=== PATIENT | male | born 1940 | race Caucasian/White ===

== ENCOUNTER 2016-09-08 05:42 | Emergency (ER) | payer MEDICARE ==
[2016-09-08 05:54] VITALS: BP 154/72; PULSE 84; RESP 16; TEMP 97.1
[2016-09-08] MEDS ORDERED: ACET/COD 300 MG/30 MG STARTER PACK 6 TAB BTL PO STA (06:02)
--- NOTE | 2016-09-08 06:03 | ED ---
General Adult HPI - General Chief complaint: Headache Stated complaint: Fever/Possible Sinus Infection Time Seen by Provider: 09/08/16 05:50 Source: patient, family, RN notes reviewed Mode of arrival: ambulatory Limitations: no limitations - History of Present Illness Initial comments: Patient is a pleasant 75-year-old male presenting to the emergency Department with upper respiratory symptoms. Symptoms started 2 days ago. Symptoms have progressed. Patient has nasal congestion and pain extending to his upper teeth. Patient also is having some headaches. Patient does have rhinorrhea. Patient has occasional cough. No dyspnea. - Related Data Home Medications Medication Instructions Recorded Confirmed Albuterol Inhaler [Ventolin Hfa 3 puff INHALATION RT-Q4H PRN 03/02/15 05/10/16 Inhaler] Beclomethasone Dipropionate [Qvar 2 puff INHALATION RT-BID 03/02/15 05/10/16 80 mcg/puff] Insulin Aspart [NovoLOG] 0 unit SQ-PUMP DIRECTED 03/02/15 05/10/16 Loperamide [Imodium] 4 mg PO QID 03/02/15 05/10/16 Cholecalciferol [Vitamin D3] 5,000 unit PO DAILY 10/08/15 05/10/16 Ferrous Sulfate [Iron (65 MG 325 mg PO BID 10/08/15 05/10/16 Elemental)] Multivitamin [Men's Multi-Vitamin] 1 tab PO DAILY 10/08/15 05/10/16 [place]-3 Fatty Acids/Fish Oil [Fish 1 cap PO DAILY 10/08/15 05/10/16 Oil 1,000 mg Softgel] Perindopril Erbumine [Aceon] 8 mg PO BID 10/08/15 05/10/16 Previous Rx's Medication Instructions Recorded Amoxicillin/Potassium Clav 1 tab PO Q12HR #14 tab 05/10/16 [Augmentin 875-125 Tablet] Fluocinonide/Emollient Base 1 applic TOPICAL TID #15 gm 05/10/16 [Fluocinonide-E 0.05% Cream] Acetaminophen-Codeine 300-30mg 1 each PO Q4H PRN #12 tablet 09/08/16 [Tylenol #3] Amoxic-Pot Clav 875-125Mg 1 tab PO Q12HR #20 tablet 09/08/16 [Augmentin 875-125] Allergies Allergy/AdvReac Type Severity Reaction Status Date / Time No Known Allergies Allergy Verified 05/10/16 10:09 Review of Systems ROS Statement: Those systems with pertinent positive or pertinent negative responses have been documented in the HPI. ROS Other: All systems not noted in ROS Statement are negative. Constitutional: Reports: fever (Up to 101.6), chills Eyes: Denies: eye pain ENT: Reports: throat pain. Denies: ear pain Respiratory: Reports: cough. Denies: dyspnea Cardiovascular: Denies: chest pain Endocrine: Denies: fatigue Gastrointestinal: Denies: abdominal pain Genitourinary: Denies: dysuria Musculoskeletal: Denies: back pain Skin: Denies: rash Neurological: Reports: headache. Denies: weakness Past Medical History Past Medical History: Asthma, Diabetes Mellitus, Hyperlipidemia, Hypertension, Osteoarthritis (OA), Pneumonia Additional Past Medical History / Comment(s): CROHNS's, GOUT,TAKES FISH OIL FOR HIS CHOLETEROL. HAS INSULIN PUMP-FILLED IT LAST ON Wednesday10-05-15 History of Any Multi-Drug Resistant Organisms: None Reported Past Surgical History: Appendectomy, Bowel Resection, Cholecystectomy, Prostate Surgery Additional Past Surgical History / Comment(s): COLONOSCOPY, FATTY TUMOR REMOVED FROM HIS BACK, RT CATARACT. Past Anesthesia/Blood Transfusion Reactions: No Reported Reaction Additional Past Anesthesia/Blood Transfusion Reaction / Comment(s): CLAUTERPHOBIA. PER PAST MEDICL HX: HAD A BLOOD TRANSFUSION 1966- REACTION WAS FACIAL SWELLING. Past Psychological History: No Psychological Hx Reported Smoking Status: Never smoker Past Alcohol Use History: None Reported Past Drug Use History: None Reported - Past Family History Mother Family Medical History: Cancer Additional Family Medical History / Comment(s): BREAST CANCER Father Family Medical History: Cancer Additional Family Medical History / Comment(s): COLON CANCER Brother(s) Family Medical History: Cancer, Prostate Disorder Additional Family Medical History / Comment(s): PROSTATE CANCER General Exam Limitations: no limitations General appearance: alert, in no apparent distress Head exam: Present: atraumatic, normocephalic, other (No temporal tenderness to palpation) Eye exam: Present: normal appearance, PERRL, EOMI ENT exam: Present: normal oropharynx Neck exam: Present: normal inspection. Absent: tenderness Respiratory exam: Present: normal lung sounds bilaterally Cardiovascular Exam: Present: regular rate, normal rhythm GI/Abdominal exam: Present: soft. Absent: tenderness Extremities exam: Present: normal inspection Neurological exam: Present: alert, CN II-XII intact. Absent: motor sensory deficit Expanded Speech: Present: fluid speech Motor strength exam: RUE: 5, LUE: 5, RLE: 5, LLE: 5 Eye Response: (4) open spontaneously Motor Response: (6) obeys commands Verbal Response: (5) oriented Psychiatric exam: Present: normal affect, normal mood Skin exam: Absent: rash Course Vital Signs 09/08/16 05:51 Temperature 97.1 F L Pulse Rate 84 Respiratory 16 Rate Blood Pressure 154/72 O2 Sat by Pulse 98 Oximetry Medical Decision Making - Medical Decision Making Patient does not feel computed tomography scan is necessary. Patient is receptive to antibiotics and discharged. Disposition Clinical Impression: Sinusitis Disposition: HOME SELF-CARE Condition: Stable Instructions: Acute Headache (ED), Sinusitis (ED) Additional Instructions: Please follow-up to primary care physician in the next day or 2 for recheck. [id number] Tylenol or Motrin if needed for fever or headache. Saline nasal spray. Return for uncontrolled fever, weakness, difficulty breathing, worsening symptoms or other concerns. Prescriptions: Acetaminophen-Codeine 300-30mg [Tylenol #3] 1 each PO Q4H PRN #12 tablet PRN Reason: Pain Amoxic-Pot Clav 875-125Mg [Augmentin 875-125] 1 tab PO Q12HR #20 tablet Referrals: Jaron Dunn MD [Primary Care Provider] - 1-2 days
== END 2016-09-08 06:23 | disposition home or self-care (01) ==
LOC: EC 05:42
DX: J32.9 Chronic sinusitis, unspecified (principal); R51 Headache; J45.909 Unspecified asthma, uncomplicated; E11.9 Type 2 diabetes mellitus without complications; E78.5 Hyperlipidemia, unspecified; I10 Essential (primary) hypertension; M10.9 Gout, unspecified; M19.90 Unspecified osteoarthritis, unspecified site; Z79.899 Other long term (current) drug therapy; Z79.51 Long term (current) use of inhaled steroids; Z87.01 Personal history of pneumonia (recurrent)
CPT/HCPCS: 99283

== ENCOUNTER → 2017-08-02 | Outpatient (CLI) | payer MEDICARE ==
[2017-08-02 12:55] LABS: ALT 24 U/L (21-72); AST 17 U/L (17-59); Albumin 3.3 g/dL (3.5-5.0); Alkaline Phosphatase 92 U/L (38-126); Anion Gap 12 mmol/L; Blood Urea Nitrogen 13 mg/dL (9-20); Calcium 8.7 mg/dL (8.4-10.2); Carbon Dioxide 27 mmol/L (22-30); Chloride 105 mmol/L (98-107); Cholesterol 114 mg/dL (<200); Glucose 258 mg/dL (74-99); HDL Cholesterol 34 mg/dL (40-60); LDL Cholesterol,Calculated 54 mg/dL (0-99); Potassium 3.5 mmol/L (3.5-5.1); Sodium 144 mmol/L (137-145); Total Bilirubin 0.4 mg/dL (0.2-1.3); Total Protein 5.8 g/dL (6.3-8.2); Triglycerides 128 mg/dL (<150)
== END | disposition home or self-care (01) ==
LOC: LABWHC1 11:53
PROVIDERS: ATTEND Internal Medicine Clinical Cardiac Electrophysiology
DX: E11.9 Type 2 diabetes mellitus without complications (principal); I48.91 Unspecified atrial fibrillation; E78.5 Hyperlipidemia, unspecified
CPT/HCPCS: 36415; 80053; 80061; 84443

== ENCOUNTER → 2018-02-23 | Outpatient (CLI) | payer MEDICARE ==
--- NOTE | 2018-02-23 16:58 | XR ---
EXAMINATION TYPE: XR chest 2V DATE OF EXAM: 02/23/2018 COMPARISON: 10/08/2015 INDICATION: Asthma TECHNIQUE: Frontal and lateral views of the chest are obtained. FINDINGS: The heart size is normal. The pulmonary vasculature is normal. The lungs are clear. IMPRESSION: 1. No acute pulmonary process.
== END | disposition home or self-care (01) ==
LOC: RADXRMAIN 11:11
PROVIDERS: ATTEND Internal Medicine Critical Care Medicine
DX: J45.901 Unspecified asthma with (acute) exacerbation (principal)
CPT/HCPCS: 71046

== ENCOUNTER → 2018-02-23 | Outpatient (CLI) | payer MEDICARE ==
[2018-02-23 11:09] LABS: HCT 38.8 % (39.0-53.0); HGB 11.7 gm/dL (13.0-17.5); Hypochromasia Slight; MCH 25.4 pg (25.0-35.0); MCHC 30.2 g/dL (31.0-37.0); MCV 84.2 fL (80.0-100.0); Platelet Count 342 k/uL (150-450); RBC 4.61 m/uL (4.30-5.90); RDW 14.4 % (11.5-15.5); WBC 8.4 k/uL (3.8-10.6)
== END | disposition home or self-care (01) ==
LOC: LABWHC1 10:46
PROVIDERS: ATTEND Internal Medicine Critical Care Medicine
DX: J45.901 Unspecified asthma with (acute) exacerbation (principal)
CPT/HCPCS: 36415; 82785; 85027

== ENCOUNTER → 2020-01-12 | Outpatient (CLI) | payer MEDICARE ==
--- NOTE | 2020-01-12 12:25 | XR ---
EXAMINATION TYPE: XR hand limited RT DATE OF EXAM: 01/12/2020 COMPARISON: None HISTORY: Thumb pain arthritis TECHNIQUE: Three-view right hand FINDINGS: No acute fractures or dislocations are evident. Joint spaces appear preserved. Significant joint loss of the thumb is not evident. There is a radiopaque foreign body within the soft tissues of the proximal ulnar aspect of the index finger. IMPRESSION: 1. No acute osseous abnormality. 2. Significant degenerative joint changes are not evident. 3. Radiopaque foreign body proximal index finger.
== END | disposition home or self-care (01) ==
LOC: RADXRMAIN 11:58
PROVIDERS: ATTEND Family Medicine
DX: S50.851A Superficial foreign body of right forearm, initial encounter (principal); M19.041 Primary osteoarthritis, right hand

== ENCOUNTER 2020-07-04 15:25 | Emergency (ER) | payer MEDICARE ==
[2020-07-04 15:30] VITALS: BP 198/83; PULSE 81; TEMP 99.7
[2020-07-04] MEDS ORDERED: ACETAMINOPHEN TAB 500 MG TAB PO STA (15:34)
--- NOTE | 2020-07-04 15:53 | ED ---
General Adult HPI - General Chief complaint: Fever Stated complaint: Fever/cough/body aches Time Seen by Provider: 07/04/20 15:31 Source: patient Mode of arrival: ambulatory Limitations: no limitations - History of Present Illness Initial comments: Dictation was produced using [employer] dictation software. please excuse any grammatical, word or spelling errors. This patient was cared for during a federal and state declared state of emergency secondary to Covid 19 Chief Complaint: 79-year-old male past focal history of asthma, diabetes, dyslipidemia hypertension presents with URI-type symptoms. History of Present Illness: 79-year-old male he is here in emergency department because he feels he might have Covid 19. Patient states he lives at home. He does go out about to the shopping center as a grocery stores. He otherwise has not been exposed to anybody with coronavirus. Patient over the last 2 days developed fever, cough, congestion and myalgias. Denies any anosmia. Denies any shortness of breath. Patient states he's otherwise feeling well. Patient has a history of asthma. He takes an inhaler. The ROS documented in this emergency department record has been reviewed and confirmed by me. Those systems with pertinent positive or negative responses have been documented in the HPI. All other systems are other negative and/or noncontributory. PHYSICAL EXAM: General Impression: Alert and oriented x3, not in acute distress HEENT: Normocephalic atraumatic, extra-ocular movements intact, pupils equal and reactive to light bilaterally, mucous membranes moist. Cardiovascular: Heart regular rate and rhythm Chest: Able to complete full sentences, no retractions, no tachypnea Abdomen: abdomen soft, non-tender, non-distended, no organomegaly Musculoskeletal: Pulses present and equal in all extremities, no peripheral edema Motor: no focal deficits noted Neurological: CN II-XII grossly intact, no focal motor or sensory deficits noted Skin: Intact with no visualized rashes Psych: Normal affect and mood ED course: 79-year-old male with past medical history of asthma since the emergency Department with fever, cough, congestion 2 days.. Signs upon arrival shows temperature 99.7, rest of vital signs within acceptable limits. Patient is not hypoxic at bedside. He is not showing signs of respiratory distress. Laboratory evaluation obtained. CBC, coag panel, metabolic panel is unremarkable except for glucose of 40. Patient has insulin pump. His glucose is low because he hasn't been all day. Given dextrose and oral intake. Patient rotavirus positive. Chest x-ray is nonacute. Patient stable for discharge. Return parameters discussed. EKG interpretation: Ventricular rate, sinus rhythm,. 184, QRS 100, QTC 451. No W[place] prolongation, no QTC prolongation, no ST or T-wave changes noted.. Overall, this EKG is unremarkable - Related Data Home Medications Medication Instructions Recorded Confirmed Beclomethasone Dipropionate [Qvar 2 puff INHALATION RT-BID 03/02/15 07/04/20 80 mcg/puff] Insulin Aspart [NovoLOG] 0.01 unit SQ-PUMP CONTINUOUS 03/02/15 07/04/20 Loperamide [Imodium] 4 mg PO QID 03/02/15 07/04/20 Ferrous Sulfate [Iron (65 MG 325 mg PO BID 10/08/15 07/04/20 Elemental)] Multivitamin [Men's Multi-Vitamin] 1 tab PO DAILY 10/08/15 07/04/20 Albuterol Sulfate [Proair Hfa] 1 - 2 puff INHALATION RT-QID PRN 07/04/20 07/04/20 Carvedilol [Coreg] 6.25 mg PO BID 07/04/20 07/04/20 Donepezil HCl [Aricept] 5 mg PO DAILY 07/04/20 07/04/20 Irbesartan [Avapro] 150 mg PO DAILY 07/04/20 07/04/20 Magnesium Citrate 125 mg PO DAILY 07/04/20 07/04/20 [place]-3 Fatty Acids/Fish Oil 1 cap PO DAILY 07/04/20 07/04/20 [[place]-3 Fish Oil 1,200 mg Sfgl] Tamsulosin HCl [Flomax] 0.4 mg PO BID 07/04/20 07/04/20 amLODIPine [Norvasc] 2.5 mg PO DAILY 07/04/20 07/04/20 Allergies Allergy/AdvReac Type Severity Reaction Status Date / Time No Known Allergies Allergy Verified 07/04/20 16:59 Review of Systems ROS Statement: Those systems with pertinent positive or pertinent negative responses have been documented in the HPI. ROS Other: All systems not noted in ROS Statement are negative. Past Medical History Past Medical History: Asthma, Diabetes Mellitus, Hyperlipidemia, Hypertension, Osteoarthritis (OA), Pneumonia Additional Past Medical History / Comment(s): CROHNS's, GOUT,TAKES FISH OIL FOR HIS CHOLETEROL. HAS INSULIN PUMP-FILLED IT LAST ON Wednesday10-05-15 History of Any Multi-Drug Resistant Organisms: None Reported Past Surgical History: Appendectomy, Bowel Resection, Cholecystectomy, Prostate Surgery Additional Past Surgical History / Comment(s): COLONOSCOPY, FATTY TUMOR REMOVED FROM HIS BACK, RT CATARACT. Past Anesthesia/Blood Transfusion Reactions: No Reported Reaction Additional Past Anesthesia/Blood Transfusion Reaction / Comment(s): CLAUTERPHOBIA. PER PAST MEDICL HX: HAD A BLOOD TRANSFUSION 1966- REACTION WAS FACIAL SWELLING. Past Psychological History: No Psychological Hx Reported Smoking Status: Never smoker Past Alcohol Use History: None Reported Past Drug Use History: None Reported - Past Family History Mother Family Medical History: Cancer Additional Family Medical History / Comment(s): BREAST CANCER Father Family Medical History: Cancer Additional Family Medical History / Comment(s): COLON CANCER Brother(s) Family Medical History: Cancer, Prostate Disorder Additional Family Medical History / Comment(s): PROSTATE CANCER General Exam Limitations: no limitations Course Vital Signs 07/04/20 15:26 Temperature 99.7 F H Pulse Rate 81 Respiratory 22 Rate Blood Pressure 198/83 O2 Sat by Pulse 97 Oximetry Medical Decision Making - Lab Data Result diagrams: 07/04/20 16:35 07/04/20 16:35 Lab Results 07/04/20 07/04/20 07/04/20 Range/Units 16:35 16:35 16:35 WBC 5.3 (3.8-10.6) k/uL RBC 4.81 (4.30-5.90) m/uL Hgb 12.1 L (13.0-17.5) gm/dL Hct 37.0 L (39.0-53.0) % MCV 76.8 L (80.0-100.0) fL MCH 25.2 (25.0-35.0) pg MCHC 32.8 (31.0-37.0) g/dL RDW 15.4 (11.5-15.5) % Plt Count 242 (150-450) k/uL MPV 6.9 Neutrophils % 65 % Lymphocytes % 20 % Monocytes % 12 % Eosinophils % 0 % Basophils % 2 % Neutrophils # 3.4 (1.3-7.7) k/uL Lymphocytes # 1.0 (1.0-4.8) k/uL Monocytes # 0.6 (0-1.0) k/uL Eosinophils # 0.0 (0-0.7) k/uL Basophils # 0.1 (0-0.2) k/uL Microcytosis Slight PT 11.3 (9.0-12.0) sec INR 1.1 (<1.2) APTT 24.7 (22.0-30.0) sec Sodium 141 (137-145) mmol/L Potassium 3.5 (3.5-5.1) mmol/L Chloride 108 H (98-107) mmol/L Carbon Dioxide 27 (22-30) mmol/L Anion Gap 6 mmol/L BUN 13 (9-20) mg/dL Creatinine 0.84 (0.66-1.25) mg/dL Est GFR (CKD-EPI)AfAm >90 (>60 ml/min/1.73 sqM) Est GFR (CKD-EPI)NonAf 82 (>60 ml/min/1.73 sqM) Glucose 40 L* (74-99) mg/dL POC Glucose (mg/dL) (75-99) mg/dL POC Glu Fowl Blood Tester ID Plasma Lactic Acid [place] (0.7-2.0) mmol/L Calcium 8.2 L (8.4-10.2) mg/dL Magnesium 2.0 (1.6-2.3) mg/dL Total Bilirubin 0.4 (0.2-1.3) mg/dL AST 38 (17-59) U/L ALT 57 H (4-49) U/L Alkaline Phosphatase 111 (38-126) U/L Lactate Dehydrogenase 392 (313-618) U/L C-Reactive Protein 20.1 H (<10.0) mg/L Total Protein 6.0 L (6.3-8.2) g/dL Albumin 3.3 L (3.5-5.0) g/dL Coronavirus (PCR) (Not Detectd) 07/04/20 07/04/20 07/04/20 Range/Units 16:35 16:35 17:50 WBC (3.8-10.6) k/uL RBC (4.30-5.90) m/uL Hgb (13.0-17.5) gm/dL Hct (39.0-53.0) % MCV (80.0-100.0) fL MCH (25.0-35.0) pg MCHC (31.0-37.0) g/dL RDW (11.5-15.5) % Plt Count (150-450) k/uL MPV Neutrophils % % Lymphocytes % % Monocytes % % Eosinophils % % Basophils % % Neutrophils # (1.3-7.7) k/uL Lymphocytes # (1.0-4.8) k/uL Monocytes # (0-1.0) k/uL Eosinophils # (0-0.7) k/uL Basophils # (0-0.2) k/uL Microcytosis PT (9.0-12.0) sec INR (<1.2) APTT (22.0-30.0) sec Sodium (137-145) mmol/L Potassium (3.5-5.1) mmol/L Chloride (98-107) mmol/L Carbon Dioxide (22-30) mmol/L Anion Gap mmol/L BUN (9-20) mg/dL Creatinine (0.66-1.25) mg/dL Est GFR (CKD-EPI)AfAm (>60 ml/min/1.73 sqM) Est GFR (CKD-EPI)NonAf (>60 ml/min/1.73 sqM) Glucose (74-99) mg/dL POC Glucose (mg/dL) 282 H (75-99) mg/dL POC Glu Fowl Blood Tester ID Yenny Wheeler Plasma Lactic Acid [place] 1.0 (0.7-2.0) mmol/L Calcium (8.4-10.2) mg/dL Magnesium (1.6-2.3) mg/dL Total Bilirubin (0.2-1.3) mg/dL AST (17-59) U/L ALT (4-49) U/L Alkaline Phosphatase (38-126) U/L Lactate Dehydrogenase (313-618) U/L C-Reactive Protein (<10.0) mg/L Total Protein (6.3-8.2) g/dL Albumin (3.5-5.0) g/dL Coronavirus (PCR) Detected A (Not Detectd) Disposition Clinical Impression: COVID-19 Disposition: HOME SELF-CARE Condition: Good Instructions (If sedation given, give patient instructions): Fever in Adults (E D), Viral Pneumonia (ED) Additional Instructions: Today you were evaluated for symptoms consistent with upper respiratory infection. There is concern that perhaps your symptomatology may represent Covid 19. Your are stable for discharge, however it is instructed to to seek immediate medical attention especially if you develop worsening symptoms especially respiratory distress. In the meantime please remain in quarantine for 14 days. For any other questions please contact Steve for here in emergency department or [facility] at [phone] Is patient prescribed a controlled substance at d/c from ED?: No Referrals: Nilo Ambrosio DO [Primary Care Provider] - 1-2 days Time of Disposition: 18:10
[2020-07-04 16:41] LABS: Basophils # (A) 0.1 k/uL (0-0.2); Basophils % (A) 2 %; Eosinophils % (A) 0 %; HGB 12.1 gm/dL (13.0-17.5); Lymphocytes % (A) 20 %; MCH 25.2 pg (25.0-35.0); MCHC 32.8 g/dL (31.0-37.0); MCV 76.8 fL (80.0-100.0); Mean Platelet Volume 6.9; Microcytosis Slight; Monocytes # (A) 0.6 k/uL (0-1.0); Monocytes % (A) 12 %; Neutrophils # (A) 3.4 k/uL (1.3-7.7); Neutrophils % (A) 65 %; Platelet Count 242 k/uL (150-450); RBC 4.81 m/uL (4.30-5.90); RDW 15.4 % (11.5-15.5); WBC 5.3 k/uL (3.8-10.6)
[2020-07-04 16:53] LABS: ALT 57 U/L (4-49); AST 38 U/L (17-59); African American GFR (CKD) >90 (>60 ml/min/1.73 sqM); Albumin 3.3 g/dL (3.5-5.0); Alkaline Phosphatase 111 U/L (38-126); Anion Gap 6 mmol/L; Blood Urea Nitrogen 13 mg/dL (9-20); C Reactive Protein 20.1 mg/L (<10.0); Calcium 8.2 mg/dL (8.4-10.2); Carbon Dioxide 27 mmol/L (22-30); Chloride 108 mmol/L (98-107); LDH 392 U/L (313-618); Non-African American GFR(CKD) 82 (>60 ml/min/1.73 sqM); Potassium 3.5 mmol/L (3.5-5.1); Sodium 141 mmol/L (137-145); Total Bilirubin 0.4 mg/dL (0.2-1.3)
[2020-07-04 16:55] LABS: INR 1.1 (<1.2); Partial Thromboplastin Time 24.7 sec (22.0-30.0); Prothrombin Time 11.3 sec (9.0-12.0)
[2020-07-04] MEDS ORDERED: DEXAMETHASONE SOD PHOSPHATE 10 MG/ML 1 ML VIAL IV STA (17:07)
[2020-07-04 17:09] LABS: Glucose 40 mg/dL (74-99)
--- NOTE | 2020-07-04 17:18 | XR ---
EXAMINATION TYPE: XR chest 1V portable DATE OF EXAM: 07/04/2020 Comparison: 02/23/2018 Clinical History: 79-year-old male shortness of breath Suspected COVID-19 pneumonia Findings: Heart borderline enlarged. Aorta and pulmonary vasculature within normal limits. Mild interstitial pr ominence is unchanged. No nargis consolidation or pleural effusion at this time. Impression: Borderline heart size. No focal infiltrate seen at this time.
[2020-07-04] MEDS: DEXTROSE 50% SYRINGE 50 ML IVP STA ×2 (17:45→18:28)
[2020-07-04 17:51] LABS: Glucose,Whole Blood 282 mg/dL (75-99)
[2020-07-04] MEDS ORDERED: DEXAMETHASONE SOD PHOSPHATE 10 MG/ML 1 ML VIAL IM STA (18:30)
[2020-07-04 18:37] VITALS: RESP 18
[2020-07-05 02:21] LABS: Ferritin 44.2 ng/mL (22.0-322.0)
== END 2020-07-04 18:37 | disposition home or self-care (01) ==
LOC: EC 15:25
DX: U07.1 COVID-19 (principal); J45.909 Unspecified asthma, uncomplicated; E11.9 Type 2 diabetes mellitus without complications; E78.5 Hyperlipidemia, unspecified; I10 Essential (primary) hypertension; M19.90 Unspecified osteoarthritis, unspecified site; M10.9 Gout, unspecified; Z79.51 Long term (current) use of inhaled steroids; Z79.899 Other long term (current) drug therapy; Z79.4 Long term (current) use of insulin; Z90.49 Acquired absence of other specified parts of digestive tract; Z98.890 Other specified postprocedural states
CPT/HCPCS: 36415; 93005; 80053; 82728; 83605; 83615; 83735; 85025; 85610; 85730; 86140; 87040; 84145; 87635; 71045; 99284; 96374; 96372; J1100

== ENCOUNTER 2020-07-08 22:03 | Emergency (ER) | payer MEDICARE ==
[2020-07-08 22:10] VITALS: RESP 18; TEMP 98.8
[2020-07-08 22:34] LABS: Glucose,Whole Blood 79 mg/dL (75-99)
--- NOTE | 2020-07-08 22:54 | XR ---
EXAMINATION TYPE: XR chest 1V portable DATE OF EXAM: 07/08/2020 COMPARISON: 07/04/2020 HISTORY: Fever TECHNIQUE: FINDINGS: Heart and mediastinum are normal. Lungs are clear. Costophrenic angles are clear. There are no hilar masses. IMPRESSION: No active cardiopulmonary disease. No change.
--- NOTE | 2020-07-08 22:54 | ED ---
General Adult HPI - General Chief complaint: Recheck/Abnormal Lab/Rx Stated complaint: COVID+,Fever Time Seen by Provider: 07/08/20 22:11 Source: patient, RN notes reviewed Mode of arrival: ambulatory Limitations: no limitations - History of Present Illness Initial comments: 79-year-old male presents to the emergency room for a chief complaint of fever. Patient reports he was diagnosed with COVID 5 days ago. Patient reports that he had fevers at that time which is why they tested him. Patient reports he was starting to feel better and did not have any fevers over the weekend. However today he checked his temperature and it was 100.5. Patient did not take anything for this and now has a temperature of 98.8 in the emergency room. He denies any symptoms whatsoever. Denies shortness of breath chest pain or body aches. States he only came back because they told her if there are any changes he needed to be seen immediately and since his fever returned he thought he should come in for evaluation.Patient has no other complaints at this time including shortness of breath, chest pain, abdominal pain, nausea or vomiting, headache, or visual changes. - Related Data Home Medications Medication Instructions Recorded Confirmed Beclomethasone Dipropionate [Qvar 2 puff INHALATION RT-BID 03/02/15 07/04/20 80 mcg/puff] Insulin Aspart [NovoLOG] 0.01 unit SQ-PUMP CONTINUOUS 03/02/15 07/04/20 Loperamide [Imodium] 4 mg PO QID 03/02/15 07/04/20 Ferrous Sulfate [Iron (65 MG 325 mg PO BID 10/08/15 07/04/20 Elemental)] Multivitamin [Men's Multi-Vitamin] 1 tab PO DAILY 10/08/15 07/04/20 Albuterol Sulfate [Proair Hfa] 1 - 2 puff INHALATION RT-QID PRN 07/04/20 07/04/20 Carvedilol [Coreg] 6.25 mg PO BID 07/04/20 07/04/20 Donepezil HCl [Aricept] 5 mg PO DAILY 07/04/20 07/04/20 Irbesartan [Avapro] 150 mg PO DAILY 07/04/20 07/04/20 Magnesium Citrate 125 mg PO DAILY 07/04/20 07/04/20 [place]-3 Fatty Acids/Fish Oil 1 cap PO DAILY 07/04/20 07/04/20 [[place]-3 Fish Oil 1,200 mg Sfgl] Tamsulosin HCl [Flomax] 0.4 mg PO BID 07/04/20 07/04/20 amLODIPine [Norvasc] 2.5 mg PO DAILY 07/04/20 07/04/20 Allergies Allergy/AdvReac Type Severity Reaction Status Date / Time No Known Allergies Allergy Verified 07/08/20 22:10 Review of Systems ROS Statement: Those systems with pertinent positive or pertinent negative responses have been documented in the HPI. ROS Other: All systems not noted in ROS Statement are negative. Past Medical History Past Medical History: Asthma, Diabetes Mellitus, Hyperlipidemia, Hypertension, Osteoarthritis (OA), Pneumonia Additional Past Medical History / Comment(s): CROHNS's, GOUT,TAKES FISH OIL FOR HIS CHOLETEROL. HAS INSULIN PUMP-FILLED IT LAST ON Wednesday10-05-15 History of Any Multi-Drug Resistant Organisms: None Reported Past Surgical History: Appendectomy, Bowel Resection, Cholecystectomy, Prostate Surgery Additional Past Surgical History / Comment(s): COLONOSCOPY, FATTY TUMOR REMOVED FROM HIS BACK, RT CATARACT. Past Anesthesia/Blood Transfusion Reactions: No Reported Reaction Additional Past Anesthesia/Blood Transfusion Reaction / Comment(s): CLAUTERPHOBIA. PER PAST MEDICL HX: HAD A BLOOD TRANSFUSION 1966- REACTION WAS FACIAL SWELLING. Past Psychological History: No Psychological Hx Reported Smoking Status: Never smoker Past Alcohol Use History: None Reported Past Drug Use History: None Reported - Past Family History Mother Family Medical History: Cancer Additional Family Medical History / Comment(s): BREAST CANCER Father Family Medical History: Cancer Additional Family Medical History / Comment(s): COLON CANCER Brother(s) Family Medical History: Cancer, Prostate Disorder Additional Family Medical History / Comment(s): PROSTATE CANCER General Exam Limitations: no limitations General appearance: alert Head exam: Present: atraumatic, normal inspection Eye exam: Present: normal appearance, PERRL, EOMI. Absent: scleral icterus ENT exam: Present: normal exam, mucous membranes moist Neck exam: Present: normal inspection, full ROM. Absent: tenderness, meningismus, lymphadenopathy Respiratory exam: Present: normal lung sounds bilaterally. Absent: respiratory distress, wheezes Cardiovascular Exam: Present: regular rate, normal rhythm, normal heart sounds GI/Abdominal exam: Present: soft, normal bowel sounds. Absent: distended, tenderness, guarding, rebound, rigid Neurological exam: Present: alert Course Vital Signs 07/08/20 22:08 Temperature 98.8 F Pulse Rate 85 Respiratory 18 Rate Blood Pressure 172/87 O2 Sat by Pulse 98 Oximetry Medical Decision Making - Medical Decision Making Vitals are stable. Patient is afebrile. Heart rate is normal. He has no complaints at this time. Chest x-ray shows no pneumonia. At this time patient can be discharged home to follow-up with his doctor. If he has any worsening symptoms he can return to the emergency room. - Lab Data Lab Results 07/08/20 Range/Units 22:32 POC Glucose (mg/dL) 79 (75-99) mg/dL POC Glu Design Technology Professor ID Radha Kolb Disposition Clinical Impression: COVID-19, History of fever Disposition: HOME SELF-CARE Condition: Good Instructions (If sedation given, give patient instructions): Upper Respiratory Infection (ED) Additional Instructions: Please follow-up with your doctor in one to 2 days. In the meantime take Motrin and Tylenol for any fevers. If you start to have shortness of breath or any other worsening symptoms return to the emergency room. Is patient prescribed a controlled substance at d/c from ED?: No Referrals: Nilo Ambrosio DO [Primary Care Provider] - 1-2 days Time of Disposition: 23:06
[2020-07-08 23:25] VITALS: BP 146/89; PULSE 81
== END 2020-07-08 23:25 | disposition home or self-care (01) ==
LOC: EC 22:03
DX: U07.1 COVID-19 (principal); E11.9 Type 2 diabetes mellitus without complications; J45.909 Unspecified asthma, uncomplicated; I10 Essential (primary) hypertension; E78.5 Hyperlipidemia, unspecified; Z79.4 Long term (current) use of insulin; Z79.51 Long term (current) use of inhaled steroids; Z79.02 Long term (current) use of antithrombotics/antiplatelets; Z79.899 Other long term (current) drug therapy; Z96.41 Presence of insulin pump (external) (internal)
CPT/HCPCS: 36415; 71045; 99283

== ENCOUNTER 2020-07-11 16:37 | Emergency (ER) | payer MEDICARE ==
[2020-07-11 17:03] VITALS: BP 132/70; PULSE 59; RESP 18; TEMP 98.3
[2020-07-11] MEDS ORDERED: IBUPROFEN 600 MG TAB PO STA (17:57)
[2020-07-11] MEDS ORDERED: ONDANSETRON 4 MG/2 ML VIAL IVP STA (17:57)
--- NOTE | 2020-07-11 18:12 | ED ---
General Adult HPI - General Chief complaint: Recheck/Abnormal Lab/Rx Stated complaint: Covid +, weakness Time Seen by Provider: 07/11/20 17:34 Source: patient Mode of arrival: wheelchair Limitations: no limitations - History of Present Illness Initial comments: 79-year-old male with a past medical history of asthma, diabetes mellitus, hyperlipidemia, hypertension, Crohn's presents to the emergency room for a chief complaint of fever. Patient reports that he was diagnosed on the seventh with Covid. Patient states that since that time he has had intermittent fevers. States she was doing fine until today fever of 100.0 return. He did take Tylenol and states he could not stop sweating afterwards. Patient states he has felt very weak and lightheaded. States that he is also having nausea however has not vomited. Patient denies chest pain. He does admit to mild shortness of breath. Note, patient's nephew recently from Covid and patient states that he was told he did not seek help soon enough. Patient has no other complaints at this time including chest pain, abdominal pain, headache, or visual changes. - Related Data Home Medications Medication Instructions Recorded Confirmed Beclomethasone Dipropionate [Qvar 2 puff INHALATION RT-BID 03/02/15 07/04/20 80 mcg/puff] Insulin Aspart [NovoLOG] 0.01 unit SQ-PUMP CONTINUOUS 03/02/15 07/04/20 Loperamide [Imodium] 4 mg PO QID 03/02/15 07/04/20 Ferrous Sulfate [Iron (65 MG 325 mg PO BID 10/08/15 07/04/20 Elemental)] Multivitamin [Men's Multi-Vitamin] 1 tab PO DAILY 10/08/15 07/04/20 Albuterol Sulfate [Proair Hfa] 1 - 2 puff INHALATION RT-QID PRN 07/04/20 07/04/20 Carvedilol [Coreg] 6.25 mg PO BID 07/04/20 07/04/20 Donepezil HCl [Aricept] 5 mg PO DAILY 07/04/20 07/04/20 Irbesartan [Avapro] 150 mg PO DAILY 07/04/20 07/04/20 Magnesium Citrate 125 mg PO DAILY 07/04/20 07/04/20 [place]-3 Fatty Acids/Fish Oil 1 cap PO DAILY 07/04/20 07/04/20 [[place]-3 Fish Oil 1,200 mg Sfgl] Tamsulosin HCl [Flomax] 0.4 mg PO BID 07/04/20 07/04/20 amLODIPine [Norvasc] 2.5 mg PO DAILY 07/04/20 07/04/20 Allergies Allergy/AdvReac Type Severity Reaction Status Date / Time No Known Allergies Allergy Verified 07/11/20 17:03 Review of Systems ROS Statement: Those systems with pertinent positive or pertinent negative responses have been documented in the HPI. ROS Other: All systems not noted in ROS Statement are negative. Past Medical History Past Medical History: Asthma, Diabetes Mellitus, Hyperlipidemia, Hypertension, Osteoarthritis (OA), Pneumonia Additional Past Medical History / Comment(s): CROHNS's, GOUT,TAKES FISH OIL FOR HIS CHOLETEROL. HAS INSULIN PUMP-FILLED IT LAST ON Wednesday10-05-15 History of Any Multi-Drug Resistant Organisms: None Reported Past Surgical History: Appendectomy, Bowel Resection, Cholecystectomy, Prostate Surgery Additional Past Surgical History / Comment(s): COLONOSCOPY, FATTY TUMOR REMOVED FROM HIS BACK, RT CATARACT. Past Anesthesia/Blood Transfusion Reactions: No Reported Reaction Additional Past Anesthesia/Blood Transfusion Reaction / Comment(s): CLAUTERPHOBIA. PER PAST MEDICL HX: HAD A BLOOD TRANSFUSION 1966- REACTION WAS FACIAL SWELLING. Past Psychological History: No Psychological Hx Reported Smoking Status: Never smoker Past Alcohol Use History: None Reported Past Drug Use History: None Reported - Past Family History Mother Family Medical History: Cancer Additional Family Medical History / Comment(s): BREAST CANCER Father Family Medical History: Cancer Additional Family Medical History / Comment(s): COLON CANCER Brother(s) Family Medical History: Cancer, Prostate Disorder Additional Family Medical History / Comment(s): PROSTATE CANCER General Exam Limitations: no limitations General appearance: alert Head exam: Present: atraumatic, normal inspection Eye exam: Present: normal appearance, PERRL, EOMI. Absent: scleral icterus ENT exam: Present: normal exam, mucous membranes moist Neck exam: Present: normal inspection, full ROM. Absent: tenderness, meningismus, lymphadenopathy Respiratory exam: Present: normal lung sounds bilaterally. Absent: respiratory distress, wheezes, rales, rhonchi, stridor Cardiovascular Exam: Present: regular rate, normal rhythm, normal heart sounds. Absent: bradycardia, tachycardia, irregular rhythm GI/Abdominal exam: Present: soft, normal bowel sounds. Absent: distended, tenderness, guarding, rebound, rigid Neurological exam: Present: alert Course Vital Signs 07/11/20 16:59 Temperature 98.3 F Pulse Rate 59 L Respiratory 18 Rate Blood Pressure 132/70 O2 Sat by Pulse 98 Oximetry EKG Findings - EKG Comments: EKG Findings:: Sinus bradycardia, ventricular rate 57, ND interval 172, QTC 438 Medical Decision Making - Medical Decision Making Vitals are stable. Patient is well appearing. After Motrin patient felt much better. CBC was obtained which was unremarkable. CMP is unremarkable there is some evidence of dehydration patient was given fluids. Glucose of 66, patient was given juice and this did increase to 77. CRP did increase from 20-58.8. However troponin and d-dimer are within normal limits. I discussed admission versus discharge with patient. Patient does feel comfortable going home as his vitals are stable. He is agreeable to returning for any worsening symptoms. I discussed this case with attending Dr. Polanco who agrees with this assessment and treatment plan. - Lab Data Result diagrams: 07/11/20 18:46 07/11/20 18:46 Lab Results 07/11/20 07/11/20 07/11/20 Range/Units 18:46 18:46 18:46 WBC 3.9 (3.8-10.6) k/uL RBC 5.35 (4.30-5.90) m/uL Hgb 12.6 L (13.0-17.5) gm/dL Hct 41.6 (39.0-53.0) % MCV 77.7 L (80.0-100.0) fL MCH 23.5 L (25.0-35.0) pg MCHC 30.2 L (31.0-37.0) g/dL RDW 15.2 (11.5-15.5) % Plt Count 174 (150-450) k/uL MPV 7.5 Neutrophils % 64 % Lymphocytes % 24 % Monocytes % 9 % Eosinophils % 0 % Basophils % 0 % Neutrophils # 2.5 (1.3-7.7) k/uL Lymphocytes # 1.0 (1.0-4.8) k/uL Monocytes # 0.4 (0-1.0) k/uL Eosinophils # 0.0 (0-0.7) k/uL Basophils # 0.0 (0-0.2) k/uL Hypochromasia Slight Microcytosis Slight PT 10.6 (9.0-12.0) sec INR 1.0 (<1.2) APTT 25.8 (22.0-30.0) sec D-Dimer 0.23 (<0.60) mg/L FEU Sodium 137 (137-145) mmol/L Potassium 4.2 (3.5-5.1) mmol/L Chloride 104 (98-107) mmol/L Carbon Dioxide 26 (22-30) mmol/L Anion Gap 7 mmol/L BUN 22 H (9-20) mg/dL Creatinine 1.00 (0.66-1.25) mg/dL Est GFR (CKD-EPI)AfAm 81 (>60 ml/min/1.73 sqM) Est GFR (CKD-EPI)NonAf 70 (>60 ml/min/1.73 sqM) Glucose 66 L (74-99) mg/dL POC Glucose (mg/dL) (75-99) mg/dL POC Glu Meat Hostess ID Plasma Lactic Acid [place] (0.7-2.0) mmol/L Calcium 7.9 L (8.4-10.2) mg/dL Magnesium 2.5 H (1.6-2.3) mg/dL Total Bilirubin 0.4 (0.2-1.3) mg/dL AST 31 (17-59) U/L ALT 25 (4-49) U/L Alkaline Phosphatase 91 (38-126) U/L Lactate Dehydrogenase 495 (313-618) U/L Troponin I (0.000-0.034) ng/mL C-Reactive Protein 58.8 H (<10.0) mg/L Total Protein 5.9 L (6.3-8.2) g/dL Albumin 3.1 L (3.5-5.0) g/dL 07/11/20 07/11/20 07/11/20 Range/Units 18:46 18:46 19:44 WBC (3.8-10.6) k/uL RBC (4.30-5.90) m/uL Hgb (13.0-17.5) gm/dL Hct (39.0-53.0) % MCV (80.0-100.0) fL MCH (25.0-35.0) pg MCHC (31.0-37.0) g/dL RDW (11.5-15.5) % Plt Count (150-450) k/uL MPV Neutrophils % % Lymphocytes % % Monocytes % % Eosinophils % % Basophils % % Neutrophils # (1.3-7.7) k/uL Lymphocytes # (1.0-4.8) k/uL Monocytes # (0-1.0) k/uL Eosinophils # (0-0.7) k/uL Basophils # (0-0.2) k/uL Hypochromasia Microcytosis PT (9.0-12.0) sec INR (<1.2) APTT (22.0-30.0) sec D-Dimer (<0.60) mg/L FEU Sodium (137-145) mmol/L Potassium (3.5-5.1) mmol/L Chloride (98-107) mmol/L Carbon Dioxide (22-30) mmol/L Anion Gap mmol/L BUN (9-20) mg/dL Creatinine (0.66-1.25) mg/dL Est GFR (CKD-EPI)AfAm (>60 ml/min/1.73 sqM) Est GFR (CKD-EPI)NonAf (>60 ml/min/1.73 sqM) Glucose (74-99) mg/dL POC Glucose (mg/dL) 77 (75-99) mg/dL POC Glu Meat Hostess ID Yenny Wheeler Plasma Lactic Acid [place] 1.3 (0.7-2.0) mmol/L Calcium (8.4-10.2) mg/dL Magnesium (1.6-2.3) mg/dL Total Bilirubin (0.2-1.3) mg/dL AST (17-59) U/L ALT (4-49) U/L Alkaline Phosphatase (38-126) U/L Lactate Dehydrogenase (313-618) U/L Troponin I <0.012 (0.000-0.034) ng/mL C-Reactive Protein (<10.0) mg/L Total Protein (6.3-8.2) g/dL Albumin (3.5-5.0) g/dL Disposition Clinical Impression: COVID-19 Disposition: HOME SELF-CARE Condition: Good Instructions (If sedation given, give patient instructions): Upper Respiratory Infection (ED) Additional Instructions: Please follow-up with your doctor. Return to the emergency room for any worsening symptoms. Is patient prescribed a controlled substance at d/c from ED?: No Referrals: Nilo Ambrosio DO [Primary Care Provider] - 1-2 days Time of Disposition: 20:46
--- NOTE | 2020-07-11 18:24 | XR ---
EXAMINATION TYPE: XR chest 1V portable DATE OF EXAM: 07/11/2020 COMPARISON: 07/08/2020. HISTORY: Fever. TECHNIQUE: Single frontal view of the chest is obtained. FINDINGS: There is no focal air space opacity, pleural effusion, or pneumothorax seen. The cardiac silhouette size is within normal limits. The osseous structures are intact. IMPRESSION: No acute process.
[2020-07-11] MEDS ORDERED: SODIUM CHLORIDE 0.9% 500 ML 500 ML IV STA (18:43)
[2020-07-11 19:04] LABS: Basophils % (A) 0 %; Eosinophils % (A) 0 %; HCT 41.6 % (39.0-53.0); HGB 12.6 gm/dL (13.0-17.5); Hypochromasia Slight; Lymphocytes % (A) 24 %; MCH 23.5 pg (25.0-35.0); MCHC 30.2 g/dL (31.0-37.0); MCV 77.7 fL (80.0-100.0); Mean Platelet Volume 7.5; Microcytosis Slight; Monocytes # (A) 0.4 k/uL (0-1.0); Monocytes % (A) 9 %; Neutrophils # (A) 2.5 k/uL (1.3-7.7); Neutrophils % (A) 64 %; Platelet Count 174 k/uL (150-450); RBC 5.35 m/uL (4.30-5.90); RDW 15.2 % (11.5-15.5); WBC 3.9 k/uL (3.8-10.6)
[2020-07-11 19:11] LABS: Albumin 3.1 g/dL (3.5-5.0); C Reactive Protein 58.8 mg/L (<10.0); Calcium 7.9 mg/dL (8.4-10.2); D-Dimer 0.23 mg/L FEU (<0.60); Magnesium 2.5 mg/dL (1.6-2.3); Partial Thromboplastin Time 25.8 sec (22.0-30.0); Potassium 4.2 mmol/L (3.5-5.1); Prothrombin Time 10.6 sec (9.0-12.0); Total Bilirubin 0.4 mg/dL (0.2-1.3); Total Protein 5.9 g/dL (6.3-8.2)
[2020-07-11 19:45] LABS: Glucose,Whole Blood 77 mg/dL (75-99)
[2020-07-11 21:06] LABS: Glucose,Whole Blood 151 mg/dL (75-99)
[2020-07-12 05:42] LABS: Ferritin 189.1 ng/mL (22.0-322.0)
== END 2020-07-11 21:12 | disposition home or self-care (01) ==
LOC: EC 16:37
DX: U07.1 COVID-19 (principal); J45.909 Unspecified asthma, uncomplicated; E11.9 Type 2 diabetes mellitus without complications; E78.5 Hyperlipidemia, unspecified; I10 Essential (primary) hypertension; M10.9 Gout, unspecified; Z79.51 Long term (current) use of inhaled steroids; Z79.899 Other long term (current) drug therapy; Z96.41 Presence of insulin pump (external) (internal); Z90.49 Acquired absence of other specified parts of digestive tract; Z98.41 Cataract extraction status, right eye
CPT/HCPCS: 36415; 93005; 85379; 80053; 82728; 83605; 83615; 83735; 84484; 85025; 85610; 85730; 86140; 84145; 71045; 99285; 96374; 96361; J2405

== ENCOUNTER 2020-07-16 11:00 | Inpatient (IN) | payer MEDICARE ==
--- NOTE | 2020-07-16 11:20 | ED ---
General Adult HPI - General Chief complaint: Altered Mental Status Stated complaint: confusion Time Seen by Provider: 07/16/20 11:06 Source: EMS Mode of arrival: EMS Limitations: no limitations - History of Present Illness Initial comments: Dictation was produced using [employer] dictation software. please excuse any grammatical, word or spelling errors. This patient was cared for during a federal and state declared state of emergency secondary to Covid 19 Chief Complaint: 79-year-old male presents with gait instability, weakness and a ltered mental status History of Present Illness: Is 79-year-old male has multiple comorbidities. 12 days ago patient was diagnosed with Covid. Since then he has been having worsening weakness. States his weakness is so severe that he can't perform his activities of daily living. Patient denies any headache. Patient states that he so confused that he is unable to care for himself at home. Patient has been having difficulty taking his medications. He has an insulin pump and had difficulties following his insulin pump with insulin. Patient was at home with his . Patient states he's symptoms are so severe that she is unable to care for him. The ROS documented in this emergency department record has been reviewed and confirmed by me. Those systems with pertinent positive or negative responses have been documented in the HPI. All other systems are other negative and/or noncontributory. PHYSICAL EXAM: General Impression: Alert and oriented x3, not in acute distress HEENT: Normocephalic atraumatic, extra-ocular movements intact, pupils equal and reactive to light bilaterally, mucous membranes moist. Cardiovascular: Heart regular rate and rhythm Chest: Able to complete full sentences, no retractions, no tachypnea Abdomen: abdomen soft, non-tender, non-distended, no organomegaly Musculoskeletal: Pulses present and equal in all extremities, no peripheral edema Motor: no focal deficits noted Neurological: CN II-XII grossly intact, no focal motor or sensory deficits n oted, mildly gait unstable Skin: Intact with no visualized rashes Psych: Normal affect and mood ED course: 79-year-old male presents to the emergency department for gait instability, self-reported confusion and generalized weakness. Vital signs upon arrival are within acceptable limits. Patient is 12 days since being diagnosed with Covid. Patient not hypoxic or showing any signs of respiratory distress.Laboratory evaluation obtained. CBC baseline. Metabolic panel is unremarkable. Computed tomography scan of the brain is unremarkable. Urinalysis patient's fourth visit here in the last 12 days. He is well- appearing however has very little confidence in being cared for at home under th e care of his . Patient also feels he is having difficulty caring for himself. Case is discussed with his primary care physician Dr. Nilo Ambrosio who is willing to have patient admitted to the hospital. Said pulmonology consulted for covid management. EKG interpretation: Ventricular rate 85, sinus rhythm, VT interval 172, QRS 96, QTC 476. No VT prolongation, no QTC prolongation, no ST or T-wave changes noted. EKG compared to 12/09/2020 showing no changes. Overall, this EKG is unremarkable - Related Data Home Medications Medication Instructions Recorded Confirmed Beclomethasone Dipropionate [Qvar 2 puff INHALATION RT-BID 03/02/15 07/16/20 80 mcg/puff] Insulin Aspart [NovoLOG] 0.01 unit SQ-PUMP CONTINUOUS 03/02/15 07/16/20 Loperamide [Imodium] 4 mg PO QID 03/02/15 07/16/20 Ferrous Sulfate [Iron (65 MG 325 mg PO BID 10/08/15 07/16/20 Elemental)] Multivitamin [Men's Multi-Vitamin] 1 tab PO DAILY 10/08/15 07/16/20 Albuterol Sulfate [Proair Hfa] 1 - 2 puff INHALATION RT-QID PRN 07/04/20 07/16/20 Carvedilol [Coreg] 6.25 mg PO BID 07/04/20 07/16/20 Donepezil HCl [Aricept] 5 mg PO DAILY 07/04/20 07/16/20 Irbesartan [Avapro] 150 mg PO DAILY 07/04/20 07/16/20 Magnesium Citrate 125 mg PO DAILY 07/04/20 07/16/20 [place]-3 Fatty Acids/Fish Oil 1 cap PO DAILY 07/04/20 07/16/20 [[place]-3 Fish Oil 1,200 mg Sfgl] Tamsulosin HCl [Flomax] 0.4 mg PO BID 07/04/20 07/16/20 amLODIPine [Norvasc] 2.5 mg PO DAILY 07/04/20 07/16/20 Allergies Allergy/AdvReac Type Severity Reaction Status Date / Time No Known Allergies Allergy Verified 07/16/20 11:34 Review of Systems ROS Statement: Those systems with pertinent positive or pertinent negative responses have been documented in the HPI. ROS Other: All systems not noted in ROS Statement are negative. Past Medical History Past Medical History: Asthma, Diabetes Mellitus, Hyperlipidemia, Hypertension, Osteoarthritis (OA), Pneumonia Additional Past Medical History / Comment(s): CROHNS's, GOUT,TAKES FISH OIL FOR HIS CHOLETEROL. HAS INSULIN PUMP-FILLED IT LAST ON Wednesday10-05-15 History of Any Multi-Drug Resistant Organisms: None Reported Past Surgical History: Appendectomy, Bowel Resection, Cholecystectomy, Prostate Surgery Additional Past Surgical History / Comment(s): COLONOSCOPY, FATTY TUMOR REMOVED FROM HIS BACK, RT CATARACT. Past Anesthesia/Blood Transfusion Reactions: No Reported Reaction Additional Past Anesthesia/Blood Transfusion Reaction / Comment(s): CLAUTERPHOBIA. PER PAST MEDICL HX: HAD A BLOOD TRANSFUSION 1966- REACTION WAS FACIAL SWELLING. Past Psychological History: No Psychological Hx Reported Smoking Status: Never smoker Past Alcohol Use History: None Reported Past Drug Use History: None Reported - Past Family History Mother Family Medical History: Cancer Additional Family Medical History / Comment(s): BREAST CANCER Father Family Medical History: Cancer Additional Family Medical History / Comment(s): COLON CANCER Brother(s) Family Medical History: Cancer, Prostate Disorder Additional Family Medical History / Comment(s): PROSTATE CANCER General Exam Limitations: no limitations Course Vital Signs 07/16/20 11:03 Temperature 98.9 F Pulse Rate 87 Respiratory 16 Rate Blood Pressure 146/78 O2 Sat by Pulse 96 Oximetry Medical Decision Making - Lab Data Result diagrams: 07/16/20 11:52 07/16/20 11:52 Lab Results 07/16/20 07/16/20 Range/Units 11:52 11:52 WBC 3.9 (3.8-10.6) k/uL RBC 5.40 (4.30-5.90) m/uL Hgb 12.9 L (13.0-17.5) gm/dL Hct 41.7 (39.0-53.0) % MCV 77.2 L (80.0-100.0) fL MCH 23.9 L (25.0-35.0) pg MCHC 31.0 (31.0-37.0) g/dL RDW 15.0 (11.5-15.5) % Plt Count 224 (150-450) k/uL MPV 7.2 Neutrophils % 74 % Lymphocytes % 12 % Monocytes % 11 % Eosinophils % 0 % Basophils % 2 % Neutrophils # 2.8 (1.3-7.7) k/uL Lymphocytes # 0.5 L (1.0-4.8) k/uL Monocytes # 0.4 (0-1.0) k/uL Eosinophils # 0.0 (0-0.7) k/uL Basophils # 0.1 (0-0.2) k/uL Hypochromasia Slight Microcytosis Slight Sodium 134 L (137-145) mmol/L Potassium 4.8 (3.5-5.1) mmol/L Chloride 102 (98-107) mmol/L Carbon Dioxide 20 L (22-30) mmol/L Anion Gap 12 mmol/L BUN 21 H (9-20) mg/dL Creatinine 1.11 (0.66-1.25) mg/dL Est GFR (CKD-EPI)AfAm 72 (>60 ml/min/1.73 sqM) Est GFR (CKD-EPI)NonAf 62 (>60 ml/min/1.73 sqM) Glucose 269 H (74-99) mg/dL Calcium 7.8 L (8.4-10.2) mg/dL Magnesium 2.2 (1.6-2.3) mg/dL Total Bilirubin 0.7 (0.2-1.3) mg/dL AST 48 (17-59) U/L ALT 70 H (4-49) U/L Alkaline Phosphatase 108 (38-126) U/L Total Protein 5.9 L (6.3-8.2) g/dL Albumin 3.1 L (3.5-5.0) g/dL Disposition Clinical Impression: Weakness Disposition: ADMITTED IP TO THIS HOSP Condition: Fair Referrals: Nilo Ambrosio DO [Primary Care Provider] - 1-2 days Decision Time: 12:55
[2020-07-16 11:59] LABS: Basophils # (A) 0.1 k/uL (0-0.2); Basophils % (A) 2 %; Eosinophils % (A) 0 %; HCT 41.7 % (39.0-53.0); HGB 12.9 gm/dL (13.0-17.5); Hypochromasia Slight; Lymphocytes # (A) 0.5 k/uL (1.0-4.8); Lymphocytes % (A) 12 %; MCH 23.9 pg (25.0-35.0); MCV 77.2 fL (80.0-100.0); Mean Platelet Volume 7.2; Microcytosis Slight; Monocytes # (A) 0.4 k/uL (0-1.0); Monocytes % (A) 11 %; Neutrophils # (A) 2.8 k/uL (1.3-7.7); Neutrophils % (A) 74 %; Platelet Count 224 k/uL (150-450); WBC 3.9 k/uL (3.8-10.6)
[2020-07-16 12:09] LABS: Albumin 3.1 g/dL (3.5-5.0); Calcium 7.8 mg/dL (8.4-10.2); Magnesium 2.2 mg/dL (1.6-2.3); Potassium 4.8 mmol/L (3.5-5.1); Total Bilirubin 0.7 mg/dL (0.2-1.3); Total Protein 5.9 g/dL (6.3-8.2)
--- NOTE | 2020-07-16 12:34 | CT ---
EXAMINATION TYPE: CT brain wo con DATE OF EXAM: 07/16/2020 COMPARISON: INDICATION: Altered mental status DLP: 1107.4 mGycm, Automated exposure control for dose reduction was used. CONTRAST: None CT of the brain is performed utilizing 3 mm thick sections through the posterior fossa and 3 mm thick sections through the remaining calvarium. Study is performed within 24 hours of arrival to the hosp [facility]. No abnormal hyperdensity is present to suggest an acute intracranial hemorrhage. No mass lesion is evident. No acute infarcts are evident. Some subtle deep white matter hypodensity is present, likely on the ba sis of chronic white matter changes Ventricles and sulci are appropriate for the patient age. Some mild mucosal thickenings within ethmoid air cells and the right maxillary sinus. No suspicious a ir-fluid levels are evident. Mastoid air cells are clear. IMPRESSIONS: 1. No acute intracranial process. 2. Mild chronic appearing white matter ischemic changes may be present.
[2020-07-16] MEDS ORDERED: NALOXONE 0.4 MG/ML 1 ML VIAL IV PRN (12:51)
[2020-07-16] MEDS: SODIUM CHLORIDE 0.9% 1,000 ML IV SCH (13:32)
[2020-07-16] MEDS ORDERED: INSULIN DETEMIR (LEVEMIR) 100 UNIT/ML SYR SQ SCH (15:20)
[2020-07-16] MEDS: ALBUTEROL HFA INHALER INHALATION SCH ×2 (16:51→20:36)
[2020-07-16 17:30] LABS: Glucose,Whole Blood 234 mg/dL (75-99)
[2020-07-16] MEDS: INSULIN DETEMIR (LEVEMIR) 100 UNIT/ML SYR SQ SCH (17:40)
[2020-07-16] MEDS: dexAMETHasone 2 MG TAB PO SCH (17:41)
[2020-07-16] MEDS: PANTOPRAZOLE 40 MG/10 ML VIAL IVP SCH (17:41)
[2020-07-16] MEDS: ASCORBIC ACID 500 MG TAB PO SCH (17:41)
[2020-07-16] MEDS: carvediloL 6.25 MG TAB PO SCH (17:41)
[2020-07-16] MEDS: ASPIRIN 81 MG PO SCH (17:41)
[2020-07-16] MEDS: ZINC SULFATE 220 MG CAP PO SCH (17:41)
[2020-07-16] MEDS: INSULIN ASPART (NovoLOG) 100 UNIT/ML VIAL SQ SCH ×2 (17:42→21:12)
[2020-07-16] MEDS: CHOLECALCIFEROL 25 MCG (1000 IU) TABLET PO SCH (17:42)
[2020-07-16] MEDS: FLUTICASONE 110 MCG INHALER INHALATION SCH (20:36)
[2020-07-16 20:43] LABS: Glucose,Whole Blood 114 mg/dL (75-99)
[2020-07-16] MEDS: FERROUS SULFATE 325 MG TAB PO SCH (21:15)
[2020-07-16] MEDS: TAMSULOSIN 0.4 MG CAP.ER.24H PO SCH (21:16)
[2020-07-17 00:48] LABS: Glucose,Whole Blood 174 mg/dL (75-99)
[2020-07-17 06:47] LABS: Basophils % (A) 0 %; Eosinophils % (A) 0 %; HCT 38.8 % (39.0-53.0); Hypochromasia Moderate; Lymphocytes # (A) 0.5 k/uL (1.0-4.8); Lymphocytes % (A) 16 %; MCH 24.1 pg (25.0-35.0); MCHC 30.9 g/dL (31.0-37.0); Mean Platelet Volume 7.2; Monocytes # (A) 0.2 k/uL (0-1.0); Monocytes % (A) 5 %; Neutrophils # (A) 2.4 k/uL (1.3-7.7); Neutrophils % (A) 78 %; Platelet Count 235 k/uL (150-450); RBC 4.97 m/uL (4.30-5.90); RDW 14.9 % (11.5-15.5); WBC 3.1 k/uL (3.8-10.6)
[2020-07-17 07:03] LABS: Glucose,Whole Blood 273 mg/dL (75-99)
[2020-07-17] MEDS: amLODIPine 2.5 MG TAB PO SCH (08:22)
[2020-07-17] MEDS: ASPIRIN 81 MG PO SCH (08:22)
[2020-07-17] MEDS: FERROUS SULFATE 325 MG TAB PO SCH ×2 (08:22→21:06)
[2020-07-17] MEDS: MAGNESIUM OXIDE 400 MG TAB PO SCH (08:23)
[2020-07-17] MEDS: ASCORBIC ACID 500 MG TAB PO SCH (08:23)
[2020-07-17] MEDS: LOSARTAN 50 MG TAB PO SCH ×2 (08:23→21:06)
[2020-07-17] MEDS: carvediloL 6.25 MG TAB PO SCH ×2 (08:23→17:29)
[2020-07-17] MEDS: dexAMETHasone 2 MG TAB PO SCH (08:23)
[2020-07-17] MEDS: CHOLECALCIFEROL 25 MCG (1000 IU) TABLET PO SCH (08:23)
[2020-07-17] MEDS: INSULIN ASPART (NovoLOG) 100 UNIT/ML VIAL SQ SCH ×2 (08:24→12:13)
[2020-07-17] MEDS: TAMSULOSIN 0.4 MG CAP.ER.24H PO SCH ×2 (08:29→21:06)
[2020-07-17] MEDS: PANTOPRAZOLE 40 MG/10 ML VIAL IVP SCH (08:29)
[2020-07-17] MEDS: DONEPEZIL 5 MG TAB PO SCH (08:29)
[2020-07-17] MEDS: ZINC SULFATE 220 MG CAP PO SCH (08:29)
[2020-07-17] MEDS: MULTIVITAMINS, THERA 1 EACH TAB PO SCH (08:29)
[2020-07-17] MEDS: ALBUTEROL HFA INHALER INHALATION SCH ×4 (08:38→19:51)
[2020-07-17 11:34] LABS: African American GFR (CKD) 65.3 (60.0-200.0); Anion Gap 11.5 mmol/L (4.00-12.00); BUN/Creat Ratio 21.67 Ratio (12.00-20.00); Carbon Dioxide 23.5 mmol/L (21.6-31.8); Non-African American GFR(CKD) 56.4 (60.0-200.0); Potassium 5.4 mmol/L (3.5-5.5)
[2020-07-17 11:34] LABS: Glucose,Whole Blood 462 mg/dL (75-99)
[2020-07-17] MEDS: FLUTICASONE 110 MCG INHALER INHALATION SCH ×2 (12:10→19:51)
[2020-07-17] MEDS ORDERED: INSULIN ASPART (NovoLOG) 100 UNIT/ML VIAL SQ ONE (12:15)
--- NOTE | 2020-07-17 13:40 | P.CNPUL ---
History of Present Illness Consult date: 07/17/20 Reason for consult: dyspnea Chief complaint: Shortness of breath, weakness History of present illness: This is a very pleasant 79-year-old gentleman who follows with Dr. Ambrosio as his primary care provider. He has a history of chronic atrial fibrillation/flutter, Crohn's disease, diabetes mellitus, hypertension, irritable bowel syndrome, osteoarthritis, congestive heart failure. He also follows in our office with Dr Alyssa Mayen for a history of moderate intermittent chronic bronchial asthma. He's been maintained on Qvar. He was last seen in April 2019. He presented here to the emergency room yesterday with complaints of increased weakness, shortness of breath cough and congestion. He was diagnosed with Coban 12 days prior to his arrival. He's also had some issues with confusion and unable to take care of himself at home. He has an insulin pump for his diabetes. Initial glucose 269. White count 3.1. Hemoglobin 12.0. Lymphocytes 0.5. Sodium 136. Potassium 5.4. Creatinine 1.2. He is seen today in consultation on the regular medical floor. She is up ambulating in his room. He is awake and alert in no acute distress. He is maintaining O2 saturations in the mid 90s on room air. He's afebrile. Hemodynamically stable. Sputum culture pending. He is currently on ceftriaxone. Dexamethasone. Vitamin supplements. Review of Systems REVIEW OF SYSTEMS: CONSTITUTIONAL: Generalized weakness, fatigue, confusion. Denies any recent significant weight loss or weight gain. EYES: Denies change in vision. EARS, NOSE, MOUTH, THROAT: Denies headaches, denies sore throat. CARDIOVASCULAR: Denies chest pain, palpitations or syncopal episodes. RESPIRATORY: Positive for shortness of breath, cough, congestion, no hemoptysis. GASTROINTESTINAL: Denies change in appetite, denies abdominal pain GENITOURINARY: Denies hematuria, denies infections. MUSKULOSKELETAL: Denies pain, denies swelling. INTEGUMENTARY: Denies rash, denies eczema. NEUROLOGICAL: Denies recent memory loss, no recent seizure activity. PSYCHIATRIC: Denies anxiety, denies depression. HEMATOLOGIC/LYMPHATIC: Denies anemia, denies enlarged lymph nodes. Past Medical History Past Medical History: Asthma, Diabetes Mellitus, Hyperlipidemia, Hypertension, Osteoarthritis (OA), Pneumonia Additional Past Medical History / Comment(s): CROHNS's, GOUT,TAKES FISH OIL FOR HIS CHOLETEROL History of Any Multi-Drug Resistant Organisms: None Reported Past Surgical History: Appendectomy, Bowel Resection, Cholecystectomy, Prostate Surgery Additional Past Surgical History / Comment(s): COLONOSCOPY, FATTY TUMOR REMOVED FROM HIS BACK, RT CATARACT. Past Anesthesia/Blood Transfusion Reactions: No Reported Reaction Additional Past Anesthesia/Blood Transfusion Reaction / Comment(s): CLAUTERPHOBIA. PER PAST MEDICL HX: HAD A BLOOD TRANSFUSION 1966- REACTION WAS FACIAL SWELLING. Past Psychological History: No Psychological Hx Reported Smoking Status: Never smoker Past Alcohol Use History: None Reported Past Drug Use History: None Reported - Past Family History Mother Family Medical History: Cancer Additional Family Medical History / Comment(s): BREAST CANCER Father Family Medical History: Cancer Additional Family Medical History / Comment(s): COLON CANCER Brother(s) Family Medical History: Cancer, Prostate Disorder Additional Family Medical History / Comment(s): PROSTATE CANCER Medications and Allergies Home Medications Medication Instructions Recorded Confirmed Type Beclomethasone Dipropionate [Qvar 2 puff INHALATION RT-BID 03/02/15 07/16/20 History 80 mcg/puff] Insulin Aspart [NovoLOG] 0.01 unit SQ-PUMP CONTINUOUS 03/02/15 07/16/20 History Loperamide [Imodium] 4 mg PO QID 03/02/15 07/16/20 History Ferrous Sulfate [Iron (65 MG 325 mg PO BID 10/08/15 07/16/20 History Elemental)] Multivitamin [Men's Multi-Vitamin] 1 tab PO DAILY 10/08/15 07/16/20 History Albuterol Sulfate [Proair Hfa] 1 - 2 puff INHALATION RT-QID PRN 07/04/20 07/16/20 History Carvedilol [Coreg] 6.25 mg PO BID 07/04/20 07/16/20 History Donepezil HCl [Aricept] 5 mg PO DAILY 07/04/20 07/16/20 History Irbesartan [Avapro] 150 mg PO DAILY 07/04/20 07/16/20 History Magnesium Citrate 125 mg PO DAILY 07/04/20 07/16/20 History [place]-3 Fatty Acids/Fish Oil 1 cap PO DAILY 07/04/20 07/16/20 History [[place]-3 Fish Oil 1,200 mg Sfgl] Tamsulosin HCl [Flomax] 0.4 mg PO BID 07/04/20 07/16/20 History amLODIPine [Norvasc] 2.5 mg PO DAILY 07/04/20 07/16/20 History Allergies Allergy/AdvReac Type Severity Reaction Status Date / Time No Known Allergies Allergy Verified 07/16/20 11:34 Physical Exam Vitals: Vital Signs Temp Pulse Pulse Resp BP BP Pulse Ox 07/17/20 09:47 98 F 72 18 128/59 96 07/17/20 07:55 72 18 07/17/20 05:40 97.4 F L 63 17 156/66 93 L 07/17/20 03:25 97.4 F L 69 17 130/82 97 07/16/20 20:33 98.6 F 56 L 15 110/66 93 L 07/16/20 20:00 15 07/16/20 18:26 16 07/16/20 14:00 98.5 F 87 16 129/71 97 07/16/20 13:30 90 18 122/76 95 Intake and Output 07/16/20 07/17/20 07/17/20 22:59 06:59 14:59 Other: # Voids 1 3 Weight 68.039 kg GENERAL EXAM: Alert, active, 79-year-old gentleman, on room air, comfortable in no apparent distress. HEAD: Normocephalic. EYES: Normal reaction of pupils, equal size. NOSE: Clear with pink turbinates. THROAT: No erythema or exudates. NECK: No masses, no JVD. CHEST: No chest wall deformity. LUNGS: Equal air entry with no crackles, wheeze, rhonchi or dullness. CVS: S1 and S2 normal with no audible murmur, regular rhythm. ABDOMEN: No hepatosplenomegaly, normal bowel sounds, no guarding or rigidity. SPINE: No scoliosis or deformity SKIN: No rashes CENTRAL NERVOUS SYSTEM: No focal deficits, tone is normal in all 4 extremities. EXTREMITIES: There is no peripheral edema. No clubbing, no cyanosis. Peripheral pulses are intact. Results - Laboratory Findings CBC and BMP: 07/17/20 05:50 07/17/20 05:50 Abnormal lab findings: Abnormal Labs 07/16/20 07/16/20 07/16/20 11:52 11:52 17:25 WBC Hgb 12.9 L Hct MCV 77.2 L MCH 23.9 L MCHC Lymphocytes # 0.5 L Sodium 134 L Carbon Dioxide 20 L BUN 21 H Est GFR (CKD-EPI)NonAf BUN/Creatinine Ratio Glucose 269 H POC Glucose (mg/dL) 234 H Calcium 7.8 L ALT 70 H Total Protein 5.9 L Albumin 3.1 L 07/16/20 07/17/20 07/17/20 20:42 00:47 05:50 WBC 3.1 L Hgb 12.0 L Hct 38.8 L MCV 78.0 L MCH 24.1 L MCHC 30.9 L Lymphocytes # 0.5 L Sodium Carbon Dioxide BUN Est GFR (CKD-EPI)NonAf BUN/Creatinine Ratio Glucose POC Glucose (mg/dL) 114 H 174 H Calcium ALT Total Protein Albumin 07/17/20 07/17/20 07/17/20 05:50 07:01 11:31 WBC Hgb Hct MCV MCH MCHC Lymphocytes # Sodium Carbon Dioxide BUN Est GFR (CKD-EPI)NonAf 56.4 L BUN/Creatinine Ratio 21.67 H Glucose 252 H POC Glucose (mg/dL) 273 H 462 H Calcium 8.0 L ALT Total Protein Albumin - Diagnostic Findings Chest x-ray: image reviewed Assessment and Plan Assessment: 1 Generalized weakness, fatigue suspect secondary to recent CoVID [address] scan of the brain reveals no acute intracranial process 2 CoVID 19 infection diagnosed 2 weeks ago 3 Diabetes mellitus 4 History of chronic atrial fibrillation 5 Hypertension 6 Chronic disease 7 Osteoarthritis 8 Mild intermittent chronic bronchial asthma, currently inactive and stable Plan: The patient was seen and evaluated by Dr. Mayen Currently stable from the pulmonary standpoint Continue dexamethasone, vitamin supplements Add Lovenox Check inflammatory markers Probable discharge in a.m. We will continue to follow and make further recommendations based on his clinic al status. I, the cosigning physician, performed a history & physical examination of the patient. Lungs sounds are clear. Maintaining good O2 saturations in the 90s on room air. I discussed the assessment and plan of care with my nurse practitioner, Nicole Oneal. I attest to the above consultation as dictated by her. Time with Patient: Greater than 30
--- NOTE | 2020-07-17 14:33 | P.HPIM ---
History of Present Illness H&P Date: 07/17/20 Chief Complaint: Confusion, weakness This is an 79-year-old gentleman with past medical history of chronic intermittent asthma, diabetes mellitus with insulin pump, hyperlipidemia, hypertension, osteoarthritis, Crohn's disease and multiple other medical issues presented to the ER via EMS with complaints of confusion, increasing generalized weakness intensified over the last couple of days, initially started since he had covid-19, 2-3 weeks ago. This is the patient's fourth visit to the since 07/04/2020. Reports cough with green sputum, shortness of breath, no nausea vomiting or diarrhea. Nursing reported some confusion on admission, currently and A & O 3. Denies any lightheadedness dizziness or focal deficits. Denies any headache. Acknowledges his own confusion and difficulties working with his insulin pump. Blood sugars on admission were in the mid 200s. Insulin pump removed and placed on NovoLog sliding scale, Levemir insulin. Blood sugars improved until this morning when patient consumed pancakes with syrup for breakfast despite being on a consistent carb diet, and blood sugars now in the 400s. Afebrile, normal WBC. Vital signs stable, maintaining O2 sats in the 90s on room air. Hemoglobin 12.9, platelets 224, MCv 77.2, sodium 134, potassium 4.8, DEXA 20, BUN 21 and creatinine 1.11, calcium 7.8, magnesium 2.2T bili and LFTs normal with the exception of AST mildly elevated at 70. Albumin low 3.1. Brain CT reported no acute intracranial process. Ammonia level less than 9. EKG sinus rhythm with sinus arrhythmia Review of Systems ROS Statement: Those systems with pertinent positive or pertinent negative responses have been documented in the HPI. ROS Other: All systems not noted in ROS Statement are negative. Past Medical History Past Medical History: Asthma, Diabetes Mellitus, Hyperlipidemia, Hypertension, Osteoarthritis (OA), Pneumonia Additional Past Medical History / Comment(s): CROHNS's, GOUT,TAKES FISH OIL FOR HIS CHOLETEROL History of Any Multi-Drug Resistant Organisms: None Reported Past Surgical History: Appendectomy, Bowel Resection, Cholecystectomy, Prostate Surgery Additional Past Surgical History / Comment(s): COLONOSCOPY, FATTY TUMOR REMOVED FROM HIS BACK, RT CATARACT. Past Anesthesia/Blood Transfusion Reactions: No Reported Reaction Additional Past Anesthesia/Blood Transfusion Reaction / Comment(s): CLAUTERPHOBIA. PER PAST MEDICL HX: HAD A BLOOD TRANSFUSION 1966- REACTION WAS FACIAL SWELLING. Past Psychological History: No Psychological Hx Reported Smoking Status: Never smoker Past Alcohol Use History: None Reported Past Drug Use History: None Reported - Past Family History Mother Family Medical History: Cancer Additional Family Medical History / Comment(s): BREAST CANCER Father Family Medical History: Cancer Additional Family Medical History / Comment(s): COLON CANCER Brother(s) Family Medical History: Cancer, Prostate Disorder Additional Family Medical History / Comment(s): PROSTATE CANCER Medications and Allergies Home Medications Medication Instructions Recorded Confirmed Type Beclomethasone Dipropionate [Qvar 2 puff INHALATION RT-BID 03/02/15 07/16/20 History 80 mcg/puff] Insulin Aspart [NovoLOG] 0.01 unit SQ-PUMP CONTINUOUS 03/02/15 07/16/20 History Loperamide [Imodium] 4 mg PO QID 03/02/15 07/16/20 History Ferrous Sulfate [Iron (65 MG 325 mg PO BID 10/08/15 07/16/20 History Elemental)] Multivitamin [Men's Multi-Vitamin] 1 tab PO DAILY 10/08/15 07/16/20 History Albuterol Sulfate [Proair Hfa] 1 - 2 puff INHALATION RT-QID PRN 07/04/20 07/16/20 History Carvedilol [Coreg] 6.25 mg PO BID 07/04/20 07/16/20 History Donepezil HCl [Aricept] 5 mg PO DAILY 07/04/20 07/16/20 History Irbesartan [Avapro] 150 mg PO DAILY 07/04/20 07/16/20 History Magnesium Citrate 125 mg PO DAILY 07/04/20 07/16/20 History [place]-3 Fatty Acids/Fish Oil 1 cap PO DAILY 07/04/20 07/16/20 History [[place]-3 Fish Oil 1,200 mg Sfgl] Tamsulosin HCl [Flomax] 0.4 mg PO BID 07/04/20 07/16/20 History amLODIPine [Norvasc] 2.5 mg PO DAILY 07/04/20 07/16/20 History Allergies Allergy/AdvReac Type Severity Reaction Status Date / Time No Known Allergies Allergy Verified 07/16/20 11:34 Physical Exam Vitals: Vital Signs Temp Pulse Pulse Resp BP BP Pulse Ox 07/17/20 09:47 98 F 72 18 128/59 96 07/17/20 05:40 97.4 F L 63 17 156/66 93 L 07/17/20 03:25 97.4 F L 69 17 130/82 97 07/16/20 20:33 98.6 F 56 L 15 110/66 93 L 07/16/20 20:00 15 07/16/20 18:26 16 07/16/20 14:00 98.5 F 87 16 129/71 97 07/16/20 13:30 90 18 122/76 95 Intake and Output 07/16/20 07/17/20 07/17/20 22:59 06:59 14:59 Other: # Voids 1 3 Weight 68.039 kg PHYSICAL EXAM: VITAL SIGNS: As above GENERAL: Sitting up in bed, no acute distress. HEENT: Conjunctivae normal. eyes normal. NECK: No JVD. No thyroid enlargement. No LNs CARDIOVASCULAR: S1, S2 regular.. No murmur RESPIRATION: Breath sounds diminished in the bases. No rhonchi or crackles. No bronchial breathing. ABDOMEN: Soft, nontender . No guarding. no masses palpable. No ascites, No hepatosplenomegaly.Bowel sounds heard. LEGS: No edema. no swelling PSYCHIATRY: Alert and oriented X3, mood and affect normal. NERVOUS SYSTEM: Cranial N 2-12 grossly normal. Moves all 4 limbs. Diffuse weakness No focal deficits. Strength and sensation grossly intact.. Skin: no lesions, no rash Joints: No active swelling. No inflammation. Lymphatic system. No LN neck axilla or groin. Results CBC & Chem 7: 07/17/20 05:50 07/17/20 05:50 Labs: Abnormal Lab Results - Last 24 Hours (Table) 07/16/20 07/16/20 07/17/20 Range/Units 17:25 20:42 00:47 WBC (3.8-10.6) k/uL Hgb (13.0-17.5) gm/dL Hct (39.0-53.0) % MCV (80.0-100.0) fL MCH (25.0-35.0) pg MCHC (31.0-37.0) g/dL Lymphocytes # (1.0-4.8) k/uL Est GFR (CKD-EPI)NonAf (60.0-200.0) BUN/Creatinine Ratio (12.00-20.00) Ratio Glucose (70-110) mg/dL POC Glucose (mg/dL) 234 H 114 H 174 H (75-99) mg/dL Calcium (8.7-10.3) mg/dL 07/17/20 07/17/20 07/17/20 Range/Units 05:50 05:50 07:01 WBC 3.1 L (3.8-10.6) k/uL Hgb 12.0 L (13.0-17.5) gm/dL Hct 38.8 L (39.0-53.0) % MCV 78.0 L (80.0-100.0) fL MCH 24.1 L (25.0-35.0) pg MCHC 30.9 L (31.0-37.0) g/dL Lymphocytes # 0.5 L (1.0-4.8) k/uL Est GFR (CKD-EPI)NonAf 56.4 L (60.0-200.0) BUN/Creatinine Ratio 21.67 H (12.00-20.00) Ratio Glucose 252 H (70-110) mg/dL POC Glucose (mg/dL) 273 H (75-99) mg/dL Calcium 8.0 L (8.7-10.3) mg/dL 07/17/20 Range/Units 11:31 WBC (3.8-10.6) k/uL Hgb (13.0-17.5) gm/dL Hct (39.0-53.0) % MCV (80.0-100.0) fL MCH (25.0-35.0) pg MCHC (31.0-37.0) g/dL Lymphocytes # (1.0-4.8) k/uL Est GFR (CKD-EPI)NonAf (60.0-200.0) BUN/Creatinine Ratio (12.00-20.00) Ratio Glucose (70-110) mg/dL POC Glucose (mg/dL) 462 H (75-99) mg/dL Calcium (8.7-10.3) mg/dL Microbiology - Last 24 Hours (Table) 07/17/20 01:15 Gram Stain - Preliminary Sputum Sputum Culture - Preliminary Thrombosis Risk Factor Assmnt - Choose All That Apply Any of the Below Risk Factors Present?: No Other Risk Factors: No Each Risk Factor Represents 3 Points: Age 75 years or older Other congenital or acquired thrombophilia - If yes, enter type in comment: No Thrombosis Risk Factor Assessment Total Risk Factor Score: 3 Thrombosis Risk Factor Assessment Level: Very Low Risk Assessment and Plan Assessment: Generalized weakness since his recent Covid-19 infection 2 weeks ago. Diabetes mellitus type 2 with insulin pump, hyperglycemic on admission. Patient states difficulty managing his pump secondary to increasing confusion, temporarily disconnected. Chronic intermittent asthma,stable Chronic A. fib Intermittent mild asthma, stable Hyperlipidemia Essential hypertension Osteoarthritis Crohn's disease Plan: Continue on current medication regime ,monitoring and symptomatic treatment. Maintain gentle IV fluid hydration, empiric Rocephin, dexamethasone, vitamin C, vitamin D,zinc, aspirin As mentioned above Levemir and sliding scale added to med regimen with insulin pump removed. Consistent carb already in place yet patient received a normal tray this morning. Close monitoring of Accu-Cheks. PT/OT. Pulmonary consult in place, recommendations pending. Patient at this time alert and oriented 3, will obtain new batteries, confirm settings. Sputum culture pending. Discharge planning in progress,pending pulmonary final DC recommendations, clearance. The impression and plan of care has been dictated as directed. : I performed a history and examination of this patient, discussed the same with the dictator. I agree with the dictator's note ,documented as a scribe. Any additional findings or plans will be noted.
[2020-07-17] MEDS: ENOXAPARIN 40 MG/0.4 ML SYRINGE SQ SCH (16:10)
[2020-07-17 16:30] LABS: Hemoglobin A1C 7.5 % (4.0-6.0)
[2020-07-17] MEDS ORDERED: INSPUCOR MISCELLANE PRN (16:46)
[2020-07-17] MEDS ORDERED: INSULIN PUMP TARGET GLUCOSE 1 EACH MISC MISCELLANE PRN (16:46)
[2020-07-17] MEDS ORDERED: INSULIN PUMP BASAL RATES 1 EACH MISC MISCELLANE PRN (16:46)
[2020-07-17] MEDS ORDERED: INSULIN PUMP ACTIVE INSULIN 1 EACH MISC MISCELLANE PRN (16:46)
[2020-07-17] MEDS ORDERED: INSULIN ASPART (NovoLOG) 100 UNIT/ML VIAL SQ PRN (16:46)
[2020-07-17] MEDS: INSULIN PUMP MEAL BOLUS 1 UNIT MISC MISCELLANE SCH ×2 (17:00→21:03)
[2020-07-17 17:03] LABS: Glucose,Whole Blood 446 mg/dL (75-99)
[2020-07-17 19:04] LABS: Glucose,Whole Blood 407 mg/dL (75-99)
[2020-07-17] MEDS: SODIUM CHLORIDE 0.9% 1,000 ML IV SCH (20:55)
[2020-07-17 21:01] LABS: Glucose,Whole Blood 354 mg/dL (75-99)
[2020-07-17] MEDS: INSULIN DETEMIR (LEVEMIR) 100 UNIT/ML SYR SQ SCH (21:03)
[2020-07-18 06:45] LABS: Basophils % (A) 0 %; Eosinophils % (A) 0 %; HCT 39.9 % (39.0-53.0); HGB 12.6 gm/dL (13.0-17.5); Hypochromasia Slight; Lymphocytes # (A) 0.6 k/uL (1.0-4.8); Lymphocytes % (A) 7 %; MCH 24.3 pg (25.0-35.0); MCHC 31.5 g/dL (31.0-37.0); MCV 77.1 fL (80.0-100.0); Mean Platelet Volume 7.3; Microcytosis Slight; Monocytes # (A) 0.5 k/uL (0-1.0); Monocytes % (A) 6 %; Neutrophils # (A) 7.3 k/uL (1.3-7.7); Neutrophils % (A) 86 %; Platelet Count 268 k/uL (150-450); RBC 5.18 m/uL (4.30-5.90); WBC 8.5 k/uL (3.8-10.6)
[2020-07-18 07:02] LABS: Glucose,Whole Blood 95 mg/dL (75-99)
[2020-07-18] MEDS: INSULIN PUMP MEAL BOLUS 1 UNIT MISC MISCELLANE SCH ×2 (07:08→12:01)
[2020-07-18] MEDS: ALBUTEROL HFA INHALER INHALATION SCH ×2 (08:09→11:41)
[2020-07-18] MEDS: FLUTICASONE 110 MCG INHALER INHALATION SCH (08:09)
[2020-07-18] MEDS: PANTOPRAZOLE 40 MG/10 ML VIAL IVP SCH (08:14)
[2020-07-18] MEDS: ENOXAPARIN 40 MG/0.4 ML SYRINGE SQ SCH (08:15)
[2020-07-18] MEDS: CHOLECALCIFEROL 25 MCG (1000 IU) TABLET PO SCH (08:19)
[2020-07-18] MEDS: carvediloL 6.25 MG TAB PO SCH (08:20)
[2020-07-18] MEDS: MULTIVITAMINS, THERA 1 EACH TAB PO SCH (08:20)
[2020-07-18] MEDS: ASCORBIC ACID 500 MG TAB PO SCH (08:20)
[2020-07-18] MEDS: LOSARTAN 50 MG TAB PO SCH (08:20)
[2020-07-18] MEDS: MAGNESIUM OXIDE 400 MG TAB PO SCH (08:20)
[2020-07-18] MEDS: amLODIPine 2.5 MG TAB PO SCH (08:20)
[2020-07-18] MEDS: FERROUS SULFATE 325 MG TAB PO SCH (08:20)
[2020-07-18] MEDS: ZINC SULFATE 220 MG CAP PO SCH (08:20)
[2020-07-18] MEDS: dexAMETHasone 2 MG TAB PO SCH (08:20)
[2020-07-18] MEDS: ASPIRIN 81 MG PO SCH (08:20)
[2020-07-18] MEDS: TAMSULOSIN 0.4 MG CAP.ER.24H PO SCH (08:21)
[2020-07-18] MEDS: DONEPEZIL 5 MG TAB PO SCH (08:23)
--- NOTE | 2020-07-18 09:01 | P.DS ---
Providers Date of admission: 07/17/20 10:03 Expected date of discharge: 07/18/20 Attending physician: Nilo Ambrosio Consults: 07/16/20 12:52 Consult Physician Routine Consulting Provider: Gayla Mayen Consult Reason/Comments: covid Do you want consulting provider notified?: Yes Primary care physician: Nilo Ambrosio [facility] Hospital Course: Final Diagnoses: Generalized weakness since his recent Covid-19 infection 2 weeks ago. Diabetes mellitus type 2 with insulin pump, hyperglycemic on admission. Patient states difficulty managing his pump secondary to increasing confusion, tempora rily disconnected. Pump resumed. Chronic intermittent asthma,stable Chronic A. fib Intermittent mild asthma, stable Hyperlipidemia Essential hypertension Osteoarthritis Crohn's disease Hospital course:This is an 79-year-old gentleman with past medical history of chronic intermittent asthma, diabetes mellitus with insulin pump, hyperlipidemia, hypertension, osteoarthritis, Crohn's disease and multiple other medical issues presented to the ER via EMS with complaints of confusion, increasing generalized weakness intensified over the last couple of days, initially started since he had covid-19, 2-3 weeks ago. This is the patient's fourth visit to the since 07/04/2020. Reports cough with green sputum, shortness of breath, no nausea vomiting or diarrhea. Nursing reported some confusion on admission, currently and A & O 3. Denies any lightheadedness dizziness or focal deficits. Denies any headache. Acknowledges his own confusion and difficulties working with his insulin pump. Blood sugars on admission were in the mid 200s. Insulin pump removed and placed on NovoLog sliding scale, Levemir insulin. Blood sugars improved until this morning when patient consumed pancakes with syrup for breakfast despite being on a consistent carb diet, and blood sugars now in the 400s. Afebrile, normal WBC. Vital signs stable, maintaining O2 sats in the 90s on room air. Hemoglobin 12.9, platelets 224, MCv 77.2, sodium 134, potassium 4.8, DEXA 20, BUN 21 and creatinine 1.11, calcium 7.8, magnesium 2.2T bili and LFTs normal with the exception of AST mildly elevated at 70. Albumin low 3.1. Brain CT reported no acute intracranial process. Ammonia level less than 9. EKG sinus rhythm with sinus arrhythmia Evaluated by pulmonary. Final sputum culture results pending. Maintain O2 sats in the 90s on room air. Alert and oriented 3, is back on his own insulin pump. Blood sugars elevated during the night and currently 95 . Instructed to maintain close monitoring of Accu-Cheks over the next couple of days. Maintained on Decadron, vitamin C, vitamin D and empiric antibiotics. Afebrile, normal WBC. Denies any chest pain, palpitations or shortness of breath. Patient will be discharged home in a stable condition with guarded prognosis. The impression and plan of care has been dictated as directed. : I performed a history and examination of this patient, discussed the same with the dictator. I agree with the dictator's note ,documented as a scribe. Any additional findings or plans will be noted. Patient Condition at Discharge: Stable Plan - Discharge Summary Discharge Rx Participant: No New Discharge Prescriptions: New Aspirin 81 mg PO DAILY #30 chew Zinc Sulfate [Orazinc] 220 mg PO DAILY #30 cap Ascorbic Acid [Vitamin C] 1,000 mg PO DAILY tab Cholecalciferol [Vitamin D3 (25 Mcg = 1000 Iu)] 50 mcg PO DAILY tablet Continue Loperamide [Imodium] 4 mg PO QID Insulin Aspart [NovoLOG] 0.01 unit SQ-PUMP CONTINUOUS Beclomethasone Dipropionate [Qvar 80 mcg/puff] 2 puff INHALATION RT-BID Multivitamin [Men's Multi-Vitamin] 1 tab PO DAILY Ferrous Sulfate [Iron (65 MG Elemental)] 325 mg PO BID Albuterol Sulfate [Proair Hfa] 1 - 2 puff INHALATION RT-QID PRN PRN Reason: Shortness Of Breath amLODIPine [Norvasc] 2.5 mg PO DAILY Carvedilol [Coreg] 6.25 mg PO BID Donepezil HCl [Aricept] 5 mg PO DAILY Irbesartan [Avapro] 150 mg PO DAILY Magnesium Citrate 125 mg PO DAILY [place]-3 Fatty Acids/Fish Oil [[place]-3 Fish Oil 1,200 mg Sfgl] 1 cap PO DAILY Tamsulosin HCl [Flomax] 0.4 mg PO BID Discharge Medication List Beclomethasone Dipropionate [Qvar 80 mcg/puff] 2 puff INHALATION RT-BID 03/02/15 [History] Insulin Aspart [NovoLOG] 0.01 unit SQ-PUMP CONTINUOUS 03/02/15 [History] Loperamide [Imodium] 4 mg PO QID 03/02/15 [History] Ferrous Sulfate [Iron (65 MG Elemental)] 325 mg PO BID 10/08/15 [History] Multivitamin [Men's Multi-Vitamin] 1 tab PO DAILY 10/08/15 [History] Albuterol Sulfate [Proair Hfa] 1 - 2 puff INHALATION RT-QID PRN 07/04/20 [History] Carvedilol [Coreg] 6.25 mg PO BID 07/04/20 [History] Donepezil HCl [Aricept] 5 mg PO DAILY 07/04/20 [History] Irbesartan [Avapro] 150 mg PO DAILY 07/04/20 [History] Magnesium Citrate 125 mg PO DAILY 07/04/20 [History] [place]-3 Fatty Acids/Fish Oil [[place]-3 Fish Oil 1,200 mg Sfgl] 1 cap PO DAILY 07/04/20 [History] Tamsulosin HCl [Flomax] 0.4 mg PO BID 07/04/20 [History] amLODIPine [Norvasc] 2.5 mg PO DAILY 07/04/20 [History] Ascorbic Acid [Vitamin C] 1,000 mg PO DAILY tab 07/18/20 [Rx] Aspirin 81 mg PO DAILY #30 chew 07/18/20 [Rx] Cholecalciferol [Vitamin D3 (25 Mcg = 1000 Iu)] 50 mcg PO DAILY tablet 07/18/20 [Rx] Zinc Sulfate [Orazinc] 220 mg PO DAILY #30 cap 07/18/20 [Rx] Follow up Appointment(s)/Referral(s): Nilo Ambrosio DO [Primary Care Provider] - 3 Days Activity/Diet/Wound Care/Special Instructions: Fax final sputum culture results to and and Dr. Ambrosio office. Close monitoring of blood sugars, Accu-Cheks 3 times a day.
[2020-07-18 10:39] VITALS: BP 132/73; PULSE 65; RESP 17; TEMP 97.7
[2020-07-18 11:05] LABS: African American GFR (CKD) 72.6 (60.0-200.0); Anion Gap 9.8 mmol/L (4.00-12.00); BUN/Creat Ratio 30.91 Ratio (12.00-20.00); Calcium 8.5 mg/dL (8.7-10.3); Carbon Dioxide 23.2 mmol/L (21.6-31.8); Non-African American GFR(CKD) 62.6 (60.0-200.0); Potassium 4.7 mmol/L (3.5-5.5)
[2020-07-18 11:43] LABS: Glucose,Whole Blood 90 mg/dL (75-99)
--- NOTE | 2020-07-18 12:05 | P.PN ---
Subjective Progress Note Date: 07/18/20 This is a very pleasant 79-year-old gentleman who follows with Dr. Ambrosio as his primary care provider. He has a history of chronic atrial fibrillation/flutter, Crohn's disease, diabetes mellitus, hypertension, irritable bowel syndrome, osteoarthritis, congestive heart failure. He also follows in our office with Dr. Mayen for a history of moderate intermittent chronic bronchial asthma. He's been maintained on Qvar. He was last seen in April 2019. He presented here to the emergency room yesterday with complaints of increased weakness, shortness of breath cough and congestion. He was diagnosed with Coban 12 days prior to his arrival. He's also had some issues with confusion and unable to t alhaji care of himself at home. He has an insulin pump for his diabetes. Initial glucose 269. White count 3.1. Hemoglobin 12.0. Lymphocytes 0.5. Sodium 136. Potassium 5.4. Creatinine 1.2. He is seen today in consultation on the regular medical floor. She is up ambulating in his room. He is awake and alert in no acute distress. He is maintaining O2 saturations in the mid 90s on room air. He's afebrile. Hemodynamically stable. Sputum culture pending. He is currently on ceftriaxone. Dexamethasone. Vitamin supplements. On 07/18/2020 patient seen in follow-up patient on medical floor, he, comfortable, is currently on room air O2 sats of 98%, his been afebrile, no complaints of cough or worsening dyspnea. No palpitations, his labs have been reviewed, showing limits, a 0.5 hemoglobin is 12.6, d-dimer 0.65. On Decadron 6 mg daily, inhaled bronchodilators. Doing better. Discharge home today Objective - Vital Signs Vital signs: Vital Signs Temp 97.7 F 07/18/20 09:32 Pulse 65 07/18/20 09:32 Resp 17 07/18/20 09:32 BP 132/73 07/18/20 09:32 Pulse Ox 98 07/18/20 09:32 Intake & Output 07/17/20 07/18/20 07/18/20 18:59 06:59 18:59 Intake Total 530 Balance 530 Intake: Intake, IV Titration 50 Amount cefTRIAXone 1 gm In 50 Sodium Chloride 0.9% 50 ml @ 100 mls/hr IVPB Q24HR [facility] Rx#:[id number] Oral 480 Other: Voiding Method Toilet # Voids 3 3 - Exam GENERAL EXAM: Alert, , 79-year-old white male, on room air comfortable in no apparent distress. HEAD: Normocephalic/atraumatic. EYES: Normal reaction of pupils, equal size. Conjunctiva pink, sclera white. NOSE: Clear with pink turbinates. THROAT: No erythema or exudates. NECK: No masses, no JVD, no thyroid enlargement, no adenopathy. CHEST: No chest wall deformity. Symmetrical expansion. LUNGS: Equal air entry with no crackles, wheeze, rhonchi or dullness. CVS: Regular rate and rhythm, normal S1 and S2, no gallops, no murmurs, no rubs ABDOMEN: Soft, nontender. No hepatosplenomegaly, normal bowel sounds, no g uarding or rigidity. EXTREMITIES: No clubbing, no edema, no cyanosis, 2+ pulses and upper and lower extremities. MUSCULOSKELETAL: Muscle strength and tone normal. SPINE: No scoliosis or deformity SKIN: No rashes CENTRAL NERVOUS SYSTEM: Alert and oriented -3. No focal deficits, tone is normal in all 4 extremities. PSYCHIATRIC: Alert and oriented -3. Appropriate affect. Intact judgment and insight. - Labs CBC & Chem 7: 07/18/20 05:42 07/18/20 05:42 Labs: Abnormal Lab Results - Last 24 Hours (Table) 07/17/20 07/17/20 07/17/20 Range/Units 05:50 17:01 19:02 Hgb (13.0-17.5) gm/dL MCV (80.0-100.0) fL MCH (25.0-35.0) pg Lymphocytes # (1.0-4.8) k/uL D-Dimer (<0.60) mg/L FEU BUN (9.0-27.0) mg/dL BUN/Creatinine Ratio (12.00-20.00) Ratio POC Glucose (mg/dL) 446 H 407 H (75-99) mg/dL Hemoglobin A1c 7.5 H (4.0-6.0) % Calcium (8.7-10.3) mg/dL C-Reactive Protein (0.0-0.8) mg/dL 0107/18/20 07/18/20 Range/Units 21:00 05:42 05:42 Hgb (13.0-17.5) gm/dL MCV (80.0-100.0) fL MCH (25.0-35.0) pg Lymphocytes # (1.0-4.8) k/uL D-Dimer 0.65 H (<0.60) mg/L FEU BUN 34.0 H (9.0-27.0) mg/dL BUN/Creatinine Ratio 30.91 H (12.00-20.00) Ratio POC Glucose (mg/dL) 354 H (75-99) mg/dL Hemoglobin A1c (4.0-6.0) % Calcium 8.5 L (8.7-10.3) mg/dL C-Reactive Protein 3.0 H (0.0-0.8) mg/dL 07/18/20 Range/Units 05:42 Hgb 12.6 L (13.0-17.5) gm/dL MCV 77.1 L (80.0-100.0) fL MCH 24.3 L (25.0-35.0) pg Lymphocytes # 0.6 L (1.0-4.8) k/uL D-Dimer (<0.60) mg/L FEU BUN (9.0-27.0) mg/dL BUN/Creatinine Ratio (12.00-20.00) Ratio POC Glucose (mg/dL) (75-99) mg/dL Hemoglobin A1c (4.0-6.0) % Calcium (8.7-10.3) mg/dL C-Reactive Protein (0.0-0.8) mg/dL Microbiology - Last 24 Hours (Table) 07/17/20 01:15 Gram Stain - Preliminary Sputum Sputum Culture - Preliminary Assessment and Plan Plan: Assessment: 1 Generalized weakness, fatigue suspect secondary to recent CoVID [address] scan of the brain reveals no acute intracranial process 2 CoVID 19 infection diagnosed 2 weeks ago 3 Diabetes mellitus 4 History of chronic atrial fibrillation 5 Hypertension 6 Chronic disease 7 Osteoarthritis 8 Mild intermittent chronic bronchial asthma, currently inactive and stable Plan: Clinically patient has remained stable since admission, no worsening dyspnea no worsening hypoxemia, remains on room air, his been afebrile, no cough, no dyspnea, Inflammatory markers have improved. Patient is being discharged home today, from pulmonary perspective patient is stable for discharge I performed a history & physical examination of the patient and discussed their management with my nurse practitioner, Lakesha Saldivar. I reviewed the nurse practitioner's note and agree with the documented findings and plan of care. Lung sounds are positive for diminished breath sounds. The findings and the impression was discussed with the patient. I attest to the documentation by the nurse practitioner. Time with Patient: Less than 30
--- NOTE | 2020-07-23 08:51 | CDI ---
Documentation Clarification Form Date: 07/23/2020 08:50:00 AM From: Trish Gallardo Phone: Admit Date: 07/17/2020 10:03:00 AM Patient Name: Perez Fuller Visit Number: [id number] Discharge Date: 07/18/2020 12:58:00 PM ATTENTION: The Clinical Documentation Specialists (CDI) and [facility] Coding Staff appreciate your assistance in clarifying documentation. Please respond to the clarification below the line at the bottom and electronically sign. The CDI & [facility] Coding staff will review the response and follow-up if needed. Please note: Queries are made part of the Legal Health Record. If you have any questions, please contact the author of this message via ITS. Dr. Nilo Ambrosio Altered Mental Status and confusion was documented in the ED, H&P, Consult, PNs, DS. Patient states that he so confused that he is unable to care for himself at home. Patient states difficulty managing his pump secondary to increasing confusion, temporarily disconnected History/Risk Factors: COVID, Weakness, AFIB, DM w/ hyperglycemia, HTN Clinical Indicators: AMS/Confusion Labs: Positive COVID 07/04/20, Glucose 269 CT: No acute intracranial process. 2.Mild chronic appearing white matter ischemic changes may be present. Treatment: CT, Monitor In your professional opinion, please clarify the etiology of the Altered Mental Status, if known. Delirium (specify cause): Dementia (if know, specify Type and if with/without Behavioral Disturbance) Encephalopathy (specify Type and Underlying Medical Illness) Other condition (please specify) Unable to determine off Metabolic Encephalopathy due to hyperglycemia MTDD
--- NOTE | 2020-07-23 08:55 | CDI ---
Documentation Clarification Form Date: 07/23/20 From: Trish Gallardo CCS Phone: If you have a question about this query, please contact Sayda Johnson Iuss Analyst at [phone] between 8am and 5pm. Admit Date: 07/17/20 Discharge Date: Patient Name: Perez Fuller Visit Number: [id number] ATTENTION: The Clinical Documentation Specialists (CDI) and [facility] Coding Staff appreciate your assistance in clarifying documentation. Please respond to the clarification below the line at the bottom and electronically sign. The CDI & [facility] Coding staff will review the response and follow-up if needed. Please note: Queries are made part of the Legal Health Record. If you have any questions, please contact the author of this message via ITS. Dear Dr. Ambrosio, The patient has had a recent episode of COVID-19 infection as documented in the medical record, and now presents with: Generalized weakness since his recent Covid-19 infection 2 weeks ago Positive test 07/04/20 scanned into chart Please clarify the current status of the patients COVID-19 infection in the next progress note and/or discharge summary such as: COVID-19 is not a current infection, and the stated condition is a residual effect/sequelae of COVID-19 COVID-19 continues to be a current and active infection, and the stated condition is a continuation of its symptoms Other explanation of clinical findings (please specify): Clinically unable to determine the current status of the patients COVID- 19 infection Unknown COVID-19 is not a current infection, and the stated condition is a residual effect/sequelae of COVID-19 MTDD
== END 2020-07-18 12:58 | disposition home or self-care (01) | DRG 637 ==
LOC: EC 11:00 → 4SSUR 12:51 → OBSVTOIN 07-17 10:03
PROVIDERS: ADMIT Family Medicine; ATTEND Family Medicine
PROC: 05HC33Z Insertion of Infusion Device into Left Basilic Vein, Percutaneous Approach (ICD-10-PCS; principal; 2020-07-17 10:00)
DX: E11.65 Type 2 diabetes mellitus with hyperglycemia (principal); G93.41 Metabolic encephalopathy; I48.92 Unspecified atrial flutter; K50.90 Crohn's disease, unspecified, without complications; I48.20 Chronic atrial fibrillation, unspecified; R53.1 Weakness; I11.0 Hypertensive heart disease with heart failure; I50.9 Heart failure, unspecified; R26.89 Other abnormalities of gait and mobility; Z79.4 Long term (current) use of insulin; E78.5 Hyperlipidemia, unspecified; J45.20 Mild intermittent asthma, uncomplicated; M19.90 Unspecified osteoarthritis, unspecified site; M10.9 Gout, unspecified; B94.8 Sequelae of other specified infectious and parasitic diseases; Z79.899 Other long term (current) drug therapy; Z87.01 Personal history of pneumonia (recurrent); Z90.49 Acquired absence of other specified parts of digestive tract; Z96.41 Presence of insulin pump (external) (internal); Z98.41 Cataract extraction status, right eye; Z98.890 Other specified postprocedural states; Z80.0 Family history of malignant neoplasm of digestive organs; Z80.3 Family history of malignant neoplasm of breast; Z80.42 Family history of malignant neoplasm of prostate
CPT/HCPCS: 36410; 36415; 70450; 76937; 80048; 80053; 82140; 83036; 83615; 83735; 85025; 85379; 86140; 87070; 87205; 93005; 94640; 99285

== ENCOUNTER 2020-08-11 13:03 | Emergency (ER) | payer MEDICARE ==
[2020-08-11 13:20] LABS: Glucose,Whole Blood 66 mg/dL (75-99)
[2020-08-11 13:26] VITALS: TEMP 98
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
[2020-08-11 14:01] LABS: Glucose,Whole Blood 116 mg/dL (75-99)
[2020-08-11 14:09] VITALS: BP 172/82; PULSE 80; RESP 18
== END 2020-08-11 14:08 | disposition home or self-care (01) ==
LOC: EC 13:03
DX: E11.649 Type 2 diabetes mellitus with hypoglycemia without coma (principal); I10 Essential (primary) hypertension; J45.909 Unspecified asthma, uncomplicated; Z79.899 Other long term (current) drug therapy; Z79.4 Long term (current) use of insulin; Z79.51 Long term (current) use of inhaled steroids; Z96.41 Presence of insulin pump (external) (internal)
CPT/HCPCS: 36415; 99285

== ENCOUNTER 2021-11-26 21:16 | Emergency (ER) | payer MEDICARE ==
[2021-11-26 22:02] VITALS: BP 189/87; PULSE 70; RESP 19; TEMP 98.2
--- NOTE | 2021-11-26 22:34 | XR ---
EXAMINATION TYPE: XR forearm LT DATE OF EXAM: 11/26/2021 10:13 PM INDICATION: Patient age:Male; 81 years old; Reason for study: injury, pain; COMPARISON: None TECHNIQUE: The left forearm was examined in AP and lateral projections. FINDINGS: Curvilinear metallic densities projects over the ulnar aspect of the proximal forearm. No acute osseous pathology, soft tissue swelling or joint dislocations are seen. IMPRESSION: 1. No evidence of acute fracture. 2. Radiopaque curvilinear foreign bodies are identified correlate with physical exam of the patient' s arm to rule out densities on the patient's skin.
--- NOTE | 2021-11-26 23:12 | ED ---
Upper Extremity HPI - General Chief Complaint: Extremity Injury, Upper Stated Complaint: Broken Arm Time Seen by Provider: 11/26/21 22:59 Source: patient, RN notes reviewed Mode of arrival: ambulatory - History of Present Illness Initial Comments: Patient with a past medical history of asthma, diabetes, hypertension presents after being struck in the left forearm by a tree branch when he was doing yard work. Beginning this branch was probably 1.5 inches in diameter. Patient complaining of pain to the dorsum of his left forearm. States that he felt like something was fractured. Pain is exacerbated by movement of the wrist. Patient denies any other injuries. No headache, no fever or chills, no changes in vision or hearing, no sore throat or difficulty with speech, no neck pain, no chest pain or shortness of breath, no abdominal pain, no nausea or vomiting, no changes in urination or bowel movements, no numbness or tingling, no skin rashes or lesions. MD Complaint: Injury to:: left, forearm - Related Data Home Medications Medication Instructions Recorded Confirmed Beclomethasone Dipropionate [Qvar 2 puff INHALATION RT-BID 03/02/15 07/16/20 80 mcg/puff] Insulin Aspart [NovoLOG] 0.01 unit SQ-PUMP CONTINUOUS 03/02/15 07/16/20 Loperamide [Imodium] 4 mg PO QID 03/02/15 07/16/20 Ferrous Sulfate [Iron (65 MG 325 mg PO BID 10/08/15 07/16/20 Elemental)] Multivitamin [Men's Multi-Vitamin] 1 tab PO DAILY 10/08/15 07/16/20 Albuterol Sulfate [Proair Hfa] 1 - 2 puff INHALATION RT-QID PRN 07/04/20 07/16/20 Carvedilol [Coreg] 6.25 mg PO BID 07/04/20 07/16/20 Donepezil HCl [Aricept] 5 mg PO DAILY 07/04/20 07/16/20 Irbesartan [Avapro] 150 mg PO DAILY 07/04/20 07/16/20 Magnesium Citrate 125 mg PO DAILY 07/04/20 07/16/20 [place]-3 Fatty Acids/Fish Oil 1 cap PO DAILY 07/04/20 07/16/20 [[place]-3 Fish Oil 1,200 mg Sfgl] Tamsulosin HCl [Flomax] 0.4 mg PO BID 07/04/20 07/16/20 amLODIPine [Norvasc] 2.5 mg PO DAILY 07/04/20 07/16/20 Previous Rx's Medication Instructions Recorded Ascorbic Acid [Vitamin C] 1,000 mg PO DAILY tab 07/18/20 Aspirin 81 mg PO DAILY #30 chew 07/18/20 Cholecalciferol [Vitamin D3 (25 50 mcg PO DAILY tablet 07/18/20 Mcg = 1000 Iu)] Zinc Sulfate [Orazinc] 220 mg PO DAILY #30 cap 07/18/20 Acetaminophen [Tylenol] 500 mg PO Q4-6H PRN #24 tab 11/26/21 Allergies Allergy/AdvReac Type Severity Reaction Status Date / Time No Known Allergies Allergy Verified 11/26/21 22:02 Review of Systems ROS Statement: Those systems with pertinent positive or pertinent negative responses have been documented in the HPI. ROS Other: All systems not noted in ROS Statement are negative. Past Medical History Past Medical History: Asthma, Diabetes Mellitus, Hyperlipidemia, Hypertension, Osteoarthritis (OA), Pneumonia Additional Past Medical History / Comment(s): CROHNS's, GOUT,TAKES FISH OIL FOR HIS CHOLETEROL History of Any Multi-Drug Resistant Organisms: None Reported Past Surgical History: Appendectomy, Bowel Resection, Cholecystectomy, Prostate Surgery Additional Past Surgical History / Comment(s): COLONOSCOPY, FATTY TUMOR REMOVED FROM HIS BACK, RT CATARACT. Past Anesthesia/Blood Transfusion Reactions: No Reported Reaction Additional Past Anesthesia/Blood Transfusion Reaction / Comment(s): CLAUTERPHOBIA. PER PAST MEDICL HX: HAD A BLOOD TRANSFUSION 1966- REACTION WAS FACIAL SWELLING. Past Psychological History: No Psychological Hx Reported Smoking Status: Never smoker Past Alcohol Use History: None Reported Past Drug Use History: None Reported - Past Family History Mother Family Medical History: Cancer Additional Family Medical History / Comment(s): BREAST CANCER Father Family Medical History: Cancer Additional Family Medical History / Comment(s): COLON CANCER Brother(s) Family Medical History: Cancer, Prostate Disorder Additional Family Medical History / Comment(s): PROSTATE CANCER General Exam Limitations: no limitations General appearance: alert, in no apparent distress Head exam: Present: atraumatic, normocephalic, normal inspection Eye exam: Present: normal appearance, EOMI Neck exam: Present: normal inspection, full ROM. Absent: tenderness, meningismus, lymphadenopathy Respiratory exam: Present: normal lung sounds bilaterally. Absent: respiratory distress, wheezes, rales, rhonchi, stridor Cardiovascular Exam: Present: regular rate, normal rhythm, normal heart sounds. Absent: systolic murmur, diastolic murmur, rubs, gallop, clicks Left Elbow exam: Present: normal inspection, full ROM. Absent: tenderness, swelling, abrasion Forearm Wrist exam: Present: tenderness, swelling, abrasion (Superficial abrasions noted on both forearms which the patient states is from yard work.). Absent: normal inspection, laceration, ecchymosis, deformity, crepitus, dislocation Hand Wrist exam: Present: normal inspection, full ROM. Absent: tenderness, swelling, abrasion, laceration, ecchymosis, deformity, crepitus, dislocation Neuro motor exam: Present: wrist extension intact, thumb opposition intact, thumb IP flexion intact, thumb adduction intact, fingers 2-5 abduction intact Neurosensory exam: Present: radial nerve intact, ulnar nerve intact, median nerve intact Vascular: Present: normal capillary refill. Absent: vascular compromise, Pallo, pulse deficit radial art, pulse deficit ulnar art Back exam: Present: normal inspection, full ROM Neurological exam: Present: alert, oriented X3, CN II-XII intact. Absent: motor sensory deficit Psychiatric exam: Present: normal affect, normal mood Skin exam: Present: warm, dry, normal color Course Vital Signs 11/26/21 21:57 Temperature 98.2 F Pulse Rate 70 Respiratory 19 Rate Blood Pressure 189/87 O2 Sat by Pulse 98 Oximetry Medical Decision Making - Medical Decision Making Patient's plain film x-ray shows no evidence of acute fracture. There is possibly foreign body which may be on the patient's skin. I did inspect the patient. He did have very superficial abrasions which he states doing the yard work. However there is no evidence of foreign body or metallic foreign body. Suspect this may have been on the patient's skin during the x-ray. Patient denies having any surgery of the left forearm. Call fracture. Discussed conservative therapy and Rice therapy. All questions answered. Patient was told to return to the ER for any signs or symptoms worsen. Told to return immediately if any other problems arise. All questions answered. Treatment plan discussed. Patient in agreement Every effort has been made to ensure accuracy of this dictation. However, due to the limitations of electronic medical records and dictation devices, errors in charting still occur. Allergy Physician Dr. Quan - Radiology Data Radiology results: report reviewed, image reviewed Disposition Clinical Impression: Contusion of left forearm, initial encounter Disposition: HOME SELF-CARE Condition: Good Instructions (If sedation given, give patient instructions): Contusion in Adults (ED) Additional Instructions: Follow-up with your regular physician as directed. Return to the ER immediately if any symptoms worsen, new symptoms arise, or any other problems develop. Prescriptions: Acetaminophen [Tylenol] 500 mg PO Q4-6H PRN #24 tab PRN Reason: Pain Is patient prescribed a controlled substance at d/c from ED?: No Referrals: Nilo Ambrosio DO [Primary Care Provider] - 1-2 days
== END 2021-11-26 23:12 | disposition home or self-care (01) ==
LOC: EC 21:16
DX: S52.90XA Unspecified fracture of unspecified forearm, initial encounter for closed fracture (principal)

== ENCOUNTER 2023-04-24 15:46 | Inpatient (IN) | payer MEDICARE ==
[2023-04-24 16:01] LABS: Glucose,Whole Blood 193 mg/dL (70-110)
--- NOTE | 2023-04-24 16:17 | ED ---
General Adult HPI - General Chief complaint: Neuro Symptoms/Deficit Stated complaint: Blood sugar high Time Seen by Provider: 04/24/23 15:58 Source: patient Mode of arrival: ambulatory Limitations: no limitations - History of Present Illness Initial comments: Dictation was produced using [employer] dictation software. please excuse any grammatical, word or spelling errors. Chief Complaint: 82-year-old male presents with confusion History of Present Illness: 82-year-old male who presents emergency Department chief complaint confusion. said the bedside states that he was confused and little dysarthric. Patient states he knows he is confused. He is having trouble with his glucometer and insulin pump. states that his symptoms started at 1. His last seen normal crit before that. Patient has a history of stroke. The ROS documented in this emergency department record has been reviewed and confirmed by me. Those systems with pertinent positive or negative responses have been documented in the HPI. All other systems are other negative and/or noncontributory. - Related Data Home Medications Medication Instructions Recorded Confirmed Insulin Aspart [NovoLOG] 0.01 unit SQ-PUMP CONTINUOUS 03/02/15 04/24/23 Loperamide [Imodium] 4 mg PO QID 03/02/15 04/24/23 Ferrous Sulfate [Iron (65 MG 325 mg PO DAILY 10/08/15 04/24/23 Elemental)] Multivitamin [Men's Multi-Vitamin] 1 tab PO DAILY 10/08/15 04/24/23 Albuterol Sulfate [Proair Hfa] 1 - 2 puff INHALATION RT-QID PRN 07/04/20 04/24/23 Tamsulosin HCl [Flomax] 0.8 mg PO DAILY 07/04/20 04/24/23 Apixaban [Eliquis] 5 mg PO BID 04/24/23 04/24/23 Budesonide/Formoterol Fumarate 2 puff INHALATION RT-BID 04/24/23 04/24/23 [Symbicort 160-4.5 Mcg Inhaler] Cyanocobalamin (Vitamin B-12) 1,000 mcg PO DAILY 04/24/23 04/24/23 [Vitamin B-12] Elderberry Fruit [Elderberry] 350 mg PO DAILY 04/24/23 04/24/23 Losartan [Cozaar] 25 mg PO DAILY 04/24/23 04/24/23 Magnesium 250 mg PO DAILY 04/24/23 04/24/23 Zinc Gluconate [Zinc] 50 mg PO DAILY 04/24/23 04/24/23 amLODIPine [Norvasc] 5 mg PO DAILY 04/24/23 04/24/23 carvediloL [Coreg] 3.125 mg PO BID 04/24/23 04/24/23 Previous Rx's Medication Instructions Recorded Cholecalciferol [Vitamin D3 (25 50 mcg PO DAILY tablet 07/18/20 Mcg = 1000 Iu)] Allergies Allergy/AdvReac Type Severity Reaction Status Date / Time No Known Allergies Allergy Verified 04/24/23 16:56 Review of Systems ROS Statement: Those systems with pertinent positive or pertinent negative responses have been documented in the HPI. ROS Other: All systems not noted in ROS Statement are negative. Past Medical History Past Medical History: Asthma, Diabetes Mellitus, Hyperlipidemia, Hypertension, Osteoarthritis (OA), Pneumonia Additional Past Medical History / Comment(s): CROHNS's, GOUT,TAKES FISH OIL FOR HIS CHOLETEROL History of Any Multi-Drug Resistant Organisms: None Reported Past Surgical History: Appendectomy, Bowel Resection, Cholecystectomy, Prostate Surgery Additional Past Surgical History / Comment(s): COLONOSCOPY, FATTY TUMOR REMOVED FROM HIS BACK, RT CATARACT. Past Anesthesia/Blood Transfusion Reactions: No Reported Reaction Additional Past Anesthesia/Blood Transfusion Reaction / Comment(s): CLAUTERPHOBIA. PER PAST MEDICL HX: HAD A BLOOD TRANSFUSION 1966- REACTION WAS FACIAL SWELLING. Past Psychological History: No Psychological Hx Reported Smoking Status: Never smoker Past Alcohol Use History: None Reported Past Drug Use History: None Reported - Past Family History Mother Family Medical History: Cancer Additional Family Medical History / Comment(s): BREAST CANCER Father Family Medical History: Cancer Additional Family Medical History / Comment(s): COLON CANCER Brother(s) Family Medical History: Cancer, Prostate Disorder Additional Family Medical History / Comment(s): PROSTATE CANCER General Exam - General Exam Comments Initial Comments: PHYSICAL EXAM: General Impression: Alert and oriented x3, not in acute distress HEENT: Normocephalic atraumatic, extra-ocular movements intact, pupils equal and reactive to light bilaterally, mucous membranes moist. Cardiovascular: Heart regular rate and rhythm Chest: Able to complete full sentences, no retractions, no tachypnea Abdomen: abdomen soft, non-tender, non-distended, no organomegaly Musculoskeletal: Pulses present and equal in all extremities, no peripheral edema Motor: no focal deficits noted Neurological: CN II-XII grossly intact, no focal motor or sensory deficits noted, NIH 0 Skin: Intact with no visualized rashes Psych: Normal affect and mood Limitations: no limitations Course Vital Signs 04/24/23 04/24/23 04/24/23 15:51 16:07 16:30 Temperature 98 F Pulse Rate 83 74 76 Respiratory 16 18 19 Rate Blood Pressure 224/105 219/104 219/104 O2 Sat by Pulse 100 98 99 Oximetry EKG Findings - EKG Comments: EKG Findings:: My EKG interpretation: Ventricular rate 73, sinus rhythm,. 189, QRS and 4, QTC 443. No CT prolongation, no QTC prolongation, no ST or T-wave changes noted. Overall, this EKG is unremarkable Medical Decision Making - Medical Decision Making Was pt. sent in by a medical professional or institution (, PA, CAMERA REPAIRMAN, urgent care, hospital, or half-way...) When possible be specific @ -No Did you speak to anyone other than the patient for history (EMS, parent, family, police, friend...)? What history was obtained from this source @ - history obtained from the at the bedside Did you review nursing and triage notes (agree or disagree)? Why? @ -I reviewed and agree with nursing and triage notes Were old charts reviewed (outside hosp., previous admission, EMS record, old EKG, old radiological studies, urgent care reports/EKG's, half-way records)? Report findings @ -No old charts were reviewed Differential Diagnosis (chest pain, altered mental status, abdominal pain women, abdominal pain men, vaginal bleeding, musculoskeletal, weakness, fever, dyspnea, syncope, headache, dizziness, GI bleed, back pain, seizure, CVA, palpatations, mental health)? @ - Differential CVA: Ischemic stroke, hemorrhagic stroke, brain tumor, atypical migraine, Wernicke's encephalopathy, seizure, multiple sclerosis, meningitis, encephalitis, hypoglycemia, Guillain-Tracy, electrolytes disturbance, myasthenia gravis.... This is not meant to be an all-inclusive list EKG interpreted by me (3pts min.). @ -Above X-rays interpreted by me (1pt min.). @ -Chest x-rays nonacute CT interpreted by me (1pt min.). @ -CT brain shows no bleeding. CT angiography shows no large vessel occlusion U/S interpreted by me (1pt. min.). @ -None done What testing was considered but not performed or refused? (CT, X-rays, U/S, labs)? Why? @ -None What meds were considered but not given or refused? Why? @ -Alteplase was considered however risks outweigh the benefits. Did you discuss the management of the patient with other professionals (professionals i.e. , PA, CAMERA REPAIRMAN, lab, RT, psych nurse, child welfare social worker, briquette machine operator, teacher, technology officer, home health care case manager)? Give summary @ -Discussed with hospitalist for admission Was smoking cessation discussed for >3mins.? @ -No Was critical care preformed (if so, how long)? @ -No Were there social determinants of health that impacted care today? How? (Homeles sness, low income, unemployed, alcoholism, drug addiction, transportation, low edu. Level, literacy, decrease access to med. care, group home, rehab)? @ -No Was there de-escalation of care discussed even if they declined (Discuss DNR or withdrawal of care, Hospice)? DNR status @ -No What co-morbidities impacted this encounter? (DM, HTN, Smoking, COPD, CAD, Cancer, CVA, ARF, Chemo, Hep., AIDS, mental health diagnosis, sleep apnea, morbid obesity)? @ -None Was patient admitted / discharged? Hospital course, mention meds given and route, prescriptions, significant lab abnormalities, going to OR and other pertinent info. @ -82-year-old male presents to the [facility] prior with chief complaint of strokelike symptoms described as dysarthria and confusion. Vital signs stable. NIH score at the bedside is 0. Imaging studies negative. Labs are negative. Patient given aspirin will be admitted with consultation to neurology. Undiagnosed new problem with uncertain prognosis? @ -No Drug Therapy requiring intensive monitoring for toxicity (Heparin, Nitro, Insulin, Cardizem)? @ -No Were any procedures done? @ -No Diagnosis/symptom? Acute, or Chronic, or Acute on Chronic? Uncomplicated (without systemic symptoms) or Complicated (systemic symptoms)? @ -Dysarthria Side effects of treatment? @ -No Exacerbation, Progression, or Severe Exacerbation? @ -No Poses a threat to life or bodily function? How? (Chest pain, [place], [place], pneumonia, PE, COPD, DKA, ARF, appy, cholecystitis, CVA, Diverticulitis, Homicidal, Suicidal, threat to staff... and all critical care pts) @ -yes - Lab Data Result diagrams: 04/24/23 16:57 04/24/23 16:57 Lab Results 04/24/23 04/24/23 04/24/23 Range/Units 15:54 16:57 16:57 WBC 4.3 (3.8-10.6) k/uL RBC 4.57 (4.30-5.90) m/uL Hgb 11.5 L (13.0-17.5) gm/dL Hct 37.2 L (39.0-53.0) % MCV 81.4 (80.0-100.0) fL MCH 25.2 (25.0-35.0) pg MCHC 31.0 (31.0-37.0) g/dL RDW 16.5 H (11.5-15.5) % Plt Count 191 (150-450) k/uL MPV 7.5 Neutrophils % 60 % Lymphocytes % 28 % Monocytes % 6 % Eosinophils % 3 % Basophils % 0 % Neutrophils # 2.6 (1.3-7.7) k/uL Lymphocytes # 1.2 (1.0-4.8) k/uL Monocytes # 0.3 (0-1.0) k/uL Eosinophils # 0.1 (0-0.7) k/uL Basophils # 0.0 (0-0.2) k/uL Hypochromasia Marked Anisocytosis Slight PT 17.3 H (10.0-12.5) sec INR 1.7 H (<1.2) APTT 26.3 (22.0-30.0) sec Sodium (137-145) mmol/L Potassium (3.5-5.1) mmol/L Chloride (98-107) mmol/L Carbon Dioxide (22-30) mmol/L Anion Gap mmol/L BUN (9-20) mg/dL Creatinine (0.66-1.25) mg/dL Est GFR (CKD-EPI)AfAm (>60 ml/min/1.73 sqM) Est GFR (CKD-EPI)NonAf (>60 ml/min/1.73 sqM) Glucose (74-99) mg/dL POC Glucose (mg/dL) 193 H (70-110) mg/dL POC Glu Release Of Information Specialist ID Garrick Gates Calcium (8.4-10.2) mg/dL Total Bilirubin (0.2-1.3) mg/dL AST (17-59) U/L ALT (4-49) U/L Alkaline Phosphatase (38-126) U/L Creatine Kinase (55-170) U/L Troponin I (0.000-0.034) ng/mL Total Protein (6.3-8.2) g/dL Albumin (3.5-5.0) g/dL 04/24/23 04/24/23 Range/Units 16:57 16:57 WBC (3.8-10.6) k/uL RBC (4.30-5.90) m/uL Hgb (13.0-17.5) gm/dL Hct (39.0-53.0) % MCV (80.0-100.0) fL MCH (25.0-35.0) pg MCHC (31.0-37.0) g/dL RDW (11.5-15.5) % Plt Count (150-450) k/uL MPV Neutrophils % % Lymphocytes % % Monocytes % % Eosinophils % % Basophils % % Neutrophils # (1.3-7.7) k/uL Lymphocytes # (1.0-4.8) k/uL Monocytes # (0-1.0) k/uL Eosinophils # (0-0.7) k/uL Basophils # (0-0.2) k/uL Hypochromasia Anisocytosis PT (10.0-12.5) sec INR (<1.2) APTT (22.0-30.0) sec Sodium 140 (137-145) mmol/L Potassium 5.2 H (3.5-5.1) mmol/L Chloride 110 H (98-107) mmol/L Carbon Dioxide 21 L (22-30) mmol/L Anion Gap 9 mmol/L BUN 18 (9-20) mg/dL Creatinine 1.35 H (0.66-1.25) mg/dL Est GFR (CKD-EPI)AfAm 55 (>60 ml/min/1.73 sqM) Est GFR (CKD-EPI)NonAf 48 (>60 ml/min/1.73 sqM) Glucose 190 H (74-99) mg/dL POC Glucose (mg/dL) (70-110) mg/dL POC Glu Release Of Information Specialist ID Calcium 8.2 L (8.4-10.2) mg/dL Total Bilirubin 0.6 (0.2-1.3) mg/dL AST 47 (17-59) U/L ALT 47 (4-49) U/L Alkaline Phosphatase 121 (38-126) U/L Creatine Kinase 104 (55-170) U/L Troponin I 0.018 (0.000-0.034) ng/mL Total Protein 6.2 L (6.3-8.2) g/dL Albumin 3.3 L (3.5-5.0) g/dL Disposition Clinical Impression: Cerebrovascular accident (CVA) Disposition: ADMITTED IP TO THIS [facility] Condition: Fair Referrals: Nilo Ambrosio DO [Primary Care Provider] - 1-2 days Decision Time: 19:45
[2023-04-24 17:19] LABS: Anisocytosis Slight; Basophils % (A) 0 %; Eosinophils # (A) 0.1 k/uL (0-0.7); Eosinophils % (A) 3 %; HCT 37.2 % (39.0-53.0); HGB 11.5 gm/dL (13.0-17.5); Hypochromasia Marked; Lymphocytes # (A) 1.2 k/uL (1.0-4.8); Lymphocytes % (A) 28 %; MCH 25.2 pg (25.0-35.0); MCV 81.4 fL (80.0-100.0); Mean Platelet Volume 7.5; Monocytes # (A) 0.3 k/uL (0-1.0); Monocytes % (A) 6 %; Neutrophils # (A) 2.6 k/uL (1.3-7.7); Neutrophils % (A) 60 %; Platelet Count 191 k/uL (150-450); RBC 4.57 m/uL (4.30-5.90); RDW 16.5 % (11.5-15.5); WBC 4.3 k/uL (3.8-10.6)
[2023-04-24 17:24] LABS: INR 1.7 (<1.2); Partial Thromboplastin Time 26.3 sec (22.0-30.0); Prothrombin Time 17.3 sec (10.0-12.5)
--- NOTE | 2023-04-24 17:26 | XR ---
EXAMINATION TYPE: XR chest 2V DATE OF EXAM: 04/24/2023 COMPARISON: 07/11/2020 INDICATION: Altered mental status TECHNIQUE: Frontal and lateral views of the chest are obtained. FINDINGS: The heart size is normal. The pulmonary vasculature is normal. There is a small posterior pleural effusion. Minimal nonspecific infiltrate may be within the right m id and lower lung field. Correlate for atelectasis. Consider atypical pneumonia. IMPRESSION: 1. Minimal atelectasis or atypical pneumonia right mid and lower lung. 2. Small posterior pleural effusion
[2023-04-24 17:32] LABS: ALT 47 U/L (4-49); AST 47 U/L (17-59); African American GFR (CKD) 55 (>60 ml/min/1.73 sqM); Albumin 3.3 g/dL (3.5-5.0); Alkaline Phosphatase 121 U/L (38-126); Anion Gap 9 mmol/L; Blood Urea Nitrogen 18 mg/dL (9-20); Calcium 8.2 mg/dL (8.4-10.2); Carbon Dioxide 21 mmol/L (22-30); Chloride 110 mmol/L (98-107); Creatine Kinase 104 U/L (55-170); Glucose 190 mg/dL (74-99); Non-African American GFR(CKD) 48 (>60 ml/min/1.73 sqM); Potassium 5.2 mmol/L (3.5-5.1); Sodium 140 mmol/L (137-145); Total Bilirubin 0.6 mg/dL (0.2-1.3); Total Protein 6.2 g/dL (6.3-8.2)
--- NOTE | 2023-04-24 18:57 | CT ---
EXAMINATION TYPE: CT brain wo con DATE OF EXAM: 04/24/2023 COMPARISON: 07/16/2020 INDICATION: Confusion, difficulty remembering things. DLP: Combined DLP of 1582 mGycm, Automated exposure control for dose reduction was used. CONTRAST: None CT of the brain is performed utilizing 3 mm thick sections through the posterior fossa and 3 mm thick sections through the remaining calvarium. Study is performed within 24 hours of arrival to the hosp ital. No abnormal hyperdensity is present to suggest an acute intracranial hemorrhage. No mass lesion is evident. No acute infarcts are evident. There is mild periventricular white matter hypodensity, likely on the basis of chronic white matter ischemic changes. This appears stable from comparison. Ventricles and sulci are appropriate for the patient age. Paranasal sinuses and mastoid air cells within the [id number] are clear. IMPRESSION: 1. Mild periventricular white matter ischemic-type changes. 2. No acute intracranial process. Follow-up MRI can be performed as clinically indicated.
--- NOTE | 2023-04-24 19:19 | CT ---
EXAMINATION TYPE: CT angio head neck DATE OF EXAM: 04/24/2023 HISTORY: Confusion, difficulty remembering things. COMPARISON: None CT DLP: Combined DLP of 1582 mGycm. Automated Exposure Control for Dose Reduction was Utilized. TECHNIQUE: CTA scan of the neck is performed with IV Contrast, patient injected with 65 ml mL of Iso keith 370, axial images are obtained, coronal and sagittal reformatted images are reviewed. Three-D rec onstructed images are created on an independent workstation and reviewed. Source images are reviewed . FINDINGS: Carotid/Vascular Structures: There is a 3 vessel arch. Common carotid arteries bifurcate into internal and external carotid arteries without significant paresh w limiting stenosis. Vertebral arteries are codominant. Internal carotid arteries and vertebral arteries are patent to the skull base. Cervical of [place]: Vertebral basilar system appears normal. Posterior cerebral vasculature is unrema rkable. Internal carotid arteries bifurcate normally into A1 and M1 segments. Right A1 segment is king ewhat hypoplastic. A2 segments are normal. The anterior communicating artery is patent. Anterior communicating arteries are not identified. Posterior cerebral vasculature appears normal. IMPRESSION: 1. No flow-limiting stenosis bilateral carotid bifurcations. 2. Normal [place] of [place] NASCET criteria was used in interpretation of this exam?
[2023-04-24] MEDS ORDERED: ASPIRIN 81 MG PO STA (19:31)
[2023-04-24] MEDS ORDERED: NALOXONE 0.4 MG/ML 1 ML VIAL IV PRN (19:31)
[2023-04-24] MEDS: SODIUM CHLORIDE 0.9% 1,000 ML IV SCH (19:58)
[2023-04-24 21:10] LABS: Glucose,Whole Blood 181 mg/dL (70-110)
[2023-04-25 06:11] LABS: Glucose,Whole Blood 255 mg/dL (70-110)
[2023-04-25] MEDS: INSULIN ASPART (NovoLOG) 100 UNIT/ML VIAL SQ SCH ×4 (06:24→20:31)
[2023-04-25] MEDS ORDERED: ALBUTEROL NEBULIZED 2.5 MG/3 ML INHALATION PRN (09:34)
[2023-04-25 11:32] LABS: Glucose,Whole Blood 203 mg/dL (70-110)
--- NOTE | 2023-04-25 12:50 | P.CNNES ---
History of Present Illness Consult date: 04/25/23 Requesting physician: Anand Polanco Reason for Consult: CVA History of Present Illness: Patient is a 82-year-old right-handed male with history of hypertension, diabetes, atrial fibrillation, came to the hospital yesterday at 3:46 PM for strokelike symptoms. Patient states that yesterday at 11 AM he fell asleep whil e watching TV. He woke up at 2:30 PM and his insulin pump was beeping. He said that he try to change the battery, but looks like it was malfunctioning. He became frustrated. He was talking to his , and noticed that he was not making sense. He couldn't get the words out. He knew what he wanted to say, but could not get the words out. Patient states that he does have this speech problem for a few years, but it was much more worse yesterday at that time. His got concerned and brought him to the hospital. He denies any focal numbness, tingling, focal weakness, problem with the vision. He did have a mild headache yesterday. Vital signs on arrival blood pressure 224/105, which improved to 219/104. Pulse rate 83 temperature 98.0. Blood test shows normal WBC hemoglobin 11.5, platelets 191. INR 1.7, PTT 26.3. Sodium is normal, potassium 5.2, BUN 18, creatinine 1.35. Hepatic panel is normal, troponin negative, CK normal, TSH is normal. Patient's last hemoglobin A1c 7.3 on 03/30/2023. CT head revealed mild periventricular white matter ischemic Changes. No acute intracranial process. EKG shows sinus rhythm. Chest x-ray with minimal atelectasis or atypical pneumonia right mid and lower lung. Small posterior pleural effusion. Patient states that his speech has much improved, but not white back to baseline yet. He offers no other complaints. Patient denies any history of tobacco or alcohol use. He has history of diabetes, an insulin pump for last 9 months. Home medications include insulin, albuterol, Flomax, vitamin D, Norvasc, B12, zinc, losartan, Eliquis 5 mg twice a day. Patient states that he has been on Eliquis for many years, and used to take it very religiously. About 2 or 3 weeks ago, he became frustrated and wanted to stop medication. He would stop taking Eliquis for 2-3 days, would take for couple days, then stopped for 4 days. He was taking it very sporadically in the last 2 or 3 weeks and has not taken it in the last couple days. Review of Systems Constitutional: Denies chills, Denies fever Eyes: denies blurred vision, denies diplopia, denies discharge, denies pain Ears: deny: decreased hearing, ear discharge Ears, nose, mouth and throat: Reports headache (Yesterday had a THEODORE), Denies sore throat Cardiovascular: Denies chest pain, Denies shortness of breath Respiratory: Reports cough with sputum, Denies cough, Denies excessive sputum Gastrointestinal: Reports diarrhea (Chronic), Denies abdominal pain, Denies nausea, Denies vomiting Genitourinary: Denies incontinence, Denies urinary frequency (has incomplete emptying sensation) Musculoskeletal: Denies low back pain, Denies myalgias, Denies neck pain Integumentary: Denies pruritus, Denies rash Neurological: Reports as per HPI Psychiatric: Denies anxiety, Denies depression Endocrine: Denies fatigue, Denies weight change Hematologic/Lymphatic: Reports easy bruising, Denies easy bleeding Past Medical History Past Medical History: Atrial Fibrillation, Asthma, Diabetes Mellitus, Hyperlipidemia, Hypertension, Pneumonia Additional Past Medical History / Comment(s): CROHNS's, GOUT,TAKES FISH OIL FOR HIS CHOLETEROL History of Any Multi-Drug Resistant Organisms: None Reported Past Surgical History: Appendectomy, Bowel Resection, Cholecystectomy, Prostate Surgery Additional Past Surgical History / Comment(s): COLONOSCOPY, FATTY TUMOR REMOVED FROM HIS BACK, Bilateral CATARACT. Past Anesthesia/Blood Transfusion Reactions: No Reported Reaction Additional Past Anesthesia/Blood Transfusion Reaction / Comment(s): CLAUTERPHOBIA. PER PAST MEDICL HX: HAD A BLOOD TRANSFUSION 1966- REACTION WAS FACIAL SWELLING. Smoking Status: Never smoker - Past Family History Mother Family Medical History: Cancer Additional Family Medical History / Comment(s): BREAST CANCER Father Family Medical History: Cancer Additional Family Medical History / Comment(s): COLON CANCER Brother(s) Family Medical History: Cancer, Prostate Disorder Additional Family Medical History / Comment(s): PROSTATE CANCER Medications and Allergies Home Medications Medication Instructions Recorded Confirmed Type Insulin Aspart [NovoLOG] 0.01 unit SQ-PUMP CONTINUOUS 03/02/15 04/24/23 History Loperamide [Imodium] 4 mg PO QID 03/02/15 04/24/23 History Ferrous Sulfate [Iron (65 MG 325 mg PO DAILY 10/08/15 04/24/23 History Elemental)] Multivitamin [Men's Multi-Vitamin] 1 tab PO DAILY 10/08/15 04/24/23 History Albuterol Sulfate [Proair Hfa] 1 - 2 puff INHALATION RT-QID PRN 07/04/20 04/24/23 History Tamsulosin HCl [Flomax] 0.8 mg PO DAILY 07/04/20 04/24/23 History Cholecalciferol [Vitamin D3 (25 50 mcg PO DAILY tablet 07/18/20 04/24/23 Rx Mcg = 1000 Iu)] Apixaban [Eliquis] 5 mg PO BID 04/24/23 04/24/23 History Budesonide/Formoterol Fumarate 2 puff INHALATION RT-BID 04/24/23 04/24/23 History [Symbicort 160-4.5 Mcg Inhaler] Cyanocobalamin (Vitamin B-12) 1,000 mcg PO DAILY 04/24/23 04/24/23 History [Vitamin B-12] Elderberry Fruit [Elderberry] 350 mg PO DAILY 04/24/23 04/24/23 History Losartan [Cozaar] 25 mg PO DAILY 04/24/23 04/24/23 History Magnesium 250 mg PO DAILY 04/24/23 04/24/23 History Zinc Gluconate [Zinc] 50 mg PO DAILY 04/24/23 04/24/23 History amLODIPine [Norvasc] 5 mg PO DAILY 04/24/23 04/24/23 History Allergies Allergy/AdvReac Type Severity Reaction Status Date / Time No Known Allergies Allergy Verified 04/24/23 16:56 Physical Examination - Vital Signs Vital Signs: Vital Signs Temp Pulse Pulse Resp BP BP Pulse Ox 04/25/23 04:00 97.4 F L 88 15 147/78 96 04/25/23 00:00 98 F 86 15 146/73 95 04/24/23 21:25 97.9 F 84 18 192/97 100 04/24/23 20:48 97.3 F L 04/24/23 20:00 85 13 197/93 99 04/24/23 19:30 86 15 196/86 96 10/28/23 19:00 76 16 188/87 98 04/24/23 18:30 80 16 174/80 97 04/24/23 18:00 72 11 L 180/89 97 04/24/23 17:30 68 16 207/102 97 04/24/23 16:30 76 19 219/104 99 04/24/23 16:07 74 18 219/104 98 04/24/23 15:51 98 F 83 16 224/105 100 Intake and Output 04/24/23 04/25/23 04/25/23 22:59 06:59 14:59 Intake Total 720 Balance 720 Intake: Intake, IV Titration 180 Amount Sodium Chloride 0.9% 1, 180 000 ml @ 20 mls/hr IV . Q24H [facility] Rx#:[id number] Oral 540 Other: Voiding Method Toilet Toilet # Voids 2 1 Weight 73.482 kg Patient is an elderly male, very pleasant, in no acute distress. Patient is alert awake oriented to time place and person. Speech and language functions are normal. Patient can name and repeat very well. No aphasia or dysarthria. He sometimes have word finding difficulty while talking and cannot complete the sentence and becomes somewhat frustrated. He says that is going on for several years, but is slightly worse since yesterday. Attention, concentration and fund of knowledge is adequate. On cranial nerve examination, pupils are equal, round and reacting to light, visual urena are full on confrontation, with no neglect on double simultaneous stimulation. Extraocular muscles are intact with no nystagmus. Patient has right facial asymmetry with flattening of the right nasolabial fold. His tongue protrudes to the midline. Palatal elevation and sensation normal, hearing and shoulder shrug normal, facial sensation normal. On muscle strength testing, there is no pronator drift and the strength is normal in arms and legs distally and proximally. Deep tendon reflexes are symmetric 1+ in the arms, 2 at the knees, absent ankles and plantars are downgoing. Sensory to touch is equal with no neglect on double simultaneous stimulation. Cerebellar function showed mild tremulousness, but no ataxia for [id number] testing on either side. No dysdiadochokinesia. No ataxia for [id number] testing on either side. Tone and bulk of muscles normal. Gait deferred.. On general examination, there is no carotid bruit or murmur, S1-S2 audible. Chest is clear on consultation. Abdomen is soft nontender. No organomegaly, bowel sounds present. Peripheral pulses are present. No peripheral edema. Results - Laboratory Findings CBC and BMP: 04/24/23 16:57 04/24/23 16:57 Abnormal Lab Findings: Abnormal Labs 04/24/23 04/24/23 04/24/23 15:54 16:57 16:57 Hgb 11.5 L Hct 37.2 L RDW 16.5 H PT 17.3 H INR 1.7 H Potassium Chloride Carbon Dioxide Creatinine Glucose POC Glucose (mg/dL) 193 H Calcium Total Protein Albumin 04/24/23 04/24/23 04/25/23 16:57 21:08 06:10 Hgb Hct RDW PT INR Potassium 5.2 H Chloride 110 H Carbon Dioxide 21 L Creatinine 1.35 H Glucose 190 H POC Glucose (mg/dL) 181 H 255 H Calcium 8.2 L Total Protein 6.2 L Albumin 3.3 L Assessment and Plan Assessment: * Acute ischemic stroke, with mild expressive aphasia and right facial droop. His current NIH stroke scale is 2. 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 Patient in the last 2-3 weeks has not been taking his Eliquis (taking it only sporadically), as he became frustrated with taking medications all the time. This probably resulted in cardioembolic stroke. Patient not a candidate for TPA. * Atrial fibrillation, currently on Eliquis * Diabetes * Hypertension * Hyperlipidemia Plan: * MRI of the brain without contrast, evaluate for acute CVA * 2-D echo with bubble study to rule out PFO * CTA head and neck showed: No flow-limiting stenosis bilateral carotid bifurcations. Normal [place]. * Fasting a.m. lipid panel on 03/30/2023 revealed cholesterol 82, LDL 33, HDL 30, triglycerides 90. Start Lipitor 10 mg at bedtime. No indication for high intensity statins because of already low LDL. * Hemoglobin A1c 7.3 * Optimize control of blood pressure. * Patient was given aspirin 325 mg in the ER. He does not take aspirin routinely. May resume Eliquis 5 mg twice a day. Patient strongly recommended, to comply with taking Eliquis for stroke prevention. May stop aspirin from tomorrow. * Neuro checks every shift. * Telemetry monitoring rule out any arrhythmia * PT, OT, speech therapy * DVT prophylaxis: Resume Eliquis * Neurology will continue to follow. Thank you for the consult.
[2023-04-25] MEDS: TAMSULOSIN 0.4 MG CAP.ER.24H PO SCH (12:51)
[2023-04-25] MEDS: MULTIVITAMINS, THERA 1 EACH TAB PO SCH (12:51)
--- NOTE | 2023-04-25 13:13 | P.HPIM ---
History of Present Illness H&P Date: 04/25/23 History of present illness; patient is a 82-year-old gentleman with past medical history significant for hypertension tension, hyperlipidemia, diabetes mellitus, was brought to the ER for confusion. Patient stated his symptoms started this morning, noticed that the patient was having a hard time with his insulin pump and glucometer, patient was confused, there was no evidence of any facial droop. No weakness of any extremity. Patient had hard time articulating words and was having expressive aphasia. There was no complain of fever or chills. No complaint of nausea, vomiting abdominal pain. Because confusion, patient was brought to the ER Initial lab work done in the ER showed WBC 4.3, hemoglobin 11.5, platelet count 191, sodium 140 potassium 5.2, 21, BUN 8101.35, glucose 190, albumin 3.3 CT brain done showed mild periventricular white matter changes, no acute intracranial process CTA of brain done showed no flow limiting stenosis bilateral carotid circul ation, normal [place] EKG done in the ER showed normal sinus rhythm, heart rate of 73, no ST segment elevation, no T-wave inversion Chest x-ray done in the ER showed minimal atelectasis or atypical pneumonia, right mid and lower lung, small posterior pleural effusions Patient admitted to medicine service REVIEW OF SYSTEMS: CONSTITUTIONAL: No fever, no malaise, no fatigue. HEENT: No recent visual problems or hearing problems. Denied any sore throat. CARDIOVASCULAR: No chest pain, orthopnea, PND, no palpitations, no syncope. PULMONARY: No shortness of breath, no cough, no hemoptysis. GASTROINTESTINAL: No diarrhea, no nausea, no vomiting, no abdominal pain. NEUROLOGICAL: As mentioned above HEMATOLOGICAL: Denies any bleeding or petechiae. GENITOURINARY: Denies any burning micturition, frequency, or urgency. MUSCULOSKELETAL/RHEUMATOLOGICAL: Denies any joint pain, swelling, or any muscle pain. ENDOCRINE: Denies any polyuria or polydipsia. The rest of the 14-point review of systems is negative. PHYSICAL EXAMINATION: GENERAL: The patient is alert and oriented x3, not in any acute distress. Well developed, well nourished. HEENT: Pupils are round and equally reacting to light. EOMI. No scleral icterus. No conjunctival pallor. Normocephalic, atraumatic. No pharyngeal erythema. No thyromegaly. CARDIOVASCULAR: S1 and S2 present. No murmurs, rubs, or gallops. PULMONARY: Chest is clear to auscultation, no wheezing or crackles. ABDOMEN: Soft, nontender, nondistended, normoactive bowel sounds. No palpable organomegaly. MUSCULOSKELETAL: No joint swelling or deformity. EXTREMITIES: No cyanosis, clubbing, or pedal edema. NEUROLOGICAL: Gross neurological examination did not reveal any focal deficits. Cranial nerves intact SKIN: No rashes. Assessment and plan Acute encephalopathy, rule out acute CVA Hyperkalemia Hypertension Hyperlipidemia History of atrial fibrillation Crohn's disease Insulin-dependent diabetes mellitus Urinary retention Monitor vital signs Monitor CBC Monitor CMP Continue telemetry monitoring Ordered 2-D echo Ordered TSH Check vitamin B12 Check lipid panel Check HbA1c level Resume home meds Consult neurology Labs and medication were reviewed.. Continue same treatment. Continue with symptomatic treatment. Resume home medication. Monitor labs and vitals. DVT and GI prophylaxis. Further recommendations as per clinical course of the patient Dictation was produced using [employer] dictation software. please excuse any grammatical, word or spelling errors. Past Medical History Past Medical History: Atrial Fibrillation, Asthma, Diabetes Mellitus, Hyperlipidemia, Hypertension, Pneumonia Additional Past Medical History / Comment(s): CROHNS's, GOUT,TAKES FISH OIL FOR HIS CHOLETEROL History of Any Multi-Drug Resistant Organisms: None Reported Past Surgical History: Appendectomy, Bowel Resection, Cholecystectomy, Prostate Surgery Additional Past Surgical History / Comment(s): COLONOSCOPY, FATTY TUMOR REMOVED FROM HIS BACK, Bilateral CATARACT. Past Anesthesia/Blood Transfusion Reactions: No Reported Reaction Additional Past Anesthesia/Blood Transfusion Reaction / Comment(s): CLAUTERPHOBIA. PER PAST MEDICL HX: HAD A BLOOD TRANSFUSION 1966- REACTION WAS FACIAL SWELLING. Smoking Status: Never smoker - Past Family History Mother Family Medical History: Cancer Additional Family Medical History / Comment(s): BREAST CANCER Father Family Medical History: Cancer Additional Family Medical History / Comment(s): COLON CANCER Brother(s) Family Medical History: Cancer, Prostate Disorder Additional Family Medical History / Comment(s): PROSTATE CANCER Medications and Allergies Home Medications Medication Instructions Recorded Confirmed Type Insulin Aspart [NovoLOG] 0.01 unit SQ-PUMP CONTINUOUS 03/02/15 04/24/23 History Loperamide [Imodium] 4 mg PO QID 03/02/15 04/24/23 History Ferrous Sulfate [Iron (65 MG 325 mg PO DAILY 10/08/15 04/24/23 History Elemental)] Multivitamin [Men's Multi-Vitamin] 1 tab PO DAILY 10/08/15 04/24/23 History Albuterol Sulfate [Proair Hfa] 1 - 2 puff INHALATION RT-QID PRN 07/04/20 04/24/23 History Tamsulosin HCl [Flomax] 0.8 mg PO DAILY 07/04/20 04/24/23 History Cholecalciferol [Vitamin D3 (25 50 mcg PO DAILY tablet 07/18/20 04/24/23 Rx Mcg = 1000 Iu)] Apixaban [Eliquis] 5 mg PO BID 04/24/23 04/24/23 History Budesonide/Formoterol Fumarate 2 puff INHALATION RT-BID 04/24/23 04/24/23 Histor y [Symbicort 160-4.5 Mcg Inhaler] Cyanocobalamin (Vitamin B-12) 1,000 mcg PO DAILY 04/24/23 04/24/23 History [Vitamin B-12] Elderberry Fruit [Elderberry] 350 mg PO DAILY 04/24/23 04/24/23 History Losartan [Cozaar] 25 mg PO DAILY 04/24/23 04/24/23 History Magnesium 250 mg PO DAILY 04/24/23 04/24/23 History Zinc Gluconate [Zinc] 50 mg PO DAILY 04/24/23 04/24/23 History amLODIPine [Norvasc] 5 mg PO DAILY 04/24/23 04/24/23 History Allergies Allergy/AdvReac Type Severity Reaction Status Date / Time No Known Allergies Allergy Verified 04/24/23 16:56 Physical Exam Vitals: Vital Signs Temp Pulse Pulse Resp BP BP Pulse Ox 04/25/23 04:00 97.4 F L 88 15 147/78 96 04/25/23 00:00 98 F 86 15 146/73 95 04/24/23 21:25 97.9 F 84 18 192/97 100 04/24/23 20:48 97.3 F L 04/24/23 20:00 85 13 197/93 99 04/24/23 19:30 86 15 196/86 96 04/24/23 19:00 76 16 188/87 98 04/24/23 18:30 80 16 174/80 97 04/24/23 18:00 72 11 L 180/89 97 04/24/23 17:30 68 16 207/102 97 04/24/23 16:30 76 19 219/104 99 04/24/23 16:07 74 18 219/104 98 04/24/23 15:51 98 F 83 16 224/105 100 Intake and Output 04/24/23 04/25/23 04/25/23 22:59 06:59 14:59 Intake Total 720 Balance 720 Intake: Intake, IV Titration 180 Amount Sodium Chloride 0.9% 1, 180 000 ml @ 20 mls/hr IV . Q24H [facility] Rx#:[id number] Oral 540 Other: Voiding Method Toilet Toilet # Voids 2 Weight 73.482 kg Results CBC & Chem 7: 04/24/23 16:57 04/24/23 16:57 Labs: Abnormal Lab Results - Last 24 Hours (Table) 04/24/23 04/24/23 04/24/23 Range/Units 15:54 16:57 16:57 Hgb 11.5 L (13.0-17.5) gm/dL Hct 37.2 L (39.0-53.0) % RDW 16.5 H (11.5-15.5) % PT 17.3 H (10.0-12.5) sec INR 1.7 H (<1.2) Potassium (3.5-5.1) mmol/L Chloride (98-107) mmol/L Carbon Dioxide (22-30) mmol/L Creatinine (0.66-1.25) mg/dL Glucose (74-99) mg/dL POC Glucose (mg/dL) 193 H (70-110) mg/dL Calcium (8.4-10.2) mg/dL Total Protein (6.3-8.2) g/dL Albumin (3.5-5.0) g/dL 04/24/23 04/24/23 04/25/23 Range/Units 16:57 21:08 06:10 Hgb (13.0-17.5) gm/dL Hct (39.0-53.0) % RDW (11.5-15.5) % PT (10.0-12.5) sec INR (<1.2) Potassium 5.2 H (3.5-5.1) mmol/L Chloride 110 H (98-107) mmol/L Carbon Dioxide 21 L (22-30) mmol/L Creatinine 1.35 H (0.66-1.25) mg/dL Glucose 190 H (74-99) mg/dL POC Glucose (mg/dL) 181 H 255 H (70-110) mg/dL Calcium 8.2 L (8.4-10.2) mg/dL Total Protein 6.2 L (6.3-8.2) g/dL Albumin 3.3 L (3.5-5.0) g/dL Thrombosis Risk Factor Assmnt - Choose All That Apply Any of the Below Risk Factors Present?: Yes Each Factor Represents 1 point: Swollen legs (current) Other Risk Factors: Yes Each Risk Factor Represents 3 Points: Age 75 years or older Other congenital or acquired thrombophilia - If yes, enter type in comment: No Thrombosis Risk Factor Assessment Total Risk Factor Score: 4 Thrombosis Risk Factor Assessment Level: Moderate Risk
[2023-04-25 16:24] LABS: Glucose,Whole Blood 298 mg/dL (70-110)
[2023-04-25 16:24] LABS: Glucose,Whole Blood 337 mg/dL (70-110)
[2023-04-25 20:07] LABS: Glucose,Whole Blood 221 mg/dL (70-110)
[2023-04-25] MEDS: APIXABAN 5 MG TAB PO SCH (20:30)
[2023-04-25] MEDS: ATORVASTATIN 10 MG TAB PO SCH (20:31)
[2023-04-25] MEDS: SODIUM CHLORIDE 0.9% 1,000 ML IV SCH (21:01)
[2023-04-25] MEDS: SYMBICORT 160-4.5 MCG INHALER INHALATION SCH (21:35)
[2023-04-26 06:24] LABS: Glucose,Whole Blood 118 mg/dL (70-110)
[2023-04-26] MEDS: INSULIN ASPART (NovoLOG) 100 UNIT/ML VIAL SQ SCH ×4 (06:31→20:35)
[2023-04-26] MEDS: CYANOCOBALAMIN 500 MCG TAB PO SCH (08:21)
[2023-04-26] MEDS: FERROUS SULFATE 325 MG TAB PO SCH (08:21)
[2023-04-26] MEDS: MULTIVITAMINS, THERA 1 EACH TAB PO SCH (08:21)
[2023-04-26] MEDS: CHOLECALCIFEROL 25 MCG (1000 IU) TABLET PO SCH (08:21)
[2023-04-26] MEDS: ZINC SULFATE 220 MG CAP PO SCH (08:21)
[2023-04-26] MEDS: APIXABAN 5 MG TAB PO SCH ×2 (08:21→20:35)
[2023-04-26] MEDS: TAMSULOSIN 0.4 MG CAP.ER.24H PO SCH (08:21)
[2023-04-26] MEDS: SYMBICORT 160-4.5 MCG INHALER INHALATION SCH ×2 (08:30→21:26)
[2023-04-26 11:26] LABS: Glucose,Whole Blood 284 mg/dL (70-110)
[2023-04-26] MEDS ORDERED: diphenhydrAMINE 50 MG/ML 1 ML VIAL IVP ONE ×2 (16:00→16:33)
[2023-04-26 17:31] LABS: Glucose,Whole Blood 316 mg/dL (70-110)
--- NOTE | 2023-04-26 18:03 | P.PN ---
Subjective Progress Note Date: 04/26/23 Patient was seen for a follow-up. 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 Patient had an episode, in which she had transient difficulty with the speech, but then resolved. This is exactly what happened yesterday as well sporadically while talking. No new focal symptoms. Objective - Vital Signs Vital signs: Vital Signs Temp 98.0 F 04/26/23 08:14 Pulse 84 04/26/23 14:34 Resp 18 04/26/23 14:34 BP 193/81 04/26/23 11:55 Pulse Ox 99 04/26/23 11:55 FiO2 21 04/25/23 21:39 Intake & Output 04/25/23 04/26/23 04/26/23 18:59 06:59 18:59 Intake Total 358 418 Balance 358 418 Intake: Oral 358 418 Other: Voiding Method Toilet Toilet Toilet # Voids 1 4 # Bowel Movements 1 - Exam Patient's mental status, speech and language functions are normal. No dysarthria. Patient is more fluent. Facial droop is improved. Examination Is Nonfocal. - Labs CBC & Chem 7: 04/24/23 16:57 04/24/23 16:57 Labs: Abnormal Lab Results - Last 24 Hours (Table) 04/25/23 04/25/23 04/25/23 Range/Units 16:21 16:23 20:06 POC Glucose (mg/dL) 337 H 298 H 221 H (70-110) mg/dL 04/26/23 04/26/23 Range/Units 06:23 11:25 POC Glucose (mg/dL) 118 H 284 H (70-110) mg/dL Assessment and Plan Assessment: * Acute ischemic stroke, with mild expressive aphasia and right facial droop. His current NIH stroke scale is 2. 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 Patient in the last 2-3 weeks has not been taking his Eliquis (taking it only sporadically), as he became frustrated with taking medications all the time. This probably resulted in cardioembolic stroke. Patient not a candidate for TPA. * Atrial fibrillation, currently on Eliquis * Diabetes * Hypertension * Hyperlipidemia Plan: * MRI of the brain without contrast, revealed increased signal within the right hippocampus compared to the left. Findings concerning for encephalitis, which could be secondary to herpes encephalitis versus limbic autoimmune encephalitis versus viral encephalitis. IV antiviral for herpes is recommended until proven otherwise. Grooming artifact in the left basal ganglia suggestive of cavernoma versus remote hypertensive hemorrhage. No evidence of intracranial mass or acute/subacute infarct. Nonspecific white matter changes, likely secondary to small vessel ischemic disease. * We will check MRI of the brain with contrast. * Consult infectious disease. Patient's white cells are normal with no left shift. Patient is afebrile. * We will check EEG prolonged for 1 hour, to evaluate for any epileptiform activity. * 2-D echo revealed normal left ventricular size and systolic function. Mild MR, TR. Mild aortic stenosis. Highly mobile interatrial septum and cannot exclude PFO. Consult cardiology for abnormal echo. * CTA head and neck showed: No flow-limiting stenosis bilateral carotid bifurcations. Normal [facility] [place]. * Fasting a.m. lipid panel on 03/30/2023 revealed cholesterol 82, LDL 33, HDL 30, triglycerides 90. Start Lipitor 10 mg at bedtime. No indication for high intensity statins because of already low LDL. * Hemoglobin A1c 7.3 * Optimize control of blood pressure. * Patient was given aspirin 325 mg in the ER. He does not take aspirin routinely. May resume Eliquis 5 mg twice a day. Patient strongly recommended, to comply with taking Eliquis for stroke prevention. May stop aspirin now. * Neuro checks every shift. * Telemetry monitoring so far showing sinus rhythm going up to 110 range. No other arrhythmia. * PT, OT, speech therapy * DVT prophylaxis: Resume Eliquis
--- NOTE | 2023-04-26 18:29 | MR ---
EXAMINATION TYPE: MR brain wo con DATE OF EXAM: 04/26/2023 5:21 PM CLINICAL INDICATION:Male, 82 years old with history of stroke COMPARISON: 04/16/2023. TECHNIQUE: Multi planar, multi sequence imaging was performed through the brain including: T1, T2, In version recovery, Diffusion weighted imaging, and gradient echo imaging. No gadolinium was given. FINDINGS: Increased FLAIR signal within the right hippocampus compared to left. There is also increas ed T2 signal. No evidence for restricted diffusion. Scattered foci of high T2 signal intensity are se en within the periventricular white matter. Midline structures show no abnormality. Diffusion-weighte d imaging shows no evidence of restricted diffusion . On susceptibility weighted imaging there are a couple foci of blooming artifact compatible with microhemorrhage. A large area of susceptibility in t he left basal ganglia possibly relating to a hemangioma.. The bone marrow signal is within normal [place] its. Paranasal sinuses and mastoid air cells: Mild scattered paranasal sinus disease. Visualized orbits: Bilateral aphakia IMPRESSION: 1. Increased signal within the right hippocampus compared to the left. Findings concerning for encep halitis which could be secondary to herpes encephalitis versus limbic autoimmune encephalitis versus viral encephalitis. Intravenous antiviral for herpes is recommended until proven otherwise. 2. Blooming artifact in the left basal ganglia suggestive of cavernoma versus remote hypertensive he morrhage. 3. No evidence of intracranial mass or acute/subacute infarct. 4. Nonspecific white matter changes, likely secondary to small vessel ischemic disease. Findings communicated to Dr.Moiz Garcia on 04/26/2023 5:[address] Brad Coulter.
[2023-04-26] MEDS ORDERED: amLODIPine 5 MG TAB PO STA (18:46)
--- NOTE | 2023-04-26 18:49 | CA ---
Transthoracic Echo Report Name: Perez Fuller Age: 82 Gender: M : 1940 Exam Date: 04/26/2023 09:32 Exam Location: [facility] Ht (in): 69 Wt (lb): 162 Ordering Physician: Jaison Garcia MD Attending/Referring Phys: Actuarial Assistant Karen Contreras RDCS Procedure CPT: Indications: CVA Cardiac Hx: Technical Quality: Fair Contrast 1: Total Dose (mL): Contrast 2: Total Dose (mL): MEASUREMENTS (Male / Female) Normal Values 2D ECHO LV Diastolic Diameter PLAX 4.0 cm 4.2 - 5.9 / 3.9 - 5.3 cm LV Systolic Diameter PLAX 2.7 cm IVS Diastolic Thickness 1.6 cm 0.6 - 1.0 / 0.6 - 0.9 cm LVPW Diastolic Thickness 1.5 cm 0.6 - 1.0 / 0.6 - 0.9 cm LV Relative Wall Thickness 0.8 LA Volume 103.2 cm??? 18 - 58 / 22 - 52 cm??? LA Volume Index 54.4 cm???/m??? 16 - 28 cm???/m??? M-MODE Aortic Root Diameter MM 3.2 cm LA Systolic Diameter MM 3.1 cm LA Ao Ratio MM 1.0 AV Cusp Separation MM 0.6 cm DOPPLER AV Peak Velocity 206.7 cm/s AV Peak Gradient 17.1 mmHg AV Mean Velocity 150.7 cm/s AV Mean Gradient 9.9 mmHg AV Velocity Time Integral 48.8 cm LVOT Peak Velocity 114.6 cm/s LVOT Peak Gradient 5.3 mmHg LVOT Velocity Time Integral 26.8 cm MV Area PHT 1.9 cm??? Mitral E Point Velocity 47.0 cm/s Mitral A Point Velocity 83.6 cm/s Mitral E to A Ratio 0.6 MV Deceleration Time 409.7 ms MV E' Velocity 4.0 cm/s Mitral E to MV E' Ratio 11.9 TR Peak Velocity 209.5 cm/s TR Peak Gradient 17.5 mmHg Right Ventricular Systolic Press 22.5 mmHg FINDINGS Left Ventricle Moderately increased left ventricular wall thickness. Left ventricular cavity size normal. Normal left ventricular systolic function with no obvious regional wall motion abnormalities. Left ventricular ejection fraction is estimated at 55-60 %. Right Ventricle Normal right ventricular size and function. Right ventricular systolic pressure within normal limits. Right Atrium Mild right atrial dilatation. Left Atrium Severely increased left atrial volume. Mildly increased left atrial area. Cannot exclude PFO. Interatrial septal aneurysm. Mitral Valve Structurally normal mitral valve. Mitral annular calcification. Mild mitral regurgitation. Aortic Valve Mild aortic stenosis with a peak gradient of 17 mmHg and a mean gradient of 10 mmHg. Tricuspid Valve Mild tricuspid regurgitation.structurally normal tricuspid valve. Pulmonic Valve Pulmonic valve not well visualized. Pericardium No pericardial effusion. Aorta Normal size aortic root and proximal ascending aorta. CONCLUSIONS 1. Normal left ventricle size and systolic function 2. Mild mitral and tricuspid regurgitation 3. Mild aortic stenosis 4. Highly mobile interatrial septum and cannot exclude PFO Previewed by: Dr. Beatris Davidson MD (Electronically Signed) Final Date: 26 April 2023 18:49
[2023-04-26 20:20] LABS: Glucose,Whole Blood 327 mg/dL (70-110)
[2023-04-26] MEDS: ATORVASTATIN 10 MG TAB PO SCH (20:35)
[2023-04-26] MEDS: SODIUM CHLORIDE 0.9% 1,000 ML IV SCH (20:36)
--- NOTE | 2023-04-26 22:05 | MR ---
EXAMINATION TYPE: MR brain w con DATE OF EXAM: 04/26/2023 9:20 PM CLINICAL INDICATION:Male, 82 years old with history of Abnormal brain MRI, rule out herpes encephalit is; PHH, Abnormal Brain MRI, Evaluate for herpes encephalitis COMPARISON: Same day MRI TECHNIQUE: Limited multiplane T1-weighted imaging with fat suppression. IV Contrast: 7.5 cc Gadobutrol FINDINGS: No definitive enhancement within the area of concern within the right temporal lobe/ limbic system wh ere there was increased FLAIR signal. No abnormal postcontrast enhancement. IMPRESSION: No definitive enhancement within the right temporal lobe on prior MRI corresponding to increased FLAI R signal. This does not exclude herpes encephalitis has to may be absence of enhancement with early d isease. Clinical correlation advised. Consider lumbar puncture.
[2023-04-27 06:23] LABS: Glucose,Whole Blood 116 mg/dL (70-110)
[2023-04-27] MEDS: INSULIN ASPART (NovoLOG) 100 UNIT/ML VIAL SQ SCH ×4 (06:26→20:49)
[2023-04-27 07:31] LABS: Anisocytosis Slight; Basophils % (A) 1 %; Eosinophils # (A) 0.2 k/uL (0-0.7); Eosinophils % (A) 4 %; HCT 30.9 % (39.0-53.0); Hypochromasia Marked; Lymphocytes # (A) 1.2 k/uL (1.0-4.8); Lymphocytes % (A) 27 %; MCH 25.3 pg (25.0-35.0); MCHC 30.3 g/dL (31.0-37.0); MCV 83.6 fL (80.0-100.0); Mean Platelet Volume 7.5; Monocytes # (A) 0.3 k/uL (0-1.0); Monocytes % (A) 7 %; Neutrophils # (A) 2.6 k/uL (1.3-7.7); Neutrophils % (A) 59 %; Platelet Count 164 k/uL (150-450); RBC 3.69 m/uL (4.30-5.90); RDW 16.7 % (11.5-15.5); WBC 4.4 k/uL (3.8-10.6)
[2023-04-27] MEDS: APIXABAN 5 MG TAB PO SCH ×2 (08:08→20:49)
[2023-04-27] MEDS: CYANOCOBALAMIN 500 MCG TAB PO SCH (08:09)
[2023-04-27] MEDS: CHOLECALCIFEROL 25 MCG (1000 IU) TABLET PO SCH (08:09)
[2023-04-27] MEDS: TAMSULOSIN 0.4 MG CAP.ER.24H PO SCH (08:09)
[2023-04-27] MEDS: FERROUS SULFATE 325 MG TAB PO SCH (08:09)
[2023-04-27] MEDS: ZINC SULFATE 220 MG CAP PO SCH (08:09)
[2023-04-27] MEDS: MULTIVITAMINS, THERA 1 EACH TAB PO SCH (08:09)
[2023-04-27 08:23] LABS: HGB 9.3 gm/dL (13.0-17.5)
[2023-04-27 08:43] LABS: ALT 24 U/L (4-49); AST 25 U/L (17-59); African American GFR (CKD) 47 (>60 ml/min/1.73 sqM); Albumin 2.4 g/dL (3.5-5.0); Alkaline Phosphatase 91 U/L (38-126); Anion Gap 6 mmol/L; Blood Urea Nitrogen 19 mg/dL (9-20); C Reactive Protein <0.5 mg/dL (<1.0); Calcium 7.8 mg/dL (8.4-10.2); Carbon Dioxide 19 mmol/L (22-30); Chloride 116 mmol/L (98-107); Glucose 112 mg/dL (74-99); Non-African American GFR(CKD) 41 (>60 ml/min/1.73 sqM); Potassium 4.4 mmol/L (3.5-5.1); Sodium 141 mmol/L (137-145); Total Bilirubin 0.5 mg/dL (0.2-1.3); Total Protein 4.5 g/dL (6.3-8.2)
[2023-04-27] MEDS: SYMBICORT 160-4.5 MCG INHALER INHALATION SCH ×2 (09:17→19:42)
--- NOTE | 2023-04-27 11:10 | P.CRDCN ---
History of Present Illness History of present illness: HISTORY OF PRESENT ILLNESS: This is a 82-year-old male with a past medical history significant for with diabetes, hypertension, dilated cardiomyopathy, paroxysmal atrial fibrillation, and hyperlipidemia. Patient follows in the office with Dr. Abad. We have been asked to see the patient in consultation for abnormal echo. Patient examined at the bedside. Patient presented to the hospital with a chief complaint of confusion and expressive aphasia. Apparently the patient was not taking his Eliquis as prescribed over the past 2-3 weeks. He denied any chest pain or pressure. Denies any shortness of breath. Vital signs are stable. * EKG reveals sinus mechanism with no signs of acute ischemia * Chest xray minimal atelectasis or atypical pneumonia right mid and lower lung. Small posterior pleural effusion. * MRI of the brain: No definite enhancement within the right temporal lobe on prior MRI corresponding to increased FLAIR signal. This does not exclude herpes encephalitis has to may be absence of enhancement with early disease. * Current home cardiac medications include losartan 25 mg daily, Eliquis 5 mg twice a day, amlodipine 5 mg daily * Echocardiogram completed revealing ejection fraction 55-60%, mild right atrial dilatation, severely increased left atrial volume, highly mobile intra-atrial septum and cannot exclude PFO, mild mitral and tricuspid regurgitation, and mild aortic stenosis * Patient underwent stress test in March 2022 is no evidence of ischemia. REVIEW OF SYSTEMS: At the time of my exam: CONSTITUTIONAL: Denies fever or chills. HEENT: Denies blurred vision, vision changes, or eye pain. Denies hemoptysis CARDIOVASCULAR: Denies chest pain. Denies orthopnea. Denies PND. Denies palpitations RESPIRATORY: Denies shortness of breath. GASTROINTESTINAL: Denies abdominal pain. Denies nausea or vomiting. HEMATOLOGIC: Denies bleeding disorders. GENITOURINARY: Denies any blood in urine. SKIN: Denies pruitis. Denies rash. PHYSICAL EXAM: VITAL SIGNS: Reviewed. GENERAL: Well-developed in no acute distress. HEENT: Head is normocephalic. Pupils are equal, round. Sclerae anicteric. Mucous membranes of the mouth are moist. Neck supple. No JVD or thyromegaly LUNGS: Respirations even and unlabored. Lungs essentially clear to auscultation bilaterally. HEART: Regular rate and rhythm. S1 and S2 heard. ABDOMEN: Soft. Nondistended. Nontender. EXTREMITIES: Normal range of motion. No clubbing or cyanosis. Peripheral pulses intact. No lower extremity edema NEUROLOGIC: Awake and alert. Oriented x 3. ASSESSMENT: Acute CVA Medication noncompliance, patient not taking his Eliquis as prescribed Paroxysmal atrial fibrillation History of dilated cardiomyopathy Hypertension Hyperlipidemia Diabetes PLAN: Continue current cardiac medications Recommend Eliquis 5 mg twice a day (Patient creatinine ranging from 1.3-1.5) Patient with history of atrial fibrillation and noncompliance with anticoagulation regimen which is likely etiology for patient's CVA. ANANTH would not be of much benefit at this time. Further recommendations pending patient's course Nurse practitioner note has been reviewed by physician. Signing provider agrees with the documented findings, assessment, and plan of care. Past Medical History Past Medical History: Atrial Fibrillation, Asthma, Diabetes Mellitus, Hyperlipidemia, Hypertension, Pneumonia Additional Past Medical History / Comment(s): CROHNS's, GOUT,TAKES FISH OIL FOR HIS CHOLETEROL History of Any Multi-Drug Resistant Organisms: None Reported Past Surgical History: Appendectomy, Bowel Resection, Cholecystectomy, Prostate Surgery Additional Past Surgical History / Comment(s): COLONOSCOPY, FATTY TUMOR REMOVED FROM HIS BACK, Bilateral CATARACT. Past Anesthesia/Blood Transfusion Reactions: No Reported Reaction Additional Past Anesthesia/Blood Transfusion Reaction / Comment(s): CLAUTERPHOBIA. PER PAST MEDICL HX: HAD A BLOOD TRANSFUSION 1966- REACTION WAS FACIAL SWELLING. Smoking Status: Never smoker - Past Family History Mother Family Medical History: Cancer Additional Family Medical History / Comment(s): BREAST CANCER Father Family Medical History: Cancer Additional Family Medical History / Comment(s): COLON CANCER Brother(s) Family Medical History: Cancer, Prostate Disorder Additional Family Medical History / Comment(s): PROSTATE CANCER Medications and Allergies Home Medications Medication Instructions Recorded Confirmed Type Insulin Aspart [NovoLOG] 0.01 unit SQ-PUMP CONTINUOUS 03/02/15 04/24/23 History Loperamide [Imodium] 4 mg PO QID 03/02/15 04/24/23 History Ferrous Sulfate [Iron (65 MG 325 mg PO DAILY 10/08/15 04/24/23 History Elemental)] Multivitamin [Men's Multi-Vitamin] 1 tab PO DAILY 10/08/15 04/24/23 History Albuterol Sulfate [Proair Hfa] 1 - 2 puff INHALATION RT-QID PRN 07/04/20 04/24/23 History Tamsulosin HCl [Flomax] 0.8 mg PO DAILY 07/04/20 04/24/23 History Cholecalciferol [Vitamin D3 (25 50 mcg PO DAILY tablet 07/18/20 04/24/23 Rx Mcg = 1000 Iu)] Apixaban [Eliquis] 5 mg PO BID 04/24/23 04/24/23 History Budesonide/Formoterol Fumarate 2 puff INHALATION RT-BID 04/24/23 04/24/23 History [Symbicort 160-4.5 Mcg Inhaler] Cyanocobalamin (Vitamin B-12) 1,000 mcg PO DAILY 04/24/23 04/24/23 History [Vitamin B-12] Elderberry Fruit [Elderberry] 350 mg PO DAILY 04/24/23 04/24/23 History Losartan [Cozaar] 25 mg PO DAILY 04/24/23 04/24/23 History Magnesium 250 mg PO DAILY 04/24/23 04/24/23 History Zinc Gluconate [Zinc] 50 mg PO DAILY 04/24/23 04/24/23 History amLODIPine [Norvasc] 5 mg PO DAILY 04/24/23 04/24/23 History Allergies Allergy/AdvReac Type Severity Reaction Status Date / Time No Known Allergies Allergy Verified 04/24/23 16:56 Physical Exam Vitals: Vital Signs Temp Pulse Resp BP Pulse Ox 04/27/23 04:00 82 16 140/67 96 04/27/23 01:56 76 18 04/27/23 00:00 76 18 143/69 97 04/26/23 20:00 79 18 04/26/23 19:47 98.1 F 79 18 166/70 98 04/26/23 17:39 82 18 196/87 99 04/26/23 14:34 84 18 04/26/23 11:55 84 18 193/81 99 04/26/23 10:42 93 18 04/26/23 08:30 98 04/26/23 08:14 98.0 F 93 18 165/83 98 Intake and Output 04/26/23 04/27/23 04/27/23 22:59 06:59 14:59 Intake Total 118 Balance 118 Intake: Oral 118 Other: Voiding Method Toilet Toilet # Voids 1 2 # Bowel Movements 1 Results 04/27/23 07:02 04/27/23 07:02 Current Medications Generic Name Dose Route Start Last Admin Trade Name Alexanderq PRN Reason Stop Dose Admin Albuterol Sulfate 2.5 mg 04/25/23 09:34 Albuterol Nebulized 2.5 Mg/3 Ml INHALATION RT-QID PRN Shortness Of Breath Apixaban 5 mg 04/25/23 21:00 04/26/23 20:35 Apixaban 5 Mg Tab PO 5 mg BID KEV Administration Protocol Atorvastatin Calcium 10 mg 04/25/23 21:00 04/26/23 20:35 Atorvastatin 10 Mg Tab PO 10 mg HS KEV Administration Budesonide/Formoterol Fumarate 2 puff 04/25/23 20:00 04/26/23 21:26 Symbicort 160-4.5 Mcg Inhaler INHALATION Not Given RT-BID KEV Cholecalciferol 50 mcg 04/26/23 09:00 04/26/23 08:21 Cholecalciferol 25 Mcg (1000 Iu) Tablet PO 50 mcg DAILY KEV Administration Cyanocobalamin 1,000 mcg 04/26/23 09:00 04/26/23 08:21 Cyanocobalamin 500 Mcg Tab PO 1,000 mcg DAILY KEV Administration Ferrous Sulfate 325 mg 04/26/23 09:00 04/26/23 08:21 Ferrous Sulfate 325 Mg Tab PO 325 mg DAILY KEV Administration Sodium Chloride 1,000 mls @ 20 mls/hr 04/24/23 19:45 04/26/23 20:36 Saline 0.9% IV 20 mls/hr .Q24H KEV Administration Insulin Aspart 0 unit 04/25/23 07:30 04/27/23 06:26 Insulin Aspart (Novolog) 100 Unit/Ml Vial SQ Not Given ACHS [facility] Protocol Multivitamins 1 each 04/25/23 09:45 04/26/23 08:21 Multivitamins, Thera 1 Each Tab PO 1 each DAILY KEV Administration Naloxone HCl 0.2 mg 04/24/23 19:31 Naloxone 0.4 Mg/Ml 1 Ml Vial IV Q2M PRN Opioid Reversal Tamsulosin HCl 0.8 mg 04/25/23 09:45 04/26/23 08:21 Tamsulosin 0.4 Mg Cap.Er.24h PO 0.8 mg DAILY KEV Administration Zinc Sulfate 220 mg 04/26/23 09:00 04/26/23 08:21 Zinc Sulfate 220 Mg Cap PO 220 mg DAILY KEV Administration Intake and Output 04/26/23 04/27/23 04/27/23 22:59 06:59 14:59 Intake Total 118 Balance 118 Intake: Oral 118 Other: Voiding Method Toilet Toilet # Voids 1 2 # Bowel Movements 1 04/24/23 16:57 04/24/23 16:57
[2023-04-27] MEDS ORDERED: amLODIPine 5 MG TAB PO SCH (11:30)
[2023-04-27] MEDS: amLODIPine 5 MG TAB PO SCH (11:41)
[2023-04-27 11:46] LABS: Glucose,Whole Blood 259 mg/dL (70-110)
[2023-04-27 13:52] LABS: HSV I IgG Interp POSITIVE; HSV II IgG Interp Negative (Negative)
--- NOTE | 2023-04-27 16:07 | P.PN ---
Subjective Progress Note Date: 04/27/23 This is an 82-year-old gentleman admitted with acute ischemic stroke with mild expressive aphasia with suspected etiology being cardioembolic in a patient noncompliant with his anticoagulation-eliquis prescribed for his chronic paroximal atrial fibrillation. Brain MRI completed yesterday, reported increas ed signal within the right hippocampus compared to the left, concerning for encephalitis which could be secondary to herpes encephalitis versus limbic autoimmune encephalitis versus viral encephalitis. Planning artifact in the left basal ganglia suggestive of carcinoma versus remote hypertensive he morrhage. No evidence of intracranial mass or acute/subacute infarct, nonspecific white matter changes likely secondary to small vessel ischemic disease. Echo reported normal LV function, mild mitral tricuspid regurgitation, mild aortic stenosis, highly mobile intra-atrial septum, cannot exclude PFO. Patient sitting up at bedside conversing appropriately with PCP. Denies any chest pain, palpitations or shortness of breath. Denies any lightheadedness, dizziness or focal deficits. Denies headache. Hypertensive, home medication Norvasc resumed. Objective - Vital Signs Vital signs: Vital Signs Temp 98.1 F 04/27/23 08:05 Pulse 88 04/27/23 11:22 Resp 17 04/27/23 11:22 BP 210/102 04/27/23 11:22 Pulse Ox 98 04/27/23 11:22 FiO2 21 04/25/23 21:39 Intake & Output 04/26/23 04/27/23 04/27/23 18:59 06:59 18:59 Intake Total 536 118 Balance 536 118 Intake: Oral 536 118 Other: Voiding Method Toilet Toilet Toilet # Voids 4 2 # Bowel Movements 1 - Exam PHYSICAL EXAM: VITAL SIGNS: As above GENERAL: Alert and oriented 3, sitting up at bedside, eating, NAD HEENT: Normocephalic, Conjunctivae normal. eyes normal. NECK: Supple, No JVD. CARDIOVASCULAR: S1, S2 regular. No murmur RESPIRATION: Unlabored, equal air entry, Breath sounds diminished in the bases. ABDOMEN: Soft, nondistended, nontender . No guarding. no masses palpable. +BS LEGS: No edema,no swelling PSYCHIATRY: Alert and oriented X3, mood and affect normal. NERVOUS SYSTEM: Cranial N 2-12 grossly normal. Strength and sensation grossly intact.. Skin: Warm and dry, no rash - Labs CBC & Chem 7: 04/27/23 07:02 04/27/23 07:02 Labs: Abnormal Lab Results - Last 24 Hours (Table) 04/26/23 04/26/23 04/26/23 Range/Units 11:25 17:29 20:18 RBC (4.30-5.90) m/uL Hgb (13.0-17.5) gm/dL Hct (39.0-53.0) % MCHC (31.0-37.0) g/dL RDW (11.5-15.5) % Chloride (98-107) mmol/L Carbon Dioxide (22-30) mmol/L Creatinine (0.66-1.25) mg/dL Glucose (74-99) mg/dL POC Glucose (mg/dL) 284 H 316 H 327 H (70-110) mg/dL Calcium (8.4-10.2) mg/dL Total Protein (6.3-8.2) g/dL Albumin (3.5-5.0) g/dL 04/27/23 04/27/23 04/27/23 Range/Units 06:22 07:02 07:02 RBC 3.69 L (4.30-5.90) m/uL Hgb 9.3 L D (13.0-17.5) gm/dL Hct 30.9 L (39.0-53.0) % MCHC 30.3 L (31.0-37.0) g/dL RDW 16.7 H (11.5-15.5) % Chloride 116 H (98-107) mmol/L Carbon Dioxide 19 L (22-30) mmol/L Creatinine 1.54 H (0.66-1.25) mg/dL Glucose 112 H (74-99) mg/dL POC Glucose (mg/dL) 116 H (70-110) mg/dL Calcium 7.8 L (8.4-10.2) mg/dL Total Protein 4.5 L (6.3-8.2) g/dL Albumin 2.4 L (3.5-5.0) g/dL Assessment and Plan Assessment: Acute CVA with mild expressive aphasia, in a patient with medication nonc ompliance including not taking Eliquis. Chronic paroximal atrial fibrillation Hypertension Hyperlipidemia Diabetes mellitus, hemoglobin A1c 7.3, has a nonfunctioning insulin pump. BPH, urinary Plan: Continue on current medication regime ,monitoring and symptomatic treatment. Patient has a malfunctioning insulin pump which PCP will address in clinic. Levemir initiated with close monitoring of Accu-Cheks.. ID consulted regarding brain MRI findings of possible herpes encephalitis. Patient states is mild aphasia, is his norm. Right facial droop appears to be patient's baseline per PCP. Anticoagulation of alcohol is used twice a day for presumed as per neurology. Evaluated by OT/PT with home recommend at discharge. Discharge planning in progress pending infectious disease evaluation and recommendations. No ANANTH per cardiology. The impression and plan of care has been dictated as directed. : I performed a history and examination of this patient, discussed the same with the dictator. I agree with the dictator's note ,documented as a scribe. Any additional findings or plans will be noted.
[2023-04-27 16:26] LABS: Glucose,Whole Blood 370 mg/dL (70-110)
[2023-04-27] MEDS: INSULIN DETEMIR (LEVEMIR) 100 UNIT/ML SYR SQ SCH (16:53)
[2023-04-27] MEDS ORDERED: LOSARTAN 25 MG TAB PO SCH (18:30)
[2023-04-27 19:55] LABS: Glucose,Whole Blood 280 mg/dL (70-110)
[2023-04-27] MEDS: SODIUM CHLORIDE 0.9% 1,000 ML IV SCH (20:48)
[2023-04-27] MEDS: ATORVASTATIN 10 MG TAB PO SCH (20:49)
[2023-04-27] MEDS: hydrALAZINE HCL 10 MG TAB PO SCH (20:49)
[2023-04-27] MEDS ORDERED: MAGNESIUM OXIDE 400 MG TAB PO ONE (21:00)
[2023-04-27] MEDS ORDERED: APIXABAN 2.5 MG TABLET PO SCH (21:00)
--- NOTE | 2023-04-27 22:17 | P.CONS ---
History of Present Illness - Reason for Consult Consult date: 04/27/23 Abnormal brain MRI rule out HSV encephalitis Requesting physician: Jose Colnó - Chief Complaint Problems with the insulin pump x one day - History of Present Illness Patient is a 82-year-old with a past medical history significant for insulin-dependent diabetes mellitus hypertension hyperlipidemia atrial fibrillation presenting to the hospital 3 days ago the patient was concerned about nonfunctioning of his insulin pump patient mention he did get angry and his told him that he needs to go to the hospital to be checked out apparently on arrival to the ER the patient was noted to be slightly dysarthric and confused and difficulty finding words patient did not have any fever and no fever has been recorded over the last 3 days patient did have a normal white count creatinine was mildly elevated liver enzymes are normal patient did have a CT of the brain mild periventricular white matter ischemic type changes no acute intracranial process patient did have MRI of the brain that was reported no definite enhancement within the right temporal lobe on prior MRI corresponding to increased signal does not exclude herpes encephalitis that has prompted this infectious disease consultation, patient currently denies having any headache patient is aware that he is at [facility] denies having any fever or any chills no chest pain no shortness of breath or cough no nausea vomiting no abdominal pain no diarrhea, patient did say jokingly that he came to get his insulin pump checked out and they state they are checking him out Review of Systems Positive point and negatives has been mentioned in the HPI, complete review of systems was performed and all other systems are negative Past Medical History Past Medical History: Atrial Fibrillation, Asthma, Diabetes Mellitus, Hyperlipidemia, Hypertension, Pneumonia Additional Past Medical History / Comment(s): CROHNS's, GOUT,TAKES FISH OIL FOR HIS CHOLETEROL History of Any Multi-Drug Resistant Organisms: None Reported Past Surgical History: Appendectomy, Bowel Resection, Cholecystectomy, Prostate Surgery Additional Past Surgical History / Comment(s): COLONOSCOPY, FATTY TUMOR REMOVED FROM HIS BACK, Bilateral CATARACT. Past Anesthesia/Blood Transfusion Reactions: No Reported Reaction Additional Past Anesthesia/Blood Transfusion Reaction / Comm: CLAUTERPHOBIA. PER PAST MEDICL HX: HAD A BLOOD TRANSFUSION 1966- REACTION WAS FACIAL SWELLING. Smoking Status: Never smoker - Past Family History Mother Family Medical History: Cancer Additional Family Medical History / Comment(s): BREAST CANCER Father Family Medical History: Cancer Additional Family Medical History / Comment(s): COLON CANCER Brother(s) Family Medical History: Cancer, Prostate Disorder Additional Family Medical History / Comment(s): PROSTATE CANCER Medications and Allergies Home Medications Medication Instructions Recorded Confirmed Type Insulin Aspart [NovoLOG] 0.01 unit SQ-PUMP CONTINUOUS 03/02/15 04/24/23 History Loperamide [Imodium] 4 mg PO QID 03/02/15 04/24/23 History Ferrous Sulfate [Iron (65 MG 325 mg PO DAILY 10/08/15 04/24/23 History Elemental)] Multivitamin [Men's Multi-Vitamin] 1 tab PO DAILY 10/08/15 04/24/23 History Albuterol Sulfate [Proair Hfa] 1 - 2 puff INHALATION RT-QID PRN 07/04/20 History Tamsulosin HCl [Flomax] 0.8 mg PO DAILY 07/04/20 04/24/23 History Cholecalciferol [Vitamin D3 (25 50 mcg PO DAILY tablet 07/18/20 04/24/23 Rx Mcg = 1000 Iu)] Apixaban [Eliquis] 5 mg PO BID 04/24/23 04/24/23 History Budesonide/Formoterol Fumarate 2 puff INHALATION RT-BID 04/24/23 04/24/23 History [Symbicort 160-4.5 Mcg Inhaler] Cyanocobalamin (Vitamin B-12) 1,000 mcg PO DAILY 04/24/23 04/24/23 History [Vitamin B-12] Elderberry Fruit [Elderberry] 350 mg PO DAILY 04/24/23 04/24/23 History Losartan [Cozaar] 25 mg PO DAILY 04/24/23 04/24/23 History Magnesium 250 mg PO DAILY 04/24/23 04/24/23 History Zinc Gluconate [Zinc] 50 mg PO DAILY 04/24/23 04/24/23 History amLODIPine [Norvasc] 5 mg PO DAILY 04/24/23 04/24/23 History Allergies Allergy/AdvReac Type Severity Reaction Status Date / Time No Known Allergies Allergy Verified 04/24/23 16:56 Physical Exam Vitals: Vital Signs Temp Pulse Resp BP Pulse Ox 04/27/23 08:05 98.1 F 81 18 178/83 97 04/27/23 04:00 82 16 140/67 96 04/27/23 01:56 76 18 04/27/23 00:00 76 18 143/69 97 04/26/23 20:00 79 18 04/26/23 19:47 98.1 F 79 18 166/70 98 04/26/23 17:39 82 18 196/87 99 04/26/23 14:34 84 18 04/26/23 11:55 84 18 193/81 99 04/26/23 10:42 93 18 Intake and Output 04/26/23 04/27/23 04/27/23 22:59 06:59 14:59 Intake Total 118 118 Balance 118 118 Intake: Oral 118 118 Other: Voiding Method Toilet Toilet Toilet # Voids 1 2 # Bowel Movements 1 GENERAL DESCRIPTION: An elderly male up in bed, no distress. No tachypnea or accessory muscle of respiration use. HEENT: Shows Pallor , no scleral icterus. Oral mucous membrane is dry. No pharyngeal erythema or thrush NECK: Trachea central, no thyromegaly. LUNGS: Unlabored breathing. Clear to auscultation anteriorly. No wheeze or crackle. HEART: S1, S2, regular rate and rhythm. ABDOMEN: Soft, no tenderness , guarding or rigidity, no organomegaly EXTREMITIES: No edema of feet. SKIN: No rash, no masses palpable. NEUROLOGICAL: The patient is awake, alert, oriented x3, mood and affect normal. Results CBC & Chem 7: 04/27/23 07:02 04/27/23 07:02 Labs: Abnormal Lab Results - Last 24 Hours (Table) 04/26/23 04/26/23 04/26/23 Range/Units 11:25 17:29 20:18 RBC (4.30-5.90) m/uL Hgb (13.0-17.5) gm/dL Hct (39.0-53.0) % MCHC (31.0-37.0) g/dL RDW (11.5-15.5) % Chloride (98-107) mmol/L Carbon Dioxide (22-30) mmol/L Creatinine (0.66-1.25) mg/dL Glucose (74-99) mg/dL POC Glucose (mg/dL) 284 H 316 H 327 H (70-110) mg/dL Calcium (8.4-10.2) mg/dL Total Protein (6.3-8.2) g/dL Albumin (3.5-5.0) g/dL 04/27/23 04/27/23 04/27/23 Range/Units 06:22 07:02 07:02 RBC 3.69 L (4.30-5.90) m/uL Hgb 9.3 L D (13.0-17.5) gm/dL Hct 30.9 L (39.0-53.0) % MCHC 30.3 L (31.0-37.0) g/dL RDW 16.7 H (11.5-15.5) % Chloride 116 H (98-107) mmol/L Carbon Dioxide 19 L (22-30) mmol/L Creatinine 1.54 H (0.66-1.25) mg/dL Glucose 112 H (74-99) mg/dL POC Glucose (mg/dL) 116 H (70-110) mg/dL Calcium 7.8 L (8.4-10.2) mg/dL Total Protein 4.5 L (6.3-8.2) g/dL Albumin 2.4 L (3.5-5.0) g/dL Assessment and Plan (1) Abnormal brain MRI Current Visit: Yes Status: Acute Code(s): R90.89 - [facility] ABNORMAL FINDINGS ON DIAGNOSTIC IMAGING OF CNSL SNOMED Code(s): 722536003 Plan: 1patient presenting the hospital apparently having issues with the insulin pump and seem to have gotten a little bit angry and was having some dysarthria on presentation to the hospital that has resolved patient denies having any headache no fever no chills patient did have an abnormal MRI raises the possibility of herpes encephalitis however the patient is clinically not behaving as encephalitis currently with no headache no fever and no confusion at this time patient did have normal CRP there will go against any inflammatory process 2-ideally would have requested LP to confirm the diagnosis however the patient is on Eliquis and at this time stopping the Eliquis for LP will be more determinant to his health then doing an LP to rule out the diagnosis that has been put forward by the radiologist 3-with the above factors I am not recommending LP or acyclovir at this point this has been discussed with neurologist Thank you for this consultation Time with Patient: Greater than 30
[2023-04-28] MEDS: hydrALAZINE HCL 10 MG TAB PO SCH ×3 (00:15→12:58)
--- NOTE | 2023-04-28 00:40 | EEG ---
ELECTROENCEPHALOGRAM REPORT PREAMBLE: This is an 82-year-old male, who came with stroke/TIA, but was found to have abnormal MRI with suspicion for encephalitis. This study was performed to evaluate for epileptiform activity. CURRENT MEDICATIONS: Albuterol, Eliquis, Lipitor, vitamin D, B12, iron, insulin, Flomax. TECHNICAL SUMMARY: This is a prolonged, 1 hour EEG performed with recording started at 9:27 a.m. on 04/27/2023 and completed at 10:32 a.m. on 04/27/2023. EEG FINDINGS: This is a 21-channel digital EEG recorded with video component, utilizing 10/20 international system with referential and bipolar montages. Background consists of well developed, well regulated moderate voltage activity in 7 to 8 hertz mixed theta and alpha activity seen in bihemispheric region. Background is posterior dominant and reactive to eye opening and closing. Photic driving response was not seen. Intermittent bitemporal dysrhythmic activity was seen sporadically during the study. Some sporadic left temporal sharply countered waves were seen, but the morphology was different at each time, therefore do not suspect epileptiform in nature. Drowsiness was seen with appearance of bilaterally symmetric theta frequency rhythm, but deeper stages of sleep were not seen. No definitive focal or generalized epileptiform activity was seen. EKG channel showed no obvious arrhythmia. IMPRESSION: This is an abnormal EEG due to intermittent bitemporal slowing, suggestive of mild focal cortical neuronal dysfunction. No definitive epileptiform activity was seen. Clinical correlation is recommended. MMADOLFOL / KIMON: [id number] /
[2023-04-28 05:48] LABS: Herpes simplex I and/or II IgM 0.4 INDEX (<=0.90); Herpes simplex IgG I Ab 21.8 (< or = 0.90); Herpes simplex IgG II Ab 0.08 (< or = 0.90)
[2023-04-28 05:52] LABS: Glucose,Whole Blood 101 mg/dL (70-110)
[2023-04-28] MEDS: INSULIN ASPART (NovoLOG) 100 UNIT/ML VIAL SQ SCH ×2 (05:56→12:59)
[2023-04-28] MEDS: INSULIN DETEMIR (LEVEMIR) 100 UNIT/ML SYR SQ SCH (06:53)
[2023-04-28 07:27] LABS: African American GFR (CKD) 46 (>60 ml/min/1.73 sqM); Anion Gap 11 mmol/L; Blood Urea Nitrogen 23 mg/dL (9-20); Calcium 8.1 mg/dL (8.4-10.2); Carbon Dioxide 18 mmol/L (22-30); Chloride 113 mmol/L (98-107); Glucose 91 mg/dL (74-99); Non-African American GFR(CKD) 40 (>60 ml/min/1.73 sqM); Potassium 4.2 mmol/L (3.5-5.1); Sodium 142 mmol/L (137-145)
--- NOTE | 2023-04-28 08:26 | P.PN ---
Subjective Progress Note Date: 04/27/23 Patient was seen for a follow-up. Patient is walking around in the room. Wants to go home. Patient denies any headache, no pain. Denies any recent or remote injury. He believes his memory is slightly worse than how it was a week ago, however not very bothersome. Patient tells me that about 4 weeks ago, one day he developed black spots in his legs. There was no pain. It lasted for 3-4 days and went away. He did not have any fever or any infection. No new focal symptoms. Objective - Vital Signs Vital signs: Vital Signs Temp 98.1 F 04/27/23 08:05 Pulse 84 04/27/23 15:15 Resp 17 04/27/23 15:15 BP 171/78 04/27/23 15:15 Pulse Ox 98 04/27/23 15:15 FiO2 21 04/25/23 21:39 Intake & Output 04/26/23 04/27/23 04/27/23 18:59 06:59 18:59 Intake Total 536 236 Balance 536 236 Intake: Oral 536 236 Other: Voiding Method Toilet Toilet Toilet # Voids 4 2 # Bowel Movements 1 - Exam Patient's mental status, speech and language functions are normal. No dysarthria. Patient is more fluent. Facial droop is improved. Examination Is Nonfocal. - Labs CBC & Chem 7: 04/27/23 07:02 04/28/23 06:30 Labs: Abnormal Lab Results - Last 24 Hours (Table) 04/25/23 04/26/23 04/27/23 Range/Units 09:40 20:18 06:22 RBC (4.30-5.90) m/uL Hgb (13.0-17.5) gm/dL Hct (39.0-53.0) % MCHC (31.0-37.0) g/dL RDW (11.5-15.5) % Chloride (98-107) mmol/L Carbon Dioxide (22-30) mmol/L Creatinine (0.66-1.25) mg/dL Glucose (74-99) mg/dL POC Glucose (mg/dL) 327 H 116 H (70-110) mg/dL Calcium (8.4-10.2) mg/dL Total Protein (6.3-8.2) g/dL Albumin (3.5-5.0) g/dL RBC Folate 968 H (280 - 791) ng/mL 04/27/23 04/27/23 04/27/23 Range/Units 07:02 07:02 11:44 RBC 3.69 L (4.30-5.90) m/uL Hgb 9.3 L D (13.0-17.5) gm/dL Hct 30.9 L (39.0-53.0) % MCHC 30.3 L (31.0-37.0) g/dL RDW 16.7 H (11.5-15.5) % Chloride 116 H (98-107) mmol/L Carbon Dioxide 19 L (22-30) mmol/L Creatinine 1.54 H (0.66-1.25) mg/dL Glucose 112 H (74-99) mg/dL POC Glucose (mg/dL) 259 H (70-110) mg/dL Calcium 7.8 L (8.4-10.2) mg/dL Total Protein 4.5 L (6.3-8.2) g/dL Albumin 2.4 L (3.5-5.0) g/dL RBC Folate (280 - 791) ng/mL 04/27/23 Range/Units 16:24 RBC (4.30-5.90) m/uL Hgb (13.0-17.5) gm/dL Hct (39.0-53.0) % MCHC (31.0-37.0) g/dL RDW (11.5-15.5) % Chloride (98-107) mmol/L Carbon Dioxide (22-30) mmol/L Creatinine (0.66-1.25) mg/dL Glucose (74-99) mg/dL POC Glucose (mg/dL) 370 H (70-110) mg/dL Calcium (8.4-10.2) mg/dL Total Protein (6.3-8.2) g/dL Albumin (3.5-5.0) g/dL RBC Folate (280 - 791) ng/mL Assessment and Plan Assessment: * Abnormal brain MRI with evidence of abnormal signal within the right hippocampus and medial temporal lobe compared to the left, concerning for encephalitis. No abnormal enhancement noticed. Patient is clinically asymptomatic. Denies any headache, fever or any signs of infection. He does acknowledge mild memory disturbance but nothing major. * Possible stroke/TIA, with mild expressive aphasia and right facial droop. 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 Patient in the last 2-3 weeks has not been taking his Eliquis (taking it only sporadically), as he became frustrated with taking medications all the time. This probably resulted in cardioembolic stroke. Patient not a candidate for TPA. * Atrial fibrillation, currently on Eliquis * Diabetes * Hypertension * Hyperlipidemia Plan: * MRI of the brain without contrast, revealed increased signal within the right hippocampus compared to the left. Findings concerning for encephalitis, which could be secondary to herpes encephalitis versus limbic autoimmune encephalitis versus viral encephalitis. IV antiviral for herpes is recommended until proven otherwise. Grooming artifact in the left basal ganglia suggestive of cavernoma versus remote hypertensive hemorrhage. No evidence of intracranial mass or acute/subacute infarct. Nonspecific white matter changes, likely secondary to small vessel ischemic disease. * MRI of the brain with contrast revealed no definitive enhancement within the right temporal lobe on prior MRI corresponding to increased FLAIR signal. This does not exclude herpes encephalitis, particularly in early disease. Clinical correlation advised. Consider lumbar puncture.. * Infectious disease input appreciated. Because being on Eliquis, risks of LP higher than benefits. Hold off on antiviral medication because of lack of any clinical symptoms of encephalitis. * EEG (prolonged for one hour) was performed, which was mildly abnormal due to intermittent bitemporal slowing, suggestive of mild focal cortical neuronal dysfunction. No definite epileptiform activity was seen. * 2-D echo revealed normal left ventricular size and systolic function. Mild MR, TR. Mild aortic stenosis. Highly mobile interatrial septum and cannot exclude PFO. cardiology input appreciated, continue Eliquis. * CTA head and neck showed: No flow-limiting stenosis bilateral carotid bifurcations. Normal [place] of [place]. * Fasting a.m. lipid panel on 03/30/2023 revealed cholesterol 82, LDL 33, HDL 30, triglycerides 90. Start Lipitor 10 mg at bedtime. No indication for high intensity statins because of already low LDL. * Hemoglobin A1c 7.3 * B12 305, patient started on oral B12 replacement. RBC folate is normal 968. TSH normal. HSV-1 and 2 IgM antibodies 0.40 (negative). HSV 1 IgG antibody +21.80 (<= 0.90). 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 * Await NMDA and Anti-Hu antibodies. * Optimize control of blood pressure. * Patient was given aspirin 325 mg in the ER. He does not take aspirin routinely. May resume Eliquis 5 mg twice a day. Patient strongly recommended, to comply with taking Eliquis for stroke prevention. May stop aspirin now. * Neuro checks every shift. * Telemetry monitoring so far showing sinus rhythm going up to 110 range. No other arrhythmia. * Neurologically clear for discharge. Informed patient's nurse. Recommend follow-up with neurologist locally within 1 week if possible.
[2023-04-28] MEDS: SYMBICORT 160-4.5 MCG INHALER INHALATION SCH (08:37)
[2023-04-28] MEDS ORDERED: LOSARTAN 50 MG TAB PO SCH (09:00)
[2023-04-28] MEDS: ZINC SULFATE 220 MG CAP PO SCH (10:13)
[2023-04-28] MEDS: FERROUS SULFATE 325 MG TAB PO SCH (10:13)
[2023-04-28] MEDS: MULTIVITAMINS, THERA 1 EACH TAB PO SCH (10:13)
[2023-04-28] MEDS: CYANOCOBALAMIN 500 MCG TAB PO SCH (10:13)
[2023-04-28] MEDS: TAMSULOSIN 0.4 MG CAP.ER.24H PO SCH (10:13)
[2023-04-28] MEDS: APIXABAN 5 MG TAB PO SCH (10:14)
[2023-04-28] MEDS: CHOLECALCIFEROL 25 MCG (1000 IU) TABLET PO SCH (10:14)
[2023-04-28] MEDS: amLODIPine 5 MG TAB PO SCH (10:14)
[2023-04-28 11:36] VITALS: BP 154/83; PULSE 82; RESP 18; TEMP 97
--- NOTE | 2023-04-28 11:36 | P.PN ---
Subjective HISTORY OF PRESENT ILLNESS: This is a 82-year-old male with a past medical history significant for with diabetes, hypertension, dilated cardiomyopathy, paroxysmal atrial fibrillation, and hyperlipidemia. Patient follows in the office with Dr. Abad. We have been asked to see the patient in consultation for abnormal echo. Patient examined at the bedside. Patient presented to the hospital with a chief complaint of confus ion and expressive aphasia. Apparently the patient was not taking his Eliquis as prescribed over the past 2-3 weeks. He denied any chest pain or pressure. Denies any shortness of breath. Vital signs are stable. * EKG reveals sinus mechanism with no signs of acute ischemia * Chest xray minimal atelectasis or atypical pneumonia right mid and lower lung. Small posterior pleural effusion. * MRI of the brain: No definite enhancement within the right temporal lobe on prior MRI corresponding to increased FLAIR signal. This does not exclude herpes encephalitis has to may be absence of enhancement with early disease. * Current home cardiac medications include losartan 25 mg daily, Eliquis 5 mg twice a day, amlodipine 5 mg daily * Echocardiogram completed revealing ejection fraction 55-60%, mild right atrial dilatation, severely increased left atrial volume, highly mobile intra-atrial septum and cannot exclude PFO, mild mitral and tricuspid regurgitation, and mild aortic stenosis * Patient underwent stress test in March 2022 is no evidence of ischemia. 04/28/2023 Patient examined this morning at the bedside. Patient denies chest pain or pressure. He denies shortness of breath. Blood pressure slightly elevated with systolic ranging between 1 [id number]. Patient is hoping to be discharged home today. PHYSICAL EXAM: VITAL SIGNS: Reviewed. GENERAL: Well-developed in no acute distress. HEENT: Head is normocephalic. Pupils are equal, round. Sclerae anicteric. Mucous membranes of the mouth are moist. Neck supple. No JVD or thyromegaly LUNGS: Respirations even and unlabored. Lungs essentially clear to auscultation bilaterally. HEART: Regular rate and rhythm. S1 and S2 heard. ABDOMEN: Soft. Nondistended. Nontender. EXTREMITIES: Normal range of motion. No clubbing or cyanosis. Peripheral pulses intact. No lower extremity edema NEUROLOGIC: Awake and alert. Oriented x 3. ASSESSMENT: Acute CVA Medication noncompliance, patient not taking his Eliquis as prescribed Paroxysmal atrial fibrillation History of dilated cardiomyopathy Hypertension Hyperlipidemia Diabetes PLAN: Continue current cardiac medications Recommend Eliquis 5 mg twice a day (Patient creatinine ranging from 1.3-1.5) Patient with history of atrial fibrillation and noncompliance with anticoagulation regimen which is likely etiology for patient's CVA. ANANTH would not be of much benefit at this time. Increase losartan to 50 mg for optimal blood pressure control Patient is stable for discharge home today from a cardiac standpoint Nurse practitioner note has been reviewed by physician. Signing provider agrees with the documented findings, assessment, and plan of care. Objective - Vital Signs Vital signs: Vital Signs Temp 97.0 F L 04/28/23 08:00 Pulse 82 04/28/23 08:00 Resp 18 04/28/23 08:00 BP 154/83 04/28/23 08:00 Pulse Ox 98 04/28/23 08:00 FiO2 21 04/25/23 21:39 Intake & Output 04/27/23 04/28/23 04/28/23 18:59 06:59 18:59 Intake Total 236 180 Balance 236 180 Intake: Oral 236 180 Other: Voiding Method Toilet Toilet Toilet # Voids 1 - Labs CBC & Chem 7: 04/27/23 07:02 04/28/23 06:30 Labs: Abnormal Lab Results - Last 24 Hours (Table) 04/25/23 04/27/23 04/27/23 Range/Units 09:40 07:02 11:44 Chloride (98-107) mmol/L Carbon Dioxide (22-30) mmol/L BUN (9-20) mg/dL Creatinine (0.66-1.25) mg/dL POC Glucose (mg/dL) 259 H (70-110) mg/dL Calcium (8.4-10.2) mg/dL RBC Folate 968 H (280 - 791) ng/mL HSV I IgG Ab 21.80 H (< or = 0.90) 04/27/23 04/27/23 04/28/23 Range/Units 16:24 19:53 06:30 Chloride 113 H (98-107) mmol/L Carbon Dioxide 18 L (22-30) mmol/L BUN 23 H (9-20) mg/dL Creatinine 1.57 H (0.66-1.25) mg/dL POC Glucose (mg/dL) 370 H 280 H (70-110) mg/dL Calcium 8.1 L (8.4-10.2) mg/dL RBC Folate (280 - 791) ng/mL HSV I IgG Ab (< or = 0.90)
[2023-04-28 11:43] LABS: Glucose,Whole Blood 236 mg/dL (70-110)
--- NOTE | 2023-04-28 12:21 | P.PN ---
Subjective Progress Note Date: 04/28/23 Principal diagnosis: Abnormal MRI and question of encephalitis Patient is a 82-year-old with a past medical history significant for insulin-dependent diabetes mellitus hypertension hyperlipidemia atrial fibrillation presenting to the hospital, patient was concerned about nonfunctioning of his insulin pump patient mention he did get angry and apparently did have some difficulty finding words initially workup did include an MRI of the brain suspicious for possible and cephalitis probably this infectious disease consultation. On today's evaluation that is 04/28/2023, the patient continues to be afebrile , the patient is breathing comfortably on room air and denies any shortness of breath, the patient denies any chest pain and no cough or sputum production, patient denies abdominal pain and no nausea/vomiting or diarrhea , feeling better no new symptoms, at the bedside mention the patient is baseline Patient did have a white count of 4.4 as of yesterday, creatinine 1.57, the patient did have a CRP less than 0.5, HSV 1 IgG positive IgM negative Objective - Vital Signs Vital signs: Vital Signs Temp 97.0 F L 04/28/23 08:00 Pulse 82 04/28/23 08:00 Resp 18 04/28/23 08:00 BP 154/83 04/28/23 08:00 Pulse Ox 98 04/28/23 08:00 FiO2 21 04/25/23 21:39 Intake & Output 04/27/23 04/28/23 04/28/23 18:59 06:59 18:59 Intake Total 236 180 Balance 236 180 Intake: Oral 236 180 Other: Voiding Method Toilet Toilet Toilet # Voids 1 - Exam GENERAL DESCRIPTION: An elderly male lying in bed in no distress RESPIRATORY SYSTEM: Unlabored breathing , clear to auscultation anteriorly HEART: S1 S2 regular rate and rhythm , ABDOMEN: Soft , no tenderness EXTREMITIES: No edema feet - Labs CBC & Chem 7: 04/27/23 07:02 04/28/23 06:30 Labs: Abnormal Lab Results - Last 24 Hours (Table) 04/27/23 04/27/23 04/27/23 Range/Units 07:02 16:24 19:53 Chloride (98-107) mmol/L Carbon Dioxide (22-30) mmol/L BUN (9-20) mg/dL Creatinine (0.66-1.25) mg/dL POC Glucose (mg/dL) 370 H 280 H (70-110) mg/dL Calcium (8.4-10.2) mg/dL HSV I IgG Ab 21.80 H (< or = 0.90) 04/28/23 04/28/23 Range/Units 06:30 11:42 Chloride 113 H (98-107) mmol/L Carbon Dioxide 18 L (22-30) mmol/L BUN 23 H (9-20) mg/dL Creatinine 1.57 H (0.66-1.25) mg/dL POC Glucose (mg/dL) 236 H (70-110) mg/dL Calcium 8.1 L (8.4-10.2) mg/dL HSV I IgG Ab (< or = 0.90) Assessment and Plan (1) Abnormal brain MRI Current Visit: Yes Status: Acute Code(s): R90.89 - H ABNORMAL FINDINGS ON DIAGNOSTIC IMAGING OF CNSL SNOMED Code(s): 348707765 Plan: 1patient presenting the hospital apparently having issues with the insulin pump and seem to have gotten a little bit angry and was having some dysarthria on presentation to the hospital that has resolved patient denies having any headache no fever no chills patient did have an abnormal MRI raises the possibility of herpes encephalitis however the patient is clinically not behaving as encephalitis currently with no headache no fever and no confusion at this time patient did have normal CRP, this will go against any inflammatory process 2-ideally would have requested LP to confirm the diagnosis however the patient is on Eliquis and at this time stopping the Eliquis for LP will be more determinant to his health then doing an LP to rule out the diagnosis , especially with the patient being his baseline, hence no need for acyclovir or LP at the bedside questions were answered Time with Patient: Less than 30
== END 2023-04-28 13:11 | disposition home or self-care (01) | DRG 65 ==
LOC: EC 15:46 → 3SCARD 19:31
PROVIDERS: ADMIT Family Medicine; ATTEND Family Medicine
PROC: 4A10X4Z Monitoring of Central Nervous Electrical Activity, External Approach (ICD-10-PCS; principal; 2023-04-28)
DX: I63.40 Cerebral infarction due to embolism of unspecified cerebral artery (principal); G93.40 Encephalopathy, unspecified; T85.614A Breakdown (mechanical) of insulin pump, initial encounter; I42.0 Dilated cardiomyopathy; R29.702 NIHSS score 2; R33.8 Other retention of urine; K50.90 Crohn's disease, unspecified, without complications; R47.01 Aphasia; R29.810 Facial weakness; E78.5 Hyperlipidemia, unspecified; I10 Essential (primary) hypertension; E87.5 Hyperkalemia; N40.1 Benign prostatic hyperplasia with lower urinary tract symptoms; M10.9 Gout, unspecified; E11.9 Type 2 diabetes mellitus without complications; I08.3 Combined rheumatic disorders of mitral, aortic and tricuspid valves; I48.91 Unspecified atrial fibrillation; I48.0 Paroxysmal atrial fibrillation; Z86.73 Personal history of transient ischemic attack (TIA), and cerebral infarction without residual deficits; Z80.42 Family history of malignant neoplasm of prostate; Z80.3 Family history of malignant neoplasm of breast; Z80.0 Family history of malignant neoplasm of digestive organs; Z79.899 Other long term (current) drug therapy; Z79.51 Long term (current) use of inhaled steroids; Z79.4 Long term (current) use of insulin; Z79.01 Long term (current) use of anticoagulants; Z91.198 Patient's noncompliance with other medical treatment and regimen for other reason; Z98.42 Cataract extraction status, left eye; Z98.41 Cataract extraction status, right eye; Z87.19 Personal history of other diseases of the digestive system; Z90.49 Acquired absence of other specified parts of digestive tract; Z87.01 Personal history of pneumonia (recurrent); Y74.2 Prosthetic and other implants, materials and accessory general hospital and personal-use devices associated with adverse incidents; Z91.148 Patient's other noncompliance with medication regimen for other reason
CPT/HCPCS: 36415; 70450; 70496; 70498; 70551; 70552; 71046; 80048; 80053; 82550; 82607; 82747; 83036; 84443; 84484; 85025; 85610; 85730; 86140; 86694; 86695; 86696; 87040; 93005; 93306; 94640; 94760; 95813; 99285

== ENCOUNTER → 2023-07-08 | Day surgery (SDC) | payer MEDICARE ==
[2023-07-01 09:04] VITALS: BMI 24.0
[~2023-07-08] MED LIST: LACTATED RINGERS 1,000 ML IV SCH; LIDOCAINE 1% (10MG/ML) FOR IV START INTRADERMA PRN
--- NOTE | 2023-07-08 12:12 | P.GSHP ---
History of Present Illness H&P Date: 07/08/23 CHIEF COMPLAINT: GERD HISTORY OF PRESENT ILLNESS: The patient is a 82-year-old male who presents reports gastroesophageal reflux disease. Upper endoscopy was offered for further evaluation and management. PAST MEDICAL HISTORY: Please see list. PAST SURGICAL HISTORY: Please see list. MEDICATIONS: Please see list. ALLERGIES: Please see list. SOCIAL HISTORY: No illicit drug use FAMILY HISTORY: No reports of Crohn disease or ulcerative colitis. REVIEW OF ORGAN SYSTEMS: CONSTITUTIONAL: No reports of fevers or chills. GI: Denies any blood in stools or constipation. PHYSICAL EXAM: VITAL SIGNS: Stable GENERAL: Well-developed and pleasant in no acute distress. HEENT: No scleral icterus. Extraocular movements grossly intact. Moist buccal mucosa. NECK: Supple without lymphadenopathy. CHEST: Unlabored respirations. Equal bilateral excursions. CARDIOVASCULAR: Regular rate and rhythm. Distal 2+ pulses. ABDOMEN: Soft, nondistended. MUSCULOSKELETAL: No clubbing, cyanosis, or edema. ASSESSMENT: 1. Gastroesophageal reflux disease PLAN: 1. Recommend proceeding with an upper endoscopy Past Medical History Past Medical History: Atrial Fibrillation, Asthma, Diabetes Mellitus, Hyperlipidemia, Hypertension, Pneumonia, Skin Disorder Additional Past Medical History / Comment(s): CROHNS's, GOUT,bilateral leg itchiness uses cream, redness History of Any Multi-Drug Resistant Organisms: None Reported Past Surgical History: Appendectomy, Bowel Resection, Cholecystectomy, Prostate Surgery Additional Past Surgical History / Comment(s): COLONOSCOPY, FATTY TUMOR REMOVED FROM HIS BACK, Bilateral CATARACT. Past Anesthesia/Blood Transfusion Reactions: No Reported Reaction Additional Past Anesthesia/Blood Transfusion Reaction / Comment(s): CLAUTERPHOBIA. PER PAST MEDICL HX: HAD A BLOOD TRANSFUSION 1966- REACTION WAS FACIAL SWELLING. Smoking Status: Never smoker - Past Family History Mother Family Medical History: Cancer Additional Family Medical History / Comment(s): BREAST CANCER Father Family Medical History: Cancer Additional Family Medical History / Comment(s): COLON CANCER Brother(s) Family Medical History: Cancer, Prostate Disorder Additional Family Medical History / Comment(s): PROSTATE CANCER Medications and Allergies Home Medications Medication Instructions Recorded Confirmed Type Insulin Aspart [NovoLOG] 0.01 unit SQ-PUMP CONTINUOUS 03/02/15 07/01/23 History Loperamide [Imodium] 2 mg PO QID 03/02/15 07/01/23 History Ferrous Sulfate [Iron (65 MG 325 mg PO DAILY 10/08/15 07/01/23 History Elemental)] Multivitamin [Men's Multi-Vitamin] 1 tab PO DAILY 10/08/15 07/01/23 History Albuterol Sulfate [Proair Hfa] 1 - 2 puff INHALATION RT-QID PRN 07/04/20 07/01/23 History Tamsulosin HCl [Flomax] 0.4 mg PO BID 07/04/20 07/01/23 History Cholecalciferol [Vitamin D3 (25 50 mcg PO DAILY tablet 07/18/20 07/01/23 Rx Mcg = 1000 Iu)] Apixaban [Eliquis] 5 mg PO BID 04/24/23 07/01/23 History Budesonide/Formoterol Fumarate 2 puff INHALATION RT-BID 04/24/23 07/01/23 History [Symbicort 160-4.5 Mcg Inhaler] Cyanocobalamin (Vitamin B-12) 1,000 mcg PO DAILY 04/24/23 07/01/23 History [Vitamin B-12] Elderberry Fruit [Elderberry] 350 mg PO DAILY 04/24/23 07/01/23 History Magnesium 250 mg PO DAILY 04/24/23 07/01/23 History Zinc Gluconate [Zinc] 50 mg PO DAILY 04/24/23 07/01/23 History amLODIPine [Norvasc] 5 mg PO DAILY 04/24/23 07/01/23 History Losartan [Cozaar] 50 mg PO DAILY #0 04/28/23 07/01/23 Rx Rosuvastatin [Crestor] 10 mg PO HS 07/01/23 07/01/23 History Triamcinolone Acetonide 1 applic TOPICAL DAILY 07/01/23 07/01/23 History [Triamcinolone Acetonide 0.1% Lotion] carvediloL [Coreg] 3.125 mg PO BID 07/01/23 07/01/23 History Allergies Allergy/AdvReac Type Severity Reaction Status Date / Time No Known Allergies Allergy Verified 07/01/23 08:46
--- NOTE | 2023-07-08 12:34 | P.HPADDEND ---
H&P Addendum H&P Addendum Date: 07/08/23 Patient drank large over 10 ounces of juice. Case is canceled per anesthesia.
== END ==
LOC: ORWHC2ENDO 11:43
PROVIDERS: ATTEND Surgery Plastic and Reconstructive Surgery
DX: Z53.8 Procedure and treatment not carried out for other reasons (principal); K21.9 Gastro-esophageal reflux disease without esophagitis; K22.2 Esophageal obstruction; E78.5 Hyperlipidemia, unspecified; I10 Essential (primary) hypertension; I48.91 Unspecified atrial fibrillation; J45.909 Unspecified asthma, uncomplicated; E11.9 Type 2 diabetes mellitus without complications; Z79.01 Long term (current) use of anticoagulants; Z79.51 Long term (current) use of inhaled steroids; Z80.0 Family history of malignant neoplasm of digestive organs; Z90.49 Acquired absence of other specified parts of digestive tract; Z79.899 Other long term (current) drug therapy

== ENCOUNTER 2023-08-05 06:28 | Day surgery (SDC) | payer MEDICARE ==
[2023-08-05] MEDS ORDERED: LIDOCAINE 1% (10MG/ML) FOR IV START INTRADERMA PRN (06:38)
[2023-08-05] MEDS: LACTATED RINGERS 1,000 ML IV SCH (07:12)
[2023-08-05 07:16] LABS: Glucose,Whole Blood 95 mg/dL (70-110)
[2023-08-05] MEDS ORDERED: PROPOFOL 10 MG/ML 20 ML VIAL IV ONE (07:16)
[2023-08-05] MEDS ORDERED: LIDOCAINE 2% (PF) 20 MG/ML 5 ML VIAL ONE (07:16)
--- NOTE | 2023-08-05 07:17 | P.GSHP ---
History of Present Illness H&P Date: 08/05/23 CHIEF COMPLAINT: Esophageal stricture HISTORY OF PRESENT ILLNESS: The patient is a 82-year-old male who presents reports dysphagia. Upper endoscopy was offered for further evaluation and management. PAST MEDICAL HISTORY: Please see list. PAST SURGICAL HISTORY: Please see list. MEDICATIONS: Please see list. ALLERGIES: Please see list. SOCIAL HISTORY: No illicit drug use FAMILY HISTORY: No reports of Crohn disease or ulcerative colitis. REVIEW OF ORGAN SYSTEMS: CONSTITUTIONAL: No reports of fevers or chills. GI: Denies any blood in stools or constipation. PHYSICAL EXAM: VITAL SIGNS: Stable GENERAL: Well-developed and pleasant in no acute distress. HEENT: No scleral icterus. Extraocular movements grossly intact. Moist buccal mucosa. NECK: Supple without lymphadenopathy. CHEST: Unlabored respirations. Equal bilateral excursions. CARDIOVASCULAR: Regular rate and rhythm. Distal 2+ pulses. ABDOMEN: Soft, nondistended. MUSCULOSKELETAL: No clubbing, cyanosis, or edema. ASSESSMENT: 1. Esophageal stricture PLAN: 1. Recommend proceeding with an upper endoscopy with rigid dilators. Past Medical History Past Medical History: Atrial Fibrillation, Asthma, Cancer, Diabetes Mellitus, Hyperlipidemia, Hypertension, Pneumonia, Skin Disorder Additional Past Medical History / Comment(s): CROHNS's, GOUT,bilateral leg itchiness uses cream, redness, skin cancer History of Any Multi-Drug Resistant Organisms: None Reported Past Surgical History: Appendectomy, Bowel Resection, Cholecystectomy, Prostate Surgery Additional Past Surgical History / Comment(s): COLONOSCOPY, FATTY TUMOR REMOVED FROM HIS BACK, Bilateral CATARACT. 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 PER PAST MEDICAL HX: HAD A BLOOD TRANSFUSION 1966- REACTION WAS FACIAL SWELLING. Smoking Status: Never smoker - Past Family History Mother Family Medical History: Cancer Additional Family Medical History / Comment(s): BREAST CANCER Father Family Medical History: Cancer Additional Family Medical History / Comment(s): COLON CANCER Brother(s) Family Medical History: Cancer, Prostate Disorder Additional Family Medical History / Comment(s): PROSTATE CANCER Medications and Allergies Home Medications Medication Instructions Recorded Confirmed Type Insulin Aspart [NovoLOG] 0.01 unit SQ-PUMP CONTINUOUS 03/02/15 08/05/23 History Loperamide [Imodium] 2 mg PO QID 03/02/15 08/03/23 History Ferrous Sulfate [Iron (65 MG 325 mg PO DAILY 10/08/15 08/03/23 History Elemental)] Albuterol Sulfate [Proair Hfa] 1 - 2 puff INHALATION RT-QID PRN 07/04/20 08/05/23 History Tamsulosin HCl [Flomax] 0.4 mg PO BID 07/04/20 08/03/23 History Cholecalciferol [Vitamin D3 (25 50 mcg PO DAILY tablet 07/18/20 08/03/23 Rx Mcg = 1000 Iu)] Apixaban [Eliquis] 5 mg PO BID 04/24/23 08/03/23 History Budesonide/Formoterol Fumarate 2 puff INHALATION RT-BID 04/24/23 08/03/23 History [Symbicort 160-4.5 Mcg Inhaler] Magnesium 400 mg PO DAILY 04/24/23 08/03/23 History Zinc Gluconate [Zinc] 50 mg PO DAILY 04/24/23 08/03/23 History amLODIPine [Norvasc] 5 mg PO DAILY 04/24/23 08/03/23 History Losartan [Cozaar] 50 mg PO DAILY #0 04/28/23 08/03/23 Rx Rosuvastatin [Crestor] 10 mg PO HS 07/01/23 08/03/23 History Triamcinolone Acetonide 1 applic TOPICAL DAILY 07/01/23 08/05/23 History [Triamcinolone Acetonide 0.1% Lotion] carvediloL [Coreg] 3.125 mg PO BID 07/01/23 08/03/23 History Allergies Allergy/AdvReac Type Severity Reaction Status Date / Time No Known Allergies Allergy Verified 08/03/23 09:17 Surgical - Exam Vital Signs Temp Pulse Resp BP Pulse Ox 98.7 F 72 16 178/87 100 08/05/23 06:59 08/05/23 06:59 08/05/23 06:59 08/05/23 06:59 08/05/23 06:59
[2023-08-05 07:18] VITALS: TEMP 98.7
[2023-08-05 07:39] LABS: Glucose,Whole Blood 102 mg/dL (70-110)
--- NOTE | 2023-08-05 07:54 | P.PCN ---
Date of Procedure: 08/05/23 Description of Procedure: PREOPERATIVE DIAGNOSIS: Dysphagia Gastroesophageal reflux disease. POSTOPERATIVE DIAGNOSIS: Presbyesophagus Diaphragmatic hiatal hernia Gastroesophageal reflux disease. Gastritis with bleeding OPERATION: Esophagogastroduodenoscopy with biopsies along the esophagus antrum and duodenum SURGEON: Marylin Anders MD ANESTHESIA: MAC. INDICATIONS: The patient is a 82-year-old male who presents with reflux disease. Benefits and risks of the procedure were described. Informed consent was obtained. DESCRIPTION: The patient was brought into the endoscopy suite and laid in the left lateral decubitus position. An Olympus gastroscope was passed along the posterior oropharynx down to the distal esophagus where the squamocolumnar junction was encountered at 37 cm from the incisors. The stomach was entered and no bile reflux was found. Additional findings are listed below. Biopsies with cold forceps were obtained of the antrum. The first through third portion of the duodenum was examined. Retroflexion of the scope confirmed Hill grade 4 lower esophageal valve. The squamocolumnar junction demonstrated LA grade B erosive esophagitis. The stomach was desufflated. The patient tolerated the procedure well. FINDINGS: Squamocolumnar junction 37 cm from the incisors. Diaphragmatic hiatus at 41 cm. Hiatal hernia, 4 cm Hill grade 4 lower esophageal valve. LA grade B erosive esophagitis. Biopsies obtained Biopsies obtained of the duodenum. Chronic gastritis with bleeding with biopsies obtained. Moderate presbyesophagus RECOMMENDATIONS: Upper endoscopy as needed. Stop blood thinner for 48 hours Plan - Discharge Summary Discharge Rx Participant: No New Discharge Prescriptions: Continue Loperamide [Imodium] 2 mg PO QID Insulin Aspart [NovoLOG] 0.01 unit SQ-PUMP CONTINUOUS Ferrous Sulfate [Iron (65 MG Elemental)] 325 mg PO DAILY Albuterol Sulfate [Proair Hfa] 1 - 2 puff INHALATION RT-QID PRN PRN Reason: Shortness Of Breath Tamsulosin HCl [Flomax] 0.4 mg PO BID Cholecalciferol [Vitamin D3 (25 Mcg = 1000 Iu)] 50 mcg PO DAILY tablet amLODIPine [Norvasc] 5 mg PO DAILY Zinc Gluconate [Zinc] 50 mg PO DAILY Losartan [Cozaar] 50 mg PO DAILY #0 carvediloL [Coreg] 3.125 mg PO BID Rosuvastatin [Crestor] 10 mg PO HS Triamcinolone Acetonide [Triamcinolone Acetonide 0.1% Lotion] 1 applic TOPICAL DAILY Magnesium 400 mg PO DAILY Apixaban [Eliquis] 5 mg PO BID Budesonide/Formoterol Fumarate [Symbicort 160-4.5 Mcg Inhaler] 2 puff INHALATION RT-BID Discharge Medication List Insulin Aspart [NovoLOG] 0.01 unit SQ-PUMP CONTINUOUS 03/02/15 [History] Loperamide [Imodium] 2 mg PO QID 03/02/15 [History] Ferrous Sulfate [Iron (65 MG Elemental)] 325 mg PO DAILY 10/08/15 [History] Albuterol Sulfate [Proair Hfa] 1 - 2 puff INHALATION RT-QID PRN 07/04/20 [History] Tamsulosin HCl [Flomax] 0.4 mg PO BID 07/04/20 [History] Cholecalciferol [Vitamin D3 (25 Mcg = 1000 Iu)] 50 mcg PO DAILY tablet 07/18/20 [Rx] Apixaban [Eliquis] 5 mg PO BID 04/24/23 [History] Budesonide/Formoterol Fumarate [Symbicort 160-4.5 Mcg Inhaler] 2 puff INHALATION RT-BID 04/24/23 [History] Magnesium 400 mg PO DAILY 04/24/23 [History] Zinc Gluconate [Zinc] 50 mg PO DAILY 04/24/23 [History] amLODIPine [Norvasc] 5 mg PO DAILY 04/24/23 [History] Losartan [Cozaar] 50 mg PO DAILY #0 04/28/23 [Rx] Rosuvastatin [Crestor] 10 mg PO HS 07/01/23 [History] Triamcinolone Acetonide [Triamcinolone Acetonide 0.1% Lotion] 1 applic TOPICAL DAILY 07/01/23 [History] carvediloL [Coreg] 3.125 mg PO BID 07/01/23 [History] Follow up Appointment(s)/Referral(s): Marylin Anders MD [STAFF PHYSICIAN] - 08/24/23 10:00 am Patient Instructions/Handouts: Hiatal Hernia (DC) Activity/Diet/Wound Care/Special Instructions: Start blood thinner 08/07/23 on Wednesday. Discharge Disposition: HOME SELF-CARE
[2023-08-05 08:21] VITALS: BP 125/69; PULSE 65; RESP 16
== END 2023-08-05 08:17 | disposition home or self-care (01) ==
LOC: ORWHC2ENDO 06:28
PROVIDERS: ATTEND Surgery Plastic and Reconstructive Surgery
DX: K22.2 Esophageal obstruction (principal); J45.909 Unspecified asthma, uncomplicated; I48.91 Unspecified atrial fibrillation; I10 Essential (primary) hypertension; E78.5 Hyperlipidemia, unspecified; K21.9 Gastro-esophageal reflux disease without esophagitis; K44.9 Diaphragmatic hernia without obstruction or gangrene; K29.50 Unspecified chronic gastritis without bleeding; Z79.01 Long term (current) use of anticoagulants; Z79.51 Long term (current) use of inhaled steroids; Z79.899 Other long term (current) drug therapy; Z90.49 Acquired absence of other specified parts of digestive tract
CPT/HCPCS: 88305; 43239; J2704; J2001

== ENCOUNTER 2024-07-05 13:06 | Emergency (ER) | payer OTHER, MEDICARE ==
[2024-07-05 13:11] LABS: Glucose,Whole Blood 66 mg/dL (70-110)
[2024-07-05 13:29] LABS: Anisocytosis Slight; Basophils % (A) 0 %; Eosinophils # (A) 0.1 k/uL (0-0.7); Eosinophils % (A) 1 %; HCT 35.5 % (39.0-53.0); Hypochromasia Marked; Lymphocytes # (A) 1.7 k/uL (1.0-4.8); Lymphocytes % (A) 24 %; MCH 26.6 pg (25.0-35.0); MCHC 30.9 g/dL (31.0-37.0); Mean Platelet Volume 7.5; Monocytes # (A) 0.3 k/uL (0-1.0); Monocytes % (A) 3 %; Neutrophils # (A) 5.1 k/uL (1.3-7.7); Neutrophils % (A) 69 %; Platelet Count 233 k/uL (150-450); RBC 4.13 m/uL (4.30-5.90); WBC 7.3 k/uL (3.8-10.6)
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
[2024-07-05 13:44] LABS: ALT 46 U/L (4-49); AST 45 U/L (17-59); African American GFR (CKD) 46 (>60 ml/min/1.73 sqM); Albumin 3.3 g/dL (3.5-5.0); Alkaline Phosphatase 111 U/L (38-126); Anion Gap 9 mmol/L; Blood Urea Nitrogen 18 mg/dL (9-20); Calcium 8.4 mg/dL (8.4-10.2); Carbon Dioxide 22 mmol/L (22-30); Chloride 113 mmol/L (98-107); Glucose 63 mg/dL (74-99); Non-African American GFR(CKD) 40 (>60 ml/min/1.73 sqM); Potassium 3.8 mmol/L (3.5-5.1); Sodium 144 mmol/L (137-145); Total Bilirubin 0.5 mg/dL (0.2-1.3); Total Protein 5.7 g/dL (6.3-8.2)
[2024-07-05 14:02] LABS: Glucose,Whole Blood 108 mg/dL (70-110)
[2024-07-05 14:39] LABS: Glucose,Whole Blood 159 mg/dL (70-110)
[2024-07-05 14:47] VITALS: BP 182/89; PULSE 74; RESP 16; TEMP 98
== END 2024-07-05 14:47 | disposition home or self-care (01) ==
LOC: EC 13:06
DX: E11.649 Type 2 diabetes mellitus with hypoglycemia without coma (principal); Z79.4 Long term (current) use of insulin; Z04.1 Encounter for examination and observation following transport accident
CPT/HCPCS: 36415; 80053; 85025; 99284

== ENCOUNTER 2024-08-20 09:57 | Inpatient (IN) | payer MEDICARE, OTHER ==
[2024-08-20 10:06] LABS: Glucose,Whole Blood >600 mg/dL (70-110)
--- NOTE | 2024-08-20 10:08 | ED ---
General Adult HPI - General Chief complaint: Fall Stated complaint: fall,seizure Source: EMS Mode of arrival: EMS - History of Present Illness Initial comments: Dictation was produced using [employer] dictation software. please excuse any grammatical, word or spelling errors. Chief Complaint: 83-year-old male brought in by EMS for fall History of Present Illness: History present illness obtained from EMS. Patient is 83-year-old male. EMS was called after patient was found down in the bathroom. Last known normal was last night. Patient has no history of seizure. He is insulin-dependent diabetic. Patient was combative and argumentative upon initial evaluation. En route to the emergency department patient had tonic- clonic seizure. Patient does take anticoagulation medications. Apparently his insulin pump has not been working very well. Apparently patient was recently admitted for DKA. Unable to obtain ROS secondary mental status - Related Data Home Medications Medication Instructions Recorded Confirmed Insulin Aspart [NovoLOG] 0.01 unit SQ-PUMP CONTINUOUS 03/02/15 08/11/24 Loperamide [Imodium] 4 mg PO QID 03/02/15 08/11/24 Tamsulosin HCl [Flomax] 0.4 mg PO BID 07/04/20 08/11/24 Apixaban [Eliquis] 5 mg PO BID 04/24/23 08/11/24 amLODIPine [Norvasc] 5 mg PO DAILY 04/24/23 08/11/24 Rosuvastatin [Crestor] 10 mg PO HS 07/01/23 08/11/24 carvediloL [Coreg] 3.125 mg PO BID 07/01/23 08/11/24 Memantine [Namenda] 10 mg PO BID 08/11/24 08/11/24 Previous Rx's Medication Instructions Recorded Cholecalciferol [Vitamin D3 (25 50 mcg PO DAILY #30 tab 08/12/24 Mcg = 1000 Iu)] Allergies Allergy/AdvReac Type Severity Reaction Status Date / Time No Known Allergies Allergy Verified 08/20/24 10:04 Review of Systems ROS Statement: Those systems with pertinent positive or pertinent negative responses have been documented in the HPI. ROS Other: All systems not noted in ROS Statement are negative. Past Medical History Past Medical History: Atrial Fibrillation, Asthma, Cancer, Diabetes Mellitus, Hyperlipidemia, Hypertension, Pneumonia, Skin Disorder Additional Past Medical History / Comment(s): CROHNS's, GOUT,bilateral leg itchiness uses cream, redness, skin cancer History of Any Multi-Drug Resistant Organisms: None Reported Past Surgical History: Appendectomy, Bowel Resection, Cholecystectomy, Prostate Surgery Additional Past Surgical History / Comment(s): COLONOSCOPY, FATTY TUMOR REMOVED FROM HIS BACK, Bilateral CATARACT. 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 PER PAST MEDICAL HX: HAD A BLOOD TRANSFUSION 1966- REACTION WAS FACIAL SWELLING. Past Psychological History: No Psychological Hx Reported Smoking Status: Never smoker Past Alcohol Use History: None Reported Past Drug Use History: None Reported - Past Family History Mother Family Medical History: Cancer Additional Family Medical History / Comment(s): BREAST CANCER Father Family Medical History: Cancer Additional Family Medical History / Comment(s): COLON CANCER Brother(s) Family Medical History: Cancer, Prostate Disorder Additional Family Medical History / Comment(s): PROSTATE CANCER General Exam - General Exam Comments Initial Comments: PHYSICAL EXAM: General Impression: Postictal, sonorous respirations, blood at the nares, pinpoint pupils bilaterally HEENT: Swelling and bleeding to the nose extra-ocular movements intact, mucous membranes moist. Cardiovascular: Tachycardic Chest: Sonorously breathing Abdomen: abdomen soft, non-tender, non-distended, no organomegaly Musculoskeletal: Pulses present and equal in all extremities, no peripheral edema Neurological: Face is symmetrical, moves all extremities grossly Skin: Intact with no visualized rashes Course Vital Signs 08/20/24 08/20/24 08/20/24 09:59 10:16 11:50 Temperature 100.8 F H 99.1 F Pulse Rate 149 H 117 H Respiratory 12 28 H Rate Blood Pressure 195/99 169/83 O2 Sat by Pulse 97 100 Oximetry - Reevaluation(s) Reevaluation #1: 08/20/24 10:07 Level 2 trauma was activated due to patient's age and anticoagulation use with a ltered mental status. Patient initially received in trauma bay #2. Patient was in generalized tonic-clonic seizures upon arrival. Seizure lasted for approximately 1 to 2 minutes. Patient postictal. He does have some signs of facial trauma. Reevaluation #2: 08/20/24 10:53 Patient's vital signs upon arrival shows temperature of 100.8 rectal. Patient A-fib RVR. Patient reevaluated bedside after CT. According to nursing patient had another seizure and was given 4 mg of IV Ativan along with 1 g of Keppra. Patient does not have any Kernig's or Brudzinski sign. Reevaluation #3: 08/20/24 12:27 Case was discussed in detail with neurologist on-call, Dr. Colón who feels that patient is amenable for admission to our facility despite no 24-hour EEG. Reevaluation #4: 08/20/24 12:38 Case discussed with electric vehicle electrician including clinical presentation labs, current clinical condition and blood gases. Dr. Mayen did not recommend intubation at this time EKG Findings - EKG Comments: EKG Findings:: My EKG interpretation: Ventricular rate 147, A-fib with RVR,. No 84, QRS 107, QTc 419. No [place] prolongation, no QTC prolongation, no ST or T-wave changes noted. EKG compared to August 10, 2024 showing no changes. Overall, this EKG is unremarkable Medical Decision Making - Medical Decision Making Was pt. sent in by a medical professional or institution (, PA, INFECTION PREVENTION PRACTITIONER, urgent care, hospital, or half-way...) When possible be specific @ -No Did you speak to anyone other than the patient for history (EMS, parent, family, police, friend...)? What history was obtained from this source @ -See above Did you review nursing and triage notes (agree or disagree)? Why? @ -I reviewed and agree with nursing and triage notes Were old charts reviewed (outside hosp., previous admission, EMS record, old EKG, old radiological studies, urgent care reports/EKG's, half-way records)? Report findings @ -Previous admissions reviewed showing the patient was admitted for DKA Differential Diagnosis (chest pain, altered mental status, abdominal pain women, abdominal pain men, vaginal bleeding, musculoskeletal, weakness, fever, dyspnea, syncope, headache, dizziness, GI bleed, back pain, seizure, CVA, palpatations, mental health)? @ -Differential Seizure: Recurrent seizure disorder, febrile seizure, alcohol withdrawal, stimulants, meningitis, encephalitis, intercranial hemorrhage, intracranial tumor, stroke, eclampsia, thyrotoxicosis, hypocalcemia, hyponatremia, hypernatremia, hypomagnesemia, psychogenic, this is not meant to be an all-inclusive list. EKG interpreted by me (3pts min.). @ -See above X-rays interpreted by me (1pt min.). @ -Chest x-ray and pelvis x-ray shows no acute processes CT interpreted by me (1pt min.). @ -CT head and C-spine shows no acute process. CT chest 7 pelvis shows right lung infiltrate U/S interpreted by me (1pt. min.). @ -None done What testing was considered but not performed or refused? (CT, X-rays, U/S, labs)? Why? @ -None What meds were considered but not given or refused? Why? @ -None Was smoking cessation discussed for >3mins.? @ -No Were there social determinants of health that impacted care today? How? (Homelessness, low income, unemployed, alcoholism, drug addiction, transport ation, low edu. Level, literacy, decrease access to med. care, fpc, rehab)? @ -No Was there de-escalation of care discussed even if they declined (Discuss DNR or withdrawal of care, Hospice)? DNR status @ -No What co-morbidities impacted this encounter? (DM, HTN, Smoking, COPD, CAD, Cancer, CVA, ARF, Chemo, Hep., AIDS, mental health diagnosis, sleep apnea, morbid obesity)? @ -Insulin-dependent diabetes Was patient admitted / discharged? Hospital course, mention meds given and route, prescriptions, significant lab abnormalities, going to OR and other pertinent info. @ -83-year-old male comes to the emergency department for being found down. Patient had 2 seizures in the emergency department. Vital signs upon arrival shows A-fib RVR temperature of 100.8 raising suspicion of infectious etiology. Laboratory evaluation shows leukocytosis of 20.2 which likely could be from stress versus infection. Metabolic panel shows bicarb of 9 with a gap of 27. Hyperglycemia with elevated troponin 0.068. Acetone positive. Patient started on DKA order set. Patient given broad-spectrum antibiotics. Patient admission to our facility was cleared with neurology and pulmonology. Patient also received 1 g of Keppra Did you discuss the management of the patient with other professionals (prof essionals i.e. , PA, INFECTION PREVENTION PRACTITIONER, lab, RT, psych nurse, dialysis social worker, hole puncher strap, teacher, community services officer, case operator)? Give summary @ -See above Was critical care preformed (if so, how long)? @ -Yes, 77 minutes Undiagnosed new problem with uncertain prognosis? @ -No Drug Therapy requiring intensive monitoring for toxicity (Heparin, Nitro, Insulin, Cardizem)? @ -No Were any procedures done? @ -No Diagnosis/symptom? Acute, or Chronic, or Acute on Chronic? Uncomplicated (without systemic symptoms) or Complicated (systemic symptoms)? @ -1. Seizure, 2. Pneumonia sepsis, 3. Diabetic ketoacidosis Side effects of treatment? @ -No Exacerbation, Progression, or Severe Exacerbation? @ -No Poses a threat to life or bodily function? How? (Chest pain, [place], [place], pneumonia, PE, COPD, DKA, ARF, appy, cholecystitis, CVA, Diverticulitis, Homicidal, Suicidal, threat to staff... and all critical care pts) @ -Yes - Lab Data Result diagrams: 08/20/24 10:10 08/20/24 11:26 Lab Results 08/20/24 08/20/24 08/20/24 Range/Units 10:04 10:05 10:10 WBC 20.2 H (3.8-10.6) k/uL RBC 4.51 (4.30-5.90) m/uL Hgb 11.6 L (13.0-17.5) gm/dL Hct 41.0 (39.0-53.0) % MCV 91.0 (80.0-100.0) fL MCH 25.8 (25.0-35.0) pg MCHC 28.3 L (31.0-37.0) g/dL RDW 14.6 (11.5-15.5) % Plt Count 255 (150-450) k/uL MPV 9.2 Neutrophils % (Manual) 78 % Band Neuts % (Manual) 5 % Lymphocytes % (Manual) 14 % Monocytes % (Manual) 3 % Neutrophils # (Manual) 16.70 H (1.3-7.7) k/uL Lymphocytes # (Manual) 2.83 (1.0-4.8) k/uL Monocytes # (Manual) 0.61 (0-1.0) k/uL Nucleated RBCs 0 (0-0) /100 WBC Manual Slide Review Performed Hypochromasia Marked PT (10.0-12.5) sec INR (<1.2) APTT (22.0-30.0) sec Sample Site ABG pH (7.35-7.45) ABG pCO2 (35-45) mmHg ABG pO2 (83-108) mmHg ABG HCO3 (21-25) mmol/L ABG Total CO2 (19-24) mmol/L ABG O2 Saturation (94-97) % ABG Base Excess mmol/L Wm Test Hemoglobin (13.0-17.5) gm/dL FiO2 % Sodium (137-145) mmol/L Potassium (3.5-5.1) mmol/L Chloride (98-107) mmol/L Carbon Dioxide (22-30) mmol/L Anion Gap mmol/L BUN (9-20) mg/dL Creatinine (0.66-1.25) mg/dL Est GFR (CKD-EPI)AfAm (>60 ml/min/1.73 sqM) Est GFR (CKD-EPI)NonAf (>60 ml/min/1.73 sqM) Glucose (74-99) mg/dL POC Glucose (mg/dL) >600 H* (70-110) mg/dL POC Glu Datastage Consultant ID Randall B[place] Plasma Lactic Acid [place] (0.7-2.0) mmol/L Calcium (8.4-10.2) mg/dL Total Bilirubin (0.2-1.3) mg/dL AST (17-59) U/L ALT (4-49) U/L Alkaline Phosphatase (38-126) U/L Troponin I (0.000-0.034) ng/mL Total Protein (6.3-8.2) g/dL Albumin (3.5-5.0) g/dL Urine Color Urine Appearance (Clear) Urine pH (5.0-8.0) Ur Specific [place] (1.001-1.035) Urine Protein (Negative) Urine Glucose (UA) (Negative) Urine Ketones (Negative) Urine Blood (Negative) Urine Nitrite (Negative) Urine Bilirubin (Negative) Urine Urobilinogen (<2.0) mg/dL Ur Leukocyte Esterase (Negative) Urine RBC (0-5) /hpf Urine WBC (0-5) /hpf Ur Squamous Epith Cells (0-4) /hpf Urine Mucus (None) /hpf Urine Opiates Screen (NotDetected) Ur Oxycodone Screen (NotDetected) Urine Methadone Screen (NotDetected) Ur Barbiturates Screen (NotDetected) U Tricyclic Antidepress (NotDetected) Ur Phencyclidine Scrn (NotDetected) Ur Amphetamines Screen (NotDetected) U Methamphetamines Scrn (NotDetected) U Benzodiazepines Scrn (NotDetected) Urine Cocaine Screen (NotDetected) U Marijuana (THC) Screen (NotDetected) Serum Alcohol mg/dL Acetone, Qual (Negative) Influenza Type A (PCR) (Not Detectd) Influenza Type B (PCR) (Not Detectd) RSV (PCR) (Not Detectd) SARS-CoV-2 (PCR) (Not Detectd) Blood Type O Positive Blood Type Confirm Blood Type Recheck No Previous Record Bld Type Recheck Status CABO Indicated Antibody Screen NEGATIVE Spec Expiration Date 08/23/2024 - 230408/20/24 08/20/24 08/20/24 Range/Units 10:10 10:10 10:10 WBC (3.8-10.6) k/uL RBC (4.30-5.90) m/uL Hgb (13.0-17.5) gm/dL Hct (39.0-53.0) % MCV (80.0-100.0) fL MCH (25.0-35.0) pg MCHC (31.0-37.0) g/dL RDW (11.5-15.5) % Plt Count (150-450) k/uL MPV Neutrophils % (Manual) % Band Neuts % (Manual) % Lymphocytes % (Manual) % Monocytes % (Manual) % Neutrophils # (Manual) (1.3-7.7) k/uL Lymphocytes # (Manual) (1.0-4.8) k/uL Monocytes # (Manual) (0-1.0) k/uL Nucleated RBCs (0-0) /100 WBC Manual Slide Review Hypochromasia PT 10.0 (10.0-12.5) sec INR 0.9 (<1.2) APTT 21.3 L (22.0-30.0) sec Sample Site ABG pH (7.35-7.45) ABG pCO2 (35-45) mmHg ABG pO2 (83-108) mmHg ABG HCO3 (21-25) mmol/L ABG Total CO2 (19-24) mmol/L ABG O2 Saturation (94-97) % ABG Base Excess mmol/L Wm Test Hemoglobin (13.0-17.5) gm/dL FiO2 % Sodium 141 (137-145) mmol/L Potassium 3.8 (3.5-5.1) mmol/L Chloride 105 (98-107) mmol/L Carbon Dioxide 9 L* (22-30) mmol/L Anion Gap 27 mmol/L BUN 15 (9-20) mg/dL Creatinine 1.83 H (0.66-1.25) mg/dL Est GFR (CKD-EPI)AfAm 38 (>60 ml/min/1.73 sqM) Est GFR (CKD-EPI)NonAf 33 (>60 ml/min/1.73 sqM) Glucose 579 H* (74-99) mg/dL POC Glucose (mg/dL) (70-110) mg/dL POC Glu Datastage Consultant ID Plasma Lactic Acid [place] 12.9 H* (0.7-2.0) mmol/L Calcium 8.6 (8.4-10.2) mg/dL Total Bilirubin 0.8 (0.2-1.3) mg/dL AST 17 (17-59) U/L ALT 25 (4-49) U/L Alkaline Phosphatase 126 (38-126) U/L Troponin I (0.000-0.034) ng/mL Total Protein 6.0 L (6.3-8.2) g/dL Albumin 3.6 (3.5-5.0) g/dL Urine Color Urine Appearance (Clear) Urine pH (5.0-8.0) Ur Specific [place] (1.001-1.035) Urine Protein (Negative) Urine Glucose (UA) (Negative) Urine Ketones (Negative) Urine Blood (Negative) Urine Nitrite (Negative) Urine Bilirubin (Negative) Urine Urobilinogen (<2.0) mg/dL Ur Leukocyte Esterase (Negative) Urine RBC (0-5) /hpf Urine WBC (0-5) /hpf Ur Squamous Epith Cells (0-4) /hpf Urine Mucus (None) /hpf Urine Opiates Screen (NotDetected) Ur Oxycodone Screen (NotDetected) Urine Methadone Screen (NotDetected) Ur Barbiturates Screen (NotDetected) U Tricyclic Antidepress (NotDetected) Ur Phencyclidine Scrn (NotDetected) Ur Amphetamines Screen (NotDetected) U Methamphetamines Scrn (NotDetected) U Benzodiazepines Scrn (NotDetected) Urine Cocaine Screen (NotDetected) U Marijuana (THC) Screen (NotDetected) Serum Alcohol <10 mg/dL Acetone, Qual (Negative) Influenza Type A (PCR) (Not Detectd) Influenza Type B (PCR) (Not Detectd) RSV (PCR) (Not Detectd) SARS-CoV-2 (PCR) (Not Detectd) Blood Type Blood Type Confirm Blood Type Recheck Bld Type Recheck Status Antibody Screen Spec Expiration Date 08/20/24 08/20/24 08/20/24 Range/Units 10:10 10:23 11:07 WBC (3.8-10.6) k/uL RBC (4.30-5.90) m/uL Hgb (13.0-17.5) gm/dL Hct (39.0-53.0) % MCV (80.0-100.0) fL MCH (25.0-35.0) pg MCHC (31.0-37.0) g/dL RDW (11.5-15.5) % Plt Count (150-450) k/uL MPV Neutrophils % (Manual) % Band Neuts % (Manual) % Lymphocytes % (Manual) % Monocytes % (Manual) % Neutrophils # (Manual) (1.3-7.7) k/uL Lymphocytes # (Manual) (1.0-4.8) k/uL Monocytes # (Manual) (0-1.0) k/uL Nucleated RBCs (0-0) /100 WBC Manual Slide Review Hypochromasia PT (10.0-12.5) sec INR (<1.2) APTT (22.0-30.0) sec Sample Site ABG pH (7.35-7.45) ABG pCO2 (35-45) mmHg ABG pO2 (83-108) mmHg ABG HCO3 (21-25) mmol/L ABG Total CO2 (19-24) mmol/L ABG O2 Saturation (94-97) % ABG Base Excess mmol/L Wm Test Hemoglobin (13.0-17.5) gm/dL FiO2 % Sodium (137-145) mmol/L Potassium (3.5-5.1) mmol/L Chloride (98-107) mmol/L Carbon Dioxide (22-30) mmol/L Anion Gap mmol/L BUN (9-20) mg/dL Creatinine (0.66-1.25) mg/dL Est GFR (CKD-EPI)AfAm (>60 ml/min/1.73 sqM) Est GFR (CKD-EPI)NonAf (>60 ml/min/1.73 sqM) Glucose (74-99) mg/dL POC Glucose (mg/dL) (70-110) mg/dL POC Glu Datastage Consultant ID Plasma Lactic Acid [place] (0.7-2.0) mmol/L Calcium (8.4-10.2) mg/dL Total Bilirubin (0.2-1.3) mg/dL AST (17-59) U/L ALT (4-49) U/L Alkaline Phosphatase (38-126) U/L Troponin I 0.068 H* (0.000-0.034) ng/mL Total Protein (6.3-8.2) g/dL Albumin (3.5-5.0) g/dL Urine Color Urine Appearance (Clear) Urine pH (5.0-8.0) Ur Specific [place] (1.001-1.035) Urine Protein (Negative) Urine Glucose (UA) (Negative) Urine Ketones (Negative) Urine Blood (Negative) Urine Nitrite (Negative) Urine Bilirubin (Negative) Urine Urobilinogen (<2.0) mg/dL Ur Leukocyte Esterase (Negative) Urine RBC (0-5) /hpf Urine WBC (0-5) /hpf Ur Squamous Epith Cells (0-4) /hpf Urine Mucus (None) /hpf Urine Opiates Screen Not Detected (NotDetected) Ur Oxycodone Screen Not Detected (NotDetected) Urine Methadone Screen Not Detected (NotDetected) Ur Barbiturates Screen Not Detected (NotDetected) U Tricyclic Antidepress Not Detected (NotDetected) Ur Phencyclidine Scrn Not Detected (NotDetected) Ur Amphetamines Screen Not Detected (NotDetected) U Methamphetamines Scrn Not Detected (NotDetected) U Benzodiazepines Scrn Not Detected (NotDetected) Urine Cocaine Screen Not Detected (NotDetected) U Marijuana (THC) Screen Not Detected (NotDetected) Serum Alcohol mg/dL Acetone, Qual (Negative) Influenza Type A (PCR) (Not Detectd) Influenza Type B (PCR) (Not Detectd) RSV (PCR) (Not Detectd) SARS-CoV-2 (PCR) (Not Detectd) Blood Type Blood Type Confirm O Positive Blood Type Recheck Bld Type Recheck Status Antibody Screen Spec Expiration Date 08/20/24 08/20/24 08/20/24 Range/Units 11:07 11:10 11:25 WBC (3.8-10.6) k/uL RBC (4.30-5.90) m/uL Hgb (13.0-17.5) gm/dL Hct (39.0-53.0) % MCV (80.0-100.0) fL MCH (25.0-35.0) pg MCHC (31.0-37.0) g/dL RDW (11.5-15.5) % Plt Count (150-450) k/uL MPV Neutrophils % (Manual) % Band Neuts % (Manual) % Lymphocytes % (Manual) % Monocytes % (Manual) % Neutrophils # (Manual) (1.3-7.7) k/uL Lymphocytes # (Manual) (1.0-4.8) k/uL Monocytes # (Manual) (0-1.0) k/uL Nucleated RBCs (0-0) /100 WBC Manual Slide Review Hypochromasia PT (10.0-12.5) sec INR (<1.2) APTT (22.0-30.0) sec Sample Site ABG pH (7.35-7.45) ABG pCO2 (35-45) mmHg ABG pO2 (83-108) mmHg ABG HCO3 (21-25) mmol/L ABG Total CO2 (19-24) mmol/L ABG O2 Saturation (94-97) % ABG Base Excess mmol/L Wm Test Hemoglobin (13.0-17.5) gm/dL FiO2 % Sodium (137-145) mmol/L Potassium (3.5-5.1) mmol/L Chloride (98-107) mmol/L Carbon Dioxide (22-30) mmol/L Anion Gap mmol/L BUN (9-20) mg/dL Creatinine (0.66-1.25) mg/dL Est GFR (CKD-EPI)AfAm (>60 ml/min/1.73 sqM) Est GFR (CKD-EPI)NonAf (>60 ml/min/1.73 sqM) Glucose (74-99) mg/dL POC Glucose (mg/dL) 526 H* (70-110) mg/dL POC Glu Datastage Consultant ID [place] Sarah Plasma Lactic Acid [place] (0.7-2.0) mmol/L Calcium (8.4-10.2) mg/dL Total Bilirubin (0.2-1.3) mg/dL AST (17-59) U/L ALT (4-49) U/L Alkaline Phosphatase (38-126) U/L Troponin I (0.000-0.034) ng/mL Total Protein (6.3-8.2) g/dL Albumin (3.5-5.0) g/dL Urine Color Colorless Urine Appearance Clear (Clear) Urine pH 6.0 (5.0-8.0) Ur Specific [place] 1.030 (1.001-1.035) Urine Protein 3+ H (Negative) Urine Glucose (UA) 4+ H (Negative) Urine Ketones 2+ H (Negative) Urine Blood Moderate H (Negative) Urine Nitrite Negative (Negative) Urine Bilirubin Negative (Negative) Urine Urobilinogen <2.0 (<2.0) mg/dL Ur Leukocyte Esterase Negative (Negative) Urine RBC 9 H (0-5) /hpf Urine WBC 3 (0-5) /hpf Ur Squamous Epith Cells <1 (0-4) /hpf Urine Mucus Rare H (None) /hpf Urine Opiates Screen (NotDetected) Ur Oxycodone Screen (NotDetected) Urine Methadone Screen (NotDetected) Ur Barbiturates Screen (NotDetected) U Tricyclic Antidepress (NotDetected) Ur Phencyclidine Scrn (NotDetected) Ur Amphetamines Screen (NotDetected) U Methamphetamines Scrn (NotDetected) U Benzodiazepines Scrn (NotDetected) Urine Cocaine Screen (NotDetected) U Marijuana (THC) Screen (NotDetected) Serum Alcohol mg/dL Acetone, Qual (Negative) Influenza Type A (PCR) Not Detected (Not Detectd) Influenza Type B (PCR) Not Detected (Not Detectd) RSV (PCR) Not Detected (Not Detectd) SARS-CoV-2 (PCR) Not Detected (Not Detectd) Blood Type Blood Type Confirm Blood Type Recheck Bld Type Recheck Status Antibody Screen Spec Expiration Date 08/20/24 08/20/24 08/20/24 Range/Units 11:26 12:00 12:30 WBC (3.8-10.6) k/uL RBC (4.30-5.90) m/uL Hgb (13.0-17.5) gm/dL Hct (39.0-53.0) % MCV (80.0-100.0) fL MCH (25.0-35.0) pg MCHC (31.0-37.0) g/dL RDW (11.5-15.5) % Plt Count (150-450) k/uL MPV Neutrophils % (Manual) % Band Neuts % (Manual) % Lymphocytes % (Manual) % Monocytes % (Manual) % Neutrophils # (Manual) (1.3-7.7) k/uL Lymphocytes # (Manual) (1.0-4.8) k/uL Monocytes # (Manual) (0-1.0) k/uL Nucleated RBCs (0-0) /100 WBC Manual Slide Review Hypochromasia PT (10.0-12.5) sec INR (<1.2) APTT (22.0-30.0) sec Sample Site r rad ABG pH 7.20 L (7.35-7.45) ABG pCO2 42 (35-45) mmHg ABG pO2 222 H (83-108) mmHg ABG HCO3 16 L (21-25) mmol/L ABG Total CO2 18 L (19-24) mmol/L ABG O2 Saturation 99.7 H (94-97) % ABG Base Excess -11.3 mmol/L Wm Test Yes Hemoglobin 9.6 L (13.0-17.5) gm/dL FiO2 100 % Sodium 137 (137-145) mmol/L Potassium 3.9 (3.5-5.1) mmol/L Chloride 108 H (98-107) mmol/L Carbon Dioxide 13 L (22-30) mmol/L Anion Gap 16 mmol/L BUN 16 (9-20) mg/dL Creatinine (0.66-1.25) mg/dL Est GFR (CKD-EPI)AfAm (>60 ml/min/1.73 sqM) Est GFR (CKD-EPI)NonAf (>60 ml/min/1.73 sqM) Glucose (74-99) mg/dL POC Glucose (mg/dL) 398 H (70-110) mg/dL POC Glu Datastage Consultant ID [place] Plasma Lactic Acid [place] (0.7-2.0) mmol/L Calcium (8.4-10.2) mg/dL Total Bilirubin (0.2-1.3) mg/dL AST (17-59) U/L ALT (4-49) U/L Alkaline Phosphatase (38-126) U/L Troponin I (0.000-0.034) ng/mL Total Protein (6.3-8.2) g/dL Albumin (3.5-5.0) g/dL Urine Color Urine Appearance (Clear) Urine pH (5.0-8.0) Ur Specific [place] (1.001-1.035) Urine Protein (Negative) Urine Glucose (UA) (Negative) Urine Ketones (Negative) Urine Blood (Negative) Urine Nitrite (Negative) Urine Bilirubin (Negative) Urine Urobilinogen (<2.0) mg/dL Ur Leukocyte Esterase (Negative) Urine RBC (0-5) /hpf Urine WBC (0-5) /hpf Ur Squamous Epith Cells (0-4) /hpf Urine Mucus (None) /hpf Urine Opiates Screen (NotDetected) Ur Oxycodone Screen (NotDetected) Urine Methadone Screen (NotDetected) Ur Barbiturates Screen (NotDetected) U Tricyclic Antidepress (NotDetected) Ur Phencyclidine Scrn (NotDetected) Ur Amphetamines Screen (NotDetected) U Methamphetamines Scrn (NotDetected) U Benzodiazepines Scrn (NotDetected) Urine Cocaine Screen (NotDetected) U Marijuana (THC) Screen (NotDetected) Serum Alcohol mg/dL Acetone, Qual Positive (Negative) Influenza Type A (PCR) (Not Detectd) Influenza Type B (PCR) (Not Detectd) RSV (PCR) (Not Detectd) SARS-CoV-2 (PCR) (Not Detectd) Blood Type Blood Type Confirm Blood Type Recheck Bld Type Recheck Status Antibody Screen Spec Expiration Date Disposition Clinical Impression: DKA (diabetic ketoacidosis), Pneumonia Disposition: ADMITTED IP TO THIS [facility] Condition: Critical Referrals: Nilo Ambrosio DO [Primary Care Provider] - 1-2 days Decision Time: 12:43
[2024-08-20] MEDS: SODIUM CHLORIDE 0.9% 1,000 ML IV STA ×2 (10:18→11:19)
[2024-08-20 10:22] LABS: HGB 11.6 gm/dL (13.0-17.5); Hypochromasia Marked; MCH 25.8 pg (25.0-35.0); MCHC 28.3 g/dL (31.0-37.0); Mean Platelet Volume 9.2; Platelet Count 255 k/uL (150-450); RBC 4.51 m/uL (4.30-5.90); RDW 14.6 % (11.5-15.5); WBC 20.2 k/uL (3.8-10.6)
--- NOTE | 2024-08-20 10:26 | XR ---
EXAMINATION TYPE: XR chest 1V portable DATE OF EXAM: 08/20/2024 10:19 AM COMPARISON: 08/11/2024 CLINICAL INDICATION: Male, 83 years old with history of trauma, pain TECHNIQUE: XR chest 1V portable view(s) obtained. FINDINGS: The heart size is normal. The pulmonary vasculature is normal. The lungs are clear. No pneumothorax is evident. No displaced rib fractures are identified. IMPRESSION: 1. No acute pulmonary process. 2. No acute posttraumatic changes. [facility], , 08/20/2024 10:23 AM
--- NOTE | 2024-08-20 10:27 | XR ---
EXAMINATION TYPE: XR pelvis AP view DATE OF EXAM: 08/20/2024 10:19 AM COMPARISON: None. CLINICAL INDICATION: Male, 83 years old with history of Trauma, fall pain TECHNIQUE: AP view(s) obtained. FINDINGS: Femoral heads articulate with the acetabulum. Cam deformity may be present on the right. Symphysis pu bis and sacroiliac joints are normal. No acute fractures or dislocations evident. Normal bowel gas is present. IMPRESSION: 1. No acute osseous abnormality AP Pelvis [facility], , 08/20/2024 10:25 AM
[2024-08-20] MEDS: LORazepam 2 MG/ML INJ IV STA (10:31)
[2024-08-20 10:32] LABS: AST 17 U/L (17-59); African American GFR (CKD) 38 (>60 ml/min/1.73 sqM); Albumin 3.6 g/dL (3.5-5.0); Alcohol <10 mg/dL; Alkaline Phosphatase 126 U/L (38-126); Anion Gap 27 mmol/L; Blood Urea Nitrogen 15 mg/dL (9-20); Calcium 8.6 mg/dL (8.4-10.2); Chloride 105 mmol/L (98-107); Non-African American GFR(CKD) 33 (>60 ml/min/1.73 sqM); Potassium 3.8 mmol/L (3.5-5.1); Sodium 141 mmol/L (137-145); Total Bilirubin 0.8 mg/dL (0.2-1.3)
[2024-08-20 10:42] LABS: INR 0.9 (<1.2)
[2024-08-20 10:43] LABS: Carbon Dioxide 9 mmol/L (22-30); Glucose 579 mg/dL (74-99)
[2024-08-20 10:44] LABS: ALT 25 U/L (4-49); Band Neutrophils % 5 %; Lymphocytes # (M) 2.83 k/uL (1.0-4.8); Monocytes # (M) 0.61 k/uL (0-1.0); Neutrophils % (M) 78 %; Nucleated Red Blood Cells 0 /100 WBC (0-0); Total Cells Counted 100
[2024-08-20 10:50] LABS: Partial Thromboplastin Time 21.3 sec (22.0-30.0)
[2024-08-20] MEDS ORDERED: VANCOMYCIN IV PER PHARMACY 1 EACH MISC MISCELLANE PRN ×2 (10:53→15:13)
[2024-08-20] MEDS ORDERED: Magnesium Replacement Protocol 1 EACH MISC MISCELLANE PRN (10:55)
[2024-08-20] MEDS ORDERED: DEXTROSE 50% SYRINGE 50 ML IVP PRN ×2 (10:55)
[2024-08-20] MEDS ORDERED: Potassium Replacement Protocol 1 EACH MISC MISCELLANE PRN (10:55)
--- NOTE | 2024-08-20 11:09 | CT ---
EXAMINATION TYPE: CT brain enriqueine wo con DATE OF EXAM: 08/20/2024 10:49 AM COMPARISON: None. CLINICAL INDICATION: Male, 83 years old with history of trauma, fall and seizure., pain TECHNIQUE: CT of the brain is performed utilizing 3 mm thick sections through the posterior fossa and 3 mm thick sections through the remaining calvarium. Study is performed within 24 hours of arrival to the hospital. Contrast used: mL of , (none if empty) CT DLP: 1545.30 mGycm, Automated exposure control for dose reduction was used. FINDINGS: No abnormal hyperdensity is present to suggest an acute intracranial hemorrhage. No mass lesion is evident. No acute infarcts are evident. Ventricles and sulci are prominent for the patient age. Paranasal sinuses and mastoid air cells within the [id number] are clear. IMPRESSIONS: 1. No acute intracranial process. Follow-up MRI can be performed as clinically indicated. CT cervical spine. COMPARISON: None TECHNIQUE: CT of the cervical spine is performed in the axial plane at 2 mm thick sections. Reconstr ucted images in the coronal, and sagittal plane are reviewed on the computer. FINDINGS: No acute fractures are evident. There is some exaggeration of the cervical lordosis. Disc heights are preserved. Vertebral body heights are preserved. No spinal canal stenosis is evident. Left C3-4 foraminal narrowing is present from uncovertebral joint hypertrophy. IMPRESSION: 1. No acute osseous abnormality cervical spine. [facility], , 08/20/2024 11:07 AM
--- NOTE | 2024-08-20 11:15 | CT ---
EXAMINATION TYPE: CT ChestAbdPelvis w con DATE OF EXAM: 08/20/2024 11:00 AM COMPARISON: None. CLINICAL INDICATION: Male, 83 years old with history of trauma, fall and seizure. TECHNIQUE: CT ChestAbdPelvis w con , with sagittal coronal reformats. If MIP/3-D images were created, there are created on a separate workstation. Contrast used:80ml mL of Isovue 300 with IV Contrast, (none if empty) Oral contrast used: without Oral Contrast (none if empty) CT DLP: 1290.40 mGycm, Automated exposure control for dose reduction was used. FINDINGS: CT CHEST: Portion of the thyroid visualized is normal. There is an infiltrate in the right lower lobe. Correlate for atelectasis or pneumonia. There is a 1.3 cm superior mediastinal lymph node. Series 4 image 21r smaller adjacent adenopathy is present. There is an enlarged pretracheal lymph node measuring 1.5 cm. Small periaortic adenopathy is present near the arch. No enlarged aortopulmonic window lymph nodes are evident. The ascending aorta diameter at the level of the main pulmonary artery is 3.4 cm. The main pulmonary artery diameter at the bifurcation is 2.[address] ABDOMEN: Liver: Normal Spleen: Normal Pancreas: Atrophic Adrenal glands: The adrenal glands are normal. Gallbladder: Surgically absent Kidneys: No masses are evident. No hydronephrosis is present. Inferior lateral left renal cyst titi uring 3.6 cm is present. Small mid lateral left cortical renal cyst is present. Tiny right renal yong ical cyst is present. There is mild left hydroureter which extends to the urinary bladder. No obstruc ting renal stone is evident. Aorta: Vascular calcification is within the aorta. Inferior vena cava: Normal. CT PELVIS: Loops of bowel within the abdomen and pelvis are normal. There are loops of bowel which are incom pletely distended or lack oral contrast limiting their evaluation. Appendix: Normal as visualized. Urinary bladder: There is a calcification within the dependent urinary bladder may be a recent passag e of a renal stone. Genitourinary structures: Prostate is prominent. Osseous structures: No suspicious lytic or sclerotic lesions. IMPRESSION: 1. Mild infiltrate in the right lung base. Correlate for atelectasis or pneumonia. 2. Mild left hydroureter without obstructing ureteral stone. Consider recent passage of a renal or ur eteral stone on the left. There is a nonobstructing renal stone within the dependent urinary bladder measuring 0.4 cm. 3. No suspicious acute posttraumatic changes. [facility], , 08/20/2024 11:13 AM
[2024-08-20 11:26] LABS: Glucose,Whole Blood 526 mg/dL (70-110)
[2024-08-20] MEDS: INSULIN REGULAR BOLUS (FROM DRIP BAG) IV ONE (11:31)
[2024-08-20] MEDS: INSULIN REGULAR 100 UNIT in SODIUM CHLORIDE 0.9% 100 ML IV SCH (11:31)
[2024-08-20 11:32] LABS: Appearance,Urine Clear (Clear); Bilirubin,Urine Negative (Negative); Blood,Urine Moderate (Negative); Color,Urine Colorless; Glucose,Urine (UA) 4+ (Negative); Leukocyte Esterase,Urine Negative (Negative); Mucus,Urine Rare /hpf; Nitrite,Urine Negative (Negative); Protein,Urine 3+ (Negative); RBC,Urine 9 /hpf (0-5); Squamous Epithelial Cell,Urine <1 /hpf (0-4); Urobilinogen,Urine <2.0 mg/dL (<2.0); WBC,Urine 3 /hpf (0-5)
[2024-08-20] MEDS: levETIRAcetam IV 500 MG/5 ML VIAL IVP STA (11:32)
[2024-08-20 11:33] LABS: Amphetamine Screen,Urine Not Detected (NotDetected); Barbiturate Screen,Urine Not Detected (NotDetected); Benzodiazepines Screen,Urine Not Detected (NotDetected); Cocaine Screen,Urine Not Detected (NotDetected); Methadone Screen, Urine Not Detected (NotDetected); Opiate Screen,Urine Not Detected (NotDetected); Oxycodone Screen, Urine Not Detected (NotDetected); Phencyclidine Screen,Urine Not Detected (NotDetected); Tricyclic Antidepressant,Urine Not Detected (NotDetected); Urn Cannabinoid Scrn Not Detected (NotDetected)
[2024-08-20 11:34] LABS: Ketones,Urine 2+ (Negative)
[2024-08-20] MEDS: CEFEPIME 2 GM in SODIUM CHLORIDE 0.9% 100 ML IVPB STA (11:45)
[2024-08-20] MEDS: SODIUM CHLORIDE 0.9% 1,000 ML IV SCH ×2 (11:50→12:47)
[2024-08-20 11:56] LABS: Influenza A Not Detected (Not Detectd); Influenza B Not Detected (Not Detectd); RSV Not Detected (Not Detectd)
[2024-08-20 11:56] LABS: Anion Gap 16 mmol/L; Blood Urea Nitrogen 16 mg/dL (9-20); Carbon Dioxide 13 mmol/L (22-30); Chloride 108 mmol/L (98-107); Potassium 3.9 mmol/L (3.5-5.1); Sodium 137 mmol/L (137-145)
[2024-08-20 12:05] LABS: ABG Base Excess -11.3 mmol/L; ABG HCO3 16 mmol/L (21-25); ABG Oxygen Saturation 99.7 % (94-97); ABG PCO2 42 mmHg (35-45); ABG PO2 222 mmHg (83-108); ABG TCO2 18 mmol/L (19-24); Allen Test Performed? Yes
[2024-08-20 12:31] LABS: Glucose,Whole Blood 398 mg/dL (70-110)
[2024-08-20] MEDS ORDERED: NALOXONE 0.4 MG/ML 1 ML VIAL IV PRN (12:31)
[2024-08-20] MEDS: VANCOMYCIN 1,250 MG in SODIUM CHLORIDE 0.9% 250 ML IVPB STA (12:40)
--- NOTE | 2024-08-20 12:50 | ED ---
Medical Decision Making - Lab Data Result diagrams: 08/20/24 10:10 08/20/24 11:26 Lab Results 08/20/24 08/20/24 08/20/24 Range/Units 10:04 10:05 10:10 WBC 20.2 H (3.8-10.6) k/uL RBC 4.51 (4.30-5.90) m/uL Hgb 11.6 L (13.0-17.5) gm/dL Hct 41.0 (39.0-53.0) % MCV 91.0 (80.0-100.0) fL MCH 25.8 (25.0-35.0) pg MCHC 28.3 L (31.0-37.0) g/dL RDW 14.6 (11.5-15.5) % Plt Count 255 (150-450) k/uL MPV 9.2 Neutrophils % (Manual) 78 % Band Neuts % (Manual) 5 % Lymphocytes % (Manual) 14 % Monocytes % (Manual) 3 % Neutrophils # (Manual) 16.70 H (1.3-7.7) k/uL Lymphocytes # (Manual) 2.83 (1.0-4.8) k/uL Monocytes # (Manual) 0.61 (0-1.0) k/uL Nucleated RBCs 0 (0-0) /100 WBC Manual Slide Review Performed Hypochromasia Marked PT (10.0-12.5) sec INR (<1.2) APTT (22.0-30.0) sec Sample Site ABG pH (7.35-7.45) ABG pCO2 (35-45) mmHg ABG pO2 (83-108) mmHg ABG HCO3 (21-25) mmol/L ABG Total CO2 (19-24) mmol/L ABG O2 Saturation (94-97) % ABG Base Excess mmol/L Wm Test Hemoglobin (13.0-17.5) gm/dL FiO2 % Sodium (137-145) mmol/L Potassium (3.5-5.1) mmol/L Chloride (98-107) mmol/L Carbon Dioxide (22-30) mmol/L Anion Gap mmol/L BUN (9-20) mg/dL Creatinine (0.66-1.25) mg/dL Est GFR (CKD-EPI)AfAm (>60 ml/min/1.73 sqM) Est GFR (CKD-EPI)NonAf (>60 ml/min/1.73 sqM) Glucose (74-99) mg/dL POC Glucose (mg/dL) >600 H* (70-110) mg/dL POC Glu Product Engineer ID Randall Bingham Lactic Ac Sepsis Rflx Plasma Lactic Acid [place] (0.7-2.0) mmol/L Calcium (8.4-10.2) mg/dL Total Bilirubin (0.2-1.3) mg/dL AST (17-59) U/L ALT (4-49) U/L Alkaline Phosphatase (38-126) U/L Troponin I (0.000-0.034) ng/mL Total Protein (6.3-8.2) g/dL Albumin (3.5-5.0) g/dL Urine Color Urine Appearance (Clear) Urine pH (5.0-8.0) Ur Specific Pool (1.001-1.035) Urine Protein (Negative) Urine Glucose (UA) (Negative) Urine Ketones (Negative) Urine Blood (Negative) Urine Nitrite (Negative) Urine Bilirubin (Negative) Urine Urobilinogen (<2.0) mg/dL Ur Leukocyte Esterase (Negative) Urine RBC (0-5) /hpf Urine WBC (0-5) /hpf Ur Squamous Epith Cells (0-4) /hpf Urine Mucus (None) /hpf Urine Opiates Screen (NotDetected) Ur Oxycodone Screen (NotDetected) Urine Methadone Screen (NotDetected) Ur Barbiturates Screen (NotDetected) U Tricyclic Antidepress (NotDetected) Ur Phencyclidine Scrn (NotDetected) Ur Amphetamines Screen (NotDetected) U Methamphetamines Scrn (NotDetected) U Benzodiazepines Scrn (NotDetected) Urine Cocaine Screen (NotDetected) U Marijuana (THC) Screen (NotDetected) Serum Alcohol mg/dL Acetone, Qual (Negative) Influenza Type A (PCR) (Not Detectd) Influenza Type B (PCR) (Not Detectd) RSV (PCR) (Not Detectd) SARS-CoV-2 (PCR) (Not Detectd) Blood Type O Positive Blood Type Confirm Blood Type Recheck No Previous Record Bld Type Recheck Status CABO Indicated Antibody Screen NEGATIVE Spec Expiration Date 08/23/2024 - 230408/20/24 08/20/24 08/20/24 Range/Units 10:10 10:10 10:10 WBC (3.8-10.6) k/uL RBC (4.30-5.90) m/uL Hgb (13.0-17.5) gm/dL Hct (39.0-53.0) % MCV (80.0-100.0) fL MCH (25.0-35.0) pg MCHC (31.0-37.0) g/dL RDW (11.5-15.5) % Plt Count (150-450) k/uL MPV Neutrophils % (Manual) % Band Neuts % (Manual) % Lymphocytes % (Manual) % Monocytes % (Manual) % Neutrophils # (Manual) (1.3-7.7) k/uL Lymphocytes # (Manual) (1.0-4.8) k/uL Monocytes # (Manual) (0-1.0) k/uL Nucleated RBCs (0-0) /100 WBC Manual Slide Review Hypochromasia PT 10.0 (10.0-12.5) sec INR 0.9 (<1.2) APTT 21.3 L (22.0-30.0) sec Sample Site ABG pH (7.35-7.45) ABG pCO2 (35-45) mmHg ABG pO2 (83-108) mmHg ABG HCO3 (21-25) mmol/L ABG Total CO2 (19-24) mmol/L ABG O2 Saturation (94-97) % ABG Base Excess mmol/L Wm Test Hemoglobin (13.0-17.5) gm/dL FiO2 % Sodium 141 (137-145) mmol/L Potassium 3.8 (3.5-5.1) mmol/L Chloride 105 (98-107) mmol/L Carbon Dioxide 9 L* (22-30) mmol/L Anion Gap 27 mmol/L BUN 15 (9-20) mg/dL Creatinine 1.83 H (0.66-1.25) mg/dL Est GFR (CKD-EPI)AfAm 38 (>60 ml/min/1.73 sqM) Est GFR (CKD-EPI)NonAf 33 (>60 ml/min/1.73 sqM) Glucose 579 H* (74-99) mg/dL POC Glucose (mg/dL) (70-110) mg/dL POC Glu Product Engineer ID Lactic Ac Sepsis Rflx Plasma Lactic Acid [place] 12.9 H* (0.7-2.0) mmol/L Calcium 8.6 (8.4-10.2) mg/dL Total Bilirubin 0.8 (0.2-1.3) mg/dL AST 17 (17-59) U/L ALT 25 (4-49) U/L Alkaline Phosphatase 126 (38-126) U/L Troponin I (0.000-0.034) ng/mL Total Protein 6.0 L (6.3-8.2) g/dL Albumin 3.6 (3.5-5.0) g/dL Urine Color Urine Appearance (Clear) Urine pH (5.0-8.0) Ur Specific Pool (1.001-1.035) Urine Protein (Negative) Urine Glucose (UA) (Negative) Urine Ketones (Negative) Urine Blood (Negative) Urine Nitrite (Negative) Urine Bilirubin (Negative) Urine Urobilinogen (<2.0) mg/dL Ur Leukocyte Esterase (Negative) Urine RBC (0-5) /hpf Urine WBC (0-5) /hpf Ur Squamous Epith Cells (0-4) /hpf Urine Mucus (None) /hpf Urine Opiates Screen (NotDetected) Ur Oxycodone Screen (NotDetected) Urine Methadone Screen (NotDetected) Ur Barbiturates Screen (NotDetected) U Tricyclic Antidepress (NotDetected) Ur Phencyclidine Scrn (NotDetected) Ur Amphetamines Screen (NotDetected) U Methamphetamines Scrn (NotDetected) U Benzodiazepines Scrn (NotDetected) Urine Cocaine Screen (NotDetected) U Marijuana (THC) Screen (NotDetected) Serum Alcohol <10 mg/dL Acetone, Qual (Negative) Influenza Type A (PCR) (Not Detectd) Influenza Type B (PCR) (Not Detectd) RSV (PCR) (Not Detectd) SARS-CoV-2 (PCR) (Not Detectd) Blood Type Blood Type Confirm Blood Type Recheck Bld Type Recheck Status Antibody Screen Spec Expiration Date 08/20/24 08/20/24 08/20/24 Range/Units 10:10 10:23 10:46 WBC (3.8-10.6) k/uL RBC (4.30-5.90) m/uL Hgb (13.0-17.5) gm/dL Hct (39.0-53.0) % MCV (80.0-100.0) fL MCH (25.0-35.0) pg MCHC (31.0-37.0) g/dL RDW (11.5-15.5) % Plt Count (150-450) k/uL MPV Neutrophils % (Manual) % Band Neuts % (Manual) % Lymphocytes % (Manual) % Monocytes % (Manual) % Neutrophils # (Manual) (1.3-7.7) k/uL Lymphocytes # (Manual) (1.0-4.8) k/uL Monocytes # (Manual) (0-1.0) k/uL Nucleated RBCs (0-0) /100 WBC Manual Slide Review Hypochromasia PT (10.0-12.5) sec INR (<1.2) APTT (22.0-30.0) sec Sample Site ABG pH (7.35-7.45) ABG pCO2 (35-45) mmHg ABG pO2 (83-108) mmHg ABG HCO3 (21-25) mmol/L ABG Total CO2 (19-24) mmol/L ABG O2 Saturation (94-97) % ABG Base Excess mmol/L Wm Test Hemoglobin (13.0-17.5) gm/dL FiO2 % Sodium (137-145) mmol/L Potassium (3.5-5.1) mmol/L Chloride (98-107) mmol/L Carbon Dioxide (22-30) mmol/L Anion Gap mmol/L BUN (9-20) mg/dL Creatinine (0.66-1.25) mg/dL Est GFR (CKD-EPI)AfAm (>60 ml/min/1.73 sqM) Est GFR (CKD-EPI)NonAf (>60 ml/min/1.73 sqM) Glucose (74-99) mg/dL POC Glucose (mg/dL) (70-110) mg/dL POC Glu Product Engineer ID Lactic Ac Sepsis Rflx Y Plasma Lactic Acid [place] (0.7-2.0) mmol/L Calcium (8.4-10.2) mg/dL Total Bilirubin (0.2-1.3) mg/dL AST (17-59) U/L ALT (4-49) U/L Alkaline Phosphatase (38-126) U/L Troponin I 0.068 H* (0.000-0.034) ng/mL Total Protein (6.3-8.2) g/dL Albumin (3.5-5.0) g/dL Urine Color Urine Appearance (Clear) Urine pH (5.0-8.0) Ur Specific Pool (1.001-1.035) Urine Protein (Negative) Urine Glucose (UA) (Negative) Urine Ketones (Negative) Urine Blood (Negative) Urine Nitrite (Negative) Urine Bilirubin (Negative) Urine Urobilinogen (<2.0) mg/dL Ur Leukocyte Esterase (Negative) Urine RBC (0-5) /hpf Urine WBC (0-5) /hpf Ur Squamous Epith Cells (0-4) /hpf Urine Mucus (None) /hpf Urine Opiates Screen (NotDetected) Ur Oxycodone Screen (NotDetected) Urine Methadone Screen (NotDetected) Ur Barbiturates Screen (NotDetected) U Tricyclic Antidepress (NotDetected) Ur Phencyclidine Scrn (NotDetected) Ur Amphetamines Screen (NotDetected) U Methamphetamines Scrn (NotDetected) U Benzodiazepines Scrn (NotDetected) Urine Cocaine Screen (NotDetected) U Marijuana (THC) Screen (NotDetected) Serum Alcohol mg/dL Acetone, Qual (Negative) Influenza Type A (PCR) (Not Detectd) Influenza Type B (PCR) (Not Detectd) RSV (PCR) (Not Detectd) SARS-CoV-2 (PCR) (Not Detectd) Blood Type Blood Type Confirm O Positive Blood Type Recheck Bld Type Recheck Status Antibody Screen Spec Expiration Date 08/20/24 08/20/24 08/20/24 Range/Units 11:07 11:07 11:10 WBC (3.8-10.6) k/uL RBC (4.30-5.90) m/uL Hgb (13.0-17.5) gm/dL Hct (39.0-53.0) % MCV (80.0-100.0) fL MCH (25.0-35.0) pg MCHC (31.0-37.0) g/dL RDW (11.5-15.5) % Plt Count (150-450) k/uL MPV Neutrophils % (Manual) % Band Neuts % (Manual) % Lymphocytes % (Manual) % Monocytes % (Manual) % Neutrophils # (Manual) (1.3-7.7) k/uL Lymphocytes # (Manual) (1.0-4.8) k/uL Monocytes # (Manual) (0-1.0) k/uL Nucleated RBCs (0-0) /100 WBC Manual Slide Review Hypochromasia PT (10.0-12.5) sec INR (<1.2) APTT (22.0-30.0) sec Sample Site ABG pH (7.35-7.45) ABG pCO2 (35-45) mmHg ABG pO2 (83-108) mmHg ABG HCO3 (21-25) mmol/L ABG Total CO2 (19-24) mmol/L ABG O2 Saturation (94-97) % ABG Base Excess mmol/L Wm Test Hemoglobin (13.0-17.5) gm/dL FiO2 % Sodium (137-145) mmol/L Potassium (3.5-5.1) mmol/L Chloride (98-107) mmol/L Carbon Dioxide (22-30) mmol/L Anion Gap mmol/L BUN (9-20) mg/dL Creatinine (0.66-1.25) mg/dL Est GFR (CKD-EPI)AfAm (>60 ml/min/1.73 sqM) Est GFR (CKD-EPI)NonAf (>60 ml/min/1.73 sqM) Glucose (74-99) mg/dL POC Glucose (mg/dL) (70-110) mg/dL POC Glu Product Engineer ID Lactic Ac Sepsis Rflx Plasma Lactic Acid [place] (0.7-2.0) mmol/L Calcium (8.4-10.2) mg/dL Total Bilirubin (0.2-1.3) mg/dL AST (17-59) U/L ALT (4-49) U/L Alkaline Phosphatase (38-126) U/L Troponin I (0.000-0.034) ng/mL Total Protein (6.3-8.2) g/dL Albumin (3.5-5.0) g/dL Urine Color Colorless Urine Appearance Clear (Clear) Urine pH 6.0 (5.0-8.0) Ur Specific Pool 1.030 (1.001-1.035) Urine Protein 3+ H (Negative) Urine Glucose (UA) 4+ H (Negative) Urine Ketones 2+ H (Negative) Urine Blood Moderate H (Negative) Urine Nitrite Negative (Negative) Urine Bilirubin Negative (Negative) Urine Urobilinogen <2.0 (<2.0) mg/dL Ur Leukocyte Esterase Negative (Negative) Urine RBC 9 H (0-5) /hpf Urine WBC 3 (0-5) /hpf Ur Squamous Epith Cells <1 (0-4) /hpf Urine Mucus Rare H (None) /hpf Urine Opiates Screen Not Detected (NotDetected) Ur Oxycodone Screen Not Detected (NotDetected) Urine Methadone Screen Not Detected (NotDetected) Ur Barbiturates Screen Not Detected (NotDetected) U Tricyclic Antidepress Not Detected (NotDetected) Ur Phencyclidine Scrn Not Detected (NotDetected) Ur Amphetamines Screen Not Detected (NotDetected) U Methamphetamines Scrn Not Detected (NotDetected) U Benzodiazepines Scrn Not Detected (NotDetected) Urine Cocaine Screen Not Detected (NotDetected) U Marijuana (THC) Screen Not Detected (NotDetected) Serum Alcohol mg/dL Acetone, Qual (Negative) Influenza Type A (PCR) Not Detected (Not Detectd) Influenza Type B (PCR) Not Detected (Not Detectd) RSV (PCR) Not Detected (Not Detectd) SARS-CoV-2 (PCR) Not Detected (Not Detectd) Blood Type Blood Type Confirm Blood Type Recheck Bld Type Recheck Status Antibody Screen Spec Expiration Date 08/20/24 08/20/24 08/20/24 Range/Units 11:25 11:26 12:00 WBC (3.8-10.6) k/uL RBC (4.30-5.90) m/uL Hgb (13.0-17.5) gm/dL Hct (39.0-53.0) % MCV (80.0-100.0) fL MCH (25.0-35.0) pg MCHC (31.0-37.0) g/dL RDW (11.5-15.5) % Plt Count (150-450) k/uL MPV Neutrophils % (Manual) % Band Neuts % (Manual) % Lymphocytes % (Manual) % Monocytes % (Manual) % Neutrophils # (Manual) (1.3-7.7) k/uL Lymphocytes # (Manual) (1.0-4.8) k/uL Monocytes # (Manual) (0-1.0) k/uL Nucleated RBCs (0-0) /100 WBC Manual Slide Review Hypochromasia PT (10.0-12.5) sec INR (<1.2) APTT (22.0-30.0) sec Sample Site r rad ABG pH 7.20 L (7.35-7.45) ABG pCO2 42 (35-45) mmHg ABG pO2 222 H (83-108) mmHg ABG HCO3 16 L (21-25) mmol/L ABG Total CO2 18 L (19-24) mmol/L ABG O2 Saturation 99.7 H (94-97) % ABG Base Excess -11.3 mmol/L Mw Test Yes Hemoglobin 9.6 L (13.0-17.5) gm/dL FiO2 100 % Sodium 137 (137-145) mmol/L Potassium 3.9 (3.5-5.1) mmol/L Chloride 108 H (98-107) mmol/L Carbon Dioxide 13 L (22-30) mmol/L Anion Gap 16 mmol/L BUN 16 (9-20) mg/dL Creatinine (0.66-1.25) mg/dL Est GFR (CKD-EPI)AfAm (>60 ml/min/1.73 sqM) Est GFR (CKD-EPI)NonAf (>60 ml/min/1.73 sqM) Glucose (74-99) mg/dL POC Glucose (mg/dL) 526 H* (70-110) mg/dL POC Glu Product Engineer ID Juvencio Sarah Lactic Ac Sepsis Rflx Plasma Lactic Acid [place] (0.7-2.0) mmol/L Calcium (8.4-10.2) mg/dL Total Bilirubin (0.2-1.3) mg/dL AST (17-59) U/L ALT (4-49) U/L Alkaline Phosphatase (38-126) U/L Troponin I (0.000-0.034) ng/mL Total Protein (6.3-8.2) g/dL Albumin (3.5-5.0) g/dL Urine Color Urine Appearance (Clear) Urine pH (5.0-8.0) Ur Specific Pool (1.001-1.035) Urine Protein (Negative) Urine Glucose (UA) (Negative) Urine Ketones (Negative) Urine Blood (Negative) Urine Nitrite (Negative) Urine Bilirubin (Negative) Urine Urobilinogen (<2.0) mg/dL Ur Leukocyte Esterase (Negative) Urine RBC (0-5) /hpf Urine WBC (0-5) /hpf Ur Squamous Epith Cells (0-4) /hpf Urine Mucus (None) /hpf Urine Opiates Screen (NotDetected) Ur Oxycodone Screen (NotDetected) Urine Methadone Screen (NotDetected) Ur Barbiturates Screen (NotDetected) U Tricyclic Antidepress (NotDetected) Ur Phencyclidine Scrn (NotDetected) Ur Amphetamines Screen (NotDetected) U Methamphetamines Scrn (NotDetected) U Benzodiazepines Scrn (NotDetected) Urine Cocaine Screen (NotDetected) U Marijuana (THC) Screen (NotDetected) Serum Alcohol mg/dL Acetone, Qual Positive (Negative) Influenza Type A (PCR) (Not Detectd) Influenza Type B (PCR) (Not Detectd) RSV (PCR) (Not Detectd) SARS-CoV-2 (PCR) (Not Detectd) Blood Type Blood Type Confirm Blood Type Recheck Bld Type Recheck Status Antibody Screen Spec Expiration Date 08/20/24 Range/Units 12:30 WBC (3.8-10.6) k/uL RBC (4.30-5.90) m/uL Hgb (13.0-17.5) gm/dL Hct (39.0-53.0) % MCV (80.0-100.0) fL MCH (25.0-35.0) pg MCHC (31.0-37.0) g/dL RDW (11.5-15.5) % Plt Count (150-450) k/uL MPV Neutrophils % (Manual) % Band Neuts % (Manual) % Lymphocytes % (Manual) % Monocytes % (Manual) % Neutrophils # (Manual) (1.3-7.7) k/uL Lymphocytes # (Manual) (1.0-4.8) k/uL Monocytes # (Manual) (0-1.0) k/uL Nucleated RBCs (0-0) /100 WBC Manual Slide Review Hypochromasia PT (10.0-12.5) sec INR (<1.2) APTT (22.0-30.0) sec Sample Site ABG pH (7.35-7.45) ABG pCO2 (35-45) mmHg ABG pO2 (83-108) mmHg ABG HCO3 (21-25) mmol/L ABG Total CO2 (19-24) mmol/L ABG O2 Saturation (94-97) % ABG Base Excess mmol/L Wm Test Hemoglobin (13.0-17.5) gm/dL FiO2 % Sodium (137-145) mmol/L Potassium (3.5-5.1) mmol/L Chloride (98-107) mmol/L Carbon Dioxide (22-30) mmol/L Anion Gap mmol/L BUN (9-20) mg/dL Creatinine (0.66-1.25) mg/dL Est GFR (CKD-EPI)AfAm (>60 ml/min/1.73 sqM) Est GFR (CKD-EPI)NonAf (>60 ml/min/1.73 sqM) Glucose (74-99) mg/dL POC Glucose (mg/dL) 398 H (70-110) mg/dL POC Glu Product Engineer ID Holman Que Lactic Ac Sepsis Rflx Plasma Lactic Acid [place] (0.7-2.0) mmol/L Calcium (8.4-10.2) mg/dL Total Bilirubin (0.2-1.3) mg/dL AST (17-59) U/L ALT (4-49) U/L Alkaline Phosphatase (38-126) U/L Troponin I (0.000-0.034) ng/mL Total Protein (6.3-8.2) g/dL Albumin (3.5-5.0) g/dL Urine Color Urine Appearance (Clear) Urine pH (5.0-8.0) Ur Specific Pool (1.001-1.035) Urine Protein (Negative) Urine Glucose (UA) (Negative) Urine Ketones (Negative) Urine Blood (Negative) Urine Nitrite (Negative) Urine Bilirubin (Negative) Urine Urobilinogen (<2.0) mg/dL Ur Leukocyte Esterase (Negative) Urine RBC (0-5) /hpf Urine WBC (0-5) /hpf Ur Squamous Epith Cells (0-4) /hpf Urine Mucus (None) /hpf Urine Opiates Screen (NotDetected) Ur Oxycodone Screen (NotDetected) Urine Methadone Screen (NotDetected) Ur Barbiturates Screen (NotDetected) U Tricyclic Antidepress (NotDetected) Ur Phencyclidine Scrn (NotDetected) Ur Amphetamines Screen (NotDetected) U Methamphetamines Scrn (NotDetected) U Benzodiazepines Scrn (NotDetected) Urine Cocaine Screen (NotDetected) U Marijuana (THC) Screen (NotDetected) Serum Alcohol mg/dL Acetone, Qual (Negative) Influenza Type A (PCR) (Not Detectd) Influenza Type B (PCR) (Not Detectd) RSV (PCR) (Not Detectd) SARS-CoV-2 (PCR) (Not Detectd) Blood Type Blood Type Confirm Blood Type Recheck Bld Type Recheck Status Antibody Screen Spec Expiration Date Disposition Clinical Impression: DKA (diabetic ketoacidosis), Pneumonia Disposition: ADMITTED IP TO THIS HOSP Condition: Critical Referrals: Nilo Ambrosio DO [Primary Care Provider] - 1-2 days Procedures - Sepsis Sepsis Focused Exam #1 Time Sepsis Criteria Met: 12:50 Sepsis Focused Exam Date: 08/20/24 Sepsis Focused Exam Time: 12:50 Sepsis Focused Exam Complete: Yes Vital Signs & RN Notes Reviewed: Yes Capillary Refill: < 2 Seconds: Fingers, Toes Peripheral Pulses: Normal: Radial (R), Radial (L), Posterior Tibialis (R), Posterior Tibialis (L), Dorsalis Pedis (R), Dorsalis Pedis (L) Skin Color: Normal for Patient Respiratory Exam: other Cardiovascular Exam: other
[2024-08-20 13:44] LABS: African American GFR (CKD) 47 (>60 ml/min/1.73 sqM); Glucose 294 mg/dL (74-99); Non-African American GFR(CKD) 41 (>60 ml/min/1.73 sqM); Phosphorus 3.4 mg/dL (2.5-4.5)
[2024-08-20 13:51] LABS: Glucose,Whole Blood 293 mg/dL (70-110)
[2024-08-20 14:56] LABS: Glucose,Whole Blood 249 mg/dL (70-110)
--- NOTE | 2024-08-20 15:17 | P.HPIM ---
History of Present Illness H&P Date: 08/20/24 History of present illness; patient is a 83-year-old gentleman with past medical history significant for diabetes mellitus, hyperlipidemia, hypertension atrial fibrillation who presented the ER for altered mental status. Most of the history has been obtained from EMR as patient is currently unable to participate in any H&P. Patient was all right this morning, family went to check on him and found him laying on the bathroom. There was no visible sign of any trauma. There was no slurred speech at that time. There was no evidence of any weakness of any extremity. EMS was called to the patient's house. En route to the ER, patient had an episode of seizure. When patient came to the ER patient was found to be febrile with temperature of 100.8. Initial lab work done in the ER showed WBC 20.2, hemoglobin 9.6, platelet count 55, sodium 141, potassium 3.8, BUN 15, creatinine 1.83, glucose 579, lactate 12.9 troponin 0.068 UA done showed positive for glucose, positive for ketones, Urine drug screen negative serum alcohol less than 10 acetone level positive Influenza A not detected Influenza B not detected RSV not detected COVID-19 not detected EKG done in the ER showed heart rate of , no ST segment elevation or depression seen, no T-wave inversions seen. Chest x-ray done in the ER showed no acute pulmonary process Pelvic x-ray done showed no acute osseous pathology CT head done showed no acute intracranial process CT cervical spine done showed no cervical spine fracture CT chest abdomen pelvis done showed mild infiltrate in the right lung base, mild left hydroureter without ureteral stone While at CAT scan, patient has an episode of seizure for which patient received Ativan. Patient was started on DKA protocol and on antibiotics per ER. Patient will be admitted to ICU under internal medicine REVIEW OF SYSTEMS: Review of system cannot be obtained as patient is currently postictal PHYSICAL EXAMINATION: GENERAL: The patient is lethargic on BiPAP HEENT: Pupils are round and equally reacting to light. EOMI. No scleral icterus. No conjunctival pallor. Normocephalic, atraumatic. No pharyngeal erythema. No thyromegaly. CARDIOVASCULAR: S1 and S2 present. No murmurs, rubs, or gallops. PULMONARY: Diminished breath sounds at bases bilaterally ABDOMEN: Soft, nontender, nondistended, normoactive bowel sounds. No palpable organomegaly. MUSCULOSKELETAL: No joint swelling or deformity. EXTREMITIES: No cyanosis, clubbing, or pedal edema. NEUROLOGICAL: Gross neurological examination did not reveal any focal deficits. SKIN: No rashes. Assessment and plan Fall Acute metabolic encephalopathy Acute hypoxic respiratory failure Bacterial pneumonia DKA Seizures Lactic acidosis JETT Elevated troponin Monitor vital signs Monitor CBC Monitor CMP Continue telemetry monitoring Ordered blood cultures Ordered sputum cultures Ordered glucose monitoring per DKA protocol Ordered insulin drip Currently on IV fluids, can be switched to D5 half-normal saline once blood s ugars are less than 250 Ordered cefepime and vancomycin Started on Keppra EEG ordered Consult neurology Consult infectious disease Consult critical care Labs and medication were reviewed.. Continue same treatment. Continue with symptomatic treatment. Resume home medication. Monitor labs and vitals. DVT and GI prophylaxis. Further recommendations as per clinical course of the patient Dictation was produced using [employer] dictation software. please excuse any grammatical, word or spelling errors. Past Medical History Past Medical History: Atrial Fibrillation, Asthma, Cancer, Diabetes Mellitus, Hyperlipidemia, Hypertension, Pneumonia, Skin Disorder Additional Past Medical History / Comment(s): CROHNS's, GOUT,bilateral leg i tchiness uses cream, redness, skin cancer History of Any Multi-Drug Resistant Organisms: None Reported Past Surgical History: Appendectomy, Bowel Resection, Cholecystectomy, Prostate Surgery Additional Past Surgical History / Comment(s): COLONOSCOPY, FATTY TUMOR REMOVED FROM HIS BACK, Bilateral CATARACT. skin cancer from near eye, Past Anesthesia/Blood Transfusion Reactions: No Reported Reaction Additional Past Anesthesia/Blood Transfusion Reaction / Comment(s): CLAUSTER PHOBIA. PER PAST MEDICAL HX: HAD A BLOOD TRANSFUSION 1966- REACTION WAS FACIAL SWELLING. Past Psychological History: No Psychological Hx Reported Smoking Status: Never smoker Past Alcohol Use History: None Reported Past Drug Use History: None Reported - Past Family History Mother Family Medical History: Cancer Additional Family Medical History / Comment(s): BREAST CANCER Father Family Medical History: Cancer Additional Family Medical History / Comment(s): COLON CANCER Brother(s) Family Medical History: Cancer, Prostate Disorder Additional Family Medical History / Comment(s): PROSTATE CANCER Medications and Allergies Home Medications Medication Instructions Recorded Confirmed Type Insulin Aspart [NovoLOG] 0.01 unit SQ-PUMP CONTINUOUS 03/02/15 08/20/24 History Loperamide [Imodium] 4 mg PO QID 03/02/15 08/20/24 History Tamsulosin HCl [Flomax] 0.4 mg PO BID 07/04/20 08/20/24 History Apixaban [Eliquis] 5 mg PO BID 04/24/23 08/20/24 History amLODIPine [Norvasc] 5 mg PO DAILY 04/24/23 08/20/24 History Rosuvastatin [Crestor] 10 mg PO HS 07/01/23 08/20/24 History carvediloL [Coreg] 3.125 mg PO BID 07/01/23 08/20/24 History Memantine [Namenda] 10 mg PO BID 08/11/24 08/20/24 History Cholecalciferol [Vitamin D3 (25 50 mcg PO DAILY #30 tab 08/12/24 08/20/24 Rx Mcg = 1000 Iu)] Allergies Allergy/AdvReac Type Severity Reaction Status Date / Time No Known Allergies Allergy Verified 08/20/24 13:28 Physical Exam Vitals: Vital Signs Temp Pulse Resp BP Pulse Ox FiO2 08/20/24 13:45 50 08/20/24 13:44 98.6 F 92 18 139/70 100 50 08/20/24 12:53 50 08/20/24 11:50 99.1 F 117 H 28 H 169/83 100 08/20/24 10:16 100.8 F H 08/20/24 09:59 149 H 12 195/99 97 Intake and Output 08/19/24 08/20/24 08/20/24 22:59 06:59 14:59 Intake Total 6.521 Balance 6.521 Intake: Intake, IV Titration 6.521 Amount Insulin Regular 100 unit 6.521 In Sodium Chloride 0.9% 100 ml @ 0.1 UNITS/KG/HR 6.414 mls/hr IV .[id number] [facility] Rx#:[id number] Other: Weight 63.503 kg Results CBC & Chem 7: 08/20/24 10:10 08/20/24 13:22 Labs: Abnormal Lab Results - Last 24 Hours (Table) 08/20/24 08/20/24 08/20/24 Range/Units 10:04 10:10 10:10 WBC 20.2 H (3.8-10.6) k/uL Hgb 11.6 L (13.0-17.5) gm/dL MCHC 28.3 L (31.0-37.0) g/dL Neutrophils # (Manual) 16.70 H (1.3-7.7) k/uL APTT 21.3 L (22.0-30.0) sec ABG pH (7.35-7.45) ABG pO2 (83-108) mmHg ABG HCO3 (21-25) mmol/L ABG Total CO2 (19-24) mmol/L ABG O2 Saturation (94-97) % Hemoglobin (13.0-17.5) gm/dL Chloride (98-107) mmol/L Carbon Dioxide (22-30) mmol/L Creatinine (0.66-1.25) mg/dL Glucose (74-99) mg/dL POC Glucose (mg/dL) >600 H* (70-110) mg/dL Plasma Lactic Acid [place] (0.7-2.0) mmol/L Troponin I (0.000-0.034) ng/mL Total Protein (6.3-8.2) g/dL Urine Protein (Negative) Urine Glucose (UA) (Negative) Urine Ketones (Negative) Urine Blood (Negative) Urine RBC (0-5) /hpf Urine Mucus (None) /hpf 08/20/24 08/20/24 08/20/24 Range/Units 10:10 10:10 10:10 WBC (3.8-10.6) k/uL Hgb (13.0-17.5) gm/dL MCHC (31.0-37.0) g/dL Neutrophils # (Manual) (1.3-7.7) k/uL APTT (22.0-30.0) sec ABG pH (7.35-7.45) ABG pO2 (83-108) mmHg ABG HCO3 (21-25) mmol/L ABG Total CO2 (19-24) mmol/L ABG O2 Saturation (94-97) % Hemoglobin (13.0-17.5) gm/dL Chloride (98-107) mmol/L Carbon Dioxide 9 L* (22-30) mmol/L Creatinine 1.83 H (0.66-1.25) mg/dL Glucose 579 H* (74-99) mg/dL POC Glucose (mg/dL) (70-110) mg/dL Plasma Lactic Acid [place] 12.9 H* (0.7-2.0) mmol/L Troponin I 0.068 H* (0.000-0.034) ng/mL Total Protein 6.0 L (6.3-8.2) g/dL Urine Protein (Negative) Urine Glucose (UA) (Negative) Urine Ketones (Negative) Urine Blood (Negative) Urine RBC (0-5) /hpf Urine Mucus (None) /hpf 08/20/24 08/20/24 08/20/24 Range/Units 11:07 11:25 11:26 WBC (3.8-10.6) k/uL Hgb (13.0-17.5) gm/dL MCHC (31.0-37.0) g/dL Neutrophils # (Manual) (1.3-7.7) k/uL APTT (22.0-30.0) sec ABG pH (7.35-7.45) ABG pO2 (83-108) mmHg ABG HCO3 (21-25) mmol/L ABG Total CO2 (19-24) mmol/L ABG O2 Saturation (94-97) % Hemoglobin (13.0-17.5) gm/dL Chloride 108 H (98-107) mmol/L Carbon Dioxide 13 L (22-30) mmol/L Creatinine (0.66-1.25) mg/dL Glucose (74-99) mg/dL POC Glucose (mg/dL) 526 H* (70-110) mg/dL Plasma Lactic Acid [place] (0.7-2.0) mmol/L Troponin I (0.000-0.034) ng/mL Total Protein (6.3-8.2) g/dL Urine Protein 3+ H (Negative) Urine Glucose (UA) 4+ H (Negative) Urine Ketones 2+ H (Negative) Urine Blood Moderate H (Negative) Urine RBC 9 H (0-5) /hpf Urine Mucus Rare H (None) /hpf 08/20/24 08/20/24 08/20/24 Range/Units 12:00 12:30 13:22 WBC (3.8-10.6) k/uL Hgb (13.0-17.5) gm/dL MCHC (31.0-37.0) g/dL Neutrophils # (Manual) (1.3-7.7) k/uL APTT (22.0-30.0) sec ABG pH 7.20 L (7.35-7.45) ABG pO2 222 H (83-108) mmHg ABG HCO3 16 L (21-25) mmol/L ABG Total CO2 18 L (19-24) mmol/L ABG O2 Saturation 99.7 H (94-97) % Hemoglobin 9.6 L (13.0-17.5) gm/dL Chloride (98-107) mmol/L Carbon Dioxide (22-30) mmol/L Creatinine 1.54 H (0.66-1.25) mg/dL Glucose 294 H (74-99) mg/dL POC Glucose (mg/dL) 398 H (70-110) mg/dL Plasma Lactic Acid [place] (0.7-2.0) mmol/L Troponin I (0.000-0.034) ng/mL Total Protein (6.3-8.2) g/dL Urine Protein (Negative) Urine Glucose (UA) (Negative) Urine Ketones (Negative) Urine Blood (Negative) Urine RBC (0-5) /hpf Urine Mucus (None) /hpf 08/20/24 08/20/24 Range/Units 13:22 13:49 WBC (3.8-10.6) k/uL Hgb (13.0-17.5) gm/dL MCHC (31.0-37.0) g/dL Neutrophils # (Manual) (1.3-7.7) k/uL APTT (22.0-30.0) sec ABG pH (7.35-7.45) ABG pO2 (83-108) mmHg ABG HCO3 (21-25) mmol/L ABG Total CO2 (19-24) mmol/L ABG O2 Saturation (94-97) % Hemoglobin (13.0-17.5) gm/dL Chloride (98-107) mmol/L Carbon Dioxide (22-30) mmol/L Creatinine (0.66-1.25) mg/dL Glucose (74-99) mg/dL POC Glucose (mg/dL) 293 H (70-110) mg/dL Plasma Lactic Acid [place] 2.6 H* (0.7-2.0) mmol/L Troponin I (0.000-0.034) ng/mL Total Protein (6.3-8.2) g/dL Urine Protein (Negative) Urine Glucose (UA) (Negative) Urine Ketones (Negative) Urine Blood (Negative) Urine RBC (0-5) /hpf Urine Mucus (None) /hpf
[2024-08-20] MEDS: D5-0.45% NACL WITH KCL 20MEQ/L 1,000 ML IV SCH (15:42)
[2024-08-20 16:03] LABS: Glucose,Whole Blood 167 mg/dL (70-110)
--- NOTE | 2024-08-20 16:03 | P.CNPUL ---
History of Present Illness Consult date: 08/20/24 Chief complaint: Altered mentation History of present illness: This is a 83-year-old male patient, diabetic, was brought to the ED via EMS after patient was found down in the bathroom. Upon arrival, the patient was combative and argumentative and out to the hospital the patient had a tonic- clonic generalized seizure and another seizure was witnessed in the emergency department that lasted for total of 40 seconds and the patient was given Ativan a total of 4 mg IV push. At the same time, the patient was found to be in DKA. Initial blood sugar was 526. The gap was 16 with a serum bicarb of 13. Acetone was positive. Urine drug screen was negative. The viral screen was negative. UA showed plus for glucose, +2 ketones and the patient had a troponin of 0.06. Sodium was at 137, potassium was at 3.9. Bicarb level was at 13. BUN was 16 with a creatinine of 1.8. Following the seizure and due to ongoing metabolic disturbances, the patient was found to be quite lethargic and obtunded. Blood gas was done that showed a pH of 7.2 with a pCO2 of 42 and pO2 of 222. White cycles of 20 with a hemoglobin 11.6 and a platelet count of 255. CAT scan of the chest abdomen and pelvis was done in the ED that showed mild left hydroureter without obstructing stones. Consider stone in transit as the patient was found to have a dependent urinary bladder stone measuring 4 mm in size. Atelectatic changes in the right lung base was seen. No traumatic injury to the abdomen or chest. CAT scan of the brain showed no acute abnormalities. C-spine CAT scan was also negative. Pelvic x-ray showed no acute fractures and the chest x-ray showed no acute abnormalities. EKG was consistent with sinus tachycardia. The patient was given 2 L of IV fluid and the patient is currently on insulin drip at 6 units an hour. Given additional 6 units in the emergency department. Started also on Keppra. Patient was also given broad-spectrum antibiotics using a combination of cefepime and vancomycin. The patient is currently on BiPAP at a pressure of 12 over 5 cm of water. Mental status remains quite diminished. Review of Systems ROS unobtainable: due to mental status Past Medical History Past Medical History: Atrial Fibrillation, Asthma, Cancer, Diabetes Mellitus, Hyperlipidemia, Hypertension, Skin Disorder Additional Past Medical History / Comment(s): CROHNS's, GOUT,bilateral leg itchiness uses cream, redness, skin cancer History of Any Multi-Drug Resistant Organisms: None Reported Past Surgical History: Appendectomy, Bowel Resection, Cholecystectomy, Prostate Surgery Additional Past Surgical History / Comment(s): COLONOSCOPY, FATTY TUMOR REMOVED FROM HIS BACK, Bilateral CATARACT. 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 PER PAST MEDICAL HX: HAD A BLOOD TRANSFUSION 1966- REACTION WAS FACIAL SWELLING. Past Psychological History: No Psychological Hx Reported Smoking Status: Never smoker Past Alcohol Use History: None Reported Past Drug Use History: None Reported - Past Family History Mother Family Medical History: Cancer Additional Family Medical History / Comment(s): BREAST CANCER Father Family Medical History: Cancer Additional Family Medical History / Comment(s): COLON CANCER Brother(s) Family Medical History: Cancer, Prostate Disorder Additional Family Medical History / Comment(s): PROSTATE CANCER Medications and Allergies Home Medications Medication Instructions Recorded Confirmed Type Insulin Aspart [NovoLOG] 0.01 unit SQ-PUMP CONTINUOUS 03/02/15 08/20/24 History Loperamide [Imodium] 4 mg PO QID 03/02/15 08/20/24 History Tamsulosin HCl [Flomax] 0.4 mg PO BID 07/04/20 08/20/24 History Apixaban [Eliquis] 5 mg PO BID 04/24/23 08/20/24 History amLODIPine [Norvasc] 5 mg PO DAILY 04/24/23 08/20/24 History Rosuvastatin [Crestor] 10 mg PO HS 07/01/23 08/20/24 History carvediloL [Coreg] 3.125 mg PO BID 07/01/23 08/20/24 History Memantine [Namenda] 10 mg PO BID 08/11/24 08/20/24 History Cholecalciferol [Vitamin D3 (25 50 mcg PO DAILY #30 tab 08/12/24 08/20/24 Rx Mcg = 1000 Iu)] Allergies Allergy/AdvReac Type Severity Reaction Status Date / Time No Known Allergies Allergy Verified 08/20/24 13:28 Physical Exam Vitals: Vital Signs Temp Pulse Resp BP Pulse Ox FiO2 08/20/24 14:00 92 28 H 139/70 100 50 08/20/24 13:50 96 24 139/70 100 50 08/20/24 13:45 50 08/20/24 13:44 98.6 F 92 18 139/70 100 50 08/20/24 12:53 50 08/20/24 11:50 99.1 F 117 H 28 H 169/83 100 08/20/24 10:16 100.8 F H 08/20/24 09:59 149 H 12 195/99 97 Intake and Output 08/20/24 08/20/24 08/20/24 06:59 14:59 22:59 Intake Total 466.777 Output Total 80 Balance 386.777 Intake: Intake, IV Titration 466.777 Amount Insulin Regular 100 unit 16.777 In Sodium Chloride 0.9% 100 ml @ 0.1 UNITS/KG/HR 6.414 mls/hr IV .[id number] [facility] Rx#:[id number] Sodium Chloride 0.9% 1, 200 000 ml @ 200 mls/hr IV . Q5H [facility] Rx#:[id number] Vancomycin 1,250 mg In 250 Sodium Chloride 0.9% 250 ml @ 125 mls/hr IVPB ONCE [facility] Rx#:[id number] Output: Urine 80 Other: Weight 63.503 kg GENERAL EXAM: Alert, pleasant 83-year-old male, diminished level of consciousness, postictal patient is on a BiPAP at a pressure of 12/5 with an FiO2 of 50% HEAD: Normocephalic. EYES: Normal reaction of pupils, equal size. NOSE: Clear with pink turbinates. THROAT: No erythema or exudates. NECK: No masses, no JVD. CHEST: No chest wall deformity. LUNGS: Equal air entry with no crackles, wheeze, rhonchi or dullness. CVS: S1 and S2 normal with no audible murmur, regular rhythm. ABDOMEN: No hepatosplenomegaly, normal bowel sounds, no guarding or rigidity. SPINE: No scoliosis or deformity SKIN: No rashes CENTRAL NERVOUS SYSTEM: No focal deficits, diminished level of consciousness. No active seizure at this point. EXTREMITIES: There is no peripheral edema. No clubbing, no cyanosis. Peripheral pulses are intact. Results - Laboratory Findings CBC and BMP: 08/20/24 10:10 08/20/24 13:22 ABG ABG pH 7.20 (7.35-7.45) L 08/20/24 12:00 ABG pCO2 42 mmHg (35-45) 08/20/24 12:00 ABG pO2 222 mmHg (83-108) H 08/20/24 12:00 ABG O2 Saturation 99.7 % (94-97) H 08/20/24 12:00 PT/INR, D-dimer PT 10.0 sec (10.0-12.5) 08/20/24 10:10 INR 0.9 (<1.2) 08/20/24 10:10 Abnormal lab findings: Abnormal Labs 08/20/24 08/20/24 08/20/24 10:04 10:10 10:10 WBC 20.2 H Hgb 11.6 L MCHC 28.3 L Neutrophils # (Manual) 16.70 H APTT 21.3 L ABG pH ABG pO2 ABG HCO3 ABG Total CO2 ABG O2 Saturation Hemoglobin Chloride Carbon Dioxide Creatinine Glucose POC Glucose (mg/dL) >600 H* Plasma Lactic Acid [place] Troponin I Total Protein Urine Protein Urine Glucose (UA) Urine Ketones Urine Blood Urine RBC Urine Mucus 08/20/24 08/20/24 08/20/24 10:10 10:10 10:10 WBC Hgb MCHC Neutrophils # (Manual) APTT ABG pH ABG pO2 ABG HCO3 ABG Total CO2 ABG O2 Saturation Hemoglobin Chloride Carbon Dioxide 9 L* Creatinine 1.83 H Glucose 579 H* POC Glucose (mg/dL) Plasma Lactic Acid [place] 12.9 H* Troponin I 0.068 H* Total Protein 6.0 L Urine Protein Urine Glucose (UA) Urine Ketones Urine Blood Urine RBC Urine Mucus 08/20/24 08/20/24 08/20/24 11:07 11:25 11:26 WBC Hgb MCHC Neutrophils # (Manual) APTT ABG pH ABG pO2 ABG HCO3 ABG Total CO2 ABG O2 Saturation Hemoglobin Chloride 108 H Carbon Dioxide 13 L Creatinine Glucose POC Glucose (mg/dL) 526 H* Plasma Lactic Acid [place] Troponin I Total Protein Urine Protein 3+ H Urine Glucose (UA) 4+ H Urine Ketones 2+ H Urine Blood Moderate H Urine RBC 9 H Urine Mucus Rare H 08/20/24 08/20/24 08/20/24 12:00 12:30 13:22 WBC Hgb MCHC Neutrophils # (Manual) APTT ABG pH 7.20 L ABG pO2 222 H ABG HCO3 16 L ABG Total CO2 18 L ABG O2 Saturation 99.7 H Hemoglobin 9.6 L Chloride Carbon Dioxide Creatinine 1.54 H Glucose 294 H POC Glucose (mg/dL) 398 H Plasma Lactic Acid [place] Troponin I Total Protein Urine Protein Urine Glucose (UA) Urine Ketones Urine Blood Urine RBC Urine Mucus 08/20/24 08/20/24 08/20/24 13:22 13:49 14:54 WBC Hgb MCHC Neutrophils # (Manual) APTT ABG pH ABG pO2 ABG HCO3 ABG Total CO2 ABG O2 Saturation Hemoglobin Chloride Carbon Dioxide Creatinine Glucose POC Glucose (mg/dL) 293 H 249 H Plasma Lactic Acid [place] 2.6 H* Troponin I Total Protein Urine Protein Urine Glucose (UA) Urine Ketones Urine Blood Urine RBC Urine Mucus - Diagnostic Findings Chest x-ray: image reviewed CT scan - chest: image reviewed Assessment and Plan Plan: Acute mental status changes, secondary to metabolic encephalopathy/DKA along with postictal state following 2 episodes of seizures DKA with anion gap metabolic acidosis/hyperglycemia New onset seizures x 2, generalized tonic-clonic. CAT scan of the brain was negative. 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 Elevated troponin, likely type II demand type of myocardial ischemia Acute on chronic anemia secondary to above History of atrial fibrillation. Current rhythm is sinus tachycardia/a flutter History of hyperlipidemia. History of hypertension. History of gout. History of Crohn's disease. Plan: Monitor mental status Keep the patient on BiPAP for now IV fluids and insulin drip per DKA protocol Monitor blood sugars every 1 hour Electrolytes every 4 hours Monitor anion gap IV Keppra 1 g every 12 hours EEG Neurology consultation Keep the patient n.p.o. and hold oral medications Admit to the ICU Time with Patient: Greater than 30
--- NOTE | 2024-08-20 16:29 | P.CNNES ---
History of Present Illness Consult date: 08/20/24 Requesting physician: Anand Polanco Reason for Consult: seizure History of Present Illness: Patient is a 83-year-old right-handed male came to the hospita by ambulance today at 9:57 AM for fall, seizure and altered mental status. Patient not able to provide any history. As per patient's , who was present by the bedside, states that she found patient in the bathroom floor, passed out. Patient's bloo d sugar was 45. Patient had a generalized tonic-clonic seizure upon arrival to the ER. Seizure lasted about 1 to 2 minutes. Patient was postictal. He does have some signs of facial trauma. Patient then had another seizure while he was in the ER for which he received 4 mg of Ativan IV along with 1 g of Keppra. Patient at present is postictal/effect from Ativan. No seizures further reported. Patient never had any history of seizures in the past. EMS flowsheet not available in the chart. Vital signs on arrival blood pressure 195/99, pulse rate 149 temperature 100.8 rectally. Repeat temperature 99.1 and then 98.6. Blood test shows WBC 20.2 hemoglobin 11.6, platelets 255. INR is 0.9. Normal electrolytes, BUN 15 creatinine 1.83. Glucose was 579, lactate 12.9, hepatic panel is normal. Troponin 0.068. UA negative. Urine drug screen negative. Acetone positive. Influenza, RSV and coronavirus PCR negative. EKG showed sinus tachycardia with short VT interval. Chest x-ray showed no acute pulmonary process. No acute post traumatic change. X-ray of the pelvis showed no fracture. CT head revealed no acute intracranial process. CT of the cervical spine was negative. I personally reviewed CT head and find no abnormalities. CT of abdomen pelvis revealed mild infiltrate in the right lung base. Correlate for atelectasis or pneumonia. Mild left hydroureter without obstructing ureteral stone. Consider recent passage of a renal or unclear stone on the left. There is a nonobstructing renal stone within the depending urinary bladder measuring 0.4 cm. Patient's mentions that patient walks by himself, he has good memory functions. Just lately in the last 2 to 3 weeks, patient has been slightly confused, as he was asking his "when are we going home", although he is present at the home at that time. Patient has been admitted with acute DKA, new onset seizure, altered mental status with metabolic encephalopathy, metabolic acidosis. Patient has been seen by myself on 04/25/2023 for strokelike symptoms. Patient had an EEG performed 04/27/2023, which was abnormal due to intermittent bitemporal slowing, suggestive of mild focal cortical neuronal dysfunction. No definitive epileptiform activity was seen. 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 Infectious disease was consulted at that time, and patient was not behaving like encephalitis, and lumbar puncture was not done because patient was an on Eliquis and the risks of stopping Eliquis for lumbar puncture was higher than the benefits. Patient was recommended to have a fo llow-up MRI in 3 to 6 months to rule out slow-growing tumor. Patient had negative NMDA and anti-Hu antibodies. Patient currently on Eliquis. No history of tobacco or alcohol use. Patient has history of diabetes, on insulin pump. Review of Systems ROS unobtainable: due to mental status Past Medical History Past Medical History: Atrial Fibrillation, Asthma, Cancer, Diabetes Mellitus, Hyperlipidemia, Hypertension, Skin Disorder Additional Past Medical History / Comment(s): CROHNS's, GOUT,bilateral leg itchiness uses cream, redness, skin cancer History of Any Multi-Drug Resistant Organisms: None Reported Past Surgical History: Appendectomy, Bowel Resection, Cholecystectomy, Prostate Surgery Additional Past Surgical History / Comment(s): COLONOSCOPY, FATTY TUMOR REMOVED FROM HIS BACK, Bilateral CATARACT. 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 PER PAST MEDICAL HX: HAD A BLOOD TRANSFUSION 1966- REACTION WAS FACIAL SWELLING. Past Psychological History: No Psychological Hx Reported Smoking Status: Never smoker Past Alcohol Use History: None Reported Past Drug Use History: None Reported - Past Family History Mother Family Medical History: Cancer Additional Family Medical History / Comment(s): BREAST CANCER Father Family Medical History: Cancer Additional Family Medical History / Comment(s): COLON CANCER Brother(s) Family Medical History: Cancer, Prostate Disorder Additional Family Medical History / Comment(s): PROSTATE CANCER Medications and Allergies Home Medications Medication Instructions Recorded Confirmed Type Insulin Aspart [NovoLOG] 0.01 unit SQ-PUMP CONTINUOUS 03/02/15 08/20/24 History Loperamide [Imodium] 4 mg PO QID 03/02/15 08/20/24 History Tamsulosin HCl [Flomax] 0.4 mg PO BID 07/04/20 08/20/24 History Apixaban [Eliquis] 5 mg PO BID 04/24/23 08/20/24 History amLODIPine [Norvasc] 5 mg PO DAILY 04/24/23 08/20/24 History Rosuvastatin [Crestor] 10 mg PO HS 07/01/23 08/20/24 History carvediloL [Coreg] 3.125 mg PO BID 07/01/23 08/20/24 History Memantine [Namenda] 10 mg PO BID 08/11/24 08/20/24 History Cholecalciferol [Vitamin D3 (25 50 mcg PO DAILY #30 tab 08/12/24 08/20/24 Rx Mcg = 1000 Iu)] Allergies Allergy/AdvReac Type Severity Reaction Status Date / Time No Known Allergies Allergy Verified 08/20/24 13:28 Physical Examination - Vital Signs Vital Signs: Vital Signs Temp Pulse Resp BP Pulse Ox FiO2 08/20/24 15:29 40 08/20/24 15:28 99 40 08/20/24 15:00 84 21 133/67 100 50 08/20/24 14:30 89 22 112/96 100 50 08/20/24 14:00 92 28 H 139/70 100 50 08/20/24 13:50 96 24 139/70 100 50 08/20/24 13:45 50 08/20/24 13:44 98.6 F 92 18 139/70 100 50 08/20/24 12:53 50 08/20/24 11:50 99.1 F 117 H 28 H 169/83 100 08/20/24 10:16 100.8 F H 08/20/24 09:59 149 H 12 195/99 97 Intake and Output 08/20/24 08/20/24 08/20/24 06:59 14:59 22:59 Intake Total 466.777 200 Output Total 80 45 Balance 386.777 155 Intake: Intake, IV Titration 466.777 200 Amount Insulin Regular 100 unit 16.777 In Sodium Chloride 0.9% 100 ml @ 0.1 UNITS/KG/HR 6.414 mls/hr IV .[id number] [facility] Rx#:[id number] Sodium Chloride 0.9% 1, 200 200 000 ml @ 200 mls/hr IV . Q5H [facility] Rx#:[id number] Vancomycin 1,250 mg In 250 Sodium Chloride 0.9% 250 ml @ 125 mls/hr IVPB ONCE STA Rx#:[id number] Output: Urine 80 45 Other: Weight 63.503 kg Patient is an elderly male, who is severely obtunded, sedated/postictal. Patient has just received Ativan 4 mg IV. Patient is encephalopathic. Patient not following any directions. Patient not opening his eyes to calling his name. Patient has facial grimacing on painful stimulus. On cranial nerve examination, pupils are very small, about 2 to 3 mm, not clearly reacting. No gaze deviation. No seizure-like activity. Corneals are present. Oculocephalics present. Patient probably has gag and cough. Other cranial nerves cannot be tested. On muscle strength testing, patient does not follow any directions. He does slightly withdraw his extremities to painful stimuli, all 4 limbs. No obvious focality. Deep tendon reflexes are symmetric1+ in the upper limbs, trace in the lower limbs and plantars are flat. Sensory to touch evoked no response, but patient does withdraw to painful stimuli. Cerebellar function cannot be assessed due to mental status. Tone and bulk of muscles normal. Gait deferred.. On general examination, there is no carotid bruit or murmur, S1-S2 audible. Chest is clear on consultation. Abdomen is soft nontender. No organomegaly, bowel sounds present. Peripheral pulses are present. No peripheral edema. Results - Laboratory Findings CBC and BMP: 08/20/24 10:10 08/20/24 13:22 Abnormal Lab Findings: Abnormal Labs 08/20/24 08/20/24 08/20/24 10:04 10:10 10:10 WBC 20.2 H Hgb 11.6 L MCHC 28.3 L Neutrophils # (Manual) 16.70 H APTT 21.3 L ABG pH ABG pO2 ABG HCO3 ABG Total CO2 ABG O2 Saturation Hemoglobin Chloride Carbon Dioxide Creatinine Glucose POC Glucose (mg/dL) >600 H* Plasma Lactic Acid [place] Troponin I Total Protein Urine Protein Urine Glucose (UA) Urine Ketones Urine Blood Urine RBC Urine Mucus 08/20/24 08/20/24 08/20/24 10:10 10:10 10:10 WBC Hgb MCHC Neutrophils # (Manual) APTT ABG pH ABG pO2 ABG HCO3 ABG Total CO2 ABG O2 Saturation Hemoglobin Chloride Carbon Dioxide 9 L* Creatinine 1.83 H Glucose 579 H* POC Glucose (mg/dL) Plasma Lactic Acid [place] 12.9 H* Troponin I 0.068 H* Total Protein 6.0 L Urine Protein Urine Glucose (UA) Urine Ketones Urine Blood Urine RBC Urine Mucus 08/20/24 08/20/24 08/20/24 11:07 11:25 11:26 WBC Hgb MCHC Neutrophils # (Manual) APTT ABG pH ABG pO2 ABG HCO3 ABG Total CO2 ABG O2 Saturation Hemoglobin Chloride 108 H Carbon Dioxide 13 L Creatinine Glucose POC Glucose (mg/dL) 526 H* Plasma Lactic Acid [place] Troponin I Total Protein Urine Protein 3+ H Urine Glucose (UA) 4+ H Urine Ketones 2+ H Urine Blood Moderate H Urine RBC 9 H Urine Mucus Rare H 08/20/24 08/20/24 08/20/24 12:00 12:30 13:22 WBC Hgb MCHC Neutrophils # (Manual) APTT ABG pH 7.20 L ABG pO2 222 H ABG HCO3 16 L ABG Total CO2 18 L ABG O2 Saturation 99.7 H Hemoglobin 9.6 L Chloride Carbon Dioxide Creatinine 1.54 H Glucose 294 H POC Glucose (mg/dL) 398 H Plasma Lactic Acid [place] Troponin I Total Protein Urine Protein Urine Glucose (UA) Urine Ketones Urine Blood Urine RBC Urine Mucus 08/20/24 08/20/24 08/20/24 13:22 13:49 14:54 WBC Hgb MCHC Neutrophils # (Manual) APTT ABG pH ABG pO2 ABG HCO3 ABG Total CO2 ABG O2 Saturation Hemoglobin Chloride Carbon Dioxide Creatinine Glucose POC Glucose (mg/dL) 293 H 249 H Plasma Lactic Acid [place] 2.6 H* Troponin I Total Protein Urine Protein Urine Glucose (UA) Urine Ketones Urine Blood Urine RBC Urine Mucus Assessment and Plan Assessment: * New onset seizure, unclear cause. * Acute DKA with metabolic acidosis * Altered mental status, due to metabolic encephalopathy * History of abnormal MRI with abnormal signal right medial temporal lobe. * Diabetes, poorly controlled * Lactic acidosis due to seizure * Elevated troponin * Chronic anemia * History of atrial fibrillation * Hypertension * Hyperlipidemia * History of gout Plan: * Patient has received Keppra 1000 mg IV push once in the ER and will be maintained on 1000 mg IV push every 12 hours starting from tonight. * Patient also has received Ativan 4 mg x 1 dose, which will prevent recurrent seizures. * Urgent EEG in the morning. * MRI of the brain with and without contrast, to follow-up on the right temporal lobe lesion. * Patient being admitted to the ICU. * Patient has been seen by infectious disease, started on Zosyn and vancomycin. * Other medical management (including DKA) as per IM and critical care. * Dr. Donato Garcia to start neurology service from the morning. * Discussed with patient's . Thank you for the consult. Time with Patient: Greater than 30
[2024-08-20 17:08] LABS: Glucose,Whole Blood 95 mg/dL (70-110)
[2024-08-20 17:09] LABS: African American GFR (CKD) 50 (>60 ml/min/1.73 sqM); Anion Gap 9 mmol/L; Blood Urea Nitrogen 16 mg/dL (9-20); Carbon Dioxide 19 mmol/L (22-30); Chloride 116 mmol/L (98-107); Glucose 146 mg/dL (74-99); Non-African American GFR(CKD) 43 (>60 ml/min/1.73 sqM); Phosphorus 2.6 mg/dL (2.5-4.5); Potassium 3.5 mmol/L (3.5-5.1); Sodium 144 mmol/L (137-145)
[2024-08-20 17:38] LABS: Glucose,Whole Blood 98 mg/dL (70-110)
[2024-08-20 18:21] LABS: Glucose,Whole Blood 102 mg/dL (70-110)
[2024-08-20 19:58] LABS: Glucose,Whole Blood 113 mg/dL (70-110)
[2024-08-20] MEDS: INSULIN GLARGINE (LANTUS) 100 UNIT/ML SYR SQ SCH (20:22)
[2024-08-20] MEDS: levETIRAcetam IV 500 MG/5 ML VIAL IVP SCH (20:24)
[2024-08-20] MEDS: INSULIN LISPRO (HumaLOG) 100 UNIT/ML 10 mL VL SQ SCH (20:25)
[2024-08-20] MEDS ORDERED: CEFEPIME 2 GM in SODIUM CHLORIDE 0.9% 100 ML IVPB SCH (23:00)
[2024-08-21] MEDS: PIPERACILLIN-TAZOBACTAM 3.375 GM in SODIUM CHLORIDE 0.9% 100 ML IVPB SCH (00:17)
[2024-08-21 05:01] LABS: African American GFR (CKD) 47 (>60 ml/min/1.73 sqM); Anion Gap 9 mmol/L; Blood Urea Nitrogen 16 mg/dL (9-20); Carbon Dioxide 16 mmol/L (22-30); Chloride 118 mmol/L (98-107); Glucose 143 mg/dL (74-99); Magnesium 2.2 mg/dL (1.6-2.3); Non-African American GFR(CKD) 41 (>60 ml/min/1.73 sqM); Potassium 3.4 mmol/L (3.5-5.1); Sodium 143 mmol/L (137-145)
[2024-08-21] MEDS: POTASSIUM CHLORIDE 10 MEQ in WATER FOR INJECTION 1 100ML.BAG IVPB SCH (06:36)
[2024-08-21 06:41] LABS: Glucose,Whole Blood 175 mg/dL (70-110)
--- NOTE | 2024-08-21 08:02 | P.CONS ---
History of Present Illness - Reason for Consult Consult date: 08/20/24 Sepsis, pneumonia Requesting physician: Jaison Garcia - Chief Complaint Found unresponsive/seizure activity x 1 day - History of Present Illness Patient is a 83-year-old male with a past medical history significant for diabetes mellitus hypertension hyperlipidemia atrial fibrillation pneumonia, patient was brought into the hospital after the patient was found to be down in the bathroom history was provided by the who was present at the bedside mentioning she heard him getting up and after a short time when she went to check on him he was on the ground unresponsive she took his blood sugar which was 48 EMS was called and and the patient has been brought to the hospital per the EMS report the patient was combative and argumentative and rude to the ER the patient did have a tonic-clonic seizure with the symptoms the patient has been evaluated on presentation to the hospital patient did have a temperature of 100.8 F patient was tachycardic but not hypotensive he was hypoxic and currently on a BiPAP patient workup did include a white count of 20,000 with a left shift BUN and creatinine has been mildly elevated with a creatinine 1.47 liver enzymes are normal urine has been negative urine drug screen was negative influenza RSV COVID testing was negative patient initial blood sugar was more than 500 and the patient has been admitted to ICU for DKA patient also have chest x-ray no acute cardiopulmonary process no acute traumatic injury he did have a CT of the chest abdominal pelvis infiltrate right lung base correlate for atelectasis or pneumonia mild left hydroureter without obstructive ureteral stone consider recent passage of his stone patient was started on vancomycin and cefepime infectious disease was consulted for further management of antibiotic therapy Review of Systems Positive points has been mentioned in HPI complete review could not be obtained because of his underlying mental status Past Medical History Past Medical History: Atrial Fibrillation, Asthma, Cancer, Diabetes Mellitus, Hyperlipidemia, Hypertension, Pneumonia, Skin Disorder Additional Past Medical History / Comment(s): CROHNS's, GOUT,bilateral leg itchiness uses cream, redness, skin cancer History of Any Multi-Drug Resistant Organisms: None Reported Past Surgical History: Appendectomy, Bowel Resection, Cholecystectomy, Prostate Surgery Additional Past Surgical History / Comment(s): COLONOSCOPY, FATTY TUMOR REMOVED FROM HIS BACK, Bilateral CATARACT. skin cancer from near eye, Past Anesthesia/Blood Transfusion Reactions: No Reported Reaction Additional Past Anesthesia/Blood Transfusion Reaction / Comm: CLAUSTERPHOBIA. PER PAST MEDICAL HX: HAD A BLOOD TRANSFUSION 1966- REACTION WAS FACIAL SWELLING. Past Psychological History: No Psychological Hx Reported Smoking Status: Never smoker Past Alcohol Use History: None Reported Past Drug Use History: None Reported - Past Family History Mother Family Medical History: Cancer Additional Family Medical History / Comment(s): BREAST CANCER Father Family Medical History: Cancer Additional Family Medical History / Comment(s): COLON CANCER Brother(s) Family Medical History: Cancer, Prostate Disorder Additional Family Medical History / Comment(s): PROSTATE CANCER Medications and Allergies Home Medications Medication Instructions Recorded Confirmed Type Insulin Aspart [NovoLOG] 0.01 unit SQ-PUMP CONTINUOUS 03/02/15 08/20/24 History Loperamide [Imodium] 4 mg PO QID 03/02/15 08/20/24 History Tamsulosin HCl [Flomax] 0.4 mg PO BID 07/04/20 08/20/24 History Apixaban [Eliquis] 5 mg PO BID 04/24/23 08/20/24 History amLODIPine [Norvasc] 5 mg PO DAILY 04/24/23 08/20/24 History Rosuvastatin [Crestor] 10 mg PO HS 07/01/23 08/20/24 History carvediloL [Coreg] 3.125 mg PO BID 07/01/23 08/20/24 History Memantine [Namenda] 10 mg PO BID 08/11/24 08/20/24 History Cholecalciferol [Vitamin D3 (25 50 mcg PO DAILY #30 tab 08/12/24 08/20/24 Rx Mcg = 1000 Iu)] Allergies Allergy/AdvReac Type Severity Reaction Status Date / Time No Known Allergies Allergy Verified 08/20/24 13:28 Physical Exam Vitals: Vital Signs Temp Pulse Resp BP Pulse Ox FiO2 08/20/24 14:00 92 28 H 139/70 100 50 08/20/24 13:50 96 24 139/70 100 50 08/20/24 13:45 50 08/20/24 13:44 98.6 F 92 18 139/70 100 50 08/20/24 12:53 50 08/20/24 11:50 99.1 F 117 H 28 H 169/83 100 08/20/24 10:16 100.8 F H 08/20/24 09:59 149 H 12 195/99 97 Intake and Output 08/19/24 08/20/24 08/20/24 22:59 06:59 14:59 Intake Total 466.777 Output Total 80 Balance 386.777 Intake: Intake, IV Titration 466.777 Amount Insulin Regular 100 unit 16.777 In Sodium Chloride 0.9% 100 ml @ 0.1 UNITS/KG/HR 6.414 mls/hr IV .[id number] [facility] Rx#:[id number] Sodium Chloride 0.9% 1, 200 000 ml @ 200 mls/hr IV . Q5H [facility] Rx#:[id number] Vancomycin 1,250 mg In 250 Sodium Chloride 0.9% 250 ml @ 125 mls/hr IVPB ONCE STA Rx#:[id number] Output: Urine 80 Other: Weight 63.503 kg GENERAL DESCRIPTION: Elderly male on the BiPAP mild respiratory distress HEENT: Shows Pallor , no scleral icterus. Oral mucous membrane could not be examined because of the BiPAP NECK: Trachea central, no thyromegaly. LUNGS: Unlabored breathing. Decreased breath sounds at the base HEART: S1, S2, regular rate and rhythm. No loud murmur ABDOMEN: Soft, no tenderness , guarding or rigidity, no organomegaly EXTREMITIES: No edema of feet. SKIN: No rash, no masses palpable. NEUROLOGICAL: The patient is lethargic on the BiPAP Results CBC & Chem 7: 08/20/24 10:10 08/21/24 04:25 Labs: Abnormal Lab Results - Last 24 Hours (Table) 08/20/24 08/20/24 08/20/24 Range/Units 10:04 10:10 10:10 WBC 20.2 H (3.8-10.6) k/uL Hgb 11.6 L (13.0-17.5) gm/dL MCHC 28.3 L (31.0-37.0) g/dL Neutrophils # (Manual) 16.70 H (1.3-7.7) k/uL APTT 21.3 L (22.0-30.0) sec ABG pH (7.35-7.45) ABG pO2 (83-108) mmHg ABG HCO3 (21-25) mmol/L ABG Total CO2 (19-24) mmol/L ABG O2 Saturation (94-97) % Hemoglobin (13.0-17.5) gm/dL Chloride (98-107) mmol/L Carbon Dioxide (22-30) mmol/L Creatinine (0.66-1.25) mg/dL Glucose (74-99) mg/dL POC Glucose (mg/dL) >600 H* (70-110) mg/dL Plasma Lactic Acid [place] (0.7-2.0) mmol/L Troponin I (0.000-0.034) ng/mL Total Protein (6.3-8.2) g/dL Urine Protein (Negative) Urine Glucose (UA) (Negative) Urine Ketones (Negative) Urine Blood (Negative) Urine RBC (0-5) /hpf Urine Mucus (None) /hpf 08/20/24 08/20/24 08/20/24 Range/Units 10:10 10:10 10:10 WBC (3.8-10.6) k/uL Hgb (13.0-17.5) gm/dL MCHC (31.0-37.0) g/dL Neutrophils # (Manual) (1.3-7.7) k/uL APTT (22.0-30.0) sec ABG pH (7.35-7.45) ABG pO2 (83-108) mmHg ABG HCO3 (21-25) mmol/L ABG Total CO2 (19-24) mmol/L ABG O2 Saturation (94-97) % Hemoglobin (13.0-17.5) gm/dL Chloride (98-107) mmol/L Carbon Dioxide 9 L* (22-30) mmol/L Creatinine 1.83 H (0.66-1.25) mg/dL Glucose 579 H* (74-99) mg/dL POC Glucose (mg/dL) (70-110) mg/dL Plasma Lactic Acid [place] 12.9 H* (0.7-2.0) mmol/L Troponin I 0.068 H* (0.000-0.034) ng/mL Total Protein 6.0 L (6.3-8.2) g/dL Urine Protein (Negative) Urine Glucose (UA) (Negative) Urine Ketones (Negative) Urine Blood (Negative) Urine RBC (0-5) /hpf Urine Mucus (None) /hpf 08/20/24 08/20/24 08/20/24 Range/Units 11:07 11:25 11:26 WBC (3.8-10.6) k/uL Hgb (13.0-17.5) gm/dL MCHC (31.0-37.0) g/dL Neutrophils # (Manual) (1.3-7.7) k/uL APTT (22.0-30.0) sec ABG pH (7.35-7.45) ABG pO2 (83-108) mmHg ABG HCO3 (21-25) mmol/L ABG Total CO2 (19-24) mmol/L ABG O2 Saturation (94-97) % Hemoglobin (13.0-17.5) gm/dL Chloride 108 H (98-107) mmol/L Carbon Dioxide 13 L (22-30) mmol/L Creatinine (0.66-1.25) mg/dL Glucose (74-99) mg/dL POC Glucose (mg/dL) 526 H* (70-110) mg/dL Plasma Lactic Acid [place] (0.7-2.0) mmol/L Troponin I (0.000-0.034) ng/mL Total Protein (6.3-8.2) g/dL Urine Protein 3+ H (Negative) Urine Glucose (UA) 4+ H (Negative) Urine Ketones 2+ H (Negative) Urine Blood Moderate H (Negative) Urine RBC 9 H (0-5) /hpf Urine Mucus Rare H (None) /hpf 08/20/24 08/20/24 08/20/24 Range/Units 12:00 12:30 13:22 WBC (3.8-10.6) k/uL Hgb (13.0-17.5) gm/dL MCHC (31.0-37.0) g/dL Neutrophils # (Manual) (1.3-7.7) k/uL APTT (22.0-30.0) sec ABG pH 7.20 L (7.35-7.45) ABG pO2 222 H (83-108) mmHg ABG HCO3 16 L (21-25) mmol/L ABG Total CO2 18 L (19-24) mmol/L ABG O2 Saturation 99.7 H (94-97) % Hemoglobin 9.6 L (13.0-17.5) gm/dL Chloride (98-107) mmol/L Carbon Dioxide (22-30) mmol/L Creatinine 1.54 H (0.66-1.25) mg/dL Glucose 294 H (74-99) mg/dL POC Glucose (mg/dL) 398 H (70-110) mg/dL Plasma Lactic Acid [place] (0.7-2.0) mmol/L Troponin I (0.000-0.034) ng/mL Total Protein (6.3-8.2) g/dL Urine Protein (Negative) Urine Glucose (UA) (Negative) Urine Ketones (Negative) Urine Blood (Negative) Urine RBC (0-5) /hpf Urine Mucus (None) /hpf 08/20/24 08/20/24 Range/Units 13:22 13:49 WBC (3.8-10.6) k/uL Hgb (13.0-17.5) gm/dL MCHC (31.0-37.0) g/dL Neutrophils # (Manual) (1.3-7.7) k/uL APTT (22.0-30.0) sec ABG pH (7.35-7.45) ABG pO2 (83-108) mmHg ABG HCO3 (21-25) mmol/L ABG Total CO2 (19-24) mmol/L ABG O2 Saturation (94-97) % Hemoglobin (13.0-17.5) gm/dL Chloride (98-107) mmol/L Carbon Dioxide (22-30) mmol/L Creatinine (0.66-1.25) mg/dL Glucose (74-99) mg/dL POC Glucose (mg/dL) 293 H (70-110) mg/dL Plasma Lactic Acid [place] 2.6 H* (0.7-2.0) mmol/L Troponin I (0.000-0.034) ng/mL Total Protein (6.3-8.2) g/dL Urine Protein (Negative) Urine Glucose (UA) (Negative) Urine Ketones (Negative) Urine Blood (Negative) Urine RBC (0-5) /hpf Urine Mucus (None) /hpf Assessment and Plan (1) Sepsis Current Visit: Yes Status: Acute Code(s): A41.9 - SEPSIS, UNSPECIFIED ORGANISM SNOMED Code(s): 27055403 (2) Pneumonia Current Visit: Yes Status: Acute Code(s): J18.9 - PNEUMONIA, UNSPECIFIED ORGANISM SNOMED Code(s): 138412615 Plan: 1patient presented hospital with sepsis in this patient who did have a fever tachycardia elevated white count bradycardia versus source possible right lower lobe pneumonia and the question of possible aspiration etiology as the patient did have seizure activity and no other obvious focus of infection on investigation or clinical examination. 2patient did have elevated creatinine high risk of nephrotoxicity from vancomy shila and low risk for MRSA infection. 3discontinue vancomycin and cefepime 4try to obtain sputum for Gram stain and culture. 5we will start the patient on Zosyn pending workup completion. at the bedside question concern answered. We will follow on clinical condition and cultures to further adjust medication if needed Thank you for this consultation we will follow the patient along with you Dictation was produced using [employer] dictation software. please excuse any grammatical, word or spelling errors. Time with Patient: Greater than 30
[2024-08-21] MEDS ORDERED: PETROLATUM, WHITE OINT 50 GM TUBE TOPICAL PRN (08:09)
[2024-08-21] MEDS: INSULIN LISPRO (HumaLOG) 100 UNIT/ML 10 mL VL SQ SCH (09:59)
--- NOTE | 2024-08-21 10:44 | P.PN ---
Subjective Progress Note Date: 08/21/24 This is an 83-year-old gentleman with past medical history significant for diabetes mellitus,abnormal brain MRI 03/2023 ruled out CVA but recommended follow-up to rule out slow-growing tumor, chronic atrial fibrillation/flutter hypertension, hyperlipidemia, osteoarthritis, Crohn's disease, recently hospita lized with DKA suspected confusion with managing pump -as pump was recently checked 2 weeks prior to that admission at PCPs office, reported functioning properly. Discharged on 08/12 24, insistent on returning back on his insulin pump. patient was discharged on his insulin pump with recommendations to follow- up closely with Dr. Ambrosio in office as well as endocrinology, returned to hospital with DKA, new onset seizures, sepsis with possible aspiration pneumonia-chest CT reporting mild right lower lobe infiltrate, pneumonia versus atelectasis. Tmax 101.6 .maintained on Zosyn as per infectious disease. Blood sugars controlled. Bicarb 16, anion gap 9, BUN 16, creatinine 1.54. BUN 3.4. Staff reports no further seizure activity. EEG pending. Objective - Vital Signs Vital signs: Vital Signs Temp 99.7 F H 08/21/24 09:00 Pulse 88 08/21/24 09:00 Resp 12 08/21/24 09:00 BP 145/73 08/21/24 09:00 Pulse Ox 98 08/21/24 09:00 FiO2 40 08/20/24 21:05 Intake & Output 08/20/24 08/21/24 08/21/24 18:59 06:59 18:59 Intake Total 1293.842 550 200 Output Total 280 385 160 Balance 1013.842 165 40 Weight 63.503 kg 69.5 kg Intake: Intake, IV Titration 1293.842 550 200 Amount D5-0.45% NaCl with KCl 600 550 200 20Meq/l 1,000 ml @ 50 mls /hr IV .Q20H [facility] Rx#: [id number] Insulin Regular 100 unit 43.842 In Sodium Chloride 0.9% 100 ml @ 0.1 UNITS/KG/HR 6.414 mls/hr IV .[id number] [facility] Rx#:[id number] Sodium Chloride 0.9% 1, 400 000 ml @ 200 mls/hr IV . Q5H [facility] Rx#:[id number] Vancomycin 1,250 mg In 250 Sodium Chloride 0.9% 250 ml @ 125 mls/hr IVPB ONCE STA Rx#:[id number] Output: Urine 280 385 160 Other: Voiding Method Indwelling Catheter Indwelling Catheter - Exam VITAL SIGNS: Reviewed GENERAL: Lethargic, sitting up in bed, no acute distress. HEENT: Atraumatic, normocephalic ,conjunctivae normal. eyes normal. NECK: Supple, no JVD. CARDIOVASCULAR: S1, S2 regular. No murmur RESPIRATION: Unlabored, equal air entry, essentially clear to auscultation with bilateral bases diminished. ABDOMEN: Soft, nontender, nondistended. No guarding. no masses palpable. +BS LEGS: No edema. no swelling NERVOUS SYSTEM: Limited evaluation, grimaces to noxious stimuli. Not following commands at this time. Skin: Warm and dry, no rash - Labs CBC & Chem 7: 08/20/24 10:10 08/21/24 04:25 Labs: Abnormal Lab Results - Last 24 Hours (Table) 08/20/24 08/20/24 08/20/24 Range/Units 10:04 10:10 10:10 WBC 20.2 H (3.8-10.6) k/uL Hgb 11.6 L (13.0-17.5) gm/dL MCHC 28.3 L (31.0-37.0) g/dL Neutrophils # (Manual) 16.70 H (1.3-7.7) k/uL APTT 21.3 L (22.0-30.0) sec ABG pH (7.35-7.45) ABG pO2 (83-108) mmHg ABG HCO3 (21-25) mmol/L ABG Total CO2 (19-24) mmol/L ABG O2 Saturation (94-97) % Hemoglobin (13.0-17.5) gm/dL Potassium (3.5-5.1) mmol/L Chloride (98-107) mmol/L Carbon Dioxide (22-30) mmol/L Creatinine (0.66-1.25) mg/dL Glucose (74-99) mg/dL POC Glucose (mg/dL) >600 H* (70-110) mg/dL Plasma Lactic Acid [place] (0.7-2.0) mmol/L Calcium (8.4-10.2) mg/dL Troponin I (0.000-0.034) ng/mL Total Protein (6.3-8.2) g/dL Urine Protein (Negative) Urine Glucose (UA) (Negative) Urine Ketones (Negative) Urine Blood (Negative) Urine RBC (0-5) /hpf Urine Mucus (None) /hpf 08/20/24 08/20/24 08/20/24 Range/Units 10:10 10:10 10:10 WBC (3.8-10.6) k/uL Hgb (13.0-17.5) gm/dL MCHC (31.0-37.0) g/dL Neutrophils # (Manual) (1.3-7.7) k/uL APTT (22.0-30.0) sec ABG pH (7.35-7.45) ABG pO2 (83-108) mmHg ABG HCO3 (21-25) mmol/L ABG Total CO2 (19-24) mmol/L ABG O2 Saturation (94-97) % Hemoglobin (13.0-17.5) gm/dL Potassium (3.5-5.1) mmol/L Chloride (98-107) mmol/L Carbon Dioxide 9 L* (22-30) mmol/L Creatinine 1.83 H (0.66-1.25) mg/dL Glucose 579 H* (74-99) mg/dL POC Glucose (mg/dL) (70-110) mg/dL Plasma Lactic Acid [place] 12.9 H* (0.7-2.0) mmol/L Calcium (8.4-10.2) mg/dL Troponin I 0.068 H* (0.000-0.034) ng/mL Total Protein 6.0 L (6.3-8.2) g/dL Urine Protein (Negative) Urine Glucose (UA) (Negative) Urine Ketones (Negative) Urine Blood (Negative) Urine RBC (0-5) /hpf Urine Mucus (None) /hpf 08/20/24 08/20/24 08/20/24 Range/Units 11:07 11:25 11:26 WBC (3.8-10.6) k/uL Hgb (13.0-17.5) gm/dL MCHC (31.0-37.0) g/dL Neutrophils # (Manual) (1.3-7.7) k/uL APTT (22.0-30.0) sec ABG pH (7.35-7.45) ABG pO2 (83-108) mmHg ABG HCO3 (21-25) mmol/L ABG Total CO2 (19-24) mmol/L ABG O2 Saturation (94-97) % Hemoglobin (13.0-17.5) gm/dL Potassium (3.5-5.1) mmol/L Chloride 108 H (98-107) mmol/L Carbon Dioxide 13 L (22-30) mmol/L Creatinine (0.66-1.25) mg/dL Glucose (74-99) mg/dL POC Glucose (mg/dL) 526 H* (70-110) mg/dL Plasma Lactic Acid [place] (0.7-2.0) mmol/L Calcium (8.4-10.2) mg/dL Troponin I (0.000-0.034) ng/mL Total Protein (6.3-8.2) g/dL Urine Protein 3+ H (Negative) Urine Glucose (UA) 4+ H (Negative) Urine Ketones 2+ H (Negative) Urine Blood Moderate H (Negative) Urine RBC 9 H (0-5) /hpf Urine Mucus Rare H (None) /hpf 08/20/24 08/20/24 08/20/24 Range/Units 12:00 12:30 13:22 WBC (3.8-10.6) k/uL Hgb (13.0-17.5) gm/dL MCHC (31.0-37.0) g/dL Neutrophils # (Manual) (1.3-7.7) k/uL APTT (22.0-30.0) sec ABG pH 7.20 L (7.35-7.45) ABG pO2 222 H (83-108) mmHg ABG HCO3 16 L (21-25) mmol/L ABG Total CO2 18 L (19-24) mmol/L ABG O2 Saturation 99.7 H (94-97) % Hemoglobin 9.6 L (13.0-17.5) gm/dL Potassium (3.5-5.1) mmol/L Chloride (98-107) mmol/L Carbon Dioxide (22-30) mmol/L Creatinine 1.54 H (0.66-1.25) mg/dL Glucose 294 H (74-99) mg/dL POC Glucose (mg/dL) 398 H (70-110) mg/dL Plasma Lactic Acid [place] (0.7-2.0) mmol/L Calcium (8.4-10.2) mg/dL Troponin I (0.000-0.034) ng/mL Total Protein (6.3-8.2) g/dL Urine Protein (Negative) Urine Glucose (UA) (Negative) Urine Ketones (Negative) Urine Blood (Negative) Urine RBC (0-5) /hpf Urine Mucus (None) /hpf 08/20/24 08/20/24 08/20/24 Range/Units 13:22 13:49 14:54 WBC (3.8-10.6) k/uL Hgb (13.0-17.5) gm/dL MCHC (31.0-37.0) g/dL Neutrophils # (Manual) (1.3-7.7) k/uL APTT (22.0-30.0) sec ABG pH (7.35-7.45) ABG pO2 (83-108) mmHg ABG HCO3 (21-25) mmol/L ABG Total CO2 (19-24) mmol/L ABG O2 Saturation (94-97) % Hemoglobin (13.0-17.5) gm/dL Potassium (3.5-5.1) mmol/L Chloride (98-107) mmol/L Carbon Dioxide (22-30) mmol/L Creatinine (0.66-1.25) mg/dL Glucose (74-99) mg/dL POC Glucose (mg/dL) 293 H 249 H (70-110) mg/dL Plasma Lactic Acid [place] 2.6 H* (0.7-2.0) mmol/L Calcium (8.4-10.2) mg/dL Troponin I (0.000-0.034) ng/mL Total Protein (6.3-8.2) g/dL Urine Protein (Negative) Urine Glucose (UA) (Negative) Urine Ketones (Negative) Urine Blood (Negative) Urine RBC (0-5) /hpf Urine Mucus (None) /hpf 08/20/24 08/20/24 08/20/24 Range/Units 16:00 16:28 16:28 WBC (3.8-10.6) k/uL Hgb (13.0-17.5) gm/dL MCHC (31.0-37.0) g/dL Neutrophils # (Manual) (1.3-7.7) k/uL APTT (22.0-30.0) sec ABG pH (7.35-7.45) ABG pO2 (83-108) mmHg ABG HCO3 (21-25) mmol/L ABG Total CO2 (19-24) mmol/L ABG O2 Saturation (94-97) % Hemoglobin (13.0-17.5) gm/dL Potassium (3.5-5.1) mmol/L Chloride 116 H (98-107) mmol/L Carbon Dioxide 19 L (22-30) mmol/L Creatinine 1.47 H (0.66-1.25) mg/dL Glucose 146 H (74-99) mg/dL POC Glucose (mg/dL) 167 H (70-110) mg/dL Plasma Lactic Acid [place] 3.7 H* (0.7-2.0) mmol/L Calcium (8.4-10.2) mg/dL Troponin I (0.000-0.034) ng/mL Total Protein (6.3-8.2) g/dL Urine Protein (Negative) Urine Glucose (UA) (Negative) Urine Ketones (Negative) Urine Blood (Negative) Urine RBC (0-5) /hpf Urine Mucus (None) /hpf 08/20/24 08/20/24 08/21/24 Range/Units 19:56 19:58 04:25 WBC (3.8-10.6) k/uL Hgb (13.0-17.5) gm/dL MCHC (31.0-37.0) g/dL Neutrophils # (Manual) (1.3-7.7) k/uL APTT (22.0-30.0) sec ABG pH (7.35-7.45) ABG pO2 (83-108) mmHg ABG HCO3 (21-25) mmol/L ABG Total CO2 (19-24) mmol/L ABG O2 Saturation (94-97) % Hemoglobin (13.0-17.5) gm/dL Potassium 3.4 L (3.5-5.1) mmol/L Chloride 118 H (98-107) mmol/L Carbon Dioxide 16 L (22-30) mmol/L Creatinine 1.54 H (0.66-1.25) mg/dL Glucose 143 H (74-99) mg/dL POC Glucose (mg/dL) 113 H (70-110) mg/dL Plasma Lactic Acid [place] 2.9 H* (0.7-2.0) mmol/L Calcium 8.0 L (8.4-10.2) mg/dL Troponin I (0.000-0.034) ng/mL Total Protein (6.3-8.2) g/dL Urine Protein (Negative) Urine Glucose (UA) (Negative) Urine Ketones (Negative) Urine Blood (Negative) Urine RBC (0-5) /hpf Urine Mucus (None) /hpf 08/21/24 Range/Units 06:40 WBC (3.8-10.6) k/uL Hgb (13.0-17.5) gm/dL MCHC (31.0-37.0) g/dL Neutrophils # (Manual) (1.3-7.7) k/uL APTT (22.0-30.0) sec ABG pH (7.35-7.45) ABG pO2 (83-108) mmHg ABG HCO3 (21-25) mmol/L ABG Total CO2 (19-24) mmol/L ABG O2 Saturation (94-97) % Hemoglobin (13.0-17.5) gm/dL Potassium (3.5-5.1) mmol/L Chloride (98-107) mmol/L Carbon Dioxide (22-30) mmol/L Creatinine (0.66-1.25) mg/dL Glucose (74-99) mg/dL POC Glucose (mg/dL) 175 H (70-110) mg/dL Plasma Lactic Acid [place] (0.7-2.0) mmol/L Calcium (8.4-10.2) mg/dL Troponin I (0.000-0.034) ng/mL Total Protein (6.3-8.2) g/dL Urine Protein (Negative) Urine Glucose (UA) (Negative) Urine Ketones (Negative) Urine Blood (Negative) Urine RBC (0-5) /hpf Urine Mucus (None) /hpf Assessment and Plan Assessment: Sepsis secondary to possible right lower lobe pneumonia, presumptive aspiration. Acute DKA Metabolic acidosis New onset seizures, 2 episodes, etiology unclear, brain CT negative Acute metabolic encephalopathy secondary to all the above Acute lactic acidosis secondary to seizures Acute leukocytosis, suspect reactive Elevated troponin, likely type II demand type of myocardial ischemia Recently admitted with DKA in a patient with insulin pump. Insulin pump recently checked approximately 2 weeks prior at PCPs office, reported functioning properly.Suspected confusion with managing pump.Discharged on 08/12/2024. Diabetes mellitus type II, poorly controlled Acute on chronic renal failure, baseline creatinine 1.3-1.5, GFR 39, stage III. Chronic intermittent asthma, stable History of dilated cardiomyopathy Chronic paroxysmal A-fib Hypertension Hyperlipidemia Osteoarthritis Crohn's disease BPH, history of urinary retention History of abnormal signal seen on brain MRI, with recommendations of repeat MRI outpatient in 3 to 6 months to rule out slow-growing tumor,04/19. Plan: Continue on current medication resume ,monitoring and symptomatic treatment. DKA protocol. IV antibiotics as per ID, plan Zosyn. Seizure precautions, maintained on Keppra as per neurology-. EEG pending. Brain MRI tomorrow. Potassium replacements in progress. The impression and plan of care has been dictated as directed. : I performed a history and examination of this patient, discussed the same with the dictator. I agree with the dictator's note ,documented as a scribe. Any additional findings or plans will be noted.
[2024-08-21] MEDS: ACETAMINOPHEN IV (For NPO) 1,000 MG in EMPTY BAG 1 BAG IVPB ONE (10:53)
[2024-08-21 11:05] LABS: Glucose,Whole Blood 130 mg/dL (70-110)
[2024-08-21] MEDS ORDERED: VANCOMYCIN 1,250 MG in SODIUM CHLORIDE 0.9% 250 ML IVPB ONE (12:00)
--- NOTE | 2024-08-21 14:59 | P.PN ---
Subjective Progress Note Date: 08/21/24 Principal diagnosis: Acute diabetic ketoacidosis with 2 episodes of seizures and postictal phase/metabolic encephalopathy This is a 83-year-old male patient, diabetic, was brought to the ED via EMS after patient was found down in the bathroom. Upon arrival, the patient was com bative and argumentative and out to the hospital the patient had a tonic-clonic generalized seizure and another seizure was witnessed in the emergency department that lasted for total of 40 seconds and the patient was given Ativan a total of 4 mg IV push. At the same time, the patient was found to be in DKA. Initial blood sugar was 526. The gap was 16 with a serum bicarb of 13. Acetone was positive. Urine drug screen was negative. The viral screen was negative. UA showed plus for glucose, +2 ketones and the patient had a troponin of 0.06. Sodium was at 137, potassium was at 3.9. Bicarb level was at 13. BUN was 16 with a creatinine of 1.8. Following the seizure and due to ongoing metabolic disturbances, the patient was found to be quite lethargic and obtunded. Blood gas was done that showed a pH of 7.2 with a pCO2 of 42 and pO2 of 222. White cycles of 20 with a hemoglobin 11.6 and a platelet count of 255. CAT scan of the chest abdomen and pelvis was done in the ED that showed mild left hydroureter without obstructing stones. Consider stone in transit as the patient was found to have a dependent urinary bladder stone measuring 4 mm in size. Atelectatic changes in the right lung base was seen. No traumatic injury to the abdomen or chest. CAT scan of the brain showed no acute abnormalities. C-spine CAT scan was also negative. Pelvic x-ray showed no acute fractures and the chest x-ray showed no acute abnormalities. EKG was consistent with sinus tachycardia. The patient was given 2 L of IV fluid and the patient is currently on insulin drip at 6 units an hour. Given additional 6 units in the emergency department. Started also on Keppra. Patient was also given broad-spectrum antibiotics using a combination of cefepime and vancomycin. The patient is cur rently on BiPAP at a pressure of 12 over 5 cm of water. Mental status remains quite diminished. Patient was seen today on 08/21/2024, remains in the ICU, on 4 L nasal cannula, patient is on D5 4 5 with 20 mEq of potassium at 50 mL/h patient recovered from his DKA and no further seizures noted, intermittently on BiPAP 06/01/40% remains empirically on Zosyn, remains in the ICU, being followed by many consultants. In addition to his DKA, patient was felt to have possible right lower lobe pneumonia/aspiration pneumonia and he is empirically on Zosyn. Labs today were reviewed, patient has leukocytosis with WBC count of 20.2 hemoglobin 11.6 electrolytes are normal except for low potassium his anion gap is down to 9. BUN is 16 creatinine 1.54. Drug screen has been negative except for ketones his viral screen was negative including negative screening for influenza A influenza B Legionella and RSV as well as COVID patient remains n.p.o., he is on cefepime and on Zosyn, being followed by infectious disease, he even received vancomycin on admission. Objective - Vital Signs Vital signs: Vital Signs Temp 98.8 F 08/21/24 14:00 Pulse 84 08/21/24 14:00 Resp 12 08/21/24 14:00 BP 142/78 08/21/24 14:00 Pulse Ox 97 08/21/24 14:00 FiO2 40 08/20/24 21:05 Intake & Output 08/20/24 08/21/24 08/21/24 18:59 06:59 18:59 Intake Total 1293.842 550 550 Output Total 280 385 285 Balance 1013.842 165 265 Weight 63.503 kg 69.5 kg Intake: Intake, IV Titration 1293.842 550 550 Amount ACETAMINOPHEN IV (For NPO 100 ) 1,000 mg In Empty Bag 1 bag @ 400 mls/hr IVPB ONCE ONE Rx#:[id number] D5-0.45% NaCl with KCl 600 550 250 20Meq/l 1,000 ml @ 50 mls /hr IV .Q20H [facility] Rx#: [id number] Insulin Regular 100 unit 43.842 In Sodium Chloride 0.9% 100 ml @ 0.1 UNITS/KG/HR 6.414 mls/hr IV .[id number] [facility] Rx#:[id number] Piperacillin-Tazobactam 3 100 .375 gm In Sodium Chloride 0.9% 100 ml @ 25 mls/hr IVPB Q8HR [facility] Rx# :[id number] Potassium Chloride 10 meq 100 In Water For Injection 1 100ml.bag @ 100 mls/hr IVPB Q1HR [facility] Rx#: [id number] Sodium Chloride 0.9% 1, 400 000 ml @ 200 mls/hr IV . Q5H [facility] Rx#:[id number] Vancomycin 1,250 mg In 250 Sodium Chloride 0.9% 250 ml @ 125 mls/hr IVPB ONCE [facility] Rx#:[id number] Output: Urine 280 385 285 Other: Voiding Method Indwelling Catheter Indwelling Catheter Indwelling Catheter - Exam GENERAL EXAM: Revealed 83-year-old white male sleepy, diminished level of consci ousness, not in distress. HEAD: Normocephalic. EYES: Normal reaction of pupils, equal size. NOSE: Clear with pink turbinates. THROAT: No erythema or exudates. NECK: No masses, no JVD. CHEST: No chest wall deformity. LUNGS: Equal air entry with no crackles, wheeze, rhonchi or dullness. CVS: S1 and S2 normal with no audible murmur, regular rhythm. ABDOMEN: No hepatosplenomegaly, normal bowel sounds, no guarding or rigidity. SKIN: No rashes CENTRAL NERVOUS SYSTEM: Diminished level of consciousness, sleepy, cannot fully address. Does not follow instructions EXTREMITIES: T no clubbing edema or cyanosis. - Labs CBC & Chem 7: 08/20/24 10:10 08/21/24 04:25 Labs: Abnormal Lab Results - Last 24 Hours (Table) 08/20/24 08/20/24 08/20/24 Range/Units 14:54 16:00 16:28 Potassium (3.5-5.1) mmol/L Chloride 116 H (98-107) mmol/L Carbon Dioxide 19 L (22-30) mmol/L Creatinine 1.47 H (0.66-1.25) mg/dL Glucose 146 H (74-99) mg/dL POC Glucose (mg/dL) 249 H 167 H (70-110) mg/dL Plasma Lactic Acid [place] (0.7-2.0) mmol/L Calcium (8.4-10.2) mg/dL 08/20/24 08/20/24 08/20/24 Range/Units 16:28 19:56 19:58 Potassium (3.5-5.1) mmol/L Chloride (98-107) mmol/L Carbon Dioxide (22-30) mmol/L Creatinine (0.66-1.25) mg/dL Glucose (74-99) mg/dL POC Glucose (mg/dL) 113 H (70-110) mg/dL Plasma Lactic Acid [place] 3.7 H* 2.9 H* (0.7-2.0) mmol/L Calcium (8.4-10.2) mg/dL 08/21/24 08/21/24 08/21/24 Range/Units 04:25 06:40 11:04 Potassium 3.4 L (3.5-5.1) mmol/L Chloride 118 H (98-107) mmol/L Carbon Dioxide 16 L (22-30) mmol/L Creatinine 1.54 H (0.66-1.25) mg/dL Glucose 143 H (74-99) mg/dL POC Glucose (mg/dL) 175 H 130 H (70-110) mg/dL Plasma Lactic Acid [place] (0.7-2.0) mmol/L Calcium 8.0 L (8.4-10.2) mg/dL Assessment and Plan Assessment: Impression: Acute mental status changes, secondary to metabolic encephalopathy/DKA along with postictal state following 2 episodes of seizures DKA with anion gap metabolic acidosis/hyperglycemia New onset seizures x 2, generalized tonic-clonic. CAT scan of the brain was n egative. 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 Elevated troponin, likely type II demand type of myocardial ischemia Acute on chronic anemia secondary to above History of atrial fibrillation. Current rhythm is sinus tachycardia/a flutter History of hyperlipidemia. History of hypertension. History of gout. History of Crohn's disease. Recommendation: Continue present supportive care measures Continue to monitor electrolytes and anion gap Continue IV fluids D5 4 5 Continue insulin NovoLog and Levemir insulin Continue seizure precautions, neurology is following Continue patient n.p.o. and hold oral meds Continue antibiotics for presumptive aspiration Continue Keppra Will continue to follow could consider transferring the patient out of the ICU to a medical surgical floor as long as other consultants feel the same. Time with Patient: Less than 30
--- NOTE | 2024-08-21 15:00 | P.PN ---
Subjective Progress Note Date: 08/21/24 I am seeing the patient for the first time during this hospital visit. Please refer to Dr. Colón's note for further details. Seems the patient has new onset seizure. Patient has acute DKA. Per the nurse patient is following simple commands. Objective - Vital Signs Vital signs: Vital Signs Temp 98.8 F 08/21/24 14:00 Pulse 84 08/21/24 14:00 Resp 12 08/21/24 14:00 BP 142/78 08/21/24 14:00 Pulse Ox 97 08/21/24 14:00 FiO2 40 08/20/24 21:05 Intake & Output 08/20/24 08/21/24 08/21/24 18:59 06:59 18:59 Intake Total 1293.842 550 550 Output Total 280 385 285 Balance 1013.842 165 265 Weight 63.503 kg 69.5 kg Intake: Intake, IV Titration 1293.842 550 550 Amount ACETAMINOPHEN IV (For NPO 100 ) 1,000 mg In Empty Bag 1 bag @ 400 mls/hr IVPB ONCE ONE Rx#:[id number] D5-0.45% NaCl with KCl 600 550 250 20Meq/l 1,000 ml @ 50 mls /hr IV .Q20H [facility] Rx#: [id number] Insulin Regular 100 unit 43.842 In Sodium Chloride 0.9% 100 ml @ 0.1 UNITS/KG/HR 6.414 mls/hr IV .[id number] [facility] Rx#:[id number] Piperacillin-Tazobactam 3 100 .375 gm In Sodium Chloride 0.9% 100 ml @ 25 mls/hr IVPB Q8HR [facility] Rx# :[id number] Potassium Chloride 10 meq 100 In Water For Injection 1 100ml.bag @ 100 mls/hr IVPB Q1HR [facility] Rx#: [id number] Sodium Chloride 0.9% 1, 400 000 ml @ 200 mls/hr IV . Q5H [facility] Rx#:[id number] Vancomycin 1,250 mg In 250 Sodium Chloride 0.9% 250 ml @ 125 mls/hr IVPB ONCE [facility] Rx#:[id number] Output: Urine 280 385 285 Other: Voiding Method Indwelling Catheter Indwelling Catheter Indwelling Catheter - Exam General: Patient is lying in bed and is not in acute distress Neuro patient is mildly drowsy but is awake able to voice. He is oriented to self, place. Is following simple commands such as showing thumbs up and smiling. Language is limited but from limited language no aphasia No facial weakness. No dysarthria from limited language Motor: strength is limited in assessment individual muscle strength because of his cooperation - Labs CBC & Chem 7: 08/20/24 10:10 08/21/24 04:25 Labs: Abnormal Lab Results - Last 24 Hours (Table) 08/20/24 08/20/24 08/20/24 Range/Units 14:54 16:00 16:28 Potassium (3.5-5.1) mmol/L Chloride 116 H (98-107) mmol/L Carbon Dioxide 19 L (22-30) mmol/L Creatinine 1.47 H (0.66-1.25) mg/dL Glucose 146 H (74-99) mg/dL POC Glucose (mg/dL) 249 H 167 H (70-110) mg/dL Plasma Lactic Acid [place] (0.7-2.0) mmol/L Calcium (8.4-10.2) mg/dL 08/20/24 08/20/24 08/20/24 Range/Units 16:28 19:56 19:58 Potassium (3.5-5.1) mmol/L Chloride (98-107) mmol/L Carbon Dioxide (22-30) mmol/L Creatinine (0.66-1.25) mg/dL Glucose (74-99) mg/dL POC Glucose (mg/dL) 113 H (70-110) mg/dL Plasma Lactic Acid [place] 3.7 H* 2.9 H* (0.7-2.0) mmol/L Calcium (8.4-10.2) mg/dL 08/21/24 08/21/24 08/21/24 Range/Units 04:25 06:40 11:04 Potassium 3.4 L (3.5-5.1) mmol/L Chloride 118 H (98-107) mmol/L Carbon Dioxide 16 L (22-30) mmol/L Creatinine 1.54 H (0.66-1.25) mg/dL Glucose 143 H (74-99) mg/dL POC Glucose (mg/dL) 175 H 130 H (70-110) mg/dL Plasma Lactic Acid [place] (0.7-2.0) mmol/L Calcium 8.0 L (8.4-10.2) mg/dL Assessment and Plan Assessment: * New onset seizure, unclear cause. * Acute DKA with metabolic acidosis * Altered mental status, due to metabolic encephalopathy. Also concern for pneumonia. * History of abnormal MRI with abnormal signal right medial temporal lobe. * Diabetes, poorly controlled * Lactic acidosis due to seizure * Elevated troponin * Chronic anemia * History of atrial fibrillation * Hypertension * Hyperlipidemia * History of gout Plan: * Per Dr. Colón, to be maintained on 1000 mg IV push every 12 hours. * Urgent EEG: Preliminary is negative for seizure or discharges. * MRI of the brain with and without contrast, to follow-up on the his history of right temporal lobe lesion. * Patient has been seen by infectious disease, started on Zosyn and vancomycin. I.D. feels patient has pneumonia. * Other medical management (including DKA) as per IM and critical care. Time with Patient: Less than 30
[2024-08-21 17:29] LABS: Glucose,Whole Blood 247 mg/dL (70-110)
[2024-08-21 21:09] LABS: Glucose,Whole Blood 270 mg/dL (70-110)
--- NOTE | 2024-08-22 01:41 | EEG ---
ELECTROENCEPHALOGRAM REPORT CLINICAL HISTORY: This is an 83-year-old gentleman with new onset seizure. The EEG is obtained to evaluate for seizure and epileptiform activity. RELEVANT MEDICATION: Keppra. EEG TYPE: This is a routine 21-channel EEG with video using the 10/20 electrode placement system. DESCRIPTION: Wakefulness is obtained. During awake state, the background consists of low-to- moderate voltage of 5.5 to 6.5 hertz activity intermixed with delta activity. There is no physiological stage 2 sleep architecture. There is no focal slowing. Interictal and ictal is none. ACTIVATION PROCEDURE: Photic stimulation did not evoke a posterior driving response. There is no abnormality during the photic stimulation. Hyperventilation is not performed. CLINICAL INTERPRETATION: This is an abnormal routine EEG during awake state. The background slowing is suggestive of moderate encephalopathy. Otherwise, there is no focal slowing, epileptiform discharge, or seizure on the EEG. Lack of epileptiform discharges does not rule out underlying epilepsy. Clinical correlation is recommended. REGINA / ALIZA: [id number] / [id number]
[2024-08-22 06:11] LABS: Glucose,Whole Blood 310 mg/dL (70-110)
--- NOTE | 2024-08-22 08:11 | P.PN ---
Subjective Progress Note Date: 08/21/24 Principal diagnosis: Reason for follow-up is fever/pneumonia Patient is a 83-year-old male with a past medical history significant for diabetes mellitus hypertension hyperlipidemia atrial fibrillation pneumonia, patient was brought into the hospital after the patient was found to be down in the bathroom patient noticed to be in DKA did have a fever elevated white count prompted this consultation. On today's evaluation that is 08/21/2024, patient did have a temperature of 101.6 at 4 AM probably a has been afebrile since then, patient is breathing comfortably and is currently on 2 L nasal cannula oxygen patient denies having any significant cough no chest pain, patient denies nausea vomiting or diarrhea and no abdominal pain. Patient did have a creatinine of 1.54 no CBC was done today cultures are currently pending Objective - Vital Signs Vital signs: Vital Signs Temp 99.7 F H 08/21/24 09:00 Pulse 86 08/21/24 11:00 Resp 12 08/21/24 11:00 BP 146/72 08/21/24 11:00 Pulse Ox 99 08/21/24 11:00 FiO2 40 08/20/24 21:05 Intake & Output 08/20/24 08/21/24 08/21/24 18:59 06:59 18:59 Intake Total 1293.842 550 550 Output Total 280 385 200 Balance 1013.842 165 350 Weight 63.503 kg 69.5 kg Intake: Intake, IV Titration 1293.842 550 550 Amount ACETAMINOPHEN IV (For NPO 100 ) 1,000 mg In Empty Bag 1 bag @ 400 mls/hr IVPB ONCE ONE Rx#:[id number] D5-0.45% NaCl with KCl 600 550 250 20Meq/l 1,000 ml @ 50 mls /hr IV .Q20H [facility] Rx#: [id number] Insulin Regular 100 unit 43.842 In Sodium Chloride 0.9% 100 ml @ 0.1 UNITS/KG/HR 6.414 mls/hr IV .[id number] [facility] Rx#:[id number] Piperacillin-Tazobactam 3 100 .375 gm In Sodium Chloride 0.9% 100 ml @ 25 mls/hr IVPB Q8HR [facility] Rx# :[id number] Potassium Chloride 10 meq 100 In Water For Injection 1 100ml.bag @ 100 mls/hr IVPB Q1HR [facility] Rx#: [id number] Sodium Chloride 0.9% 1, 400 000 ml @ 200 mls/hr IV . Q5H [facility] Rx#:[id number] Vancomycin 1,250 mg In 250 Sodium Chloride 0.9% 250 ml @ 125 mls/hr IVPB ONCE [facility] Rx#:[id number] Output: Urine 280 385 200 Other: Voiding Method Indwelling Catheter Indwelling Catheter - Exam GENERAL DESCRIPTION: An elderly male lying in bed in no distress RESPIRATORY SYSTEM: Unlabored breathing , decreased breath sounds at bases HEART: S1 S2 regular rate and rhythm , ABDOMEN: Soft , no tenderness EXTREMITIES: No edema feet - Labs CBC & Chem 7: 08/20/24 10:10 08/21/24 04:25 Labs: Abnormal Lab Results - Last 24 Hours (Table) 08/20/24 08/20/24 08/20/24 Range/Units 12:30 13:22 13:22 Potassium (3.5-5.1) mmol/L Chloride (98-107) mmol/L Carbon Dioxide (22-30) mmol/L Creatinine 1.54 H (0.66-1.25) mg/dL Glucose 294 H (74-99) mg/dL POC Glucose (mg/dL) 398 H (70-110) mg/dL Plasma Lactic Acid [place] 2.6 H* (0.7-2.0) mmol/L Calcium (8.4-10.2) mg/dL 08/20/24 08/20/24 08/20/24 Range/Units 13:49 14:54 16:00 Potassium (3.5-5.1) mmol/L Chloride (98-107) mmol/L Carbon Dioxide (22-30) mmol/L Creatinine (0.66-1.25) mg/dL Glucose (74-99) mg/dL POC Glucose (mg/dL) 293 H 249 H 167 H (70-110) mg/dL Plasma Lactic Acid [place] (0.7-2.0) mmol/L Calcium (8.4-10.2) mg/dL 08/20/24 08/20/24 08/20/24 Range/Units 16:28 16:28 19:56 Potassium (3.5-5.1) mmol/L Chloride 116 H (98-107) mmol/L Carbon Dioxide 19 L (22-30) mmol/L Creatinine 1.47 H (0.66-1.25) mg/dL Glucose 146 H (74-99) mg/dL POC Glucose (mg/dL) 113 H (70-110) mg/dL Plasma Lactic Acid [place] 3.7 H* (0.7-2.0) mmol/L Calcium (8.4-10.2) mg/dL 08/20/24 08/21/24 08/21/24 Range/Units 19:58 04:25 06:40 Potassium 3.4 L (3.5-5.1) mmol/L Chloride 118 H (98-107) mmol/L Carbon Dioxide 16 L (22-30) mmol/L Creatinine 1.54 H (0.66-1.25) mg/dL Glucose 143 H (74-99) mg/dL POC Glucose (mg/dL) 175 H (70-110) mg/dL Plasma Lactic Acid [place] 2.9 H* (0.7-2.0) mmol/L Calcium 8.0 L (8.4-10.2) mg/dL 08/21/24 Range/Units 11:04 Potassium (3.5-5.1) mmol/L Chloride (98-107) mmol/L Carbon Dioxide (22-30) mmol/L Creatinine (0.66-1.25) mg/dL Glucose (74-99) mg/dL POC Glucose (mg/dL) 130 H (70-110) mg/dL Plasma Lactic Acid [place] (0.7-2.0) mmol/L Calcium (8.4-10.2) mg/dL Assessment and Plan (1) Sepsis Current Visit: Yes Status: Acute Code(s): A41.9 - SEPSIS, UNSPECIFIED ORGANISM SNOMED Code(s): 17561346 (2) Pneumonia Current Visit: Yes Status: Acute Code(s): J18.9 - PNEUMONIA, UNSPECIFIED ORGANISM SNOMED Code(s): 001117759 Plan: 1patient presented hospital with sepsis in this patient who did have a fever tachycardia elevated white count bradycardia versus source possible right lower lobe pneumonia and the question of possible aspiration etiology as the patient did have seizure activity and no other obvious focus of infection on investigation or clinical examination. 2try to obtain sputum for Gram stain and culture. 3patient currently being treated with Zosyn while waiting for the culture to finalize and monitor clinical course closely Dictation was produced using [employer] dictation software. please excuse any grammatical, word or spelling errors. Time with Patient: Less than 30
[2024-08-22] MEDS: INSULIN GLARGINE (LANTUS) 100 UNIT/ML SYR SQ SCH ×2 (09:17→21:36)
[2024-08-22 12:01] LABS: Glucose,Whole Blood 235 mg/dL (70-110)
--- NOTE | 2024-08-22 12:15 | P.PN ---
Subjective Progress Note Date: 08/22/24 This is an 83-year-old gentleman with past medical history significant for diabetes mellitus,abnormal brain MRI 03/2023 ruled out CVA but recommended follow-up to rule out slow-growing tumor, chronic atrial fibrillation/flutter hypertension, hyperlipidemia, osteoarthritis, Crohn's disease, recently hospita lized with DKA suspected confusion with managing pump -as pump was recently checked 2 weeks prior to that admission at PCPs office, reported functioning properly. Discharged on 08/12 24, insistent on returning back on his insulin pump. patient was discharged on his insulin pump with recommendations to follow- up closely with Dr. Ambrosio in office as well as endocrinology, returned to hospital with DKA, new onset seizures, sepsis with possible aspiration pneumonia-chest CT reporting mild right lower lobe infiltrate, pneumonia versus atelectasis. Tmax 101.6 .maintained on Zosyn as per infectious disease. Blood sugars controlled. Bicarb 16, anion gap 9, BUN 16, creatinine 1.54. BUN 3.4. Staff reports no further seizure activity. EEG pending. 08/22/2024 transferred out of ICU, much more alert. Pleasantly confused, does not recall the entire event up to this morning. Continues on Zosyn ,afebrile, Tmax 99.7.Preliminary blood culture reporting no growth after 24 hours. Nasal s wab reporting staph coccus aureus, not MRSA. Maintained on D5 and a half. Transition to subcu insulin. Elevated this morning, Lantus increased. Labs pending. Denies chest pain, palpitations or shortness of breath. Maintaining O2 sats in the high 90s to 100s on 2 L nasal cannula. EEG reported abnormal, background slowing suggestive of moderate encephalopathy otherwise no focal slowing, epileptiform discharge or seizure.maintained on Keppra.no further seizure activity reported. MRI pending. Objective - Vital Signs Vital signs: Vital Signs Temp 98.1 F 08/22/24 07:50 Pulse 73 08/22/24 07:50 Resp 16 08/22/24 07:50 BP 158/55 08/22/24 07:50 Pulse Ox 99 08/22/24 07:50 FiO2 40 08/20/24 21:05 Intake & Output 08/21/24 08/22/24 08/22/24 18:59 06:59 18:59 Intake Total 800 0 Output Total 345 300 Balance 455 0 -300 Intake: Intake, IV Titration 800 Amount ACETAMINOPHEN IV (For NPO 100 ) 1,000 mg In Empty Bag 1 bag @ 400 mls/hr IVPB ONCE ONE Rx#:[id number] D5-0.45% NaCl with KCl 500 20Meq/l 1,000 ml @ 50 mls /hr IV .Q20H [facility] Rx#: [id number] Piperacillin-Tazobactam 3 100 .375 gm In Sodium Chloride 0.9% 100 ml @ 25 mls/hr IVPB Q8HR [facility] Rx# :[id number] Potassium Chloride 10 meq 100 In Water For Injection 1 100ml.bag @ 100 mls/hr IVPB Q1HR [facility] Rx#: [id number] Oral 0 Output: Urine 345 300 Uretheral (Resendiz) 300 Other: Voiding Method Indwelling Catheter Indwelling Catheter Indwelling Catheter - Exam VITAL SIGNS: Reviewed GENERAL: Pleasantly confused ,alert and oriented to person, disoriented to place and year, sitting up in bed, no acute distress. HEENT: Atraumatic, normocephalic ,conjunctivae normal. eyes normal. NECK: Supple, no JVD. CARDIOVASCULAR: S1, S2 regular. No murmur RESPIRATION: Unlabored, equal air entry, essentially clear to auscultation with bilateral bases diminished. ABDOMEN: Soft, nontender, nondistended. No guarding. +BS EXTREMITIES: Bilateral arms ecchymotic with left arm edema, positive radial pulses: Bilateral lower extremities no edema. no swelling NERVOUS SYSTEM: Cranial nerves II through XII grossly intact Skin: Warm and dry, no rash - Labs CBC & Chem 7: 08/22/24 12:40 08/21/24 04:25 Labs: Abnormal Lab Results - Last 24 Hours (Table) 08/21/24 08/21/24 08/22/24 Range/Units 17:28 21:07 06:10 POC Glucose (mg/dL) 247 H 270 H 310 H (70-110) mg/dL Microbiology - Last 24 Hours (Table) 08/20/24 20:31 Nasal Screen MRSA/MSSA - Final Nasal Swab Staphylococcus aureus,Not MRSA 08/20/24 11:19 Blood Culture - Preliminary Blood Assessment and Plan Assessment: Sepsis secondary to possible right lower lobe pneumonia, presumptive aspiration. Acute DKA Metabolic acidosis New onset seizures, 2 episodes, etiology unclear, brain CT negative Acute metabolic encephalopathy secondary to all the above. EEG reported moderate encephalopathy. Acute lactic acidosis secondary to seizures Acute leukocytosis, suspect reactive Elevated troponin, likely type II demand type of myocardial ischemia Recently admitted with DKA in a patient with insulin pump. Insulin pump recently checked approximately 2 weeks prior at PCPs office, reported functioning properly.Suspected confusion with managing pump.Discharged on 08/12/2024. Diabetes mellitus type II, poorly controlled Acute on chronic renal failure, baseline creatinine 1.3-1.5, GFR 39, stage III. Chronic intermittent asthma, stable History of dilated cardiomyopathy Chronic paroxysmal A-fib Hypertension Hyperlipidemia Osteoarthritis Crohn's disease BPH, history of urinary retention History of abnormal signal seen on brain MRI, with recommendations of repeat MRI outpatient in 3 to 6 months to rule out slow-growing tumor,04/19. Plan: Continue on current medication resume ,monitoring and symptomatic treatment. Brain MRI pending. labs pending. Maintain seizure precautions, continues on Keppra as per neurology. DKA protocol. Patient may have sips of water sitting upright , speech therapy consulted for swallow eval .Dayami as per ID. PT/OT. At dc , recommending SAIRA, no insulin pump; instead will need help with insulin injections. Patient nor his will be able to do his injections. Will discuss with Family. Case management to assist with DC arrangements. The impression and plan of care has been dictated as directed. : I performed a history and examination of this patient, discussed the same with the dictator. I agree with the dictator's note ,documented as a scribe. Any additional findings or plans will be noted.
[2024-08-22 13:04] LABS: HCT 30.1 % (39.0-53.0); Hypochromasia Marked; MCHC 30.1 g/dL (31.0-37.0); MCV 86.4 fL (80.0-100.0); Mean Platelet Volume 8.6; Platelet Count 153 k/uL (150-450); RBC 3.49 m/uL (4.30-5.90); RDW 14.8 % (11.5-15.5); WBC 8.8 k/uL (3.8-10.6)
[2024-08-22 13:08] LABS: HGB 9.1 gm/dL (13.0-17.5)
--- NOTE | 2024-08-22 13:12 | P.PN ---
Subjective Progress Note Date: 08/22/24 This is a 83-year-old male patient, diabetic, was brought to the ED via EMS after patient was found down in the bathroom. Upon arrival, the patient was combative and argumentative and out to the hospital the patient had a tonic- clonic generalized seizure and another seizure was witnessed in the emergency department that lasted for total of 40 seconds and the patient was given Ativan a total of 4 mg IV push. At the same time, the patient was found to be in DKA. Initial blood sugar was 526. The gap was 16 with a serum bicarb of 13. Acetone was positive. Urine drug screen was negative. The viral screen was negative. UA showed plus for glucose, +2 ketones and the patient had a troponin of 0.06. Sodium was at 137, potassium was at 3.9. Bicarb level was at 13. BUN was 16 with a creatinine of 1.8. Following the seizure and due to ongoing metabolic disturbances, the patient was found to be quite lethargic and obtunded. Blood gas was done that showed a pH of 7.2 with a pCO2 of 42 and pO2 of 222. White cycles of 20 with a hemoglobin 11.6 and a platelet count of 255. CAT scan of the chest abdomen and pelvis was done in the ED that showed mild left hydroureter without obstructing stones. Consider stone in transit as the patient was found to have a dependent urinary bladder stone measuring 4 mm in size. Atelectatic changes in the right lung base was seen. No traumatic injury to the abdomen or chest. CAT scan of the brain showed no acute abnormalities. C-spine CAT scan was also negative. Pelvic x-ray showed no acute fractures and the chest x-ray showed no acute abnormalities. EKG was consistent with sinus tachycardia. The patient was given 2 L of IV fluid and the patient is currently on insulin drip at 6 units an hour. Given additional 6 units in the emergency department. Started also on Keppra. Patient was also given broad-spectrum antibiotics using a combination of cefepime and vancomycin. The patient is currently on BiPAP at a pressure of 12 over 5 cm of water. Mental status remains quite diminished. Patient was seen today on 08/21/2024, remains in the ICU, on 4 L nasal cannula, patient is on D5 4 5 with 20 mEq of potassium at 50 mL/h patient recovered from his DKA and no further seizures noted, intermittently on BiPAP 12//40% remains empirically on Zosyn, remains in the ICU, being followed by many consultants. In addition to his DKA, patient was felt to have possible right lower lobe pneumonia/aspiration pneumonia and he is empirically on Zosyn. Labs today were reviewed, patient has leukocytosis with WBC count of 20.2 hemoglobin 11.6 elec trolytes are normal except for low potassium his anion gap is down to 9. BUN is 16 creatinine 1.54. Drug screen has been negative except for ketones his viral screen was negative including negative screening for influenza A influenza B Legionella and RSV as well as COVID patient remains n.p.o., he is on cefepime and on Zosyn, being followed by infectious disease, he even received vancomycin on admission. The patient is seen today August 22, 2024 in follow-up on the regular medical floor. He was transferred out of the intensive care unit yesterday. He is currently resting in bed. He is more awake and alert. His is at the bedside. The high 90s on 2 L/min per nasal cannula. He has been afebrile. Hemodynamically stable. EEG revealed background slowing suggestive of moderate encephalopathy. No focal slowing, epileptiform discharges or seizures. Blood cultures revealed no growth. Glucose 235. He remains on Lantus and Humalog. Remains on Zosyn. Completed cefepime. Receiving D5 and half-normal saline with 20 of KCl at 50 mL/h. Today's labs are pending. Objective - Vital Signs Vital signs: Vital Signs Temp 98.1 F 08/22/24 07:50 Pulse 73 08/22/24 07:50 Resp 16 08/22/24 07:50 BP 158/55 08/22/24 07:50 Pulse Ox 99 08/22/24 07:50 FiO2 40 08/20/24 21:05 Intake & Output 08/21/24 08/22/24 08/22/24 18:59 06:59 18:59 Intake Total 800 0 Output Total 345 300 Balance 455 0 -300 Intake: Intake, IV Titration 800 Amount ACETAMINOPHEN IV (For NPO 100 ) 1,000 mg In Empty Bag 1 bag @ 400 mls/hr IVPB ONCE ONE Rx#:[id number] D5-0.45% NaCl with KCl 500 20Meq/l 1,000 ml @ 50 mls /hr IV .Q20H [facility] Rx#: [id number] Piperacillin-Tazobactam 3 100 .375 gm In Sodium Chloride 0.9% 100 ml @ 25 mls/hr IVPB Q8HR [facility] Rx# :[id number] Potassium Chloride 10 meq 100 In Water For Injection 1 100ml.bag @ 100 mls/hr IVPB Q1HR [facility] Rx#: [id number] Oral 0 Output: Urine 345 300 Uretheral (Resendiz) 300 Other: Voiding Method Indwelling Catheter Indwelling Catheter Indwelling Catheter - Exam GENERAL EXAM: Revealed an alert, pleasant 83-year-old male, resting in bed, on 2 L/min per nasal cannula, not in any distress. HEAD: Normocephalic. EYES: Normal reaction of pupils, equal size. NOSE: Clear with pink turbinates. THROAT: No erythema or exudates. NECK: No masses, no JVD. CHEST: No chest wall deformity. LUNGS: Equal air entry with no crackles, wheeze, rhonchi or dullness. CVS: S1 and S2 normal with no audible murmur, regular rhythm. ABDOMEN: No hepatosplenomegaly, normal bowel sounds, no guarding or rigidity. SKIN: No rashes CENTRAL NERVOUS SYSTEM: No focal deficits, muscle tone normal. EXTREMITIES: No peripheral edema, peripheral pulses intact, no clubbing edema or cyanosis. - Labs CBC & Chem 7: 08/20/24 10:10 08/21/24 04:25 Labs: Abnormal Lab Results - Last 24 Hours (Table) 08/21/24 08/21/24 08/22/24 Range/Units 17:28 21:07 06:10 POC Glucose (mg/dL) 247 H 270 H 310 H (70-110) mg/dL 08/22/24 Range/Units 11:59 POC Glucose (mg/dL) 235 H (70-110) mg/dL Microbiology - Last 24 Hours (Table) 08/20/24 20:31 Nasal Screen MRSA/MSSA - Final Nasal Swab Staphylococcus aureus,Not MRSA 08/20/24 11:19 Blood Culture - Preliminary Blood Assessment and Plan Assessment: Acute mental status changes, secondary to metabolic encephalopathy/DKA along with postictal state following 2 episodes of seizures, improving DKA with anion gap metabolic acidosis/hyperglycemia New onset seizures x 2, generalized tonic-clonic. CAT scan of the brain was negative Diabetes mellitus, poorly controlled on outpatient basis, recent hospitalization for the same Acute leukocytosis, likely reactive Acute lactic acidosis secondary to seizures Acute on chronic kidney disease, possibly secondary to diabetic nephropathy. Elevated troponin, likely type II demand type of myocardial ischemia Acute on chronic anemia secondary to above History of atrial fibrillation. Current rhythm is sinus tachycardia/a flutter History of hyperlipidemia History of hypertension History of gout History of Crohn's disease Plan: The patient was seen and evaluated More awake and alert today Medications reviewed EEG results reviewed Labs are pending today Stable on 2 L nasal cannula Titrate down/off the FiO2 as tolerated Remains on Lantus and Humalog D5W and half-normal saline with 20 of K CL at 50 mL/h Plan is to return home with his at discharge This patient was seen independently by the pulmonary nurse practitioner addressing pulmonary issues I have personally seen and examined the patient, performed the documentation and the assessment and plan as written. Number of minutes spent on the visit: 24 Dictation was produced using [employer] dictation software. Please excuse any grammatical, word or spelling errors.
--- NOTE | 2024-08-22 14:32 | P.PN ---
Subjective Progress Note Date: 08/22/24 I am following-up with patient and he is accompanied by his children and they feels he is more awake and is doing better. The nurse, agrees the patient looks more awake and doing better. Objective - Vital Signs Vital signs: Vital Signs Temp 98.1 F 08/22/24 07:50 Pulse 73 08/22/24 07:50 Resp 16 08/22/24 07:50 BP 158/55 08/22/24 07:50 Pulse Ox 99 08/22/24 07:50 FiO2 40 08/20/24 21:05 Intake & Output 08/21/24 08/22/24 08/22/24 18:59 06:59 18:59 Intake Total 800 0 Output Total 345 300 Balance 455 0 -300 Intake: Intake, IV Titration 800 Amount ACETAMINOPHEN IV (For NPO 100 ) 1,000 mg In Empty Bag 1 bag @ 400 mls/hr IVPB ONCE ONE Rx#:[id number] D5-0.45% NaCl with KCl 500 20Meq/l 1,000 ml @ 50 mls /hr IV .Q20H [facility] Rx#: [id number] Piperacillin-Tazobactam 3 100 .375 gm In Sodium Chloride 0.9% 100 ml @ 25 mls/hr IVPB Q8HR [facility] Rx# :[id number] Potassium Chloride 10 meq 100 In Water For Injection 1 100ml.bag @ 100 mls/hr IVPB Q1HR [facility] Rx#: [id number] Oral 0 Output: Urine 345 300 Uretheral (Resendiz) 300 Other: Voiding Method Indwelling Catheter Indwelling Catheter Indwelling Catheter - Exam General: Patient is lying in bed and is not in acute distress Neuro: Is much awake, alert, oriented to self, place. Is able to name objects correctly (pen and glasses). Is following simple commands such as showing thumbs up and smiling. No aphasia No facial weakness. No dysarthria from limited language Motor: strength is lifting arms above gravity equally and wiggling toes symmetrically. - Labs CBC & Chem 7: 08/22/24 12:40 08/21/24 04:25 Labs: Abnormal Lab Results - Last 24 Hours (Table) 08/21/24 08/21/24 08/22/24 Range/Units 17:28 21:07 06:10 RBC (4.30-5.90) m/uL Hgb (13.0-17.5) gm/dL Hct (39.0-53.0) % MCHC (31.0-37.0) g/dL POC Glucose (mg/dL) 247 H 270 H 310 H (70-110) mg/dL 08/22/24 08/22/24 Range/Units 11:59 12:40 RBC 3.49 L (4.30-5.90) m/uL Hgb 9.1 L D (13.0-17.5) gm/dL Hct 30.1 L (39.0-53.0) % MCHC 30.1 L (31.0-37.0) g/dL POC Glucose (mg/dL) 235 H (70-110) mg/dL Microbiology - Last 24 Hours (Table) 08/20/24 20:31 Nasal Screen MRSA/MSSA - Final Nasal Swab Staphylococcus aureus,Not MRSA 08/20/24 11:19 Blood Culture - Preliminary Blood Assessment and Plan Assessment: * New onset seizure, unclear cause. * Acute DKA with metabolic acidosis * Altered mental status, due to metabolic encephalopathy. Also concern for pneumonia. * History of abnormal MRI with abnormal signal right medial temporal lobe. * Diabetes, poorly controlled * Lactic acidosis due to seizure * Elevated troponin * Chronic anemia * History of atrial fibrillation * Hypertension * Hyperlipidemia * History of gout Plan: * Per Dr. Colón, to be maintained on 1000 mg IV push every 12 hours. I changed to PO. * EEG: Is abnormal. The background slowing is suggestive of moderate encephalopathy. Otherwise, there is no focal slowing, epileptiform discharge or seizure on the EEG. * MRI of the brain with and without contrast, to follow-up on the his history of right temporal lobe lesion per Dr. Colón. * Patient has been seen by infectious disease, started on Zosyn and vancomycin. I.D. feels patient has pneumonia. * Other medical management (including DKA) as per IM. * Per [place] DMV because of seizure, avoid driving for 6 months until seizure free, avoid heights, swim unassisted or using heavy machinery. * Upon discharge, recommend the patient to follow-up with neurologist as outpatient within 2-3 weeks. If MRI Brain is negative for acute process, then patient is clear from neurological perspective. The plan is discussed with patient and his children who are bedside. Time with Patient: Less than 30
[2024-08-22 15:22] VITALS: BMI 23.3
[2024-08-22 15:48] LABS: African American GFR (CKD) 52 (>60 ml/min/1.73 sqM); Anion Gap 10 mmol/L; Blood Urea Nitrogen 19 mg/dL (9-20); Carbon Dioxide 17 mmol/L (22-30); Chloride 115 mmol/L (98-107); Glucose 120 mg/dL (74-99); Magnesium 2.1 mg/dL (1.6-2.3); Non-African American GFR(CKD) 45 (>60 ml/min/1.73 sqM); Potassium 3.6 mmol/L (3.5-5.1); Sodium 142 mmol/L (137-145)
--- NOTE | 2024-08-22 16:50 | P.PN ---
Subjective Progress Note Date: 08/22/24 Principal diagnosis: Reason for follow-up is fever/pneumonia Patient is a 83-year-old male with a past medical history significant for diabetes mellitus hypertension hyperlipidemia atrial fibrillation pneumonia, patient was brought into the hospital after the patient was found to be down in the bathroom patient noticed to be in DKA did have a fever elevated white count prompted this consultation. On today's evaluation that is 08/22/2024, Patient is afebrile this morning patient denies having any chest pain shortness of breath or cough, the patient is currently on 2 L current oxygen, patient denies any abdominal pain no diarrhea no nausea no vomiting, mention feeling better. Patient white count normalized to 8.8 creatinine is 1.42 blood culture negative nasal swab MSSA not MRSA Objective - Vital Signs Vital signs: Vital Signs Temp 98.1 F 08/22/24 14:00 Pulse 76 08/22/24 14:00 Resp 17 08/22/24 14:00 BP 168/66 08/22/24 14:00 Pulse Ox 99 08/22/24 14:00 FiO2 40 08/20/24 21:05 Intake & Output 08/21/24 08/22/24 08/22/24 18:59 06:59 18:59 Intake Total 800 0 Output Total 345 300 Balance 455 0 -300 Weight 69.5 kg Intake: Intake, IV Titration 800 Amount ACETAMINOPHEN IV (For NPO 100 ) 1,000 mg In Empty Bag 1 bag @ 400 mls/hr IVPB ONCE ONE Rx#:[id number] D5-0.45% NaCl with KCl 500 20Meq/l 1,000 ml @ 50 mls /hr IV .Q20H KEV Rx#: [id number] Piperacillin-Tazobactam 3 100 .375 gm In Sodium Chloride 0.9% 100 ml @ 25 mls/hr IVPB Q8HR KEV Rx# :[id number] Potassium Chloride 10 meq 100 In Water For Injection 1 100ml.bag @ 100 mls/hr IVPB Q1HR KEV Rx#: [id number] Oral 0 Output: Urine 345 300 Uretheral (Resendiz) 300 Other: Voiding Method Indwelling Catheter Indwelling Catheter Indwelling Catheter - Exam GENERAL DESCRIPTION: An elderly male lying in bed in no distress RESPIRATORY SYSTEM: Unlabored breathing , decreased breath sounds at bases HEART: S1 S2 regular rate and rhythm , ABDOMEN: Soft , no tenderness EXTREMITIES: No edema feet - Labs CBC & Chem 7: 08/22/24 12:40 08/22/24 14:54 Labs: Abnormal Lab Results - Last 24 Hours (Table) 08/21/24 08/21/24 08/22/24 Range/Units 17:28 21:07 06:10 RBC (4.30-5.90) m/uL Hgb (13.0-17.5) gm/dL Hct (39.0-53.0) % MCHC (31.0-37.0) g/dL Chloride (98-107) mmol/L Carbon Dioxide (22-30) mmol/L Creatinine (0.66-1.25) mg/dL Glucose (74-99) mg/dL POC Glucose (mg/dL) 247 H 270 H 310 H (70-110) mg/dL Calcium (8.4-10.2) mg/dL 08/22/24 08/22/24 08/22/24 Range/Units 11:59 12:40 14:54 RBC 3.49 L (4.30-5.90) m/uL Hgb 9.1 L D (13.0-17.5) gm/dL Hct 30.1 L (39.0-53.0) % MCHC 30.1 L (31.0-37.0) g/dL Chloride 115 H (98-107) mmol/L Carbon Dioxide 17 L (22-30) mmol/L Creatinine 1.42 H (0.66-1.25) mg/dL Glucose 120 H (74-99) mg/dL POC Glucose (mg/dL) 235 H (70-110) mg/dL Calcium 8.0 L (8.4-10.2) mg/dL Microbiology - Last 24 Hours (Table) 08/20/24 20:31 Nasal Screen MRSA/MSSA - Final Nasal Swab Staphylococcus aureus,Not MRSA 08/20/24 11:19 Blood Culture - Preliminary Blood Assessment and Plan (1) Sepsis Current Visit: Yes Status: Acute Code(s): A41.9 - SEPSIS, UNSPECIFIED ORGANISM SNOMED Code(s): 45995140 (2) Pneumonia Current Visit: Yes Status: Acute Code(s): J18.9 - PNEUMONIA, UNSPECIFIED ORGANISM SNOMED Code(s): 074121940 Plan: 1patient presented hospital with sepsis in this patient who did have a fever tachycardia elevated white count bradycardia versus source possible right lower lobe pneumonia and the question of possible aspiration etiology as the patient did have seizure activity and no other obvious focus of infection on investigation or clinical examination. 2blood culture have been negative nasal screen for MRSA negative patient white count has normalized 3patient currently being treated with Zosyn hopefully will transition to oral antibiotics on discharge Dictation was produced using [email or web address] dictation software. please excuse any grammatical, word or spelling errors. Time with Patient: Less than 30
--- NOTE | 2024-08-22 16:51 | XR ---
EXAMINATION TYPE: XR knee limited RT DATE OF EXAM: 08/22/2024 4:43 PM INDICATION: Patient age:Male; 83 years old; Reason for study: fall; PHH. pain COMPARISON: Right knee radiograph 04/29/2011 TECHNIQUE: The Right knee(s) was examined in frontal and lateral projections. FINDINGS: No evidence of any acute osseous pathology, soft tissue swelling, or joint effusion is no toñito. Supra and infrapatellar spurring redemonstrated. Vascular sclerosis. No radiopaque foreign body. IMPRESSION: No acute osseous pathology. [facility], , 08/22/2024 4:48 PM
[2024-08-22 16:58] LABS: Glucose,Whole Blood 104 mg/dL (70-110)
[2024-08-22 21:14] LABS: Glucose,Whole Blood 185 mg/dL (70-110)
[2024-08-22] MEDS: levETIRAcetam 500 MG TAB PO SCH (21:35)
[2024-08-23 06:03] LABS: Glucose,Whole Blood 51 mg/dL (70-110)
[2024-08-23 06:46] LABS: Glucose,Whole Blood 99 mg/dL (70-110)
[2024-08-23] MEDS ORDERED: INSULIN GLARGINE (LANTUS) 100 UNIT/ML SYR SQ SCH (07:00)
[2024-08-23 11:55] LABS: Glucose,Whole Blood 331 mg/dL (70-110)
--- NOTE | 2024-08-23 13:43 | P.PN ---
Subjective Progress Note Date: 08/23/24 This is an 83-year-old gentleman with past medical history significant for diabetes mellitus,abnormal brain MRI 03/2023 ruled out CVA but recommended follow-up to rule out slow-growing tumor, chronic atrial fibrillation/flutter hypertension, hyperlipidemia, osteoarthritis, Crohn's disease, recently hospita lized with DKA suspected confusion with managing pump -as pump was recently checked 2 weeks prior to that admission at PCPs office, reported functioning properly. Discharged on 08/12 24, insistent on returning back on his insulin pump. patient was discharged on his insulin pump with recommendations to follow- up closely with Dr. Ambrosio in office as well as endocrinology, returned to hospital with DKA, new onset seizures, sepsis with possible aspiration pneumonia-chest CT reporting mild right lower lobe infiltrate, pneumonia versus atelectasis. Tmax 101.6 .maintained on Zosyn as per infectious disease. Blood sugars controlled. Bicarb 16, anion gap 9, BUN 16, creatinine 1.54. BUN 3.4. Staff reports no further seizure activity. EEG pending. 08/22/2024 transferred out of ICU, much more alert. Pleasantly confused, does not recall the entire event up to this morning. Continues on Zosyn ,afebrile, Tmax 99.7.Preliminary blood culture reporting no growth after 24 hours. Nasal s wab reporting staph coccus aureus, not MRSA. Maintained on D5 and a half. Transition to subcu insulin. Elevated this morning, Lantus increased. Labs pending. Denies chest pain, palpitations or shortness of breath. Maintaining O2 sats in the high 90s to 100s on 2 L nasal cannula. EEG reported abnormal, background slowing suggestive of moderate encephalopathy otherwise no focal slowing, epileptiform discharge or seizure.maintained on Keppra.no further seizure activity reported. MRI pending. 08/23/2024 significant decline in patient's balance. yesterday patient attempted to get out of bed without assistance, fell landing on his right knee. Imaging completed reported no fracture. Throughout the night, staff reports he was up multiple times requiring 2-3 person assist, unsteady on his feet. MRI pending. Hypoglycemic earlier this morning, currently 99. Consuming 75 to 100% of meals. Maintained on Zosyn .afebrile. Oxygen weaned off, maintaining O2 sats in the high 90s on room air. Objective - Vital Signs Vital signs: Vital Signs Temp 98.0 F 08/23/24 07:30 Pulse 66 08/23/24 07:30 Resp 17 08/23/24 07:30 BP 147/76 08/23/24 07:30 Pulse Ox 99 08/23/24 07:30 FiO2 40 08/20/24 21:05 Intake & Output 08/22/24 08/23/24 08/23/24 18:59 06:59 18:59 Intake Total 840 Output Total 300 Balance 540 Weight 69.5 kg Intake: Intake, IV Titration 600 Amount D5-0.45% NaCl with KCl 500 20Meq/l 1,000 ml @ 50 mls /hr IV .Q20H KEV Rx#: [id number] Piperacillin-Tazobactam 3 100 .375 gm In Sodium Chloride 0.9% 100 ml @ 25 mls/hr IVPB Q8HR KEV Rx# :[id number] Oral 240 Output: Urine 300 Uretheral (Resendiz) 300 Other: Voiding Method Indwelling Catheter Toilet # Voids 1 3 2 # Bowel Movements 1 1 2 - Exam VITAL SIGNS: Reviewed GENERAL: Sitting up in chair, alert and oriented 2-3, sitting up in bed, no acute distress. HEENT: Atraumatic, normocephalic ,conjunctivae normal. eyes normal. NECK: Supple, no JVD. CARDIOVASCULAR: S1, S2 regular. No murmur RESPIRATION: Unlabored, equal air entry, essentially clear to auscultation with bilateral bases diminished. ABDOMEN: Soft, nontender, nondistended. No guarding. +BS EXTREMITIES: Bilateral arms ecchymotic with left arm edema decreasing, positive radial pulses: Bilateral lower extremities no edema. no swelling NERVOUS SYSTEM: Cranial nerves II through XII grossly intact Skin: Warm and dry, no rash - Labs CBC & Chem 7: 08/22/24 12:40 08/22/24 14:54 Labs: Abnormal Lab Results - Last 24 Hours (Table) 08/22/24 08/22/24 08/23/24 Range/Units 14:54 21:12 06:02 Chloride 115 H (98-107) mmol/L Carbon Dioxide 17 L (22-30) mmol/L Creatinine 1.42 H (0.66-1.25) mg/dL Glucose 120 H (74-99) mg/dL POC Glucose (mg/dL) 185 H 51 L (70-110) mg/dL Calcium 8.0 L (8.4-10.2) mg/dL 08/23/24 Range/Units 11:53 Chloride (98-107) mmol/L Carbon Dioxide (22-30) mmol/L Creatinine (0.66-1.25) mg/dL Glucose (74-99) mg/dL POC Glucose (mg/dL) 331 H (70-110) mg/dL Calcium (8.4-10.2) mg/dL Microbiology - Last 24 Hours (Table) 08/20/24 11:19 Blood Culture - Preliminary Blood Assessment and Plan Assessment: Sepsis secondary to possible right lower lobe pneumonia, presumptive aspiration. Multiple recent falls Acute DKA, gap closed Metabolic acidosis New onset seizures, 2 episodes, etiology unclear, brain CT negative Acute metabolic encephalopathy secondary to all the above. EEG reported moderate encephalopathy. Acute lactic acidosis secondary to seizures, resolved Acute leukocytosis, suspect reactive Elevated troponin, likely type II [place] demand ischemia, secondary to acute respiratory failure, infection Recently admitted with DKA in a patient with insulin pump. Insulin pump recently checked approximately 2 weeks prior at PCPs office, reported functioning properly.Suspected confusion with managing pump.Discharged on 08/12/2024. Diabetes mellitus type II, poorly controlled Acute on chronic renal failure, baseline creatinine 1.3-1.5, GFR 39, stage III. Chronic intermittent asthma, stable History of dilated cardiomyopathy Chronic paroxysmal A-fib Hypertension Hyperlipidemia Osteoarthritis Crohn's disease BPH, history of urinary retention History of abnormal signal seen on brain MRI, with recommendations of repeat MRI outpatient in 3 to 6 months to rule out slow-growing tumor,04/19. Plan: Continue on current medication resume ,monitoring and symptomatic treatment. Brain MRI pending. Continue seizure precautions, Keppra as per neurology. Zosyn as per ID. PT/OT. Discharge planning in progress pending MRI results,. Patient has had multiple falls recently, recommending subacute rehab at discharge. Discussed with , daughter and son. PT/OT. Case management assisting with discharge. Prognosis guarded given multiple complex medical issues. The impression and plan of care has been dictated as directed. : I performed a history and examination of this patient, discussed the same with the dictator. I agree with the dictator's note ,documented as a scribe. Any additional findings or plans will be noted.
[2024-08-23] MEDS ORDERED: TAMSULOSIN 0.4 MG CAP.ER.24H PO SCH (13:45)
--- NOTE | 2024-08-23 14:35 | P.PN ---
Subjective Progress Note Date: 08/23/24 I am following-up with patient and he continues to be doing well. Objective - Vital Signs Vital signs: Vital Signs Temp 98.0 F 08/23/24 07:30 Pulse 66 08/23/24 07:30 Resp 17 08/23/24 07:30 BP 147/76 08/23/24 07:30 Pulse Ox 99 08/23/24 07:30 FiO2 40 08/20/24 21:05 Intake & Output 08/22/24 08/23/24 08/23/24 18:59 06:59 18:59 Intake Total 840 Output Total 300 Balance 540 Weight 69.5 kg Intake: Intake, IV Titration 600 Amount D5-0.45% NaCl with KCl 500 20Meq/l 1,000 ml @ 50 mls /hr IV .Q20H KEV Rx#: [id number] Piperacillin-Tazobactam 3 100 .375 gm In Sodium Chloride 0.9% 100 ml @ 25 mls/hr IVPB Q8HR KEV Rx# :[id number] Oral 240 Output: Urine 300 Uretheral (Resendiz) 300 Other: Voiding Method Indwelling Catheter Toilet # Voids 1 3 2 # Bowel Movements 1 1 2 - Exam General: Patient is sitting in a recliner chair and is not in acute distress Neuro: Is awake, alert, oriented to self, place. Is able to name objects corre ctly (pen and glasses). Is following simple commands such as showing thumbs up and smiling. No aphasia No facial weakness. No dysarthria from limited language Motor: strength is lifting arms above gravity equally and wiggling toes symmetrically. - Labs CBC & Chem 7: 08/22/24 12:40 08/22/24 14:54 Labs: Abnormal Lab Results - Last 24 Hours (Table) 08/22/24 08/22/24 08/23/24 Range/Units 14:54 21:12 06:02 Chloride 115 H (98-107) mmol/L Carbon Dioxide 17 L (22-30) mmol/L Creatinine 1.42 H (0.66-1.25) mg/dL Glucose 120 H (74-99) mg/dL POC Glucose (mg/dL) 185 H 51 L (70-110) mg/dL Calcium 8.0 L (8.4-10.2) mg/dL 08/23/24 Range/Units 11:53 Chloride (98-107) mmol/L Carbon Dioxide (22-30) mmol/L Creatinine (0.66-1.25) mg/dL Glucose (74-99) mg/dL POC Glucose (mg/dL) 331 H (70-110) mg/dL Calcium (8.4-10.2) mg/dL Microbiology - Last 24 Hours (Table) 08/20/24 11:19 Blood Culture - Preliminary Blood Assessment and Plan Assessment: * New onset seizure, unclear cause. * Acute DKA with metabolic acidosis * Altered mental status, due to metabolic encephalopathy. Also concern for pneumonia. * History of abnormal MRI with abnormal signal right medial temporal lobe. * Diabetes, poorly controlled * Lactic acidosis due to seizure * Elevated troponin * Chronic anemia * History of atrial fibrillation * Hypertension * Hyperlipidemia * History of gout Plan: * Per Dr. Colón, to be maintained on 1000 mg IV push every 12 hours. I changed to PO. * EEG: Is abnormal. The background slowing is suggestive of moderate encephalopathy. Otherwise, there is no focal slowing, epileptiform discharge or seizure on the EEG. * MRI of the brain with and without contrast, to follow-up on the his history of right temporal lobe lesion per Dr. Colón. * Patient has been seen by infectious disease, started on Zosyn and vancomycin. I.D. feels patient has pneumonia. * Other medical management (including DKA) as per IM. * Per [place] DMV because of seizure, avoid driving for 6 months until seizure free, avoid heights, swim unassisted or using heavy machinery. * Upon discharge, recommend the patient to follow-up with neurologist as outpatient within 2-3 weeks. If MRI Brain is negative for acute process, then patient is clear from neurological perspective. Time with Patient: Less than 30
[2024-08-23] MEDS: TAMSULOSIN 0.4 MG CAP.ER.24H PO SCH (14:37)
[2024-08-23] MEDS: carvediloL 3.125 MG TAB PO SCH (14:37)
[2024-08-23] MEDS: MEMANTINE 10 MG TAB PO SCH (14:37)
[2024-08-23] MEDS: CHOLECALCIFEROL 25 MCG (1000 IU) TABLET PO SCH (14:38)
[2024-08-23] MEDS: LOPERAMIDE 2 MG CAP PO SCH (14:38)
[2024-08-23] MEDS: APIXABAN 5 MG TAB PO SCH (14:38)
--- NOTE | 2024-08-23 15:55 | P.PN ---
Subjective Progress Note Date: 08/23/24 Principal diagnosis: Reason for follow-up is fever/pneumonia Patient is a 83-year-old male with a past medical history significant for diabetes mellitus hypertension hyperlipidemia atrial fibrillation pneumonia, patient was brought into the hospital after the patient was found to be down in the bathroom patient noticed to be in DKA did have a fever elevated white count prompted this consultation. On today's evaluation that is 08/23/2024,the patient denies any fever or any chills, patient is breathing comfortably on room air, the patient denies chest pain shortness of breath did have occasional cough, patient denies abdominal pain, no nausea vomiting or diarrhea, has been complaining of soreness in the mouth but no difficulty swallowing. No new lab has been obtained today white count normalized Objective - Vital Signs Vital signs: Vital Signs Temp 98.0 F 08/23/24 07:30 Pulse 66 08/23/24 07:30 Resp 17 08/23/24 07:30 BP 147/76 08/23/24 07:30 Pulse Ox 99 08/23/24 07:30 FiO2 40 08/20/24 21:05 Intake & Output 08/22/24 08/23/24 08/23/24 18:59 06:59 18:59 Intake Total 840 Output Total 300 Balance 540 Weight 69.5 kg Intake: Intake, IV Titration 600 Amount D5-0.45% NaCl with KCl 500 20Meq/l 1,000 ml @ 50 mls /hr IV .Q20H KEV Rx#: [id number] Piperacillin-Tazobactam 3 100 .375 gm In Sodium Chloride 0.9% 100 ml @ 25 mls/hr IVPB Q8HR KEV Rx# :[id number] Oral 240 Output: Urine 300 Uretheral (Resendiz) 300 Other: Voiding Method Indwelling Catheter Toilet # Voids 1 3 2 # Bowel Movements 1 1 2 - Exam GENERAL DESCRIPTION: An elderly male lying in bed in no distress RESPIRATORY SYSTEM: Unlabored breathing , decreased breath sounds at bases HEART: S1 S2 regular rate and rhythm , ABDOMEN: Soft , no tenderness EXTREMITIES: No edema feet - Labs CBC & Chem 7: 08/22/24 12:40 08/22/24 14:54 Labs: Abnormal Lab Results - Last 24 Hours (Table) 08/22/24 08/22/24 08/22/24 Range/Units 12:40 14:54 21:12 RBC 3.49 L (4.30-5.90) m/uL Hgb 9.1 L D (13.0-17.5) gm/dL Hct 30.1 L (39.0-53.0) % MCHC 30.1 L (31.0-37.0) g/dL Chloride 115 H (98-107) mmol/L Carbon Dioxide 17 L (22-30) mmol/L Creatinine 1.42 H (0.66-1.25) mg/dL Glucose 120 H (74-99) mg/dL POC Glucose (mg/dL) 185 H (70-110) mg/dL Calcium 8.0 L (8.4-10.2) mg/dL 08/23/24 08/23/24 Range/Units 06:02 11:53 RBC (4.30-5.90) m/uL Hgb (13.0-17.5) gm/dL Hct (39.0-53.0) % MCHC (31.0-37.0) g/dL Chloride (98-107) mmol/L Carbon Dioxide (22-30) mmol/L Creatinine (0.66-1.25) mg/dL Glucose (74-99) mg/dL POC Glucose (mg/dL) 51 L 331 H (70-110) mg/dL Calcium (8.4-10.2) mg/dL Microbiology - Last 24 Hours (Table) 08/20/24 11:19 Blood Culture - Preliminary Blood 08/20/24 20:31 Nasal Screen MRSA/MSSA - Final Nasal Swab Staphylococcus aureus,Not MRSA Assessment and Plan (1) Sepsis Current Visit: Yes Status: Acute Code(s): A41.9 - SEPSIS, UNSPECIFIED ORGANISM SNOMED Code(s): 73769872 (2) Pneumonia Current Visit: Yes Status: Acute Code(s): J18.9 - PNEUMONIA, UNSPECIFIED ORGANISM SNOMED Code(s): 285251343 (3) Thrush Current Visit: Yes Status: Acute Code(s): B37.0 - CANDIDAL STOMATITIS SNOMED Code(s): 67905331 Plan: 1patient presented hospital with sepsis in this patient who did have a fever tachycardia elevated white count bradycardia versus source possible right lower lobe pneumonia and the question of possible aspiration etiology as the patient did have seizure activity and no other obvious focus of infection on investigation or clinical examination. 2blood culture have been negative nasal screen for MRSA negative patient white count has normalized 3patient currently being treated with Zosyn with a plan for possible oral Augmentin on discharge. 4patient has developed thrush with a nystatin swish and swallow Dictation was produced using [employer] dictation software. please excuse any grammatical, word or spelling errors. Time with Patient: Less than 30
[2024-08-23 16:56] LABS: Glucose,Whole Blood 152 mg/dL (70-110)
[2024-08-23] MEDS: NYSTATIN 100,000 UNIT/ML SUSP 500,000 UNIT/5 ML CUP PO SCH (16:59)
[2024-08-23] MEDS: ATORVASTATIN 20 MG TAB PO SCH (20:37)
[2024-08-23] MEDS: INSULIN GLARGINE (LANTUS) 100 UNIT/ML SYR SQ SCH (20:37)
[2024-08-23 20:43] LABS: Glucose,Whole Blood 63 mg/dL (70-110)
[2024-08-23 21:32] LABS: Glucose,Whole Blood 85 mg/dL (70-110)
[2024-08-24 01:44] LABS: Glucose,Whole Blood 267 mg/dL (70-110)
[2024-08-24 06:22] LABS: Glucose,Whole Blood 238 mg/dL (70-110)
[2024-08-24 10:32] LABS: Basophils # (A) 0.01 X 10*3/uL (0.00-0.10); Basophils % (A) 0.3 %; Eosinophils # (A) 0.16 X 10*3/uL (0.04-0.35); HCT 27.2 % (39.6-50.0); Lymphocytes # (A) 0.77 X 10*3/uL (0.90-5.00); Lymphocytes % (A) 23.9 %; MCH 25.7 pg (27.0-32.0); MCHC 29.4 g/dL (32.0-37.0); MCV 87.5 FL (80.0-97.0); Mean Platelet Volume 11.3 FL (9.5-12.2); Monocytes # (A) 0.26 X 10*3/uL (0.20-1.00); Monocytes % (A) 8.1 %; NRBC Per 100 WBC 0 X 10*3/uL (0.00-0.01); Neutrophils # (A) 2.01 X 10*3/uL (1.80-7.70); Neutrophils % (A) 62.4 %; Platelet Count 149 X 10*3/uL (140-440); RBC 3.11 X 10*6/uL (4.40-5.60); RDW 14.4 % (11.5-14.5); WBC 3.22 X 10*3/uL (4.50-10.00)
[2024-08-24 10:51] LABS: BUN/Creat Ratio 12.23 Ratio (12.00-20.00); Blood Urea Nitrogen 15.9 mg/dL (9.0-27.0); Calcium 7.2 mg/dL (8.7-10.3); Carbon Dioxide 17.2 mmol/L (21.6-31.8); Chloride 116 mmol/L (96-109); Glucose 267 mg/dL (70-110); Potassium 3.1 mmol/L (3.5-5.5); Sodium 143 mmol/L (135-145)
[2024-08-24 11:17] LABS: Glucose,Whole Blood 255 mg/dL (70-110)
[2024-08-24] MEDS: SODIUM BICARBONATE TAB 650 MG TAB PO SCH (12:05)
[2024-08-24] MEDS: PANTOPRAZOLE 40 MG/10 ML VIAL IVP SCH (12:05)
[2024-08-24] MEDS: POTASSIUM CHLORIDE ER 20 MEQ TAB.ER PO STA (12:05)
--- NOTE | 2024-08-24 12:21 | P.PN ---
Subjective Progress Note Date: 08/24/24 This is an 83-year-old gentleman with past medical history significant for diabetes mellitus,abnormal brain MRI 03/2023 ruled out CVA but recommended follow-up to rule out slow-growing tumor, chronic atrial fibrillation/flutter hypertension, hyperlipidemia, osteoarthritis, Crohn's disease, recently hospita lized with DKA suspected confusion with managing pump -as pump was recently checked 2 weeks prior to that admission at PCPs office, reported functioning properly. Discharged on 08/12 24, insistent on returning back on his insulin pump. patient was discharged on his insulin pump with recommendations to follow- up closely with Dr. Ambrosio in office as well as endocrinology, returned to hospital with DKA, new onset seizures, sepsis with possible aspiration pneumonia-chest CT reporting mild right lower lobe infiltrate, pneumonia versus atelectasis. Tmax 101.6 .maintained on Zosyn as per infectious disease. Blood sugars controlled. Bicarb 16, anion gap 9, BUN 16, creatinine 1.54. BUN 3.4. Staff reports no further seizure activity. EEG pending. 08/22/2024 transferred out of ICU, much more alert. Pleasantly confused, does not recall the entire event up to this morning. Continues on Zosyn ,afebrile, Tmax 99.7.Preliminary blood culture reporting no growth after 24 hours. Nasal s wab reporting staph coccus aureus, not MRSA. Maintained on D5 and a half. Transition to subcu insulin. Elevated this morning, Lantus increased. Labs pending. Denies chest pain, palpitations or shortness of breath. Maintaining O2 sats in the high 90s to 100s on 2 L nasal cannula. EEG reported abnormal, background slowing suggestive of moderate encephalopathy otherwise no focal slowing, epileptiform discharge or seizure.maintained on Keppra.no further seizure activity reported. MRI pending. 08/23/2024 significant decline in patient's balance. yesterday patient attempted to get out of bed without assistance, fell landing on his right knee. Imaging completed reported no fracture. Throughout the night, staff reports he was up multiple times requiring 2-3 person assist, unsteady on his feet. MRI pending. Hypoglycemic earlier this morning, currently 99. Consuming 75 to 100% of meals. Maintained on Zosyn .afebrile. Oxygen weaned off, maintaining O2 sats in the high 90s on room air. 08/24/2024 continues on nystatin for oral thrush. Patient also sustained a tongu e bite, reports a sore-improving, therefore talking a little bit slower ,"more carefully". Tmax 99.4, WBC within normal limits. Bicarb 17.2,BUN/creatinine decreased 15.9/1.3. Hemoglobin decreased to 8. No signs or symptoms of bleeding, no tachycardia, blood pressure stable, mean arterial pressure 91. Denies chest pain, palpitations or shortness of breath, maintaining O2 sats in the high 90s on room air. Maintained on Keppra, no seizure activity reported. brain MRI pending. Blood sugars ranging from 63-238 ;good diet intake this morning, dinner intake not documented, nor hs snack. Potassium 3.1, supplement ordered. Objective - Vital Signs Vital signs: Vital Signs Temp 98.2 F 08/24/24 07:25 Pulse 70 08/24/24 07:25 Resp 17 08/24/24 07:25 BP 148/63 08/24/24 07:25 Pulse Ox 98 08/24/24 07:25 FiO2 40 08/20/24 21:05 Intake & Output 08/23/24 08/24/24 08/24/24 18:59 06:59 18:59 Intake Total 880 120 Balance 880 120 Intake: Intake, IV Titration 200 Amount Piperacillin-Tazobactam 3 200 .375 gm In Sodium Chloride 0.9% 100 ml @ 25 mls/hr IVPB Q8HR [facility] Rx# :[id number] Oral 680 120 Other: Voiding Method Bedside Commode Bedside Commode Diaper Diaper # Voids 1 5 # Bowel Movements 1 3 - Exam VITAL SIGNS: Reviewed GENERAL: Sitting up in chair, alert and oriented 2-3, sitting up in bed, no acute distress. HEENT: Atraumatic, normocephalic ,conjunctivae normal. eyes normal. Missing teeth. tongue bite. Mild thrush. NECK: Supple, no JVD. CARDIOVASCULAR: S1, S2 regular. No murmur RESPIRATION: Unlabored, equal air entry, essentially clear to auscultation. ABDOMEN: Soft, nontender, nondistended. No guarding. +BS EXTREMITIES: Bilateral arms ecchymotic, mild left arm edema, positive radial pulses: Bilateral lower extremities no edema. no swelling NERVOUS SYSTEM: Cranial nerves II through XII grossly intact Skin: Warm and dry, no rash - Labs CBC & Chem 7: 08/25/24 06:42 08/25/24 06:42 Labs: Abnormal Lab Results - Last 24 Hours (Table) 08/23/24 08/23/24 08/23/24 Range/Units 11:53 16:54 20:41 WBC (4.50-10.00) X 10*3/uL RBC (4.40-5.60) X 10*6/uL Hgb (13.0-17.0) g/dL Hct (39.6-50.0) % MCH (27.0-32.0) pg MCHC (32.0-37.0) g/dL Lymphocytes # (0.90-5.00) X 10*3/uL Potassium (3.5-5.5) mmol/L Chloride (96-109) mmol/L Carbon Dioxide (21.6-31.8) mmol/L Est GFR (CKD-EPI) (>=60) Glucose (70-110) mg/dL POC Glucose (mg/dL) 331 H 152 H 63 L (70-110) mg/dL Calcium (8.7-10.3) mg/dL 08/24/24 08/24/24 08/24/24 Range/Units 01:43 03:59 03:59 WBC 3.22 L (4.50-10.00) X 10*3/uL RBC 3.11 L (4.40-5.60) X 10*6/uL Hgb 8.0 L (13.0-17.0) g/dL Hct 27.2 L (39.6-50.0) % MCH 25.7 L (27.0-32.0) pg MCHC 29.4 L (32.0-37.0) g/dL Lymphocytes # 0.77 L (0.90-5.00) X 10*3/uL Potassium 3.1 L (3.5-5.5) mmol/L Chloride 116 H (96-109) mmol/L Carbon Dioxide 17.2 L (21.6-31.8) mmol/L Est GFR (CKD-EPI) 54 L (>=60) Glucose 267 H (70-110) mg/dL POC Glucose (mg/dL) 267 H (70-110) mg/dL Calcium 7.2 L (8.7-10.3) mg/dL 08/24/24 08/24/24 Range/Units 06:15 11:16 WBC (4.50-10.00) X 10*3/uL RBC (4.40-5.60) X 10*6/uL Hgb (13.0-17.0) g/dL Hct (39.6-50.0) % MCH (27.0-32.0) pg MCHC (32.0-37.0) g/dL Lymphocytes # (0.90-5.00) X 10*3/uL Potassium (3.5-5.5) mmol/L Chloride (96-109) mmol/L Carbon Dioxide (21.6-31.8) mmol/L Est GFR (CKD-EPI) (>=60) Glucose (70-110) mg/dL POC Glucose (mg/dL) 238 H 255 H (70-110) mg/dL Calcium (8.7-10.3) mg/dL Microbiology - Last 24 Hours (Table) 08/20/24 11:19 Blood Culture - Preliminary Blood Assessment and Plan Assessment: Sepsis secondary to possible right lower lobe pneumonia, presumptive aspiration. Multiple recent falls, sustaining a tongue bite Oral candidiasis Acute on chronic anemia, workup in progress. Acute DKA, gap closed Metabolic acidosis New onset seizures, 2 episodes, etiology unclear, brain CT negative. Acute metabolic encephalopathy secondary to all the above. EEG reported moderate encephalopathy. Mild dysphagia, dysphagia level 3 chopped , thin liquids ,recommended per ST Hypokalemia Acute lactic acidosis secondary to seizures, resolved Acute leukocytosis, suspect reactive, resolved Elevated troponin, likely type II MO demand ischemia, secondary to acute respiratory failure, infection Recently admitted with DKA in a patient with insulin pump. Insulin pump recently checked approximately 2 weeks prior at PCPs office, reported functioning properly.Suspected confusion with managing pump.Discharged on 08/12/2024. Diabetes mellitus type II, hemoglobin A1c 10.6 on 08/12/2024, further diabetic education outpatient in clinic with PCP Acute on chronic renal failure, baseline creatinine 1.3-1.5, GFR 39, stage III. Chronic intermittent asthma, stable History of dilated cardiomyopathy Chronic paroxysmal A-fib Hypertension Hyperlipidemia Osteoarthritis Crohn's disease BPH, history of urinary retention History of abnormal signal seen on brain MRI, with recommendations of repeat MRI outpatient in 3 to 6 months to rule out slow-growing tumor,04/19. Plan: Continue on current medication resume ,monitoring and symptomatic treatment. Potassium supplements ordered, magnesium added onto prior labs- pending. Continued decrease trend of hemoglobin, Eliquis placed on hold, PPI in place for GI prophylaxis, GI consulted. Close monitoring of hemoglobin, electrolytes and renal function with repeat labs ordered for a.m. fluctuating blood sugars -specialty diet added yesterday-consistent carb fell off - consistent carb now added on , Premeal insulin discontinued .close monitoring of Accu-Cheks brain MRI pending. Continue seizure precautions, Keppra as per neurology. Zosyn as per ID. PT/OT. Subacute rehab at discharge. Prognosis guarded given multiple complex medical issues. The impression and plan of care has been dictated as directed. : I performed a history and examination of this patient, discussed the same with the dictator. I agree with the dictator's note ,documented as a scribe. Any additional findings or plans will be noted.
--- NOTE | 2024-08-24 15:17 | P.CONS ---
History of Present Illness - Reason for Consult Consult date: 08/24/24 Anemia, rule out acute blood loss Requesting physician: Marietta Merino - Chief Complaint DKA, new onset seizures and sepsis - History of Present Illness This a pleasant 83-year-old male with multiple comorbidities including diabetes mellitus on insulin pump who came in for diabetic ketoacidosis, abnormal brain MRI and apparently is being followed to rule out a slow-growing tumor, chronic atrial fibrillation on anticoagulation, hypertension, hyperlipidemia, osteoarthr itis, history of Crohn's disease admitted for DKA, new onset seizures and sepsis secondary to pneumonia. Patient has been admitted to the hospital for the last 4 days duration and apparently on admission patient had a hemoglobin of 11.6 and he has been trending down during this hospitalization with a repeat today of 8.0. Gastroenterology was consulted for anemia, rule out acute blood loss anemia. Patient is on Eliquis for his atrial fibrillation and he has been on it up through this morning. Currently on hold. Patient had upper endoscopy with Dr. Anders on 08/05/2023 for dysphagia and KRISTINA D. 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 Also reported and body was LA grade B erosive esophagitis. Biopsies reported mild chronic gastritis. No Aranda's esophagus. Patient is currently lying in bed he has a sitter at the bedside. Patient is a poor historian most of his's HPI was obtained from the chart. He denies any abdominal pain, no nausea or vomiting. States he has had no blood in his stool or black stool but he has frequent loose stool. States that he has had that for many years since he was in the [employer]. When asked if he had Crohn's disease he did say he yes and that he was diagnosed about 25 years ago. He does not follow with a naval aircrewman mechanical and is currently on loperamide for treatment of diarrhea. He states he believes his last colonoscopy was 2 to [address] Anders however no report is available. Review of Systems REVIEW OF SYSTEMS: CARDIOPULMONARY: No chest pain or shortness of breath. Gastrointestinal: No abdominal pain. No nausea or vomiting. No hematemesis, coffee-ground emesis. No rectal bleeding, or melena. GENITOURINARY: No dysuria or hematuria. MUSCULOSKELETAL: Reports normal range of motion., Joint pain. SKIN: No rashes. No jaundice. ENDOCRINE: No chills, fevers. No excessive weight gain or loss. No polydipsia or polyuria. PSYCHIATRIC: Unremarkable. NEUROLOGY: No change in mental status. Denies dizziness, headache. ENT: Vision unremarkable. CONSTITUTIONAL: No recent weight loss. No fever, chills, night sweats. Past Medical History Past Medical History: Atrial Fibrillation, Asthma, Cancer, Diabetes Mellitus, Hyperlipidemia, Hypertension, Pneumonia, Skin Disorder Additional Past Medical History / Comment(s): CROHNS's, GOUT,bilateral leg itchiness uses cream, redness, skin cancer History of Any Multi-Drug Resistant Organisms: None Reported Past Surgical History: Appendectomy, Bowel Resection, Cholecystectomy, Prostate Surgery Additional Past Surgical History / Comment(s): COLONOSCOPY, FATTY TUMOR REMOVED FROM HIS BACK, Bilateral CATARACT. skin cancer from near eye, Past Anesthesia/Blood Transfusion Reactions: No Reported Reaction Additional Past Anesthesia/Blood Transfusion Reaction / Comm: CLAUSTERPHOBIA. PER PAST MEDICAL HX: HAD A BLOOD TRANSFUSION 1966- REACTION WAS FACIAL SWELLING. Past Psychological History: No Psychological Hx Reported Smoking Status: Never smoker Past Alcohol Use History: None Reported Past Drug Use History: None Reported - Past Family History Mother Family Medical History: Cancer Additional Family Medical History / Comment(s): BREAST CANCER Father Family Medical History: Cancer Additional Family Medical History / Comment(s): COLON CANCER Brother(s) Family Medical History: Cancer, Prostate Disorder Additional Family Medical History / Comment(s): PROSTATE CANCER Medications and Allergies Home Medications Medication Instructions Recorded Confirmed Type Insulin Aspart [NovoLOG] 0.01 unit SQ-PUMP CONTINUOUS 03/02/15 08/20/24 History Loperamide [Imodium] 4 mg PO QID 03/02/15 08/20/24 History Tamsulosin HCl [Flomax] 0.4 mg PO BID 07/04/20 08/20/24 History Apixaban [Eliquis] 5 mg PO BID 04/24/23 08/20/24 History amLODIPine [Norvasc] 5 mg PO DAILY 04/24/23 08/20/24 History Rosuvastatin [Crestor] 10 mg PO HS 07/01/23 08/20/24 History carvediloL [Coreg] 3.125 mg PO BID 07/01/23 08/20/24 History Memantine [Namenda] 10 mg PO BID 08/11/24 08/20/24 History Cholecalciferol [Vitamin D3 (25 50 mcg PO DAILY #30 tab 08/12/24 08/20/24 Rx Mcg = 1000 Iu)] Allergies Allergy/AdvReac Type Severity Reaction Status Date / Time No Known Allergies Allergy Verified 08/20/24 13:28 Physical Exam Vitals: Vital Signs Temp Pulse Resp BP Pulse Ox 08/24/24 07:25 98.2 F 70 17 148/63 98 08/24/24 01:43 99.4 F 72 18 162/65 98 08/23/24 19:55 98.0 F 70 16 142/77 95 08/23/24 13:58 97.9 F 74 17 139/72 98 Intake and Output 08/23/24 08/24/24 08/24/24 22:59 06:59 14:59 Intake Total 880 120 Balance 880 120 Intake: Intake, IV Titration 200 Amount Piperacillin-Tazobactam 3 200 .375 gm In Sodium Chloride 0.9% 100 ml @ 25 mls/hr IVPB Q8HR [facility] Rx# :[id number] Oral 680 120 Other: Voiding Method Bedside Commode Bedside Commode Diaper Diaper # Voids 1 5 # Bowel Movements 1 3 General appearance: The patient is alert, oriented, appears in no acute distress. HET: Head is normocephalic and atraumatic. Conjunctiva pink. Sclera anicteric. Neck: Supple without lymphadenopathy. Trachea midline. Heart: Regular. Lungs: Equal expansion, normal respiratory effort. Abdomen: Soft, nontender, nondistended. Skin: No rashes. No jaundice. Extremities: Normal skin color and turgor. No pedal edema. Neurological: No focal deficits. Alert and oriented x3. Results CBC & Chem 7: 08/24/24 03:59 08/24/24 03:59 Labs: Abnormal Lab Results - Last 24 Hours (Table) 08/23/24 08/23/24 08/24/24 Range/Units 16:54 20:41 01:43 WBC (4.50-10.00) X 10*3/uL RBC (4.40-5.60) X 10*6/uL Hgb (13.0-17.0) g/dL Hct (39.6-50.0) % MCH (27.0-32.0) pg MCHC (32.0-37.0) g/dL Lymphocytes # (0.90-5.00) X 10*3/uL Potassium (3.5-5.5) mmol/L Chloride (96-109) mmol/L Carbon Dioxide (21.6-31.8) mmol/L Est GFR (CKD-EPI) (>=60) Glucose (70-110) mg/dL POC Glucose (mg/dL) 152 H 63 L 267 H (70-110) mg/dL Calcium (8.7-10.3) mg/dL 08/24/24 08/24/24 08/24/24 Range/Units 03:59 03:59 06:15 WBC 3.22 L (4.50-10.00) X 10*3/uL RBC 3.11 L (4.40-5.60) X 10*6/uL Hgb 8.0 L (13.0-17.0) g/dL Hct 27.2 L (39.6-50.0) % MCH 25.7 L (27.0-32.0) pg MCHC 29.4 L (32.0-37.0) g/dL Lymphocytes # 0.77 L (0.90-5.00) X 10*3/uL Potassium 3.1 L (3.5-5.5) mmol/L Chloride 116 H (96-109) mmol/L Carbon Dioxide 17.2 L (21.6-31.8) mmol/L Est GFR (CKD-EPI) 54 L (>=60) Glucose 267 H (70-110) mg/dL POC Glucose (mg/dL) 238 H (70-110) mg/dL Calcium 7.2 L (8.7-10.3) mg/dL 08/24/24 Range/Units 11:16 WBC (4.50-10.00) X 10*3/uL RBC (4.40-5.60) X 10*6/uL Hgb (13.0-17.0) g/dL Hct (39.6-50.0) % MCH (27.0-32.0) pg MCHC (32.0-37.0) g/dL Lymphocytes # (0.90-5.00) X 10*3/uL Potassium (3.5-5.5) mmol/L Chloride (96-109) mmol/L Carbon Dioxide (21.6-31.8) mmol/L Est GFR (CKD-EPI) (>=60) Glucose (70-110) mg/dL POC Glucose (mg/dL) 255 H (70-110) mg/dL Calcium (8.7-10.3) mg/dL Microbiology - Last 24 Hours (Table) 08/20/24 11:19 Blood Culture - Preliminary Blood Assessment and Plan (1) Anemia Narrative/Plan: 83-year-old male with a history of anemia admitted with multiple comorbidities. On anticoagulation for atrial fibrillation has had recent falls, admitted with pneumonia and diabetic ketoacidosis. Admitting hemoglobin 11 with a drop to 8 during this admission. No gross signs of GI bleed. However patient does have a history of a recent upper endoscopy about a year ago done for dysphagia and GERD with reported findings of gastritis with bleeding done by Dr. Anders. Patient also reports that he has Crohn's disease and last colonoscopy was 2 to [address] Anders. Unclear etiology of anemia, possibly anemia of chronic disease versus acute blood loss anemia and need to consider possible GI source. Will get anemia profile. Hold anticoagulation and monitor for GI bleed. Further recommendations forthcoming. 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 Current Visit: Yes Status: Acute Code(s): Z79.01 - [facility] (CURRENT) USE OF ANTICOAGULANTS SNOMED Code(s): 276343158 (4) DKA (diabetic ketoacidosis) Current Visit: Yes Status: Acute Code(s): E11.10 - TYPE 2 DIABETES MELLITUS WITH KETOACIDOSIS WITHOUT COMA SNOMED Code(s): 549803860 (5) Pneumonia Current Visit: Yes Status: Acute Code(s): J18.9 - PNEUMONIA, UNSPECIFIED ORGANISM SNOMED Code(s): 163992643 (6) Sepsis Current Visit: Yes Status: Acute Code(s): A41.9 - SEPSIS, UNSPECIFIED ORGANISM SNOMED Code(s): 32074941 (7) Thrush Current Visit: Yes Status: Acute Code(s): B37.0 - CANDIDAL STOMATITIS SNOMED Code(s): 48702263 (8) Abnormal brain MRI Current Visit: No Status: Acute Code(s): R90.89 - OTH ABNORMAL FINDINGS ON DIAGNOSTIC IMAGING OF CNSL SNOMED Code(s): 736264029 (9) Diabetes Current Visit: No Status: Acute Code(s): E11.9 - TYPE 2 DIABETES MELLITUS WITHOUT COMPLICATIONS SNOMED Code(s): 70637644 Plan: 1. Continue symptomatic and supportive care 2. Diet as tolerated 3. Hold anticoagulation 4. Protonix 40 mg daily 5. Anemia profile ordered 6. Will try to obtain records of last colonoscopy 7. Monitor for GI bleed 8. Daily CBC, transfuse for hemoglobin less than 7 9. Further recommendations forthcoming pending clinical course Thank you for this consultation, we will continue to follow. Dr. Mckenzie Urban I agree with the dictator's note, documented as a scribe by Priya Alcantara.
[2024-08-24 15:39] LABS: % Iron Saturation 5.69 (15.00-50.00)
[2024-08-24 17:20] LABS: Glucose,Whole Blood 114 mg/dL (70-110)
[2024-08-24 20:38] LABS: Glucose,Whole Blood 223 mg/dL (70-110)
[2024-08-25 06:32] LABS: Glucose,Whole Blood 82 mg/dL (70-110)
[2024-08-25 10:33] LABS: Basophils # (A) 0.02 X 10*3/uL (0.00-0.10); Basophils % (A) 0.7 %; Eosinophils # (A) 0.19 X 10*3/uL (0.04-0.35); Eosinophils % (A) 6.6 %; HCT 26.7 % (39.6-50.0); HGB 7.9 g/dL (13.0-17.0); Lymphocytes % (A) 37.9 %; MCH 25.6 pg (27.0-32.0); MCHC 29.6 g/dL (32.0-37.0); MCV 86.7 FL (80.0-97.0); Magnesium 1.6 mg/dL (1.5-2.4); Mean Platelet Volume 10.9 FL (9.5-12.2); Monocytes # (A) 0.35 X 10*3/uL (0.20-1.00); Monocytes % (A) 12.1 %; NRBC Per 100 WBC 0 X 10*3/uL (0.00-0.01); Neutrophils # (A) 1.21 X 10*3/uL (1.80-7.70); Neutrophils % (A) 41.7 %; Platelet Count 161 X 10*3/uL (140-440); RBC 3.08 X 10*6/uL (4.40-5.60)
[2024-08-25 10:51] LABS: BUN/Creat Ratio 8.64 Ratio (12.00-20.00); Blood Urea Nitrogen 12.1 mg/dL (9.0-27.0); Calcium 7.3 mg/dL (8.7-10.3); Carbon Dioxide 19.7 mmol/L (21.6-31.8); Chloride 119 mmol/L (96-109); Glucose 76 mg/dL (70-110); Potassium 3.2 mmol/L (3.5-5.5); Sodium 146 mmol/L (135-145)
[2024-08-25 12:06] LABS: Glucose,Whole Blood 223 mg/dL (70-110)
--- NOTE | 2024-08-25 12:29 | P.PN ---
Subjective Progress Note Date: 08/25/24 This is an 83-year-old gentleman with past medical history significant for diabetes mellitus,abnormal brain MRI 03/2023 ruled out CVA but recommended follow-up to rule out slow-growing tumor, chronic atrial fibrillation/flutter hypertension, hyperlipidemia, osteoarthritis, Crohn's disease, recently hospita lized with DKA suspected confusion with managing pump -as pump was recently checked 2 weeks prior to that admission at PCPs office, reported functioning properly. Discharged on 08/12 24, insistent on returning back on his insulin pump. patient was discharged on his insulin pump with recommendations to follow- up closely with Dr. Ambrosio in office as well as endocrinology, returned to hospital with DKA, new onset seizures, sepsis with possible aspiration pneumonia-chest CT reporting mild right lower lobe infiltrate, pneumonia versus atelectasis. Tmax 101.6 .maintained on Zosyn as per infectious disease. Blood sugars controlled. Bicarb 16, anion gap 9, BUN 16, creatinine 1.54. BUN 3.4. Staff reports no further seizure activity. EEG pending. 08/22/2024 transferred out of ICU, much more alert. Pleasantly confused, does not recall the entire event up to this morning. Continues on Zosyn ,afebrile, Tmax 99.7.Preliminary blood culture reporting no growth after 24 hours. Nasal s wab reporting staph coccus aureus, not MRSA. Maintained on D5 and a half. Transition to subcu insulin. Elevated this morning, Lantus increased. Labs pending. Denies chest pain, palpitations or shortness of breath. Maintaining O2 sats in the high 90s to 100s on 2 L nasal cannula. EEG reported abnormal, background slowing suggestive of moderate encephalopathy otherwise no focal slowing, epileptiform discharge or seizure.maintained on Keppra.no further seizure activity reported. MRI pending. 08/23/2024 significant decline in patient's balance. yesterday patient attempted to get out of bed without assistance, fell landing on his right knee. Imaging completed reported no fracture. Throughout the night, staff reports he wa multiple times requiring 2-3 person assist, unsteady on his feet. MRI pending. Hypoglycemic earlier this morning, currently 99. Consuming 75 to 100% of meals. Maintained on Zosyn .afebrile. Oxygen weaned off, maintaining O2 sats in the high 90s on room air. 08/24/2024 continues on nystatin for oral thrush. Patient also sustained a tongue bite, reports a sore-improving, therefore talking a little bit slower ,"more carefully". Tmax 99.4, WBC within normal limits. Bicarb 17.2, BUN/creatinine decreased 15.9/1.3. Hemoglobin decreased to 8. No signs or symptoms of bleeding, no tachycardia, blood pressure stable, mean arterial p ressure 91. Denies chest pain, palpitations or shortness of breath, maintaining O2 sats in the high 90s on room air. Maintained on Keppra, no seizure activity reported. brain MRI pending. Blood sugars ranging from 63-238 ;good diet intake this morning, dinner intake not documented, nor hs snack. Potassium 3.1, supplement ordered. 08/25/2024 feeling better, labs pending. Discharge planning in progress, pending MRI. Afebrile. Prior colonoscopy approximately 2 [address] Anders-report unavailable at this time. evaluated by GI,regarding drop in hemoglobin from 11-8 with no gross signs of GI bleed. Denies dark or bloody stools. Denies hemoptysis or hematochezia. iron studies reported ferritin of 175. Evaluated by GI with no endoscopy study recommended at this time and cleared patient for discharge. Objective - Vital Signs Vital signs: Vital Signs Temp 98.3 F 08/25/24 07:24 Pulse 64 08/25/24 07:24 Resp 18 08/25/24 07:24 BP 151/66 08/25/24 07:24 Pulse Ox 98 08/25/24 07:24 FiO2 40 08/20/24 21:05 Intake & Output 08/24/24 08/25/24 08/25/24 18:59 06:59 18:59 Intake Total 120 Balance 120 Intake: Oral 120 Other: Voiding Method Bedside Commode Bedside Commode Diaper Diaper # Voids 3 4 # Bowel Movements 1 - Exam VITAL SIGNS: Reviewed GENERAL: Sitting up at bedside, alert and oriented 2-3, no acute distress. HEENT: Atraumatic, normocephalic ,conjunctivae normal. eyes normal. Missing teeth. tongue bite. NECK: Supple, no JVD. CARDIOVASCULAR: S1, S2 regular. No murmur RESPIRATION: Unlabored, equal air entry, essentially clear to auscultation. ABDOMEN: Soft, nontender, nondistended. No guarding. +BS EXTREMITIES: Bilateral arms ecchymotic, minimal left arm edema, positive radial pulses: Bilateral lower extremities no edema. no swelling NERVOUS SYSTEM: Cranial nerves II through XII grossly intact Skin: Warm and dry, no rash - Labs CBC & Chem 7: 08/25/24 06:42 08/25/24 06:42 Labs: Abnormal Lab Results - Last 24 Hours (Table) 08/24/24 08/24/24 08/24/24 Range/Units 03:59 03:59 03:59 WBC 3.22 L (4.50-10.00) X 10*3/uL RBC 3.11 L (4.40-5.60) X 10*6/uL Hgb 8.0 L (13.0-17.0) g/dL Hct 27.2 L (39.6-50.0) % MCH 25.7 L (27.0-32.0) pg MCHC 29.4 L (32.0-37.0) g/dL Lymphocytes # 0.77 L (0.90-5.00) X 10*3/uL Potassium 3.1 L (3.5-5.5) mmol/L Chloride 116 H (96-109) mmol/L Carbon Dioxide 17.2 L (21.6-31.8) mmol/L Est GFR (CKD-EPI) 54 L (>=60) Glucose 267 H (70-110) mg/dL POC Glucose (mg/dL) (70-110) mg/dL Calcium 7.2 L (8.7-10.3) mg/dL Iron 12 L (65-175) UG/DL TIBC 211 L (228-460) UG/DL % Saturation 5.69 L (15.00-50.00) Transferrin 151.0 L (204.0-354.0) mg/dL 08/24/24 08/24/24 08/24/24 Range/Units 11:16 17:18 20:36 WBC (4.50-10.00) X 10*3/uL RBC (4.40-5.60) X 10*6/uL Hgb (13.0-17.0) g/dL Hct (39.6-50.0) % MCH (27.0-32.0) pg MCHC (32.0-37.0) g/dL Lymphocytes # (0.90-5.00) X 10*3/uL Potassium (3.5-5.5) mmol/L Chloride (96-109) mmol/L Carbon Dioxide (21.6-31.8) mmol/L Est GFR (CKD-EPI) (>=60) Glucose (70-110) mg/dL POC Glucose (mg/dL) 255 H 114 H 223 H (70-110) mg/dL Calcium (8.7-10.3) mg/dL Iron (65-175) UG/DL TIBC (228-460) UG/DL % Saturation (15.00-50.00) Transferrin (204.0-354.0) mg/dL Assessment and Plan Assessment: Sepsis secondary to possible right lower lobe pneumonia, presumptive aspiration. Multiple recent falls, sustaining a tongue bite Oral candidiasis Acute on chronic anemia, mild iron deficient .acute blood loss anemia currently not suspected as per GI. Acute DKA, gap closed Metabolic acidosis New onset seizures, 2 episodes, etiology unclear, brain CT negative. Acute metabolic encephalopathy secondary to all the above. EEG reported moderate encephalopathy. Mild dysphagia, dysphagia level 3 chopped , thin liquids ,recommended per ST Hypokalemia Acute lactic acidosis secondary to seizures, resolved Acute leukocytosis, suspect reactive, resolved Elevated troponin, likely type II [place] demand ischemia, secondary to acute respiratory failure, infection Recently admitted with DKA in a patient with insulin pump. Insulin pump recently checked approximately 2 weeks prior at PCPs office, reported functioning properly.Suspected confusion with managing pump.Discharged on 08/12/2024. Diabetes mellitus type II, hemoglobin A1c 10.6 on 08/12/2024, further diabetic education outpatient in clinic with PCP Acute on chronic renal failure, baseline creatinine 1.3-1.5, GFR 39, stage III. Chronic intermittent asthma, stable History of dilated cardiomyopathy Chronic paroxysmal A-fib Hypertension Hyperlipidemia Osteoarthritis Crohn's disease BPH, history of urinary retention History of abnormal signal seen on brain MRI, with recommendations of repeat MRI outpatient in 3 to 6 months to rule out slow-growing tumor,04/19. Plan: Continue on current medication resume ,monitoring and symptomatic treatment. Labs pending. Close monitoring of hemoglobin, electrolytes and renal function with repeat labs ordered for a.m. close monitoring of Accu-Cheks . Keppra /seizure precautions maintained as per neurology. Antibiotics as per ID. PT/OT. Cleared by GI for discharge and resume Eliquis.recommending follow-up in 2 weeks ,outpatient endoscopy-possible both EGD and colonoscopy. Discharge planning in progress to subacute rehab. pending brain MRI and final clearance per neurology. prognosis guarded given multiple complex medical issues. The impression and plan of care has been dictated as directed. : I performed a history and examination of this patient, discussed the same with the dictator. I agree with the dictator's note ,documented as a scribe. Any additional findings or plans will be noted.
--- NOTE | 2024-08-25 12:36 | P.PN ---
Subjective Progress Note Date: 08/25/24 Principal diagnosis: Anemia This a pleasant 83-year-old male with multiple comorbidities including diabetes mellitus on insulin pump who came in for diabetic ketoacidosis, abnormal brain MRI and apparently is being followed to rule out a slow-growing tumor, chronic atrial fibrillation on anticoagulation, hypertension, hyperlipidemia, osteoarthritis, history of Crohn's disease admitted for DKA, new onset seizures and sepsis secondary to pneumonia. Patient has been admitted to the hospital for the last 4 days duration and apparently on admission patient had a hemoglobin of 11.6 and he has been trending down during this hospitalization with a repeat today of 8.0. Gastroenterology was consulted for anemia, rule out acute blood loss anemia. Patient is on Eliquis for his atrial fibrillation and he has been on it up through this morning. Currently on hold. Patient had upper endoscopy with Dr. Anders on 08/05/2023 for dysphagia and GERD. 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 Also reported and body was LA grade B erosive esophagitis. Biopsies reported mild chronic gastritis. No Aranda's esophagus. Patient is currently lying in bed he has a sitter at the bedside. Patient is a poor historian most of his's HPI was obtained from the chart. He denies any abdominal pain, no nausea or vomiting. States he has had no blood in his stool or black stool but he has frequent loose stool. States that he has had that for many years since he was in the [employer]. When asked if he had Crohn's disease he did say he yes and that he was diagnosed about 25 years ago. He does not follow with a transit planning director and is currently on loperamide for treatment of diarrhea. He states he believes his last colonoscopy was 2 to [address] Anders however no report is available. 08/25/2024 Patient seen and examined today as a follow-up. He continues to have a sitter at the bedside for safety. He denies any abdominal pain, nausea or vomiting. No blood in his stool or black stool. Iron studies show a mild iron deficiency anemia however ferritin within normal limits. Does not appear to have active GI bleed. Patient does state he will believes he had followed in the past with gastroenterology for his Crohn's. Objective - Vital Signs Vital signs: Vital Signs Temp 98.5 F 08/25/24 00:38 Pulse 73 08/25/24 00:38 Resp 16 08/25/24 00:38 BP 134/63 08/25/24 00:38 Pulse Ox 97 08/25/24 00:38 FiO2 40 08/20/24 21:05 Intake & Output 08/24/24 08/24/24 08/25/24 06:59 18:59 06:59 Intake Total 120 Balance 120 Intake: Oral 120 Other: Voiding Method Bedside Commode Bedside Commode Bedside Commode Diaper Diaper Diaper # Voids 5 3 4 # Bowel Movements 3 1 - Exam General appearance: The patient is alert, oriented, appears in no acute d istress. HET: Head is normocephalic and atraumatic. Conjunctiva pink. Sclera anicteric. Neck: Supple without lymphadenopathy. Abdomen: Soft, nontender, nondistended. Extremities: Normal skin color and turgor. No pedal edema Skin: No rashes, no jaundice. Upper extremities with bruises. Neurological: No focal deficits. Alert and oriented. - Labs CBC & Chem 7: 08/25/24 06:42 08/25/24 06:42 Labs: Abnormal Lab Results - Last 24 Hours (Table) 08/24/24 08/24/24 08/24/24 Range/Units 03:59 03:59 03:59 WBC 3.22 L (4.50-10.00) X 10*3/uL RBC 3.11 L (4.40-5.60) X 10*6/uL Hgb 8.0 L (13.0-17.0) g/dL Hct 27.2 L (39.6-50.0) % MCH 25.7 L (27.0-32.0) pg MCHC 29.4 L (32.0-37.0) g/dL Lymphocytes # 0.77 L (0.90-5.00) X 10*3/uL Potassium 3.1 L (3.5-5.5) mmol/L Chloride 116 H (96-109) mmol/L Carbon Dioxide 17.2 L (21.6-31.8) mmol/L Est GFR (CKD-EPI) 54 L (>=60) Glucose 267 H (70-110) mg/dL POC Glucose (mg/dL) (70-110) mg/dL Calcium 7.2 L (8.7-10.3) mg/dL Iron 12 L (65-175) UG/DL TIBC 211 L (228-460) UG/DL % Saturation 5.69 L (15.00-50.00) Transferrin 151.0 L (204.0-354.0) mg/dL 08/24/24 08/24/24 08/24/24 Range/Units 11:16 17:18 20:36 WBC (4.50-10.00) X 10*3/uL RBC (4.40-5.60) X 10*6/uL Hgb (13.0-17.0) g/dL Hct (39.6-50.0) % MCH (27.0-32.0) pg MCHC (32.0-37.0) g/dL Lymphocytes # (0.90-5.00) X 10*3/uL Potassium (3.5-5.5) mmol/L Chloride (96-109) mmol/L Carbon Dioxide (21.6-31.8) mmol/L Est GFR (CKD-EPI) (>=60) Glucose (70-110) mg/dL POC Glucose (mg/dL) 255 H 114 H 223 H (70-110) mg/dL Calcium (8.7-10.3) mg/dL Iron (65-175) UG/DL TIBC (228-460) UG/DL % Saturation (15.00-50.00) Transferrin (204.0-354.0) mg/dL Assessment and Plan (1) Anemia Narrative/Plan: 83-year-old male with a history of anemia admitted with multiple comorbidities. On anticoagulation for atrial fibrillation has had recent falls, admitted with pneumonia and diabetic ketoacidosis. Admitting hemoglobin 11 with a drop to 8 during this admission. No gross signs of GI bleed. However patient does have a history of a recent upper endoscopy about a year ago done for dysphagia and GERD with reported findings of gastritis with bleeding done by Dr. Anders. Patient also reports that he has Crohn's disease and last colonoscopy was 2 to [address] Anders. Unclear etiology of anemia, possibly anemia of chronic disease versus acute blood loss anemia and need to consider possible GI source. Will get anemia profile. Hold anticoagulation and monitor for GI bleed. Iron studies with mild iron deficiency anemia, ferritin normal. Does not appear to have acute GI bleed. Possibly anemia of chronic disease versus GI bleed. Patient has no gross evidence of GI bleed, no indication at this time for endoscopic evaluation. Recommend outpatient follow-up and can consider upper endoscopy and possible colonoscopy at that time. Current Visit: Yes Status: Acute Code(s): D64.9 - ANEMIA, UNSPECIFIED SNOMED Code(s): 932451686 (2) Atrial fibrillation Current Visit: Yes Status: Acute Code(s): I48.91 - UNSPECIFIED ATRIAL FIBRILLATION SNOMED Code(s): 35102138 (3) Current use of exterminator anticoagulation Current Visit: Yes Status: Acute Code(s): Z79.01 - INVENTORY AND PRICING ASSOCIATE (CURRENT) USE OF ANTICOAGULANTS SNOMED Code(s): 940216598 (4) DKA (diabetic ketoacidosis) Current Visit: Yes Status: Acute Code(s): E11.10 - TYPE 2 DIABETES MELLITUS WITH KETOACIDOSIS WITHOUT COMA SNOMED Code(s): 767753743 (5) Pneumonia Current Visit: Yes Status: Acute Code(s): J18.9 - PNEUMONIA, UNSPECIFIED ORGANISM SNOMED Code(s): 944976521 (6) Sepsis Current Visit: Yes Status: Acute Code(s): A41.9 - SEPSIS, UNSPECIFIED ORGANISM SNOMED Code(s): 21480493 (7) Thrush Current Visit: Yes Status: Acute Code(s): B37.0 - CANDIDAL STOMATITIS SNOMED Code(s): 94841364 (8) Abnormal brain MRI Current Visit: No Status: Acute Code(s): R90.89 - OTH ABNORMAL FINDINGS ON DIAGNOSTIC IMAGING OF CNSL SNOMED Code(s): 153157783 (9) Diabetes Current Visit: No Status: Acute Code(s): E11.9 - TYPE 2 DIABETES MELLITUS WITHOUT COMPLICATIONS SNOMED Code(s): 09899812 Plan: 1. Continue symptomatic and supportive care 2. Diet as tolerated 3. May resume anticoagulation 4. Protonix 40 mg daily 5. Anemia profile ordered and reviewed 6. Add oral iron daily 7. Continue with loperamide as needed 8. No plans at this time for endoscopic evaluation 9. Recommend outpatient follow-up in 1 to 2 weeks to evaluate for anemia, possible Crohn's disease per patient Thank you for this consultation, patient is cleared from gastroenterology for discharge when otherwise medically stable. We will sign off at this time. Dr. Mckenzie Urban I agree with the dictator's note, documented as a scribe by Priya Alcantara.
[2024-08-25] MEDS: POTASSIUM CHLORIDE ER 20 MEQ TAB.ER PO STA (13:12)
[2024-08-25] MEDS: APIXABAN 5 MG TAB PO SCH (13:13)
[2024-08-25] MEDS: MAGNESIUM SULFATE-D5W PMX 1 GM in DEXTROSE/WATER 1 100ML.BAG IVPB ONE (14:09)
--- NOTE | 2024-08-25 14:12 | P.DS ---
Providers Date of admission: 08/20/24 12:31 Expected date of discharge: 08/25/24 Attending physician: Nilo Ambrosio Consults: 08/20/24 12:31 Consult Physician Routine Consulting Provider: Jose Colón Consult Reason/Comments: seizure Do you want consulting provider notified?: Already Contacted Consult Physician Stat Consulting Provider: Gayla Mayen Consult Reason/Comments: icu patien Do you want consulting provider notified?: Yes 08/20/24 13:57 Consult Physician Routine Consulting Provider: Erlinda Sauceda Consult Reason/Comments: Sepsis, pneumonia Do you want consulting provider notified?: Yes 08/24/24 11:29 Consult Physician Routine Consulting Provider: Viktoria Urban Consult Reason/Comments: Anemia, rule out acute blood loss, decreased to 8 Do you want consulting provider notified?: Yes Primary care physician: Nilo Ambrosio Hospital Course: Final Diagnoses: Sepsis secondary to possible right lower lobe pneumonia, presumptive aspiration. Multiple recent falls, sustaining a tongue bite Oral candidiasis Acute on chronic anemia, mild iron deficient .acute blood loss anemia currently not suspected as per GI. Acute DKA, gap closed Metabolic acidosis New onset seizures, 2 episodes, etiology unclear, brain CT negative. Acute metabolic encephalopathy secondary to all the above. EEG reported moderate encephalopathy. Mild dysphagia, dysphagia level 3 chopped , thin liquids ,recommended per ST Hypokalemia Acute lactic acidosis secondary to seizures, resolved Acute leukocytosis, suspect reactive, resolved Elevated troponin, likely type II [place] demand ischemia, secondary to acute respiratory failure, infection Recently admitted with DKA in a patient with insulin pump. Insulin pump recently checked approximately 2 weeks prior at PCPs office, reported functioning properly.Suspected confusion with managing pump.Discharged on 08/12/2024. Diabetes mellitus type II, hemoglobin A1c 10.6 on 08/12/2024, further diabetic education outpatient in clinic with PCP Acute on chronic renal failure, baseline creatinine 1.3-1.5, GFR 39, stage III. Chronic intermittent asthma, stable History of dilated cardiomyopathy Chronic paroxysmal A-fib Hypertension Hyperlipidemia Osteoarthritis Crohn's disease BPH, history of urinary retention History of abnormal signal seen on brain MRI, with recommendations of repeat MRI outpatient in 3 to 6 months to rule out slow-growing tumor,04/19. Hospital course:This is an 83-year-old gentleman with past medical history significant for diabetes mellitus,abnormal brain MRI 03/2023 ruled out CVA but recommended follow-up to rule out slow-growing tumor, chronic atrial fibrillation/flutter hypertension, hyperlipidemia, osteoarthritis, Crohn's disease, recently hospitalized with DKA suspected confusion with managing pump - as pump was recently checked 2 weeks prior to that admission at PCPs office, reported functioning properly. Discharged on 08/12 24, insistent on returning back on his insulin pump. patient was discharged on his insulin pump with recommendations to follow-up closely with Dr. Ambrosio in office as well as endocrinology, returned to hospital with DKA, new onset seizures, sepsis with possible aspiration pneumonia-chest CT reporting mild right lower lobe infiltrate, pneumonia versus atelectasis. Tmax 101.6 .maintained on Zosyn as per infectious disease. Blood sugars controlled. Bicarb 16, anion gap 9, BUN 16, creatinine 1.54. BUN 3.4. Staff reports no further seizure activity. EEG pending. 08/22/2024 transferred out of ICU, much more alert. Pleasantly confused, does not recall the entire event up to this morning. Continues on Zosyn ,afebrile, Tmax 99.7.Preliminary blood culture reporting no growth after 24 hours. Nasal swab reporting staph coccus aureus, not MRSA. Maintained on D5 and a half. Transition to subcu insulin. Elevated this morning, Lantus increased. Labs pending. Denies chest pain, palpitations or shortness of breath. Maintaining O2 sats in the high 90s to 100s on 2 L nasal cannula. EEG reported abnormal, background slowing suggestive of moderate encephalopathy otherwise no focal slowing, epileptiform discharge or seizure.maintained on Keppra.no further seizure activity reported. MRI pending. 08/23/2024 significant decline in patient's balance. yesterday patient attempted to get out of bed without assistance, fell landing on his right knee. Imaging completed reported no fracture. Throughout the night, staff reports he wa multiple times requiring 2-3 person assist, unsteady on his feet. MRI pending. Hypoglycemic earlier this morning, currently 99. Consuming 75 to 100% of meals. Maintained on Zosyn .afebrile. Oxygen weaned off, maintaining O2 sats in the high 90s on room air. 08/24/2024 continues on nystatin for oral thrush. Patient also sustained a tongue bite, reports a sore-improving, therefore talking a little bit slower ,"more carefully". Tmax 99.4, WBC within normal limits. Bicarb 17.2, BUN/creatinine decreased 15.9/1.3. Hemoglobin decreased to 8. No signs or symptoms of bleeding, no tachycardia, blood pressure stable, mean arterial pressure 91. Denies chest pain, palpitations or shortness of breath, maintaining O2 sats in the high 90s on room air. Maintained on Keppra, no seizure activity reported. brain MRI pending. Blood sugars ranging from 63-238 ;good diet intake this morning, dinner intake not documented, nor hs snack. Potassium 3.1, supplement ordered. 08/25/2024 feeling better, labs pending. Discharge planning in progress, pending MRI. Afebrile. Prior colonoscopy approximately 2 [address] Anders-report unavailable at this time. evaluated by GI,regarding drop in hemoglobin from 11-8 with no gross signs of GI bleed. Denies dark or bloody stools. Denies hemoptysis or hematochezia. iron studies reported ferritin of 175. Evaluated by GI with no endoscopy study recommended at this time and cleared patient for discharge. Labs pending. Close monitoring of hemoglobin, electrolytes and renal function with repeat labs ordered for a.m. close monitoring of Accu-Cheks . Keppra /seizure precautions maintained as per neurology. Antibiotics as per ID. PT/OT. Cleared by GI for discharge and resume Eliquis.recommending follow-up in 2 weeks ,outpatient endoscopy-possible both EGD and colonoscopy. Discharge p denise in progress to subacute rehab., And stable condition with guarded prognosis, pending brain MRI and final clearance per neurology. The impression and plan of care has been dictated as directed. : I performed a history and examination of this patient, discussed the same with the dictator. I agree with the dictator's note ,documented as a scribe. Any additional findings or plans will be noted. Patient Condition at Discharge: Stable Plan - Discharge Summary New Discharge Prescriptions: New INSULIN LISPRO (HumaLOG) [humaLOG] 0 unit SQ ACHS #10 ml Ferrous Sulfate [Iron (65 MG Elemental)] 325 mg PO W/LUNCH tab Insulin Glargine (Lantus) [Lantus Vial] 10 unit SQ HS each Pantoprazole [Protonix] 40 mg PO DAILY #30 tab Nystatin 100,000 Unit/ml Susp [Mycostatin Oral Susp] 500,000 unit PO QID 5 Days #100 ml levETIRAcetam [Keppra] 1,000 mg PO Q12HR tab Insulin Glargine (Lantus) [Lantus Vial] 10 unit SQ DAILY@0700 each Amoxic-Pot Clav 875-125Mg [Augmentin 875-125] 1 tab PO BID 5 Days #10 tab Continue Loperamide [Imodium] 4 mg PO QID Tamsulosin HCl [Flomax] 0.4 mg PO BID amLODIPine [Norvasc] 5 mg PO DAILY carvediloL [Coreg] 3.125 mg PO BID Rosuvastatin [Crestor] 10 mg PO HS Memantine [Namenda] 10 mg PO BID Apixaban [Eliquis] 5 mg PO BID Cholecalciferol [Vitamin D3 (25 Mcg = 1000 Iu)] 50 mcg PO DAILY #30 tab Discontinued Insulin Aspart [NovoLOG] 0.01 unit SQ-PUMP CONTINUOUS Discharge Medication List Loperamide [Imodium] 4 mg PO QID 03/02/15 [History] Tamsulosin HCl [Flomax] 0.4 mg PO BID 07/04/20 [History] Apixaban [Eliquis] 5 mg PO BID 04/24/23 [History] amLODIPine [Norvasc] 5 mg PO DAILY 04/24/23 [History] Rosuvastatin [Crestor] 10 mg PO HS 07/01/23 [History] carvediloL [Coreg] 3.125 mg PO BID 07/01/23 [History] Memantine [Namenda] 10 mg PO BID 08/11/24 [History] Cholecalciferol [Vitamin D3 (25 Mcg = 1000 Iu)] 50 mcg PO DAILY #30 tab 08/12/24 [Rx] Amoxic-Pot Clav 875-125Mg [Augmentin 875-125] 1 tab PO BID 5 Days #10 tab 08/25/24 [Rx] Ferrous Sulfate [Iron (65 MG Elemental)] 325 mg PO W/LUNCH tab 08/25/24 [Rx] INSULIN LISPRO (HumaLOG) [humaLOG] 0 unit SQ ACHS #10 ml 08/25/24 [Rx] Insulin Glargine (Lantus) [Lantus Vial] 10 unit SQ DAILY@0700 each 08/25/24 [Rx] Insulin Glargine (Lantus) [Lantus Vial] 10 unit SQ HS each 08/25/24 [Rx] Nystatin 100,000 Unit/ml Susp [Mycostatin Oral Susp] 500,000 unit PO QID 5 Days #100 ml 08/25/24 [Rx] Pantoprazole [Protonix] 40 mg PO DAILY #30 tab 08/25/24 [Rx] levETIRAcetam [Keppra] 1,000 mg PO Q12HR tab 08/25/24 [Rx] Follow up Appointment(s)/Referral(s): Nilo Ambrosio DO [Primary Care Provider] - 1 Week (After discharge from subacute rehab) Viktoria Urban MD [STAFF PHYSICIAN] - 2 Weeks [facility], [NON-STAFF] - As Needed ([facility] will call you to schedule your in home services. ) Bryon Cruz DO [STAFF PHYSICIAN] - 2 Weeks Activity/Diet/Wound Care/Special Instructions: Per [place] DMV avoid driving for 6 months until seizure free, avoid heights, swim unassisted or using heavy machinery. SAIRA: [facility] CBC, BMP, magnesium in 3 days Diet: Dysphagia 3 - chopped diet/consistent carbohydrate Discharge Disposition: TRANSFER TO SNF/ECF
--- NOTE | 2024-08-25 14:42 | P.PN ---
Subjective Progress Note Date: 08/24/24 Principal diagnosis: Reason for follow-up is fever/pneumonia Patient is a 83-year-old male with a past medical history significant for diabetes mellitus hypertension hyperlipidemia atrial fibrillation pneumonia, patient was brought into the hospital after the patient was found to be down in the bathroom patient noticed to be in DKA did have a fever elevated white count prompted this consultation. On today's evaluation that is 08/24/2024,the patient remains to be afebrile, patient is on room air not requiring supplemental oxygen and denies any shortness of breath no chest pain or any worsening cough.Patient denies having any nausea or vomiting, no abdominal pain and no diarrhea has been reported. Has been complaining of some sore throat Patient white count is 3.22, creatinine is 1.3 Objective - Vital Signs Vital signs: Vital Signs Temp 98.2 F 08/24/24 07:25 Pulse 70 08/24/24 07:25 Resp 17 08/24/24 07:25 BP 148/63 08/24/24 07:25 Pulse Ox 98 08/24/24 07:25 FiO2 40 08/20/24 21:05 Intake & Output 08/23/24 08/24/24 08/24/24 18:59 06:59 18:59 Intake Total 880 120 Balance 880 120 Intake: Intake, IV Titration 200 Amount Piperacillin-Tazobactam 3 200 .375 gm In Sodium Chloride 0.9% 100 ml @ 25 mls/hr IVPB Q8HR [facility] Rx# :[id number] Oral 680 120 Other: Voiding Method Bedside Commode Bedside Commode Diaper Diaper # Voids 1 5 # Bowel Movements 1 3 - Exam GENERAL DESCRIPTION: An elderly male lying in bed in no distress RESPIRATORY SYSTEM: Unlabored breathing , decreased breath sounds at bases HEART: S1 S2 regular rate and rhythm , ABDOMEN: Soft , no tenderness EXTREMITIES: No edema feet - Labs CBC & Chem 7: 08/25/24 06:42 08/25/24 06:42 Labs: Abnormal Lab Results - Last 24 Hours (Table) 08/23/24 08/23/24 08/24/24 Range/Units 16:54 20:41 01:43 WBC (4.50-10.00) X 10*3/uL RBC (4.40-5.60) X 10*6/uL Hgb (13.0-17.0) g/dL Hct (39.6-50.0) % MCH (27.0-32.0) pg MCHC (32.0-37.0) g/dL Lymphocytes # (0.90-5.00) X 10*3/uL Potassium (3.5-5.5) mmol/L Chloride (96-109) mmol/L Carbon Dioxide (21.6-31.8) mmol/L Est GFR (CKD-EPI) (>=60) Glucose (70-110) mg/dL POC Glucose (mg/dL) 152 H 63 L 267 H (70-110) mg/dL Calcium (8.7-10.3) mg/dL 08/24/24 08/24/24 08/24/24 Range/Units 03:59 03:59 06:15 WBC 3.22 L (4.50-10.00) X 10*3/uL RBC 3.11 L (4.40-5.60) X 10*6/uL Hgb 8.0 L (13.0-17.0) g/dL Hct 27.2 L (39.6-50.0) % MCH 25.7 L (27.0-32.0) pg MCHC 29.4 L (32.0-37.0) g/dL Lymphocytes # 0.77 L (0.90-5.00) X 10*3/uL Potassium 3.1 L (3.5-5.5) mmol/L Chloride 116 H (96-109) mmol/L Carbon Dioxide 17.2 L (21.6-31.8) mmol/L Est GFR (CKD-EPI) 54 L (>=60) Glucose 267 H (70-110) mg/dL POC Glucose (mg/dL) 238 H (70-110) mg/dL Calcium 7.2 L (8.7-10.3) mg/dL 08/24/24 Range/Units 11:16 WBC (4.50-10.00) X 10*3/uL RBC (4.40-5.60) X 10*6/uL Hgb (13.0-17.0) g/dL Hct (39.6-50.0) % MCH (27.0-32.0) pg MCHC (32.0-37.0) g/dL Lymphocytes # (0.90-5.00) X 10*3/uL Potassium (3.5-5.5) mmol/L Chloride (96-109) mmol/L Carbon Dioxide (21.6-31.8) mmol/L Est GFR (CKD-EPI) (>=60) Glucose (70-110) mg/dL POC Glucose (mg/dL) 255 H (70-110) mg/dL Calcium (8.7-10.3) mg/dL Microbiology - Last 24 Hours (Table) 08/20/24 11:19 Blood Culture - Preliminary Blood Assessment and Plan (1) Sepsis Current Visit: Yes Status: Acute Code(s): A41.9 - SEPSIS, UNSPECIFIED ORGANISM SNOMED Code(s): 79638001 (2) Pneumonia Current Visit: Yes Status: Acute Code(s): J18.9 - PNEUMONIA, UNSPECIFIED ORGANISM SNOMED Code(s): 871898046 (3) Thrush Current Visit: Yes Status: Acute Code(s): B37.0 - CANDIDAL STOMATITIS SNOMED Code(s): 75220193 Plan: 1patient presented hospital with sepsis in this patient who did have a fever tachycardia elevated white count bradycardia versus source possible right lower lobe pneumonia and the question of possible aspiration etiology as the patient did have seizure activity and no other obvious focus of infection on inves tigation or clinical examination. 2blood culture have been negative nasal screen for MRSA negative patient white count has normalized 3patient to continue with Zosyn while inpatient along with nystatin swish and swallow and monitor clinical course closely Dictation was produced using [employer] dictation software. please excuse any grammatical, word or spelling errors. Time with Patient: Less than 30
--- NOTE | 2024-08-25 14:43 | P.PN ---
Subjective Progress Note Date: 08/25/24 Principal diagnosis: Reason for follow-up is fever/pneumonia Patient is a 83-year-old male with a past medical history significant for diabetes mellitus hypertension hyperlipidemia atrial fibrillation pneumonia, patient was brought into the hospital after the patient was found to be down in the bathroom patient noticed to be in DKA did have a fever elevated white count prompted this consultation. On today's evaluation that is 08/25/2024, the patient continues to be afebrile, the patient is on room air and breathing comfortably, the Pt denies having any chest pain did have occasional cough, the patient denies having any abdominal pain no vomiting or any diarrhea has been reported by the nursing staff. Patient white count is 2.90, creatinine is 1.4 blood culture have been negative Objective - Vital Signs Vital signs: Vital Signs Temp 98.3 F 08/25/24 07:24 Pulse 64 08/25/24 07:24 Resp 18 08/25/24 07:24 BP 151/66 08/25/24 07:24 Pulse Ox 98 08/25/24 07:24 FiO2 40 08/20/24 21:05 Intake & Output 08/24/24 08/25/24 08/25/24 18:59 06:59 18:59 Intake Total 120 Balance 120 Intake: Oral 120 Other: Voiding Method Bedside Commode Bedside Commode Diaper Diaper Diaper # Voids 3 4 # Bowel Movements 1 - Exam GENERAL DESCRIPTION: An elderly male lying in bed in no distress RESPIRATORY SYSTEM: Unlabored breathing , decreased breath sounds at bases HEART: S1 S2 regular rate and rhythm , ABDOMEN: Soft , no tenderness EXTREMITIES: No edema feet - Labs CBC & Chem 7: 08/25/24 06:42 08/25/24 06:42 Labs: Abnormal Lab Results - Last 24 Hours (Table) 08/24/24 08/24/24 08/24/24 Range/Units 03:59 17:18 20:36 WBC (4.50-10.00) X 10*3/uL RBC (4.40-5.60) X 10*6/uL Hgb (13.0-17.0) g/dL Hct (39.6-50.0) % MCH (27.0-32.0) pg MCHC (32.0-37.0) g/dL Neutrophils # (1.80-7.70) X 10*3/uL Sodium (135-145) mmol/L Potassium (3.5-5.5) mmol/L Chloride (96-109) mmol/L Carbon Dioxide (21.6-31.8) mmol/L Est GFR (CKD-EPI) (>=60) BUN/Creatinine Ratio (12.00-20.00) Ratio POC Glucose (mg/dL) 114 H 223 H (70-110) mg/dL Calcium (8.7-10.3) mg/dL Iron 12 L (65-175) UG/DL TIBC 211 L (228-460) UG/DL % Saturation 5.69 L (15.00-50.00) Transferrin 151.0 L (204.0-354.0) mg/dL 08/25/24 08/25/24 08/25/24 Range/Units 06:42 06:42 12:04 WBC 2.90 L (4.50-10.00) X 10*3/uL RBC 3.08 L (4.40-5.60) X 10*6/uL Hgb 7.9 L (13.0-17.0) g/dL Hct 26.7 L (39.6-50.0) % MCH 25.6 L (27.0-32.0) pg MCHC 29.6 L (32.0-37.0) g/dL Neutrophils # 1.21 L (1.80-7.70) X 10*3/uL Sodium 146 H (135-145) mmol/L Potassium 3.2 L (3.5-5.5) mmol/L Chloride 119 H (96-109) mmol/L Carbon Dioxide 19.7 L (21.6-31.8) mmol/L Est GFR (CKD-EPI) 49 L (>=60) BUN/Creatinine Ratio 8.64 L (12.00-20.00) Ratio POC Glucose (mg/dL) 223 H (70-110) mg/dL Calcium 7.3 L (8.7-10.3) mg/dL Iron (65-175) UG/DL TIBC (228-460) UG/DL % Saturation (15.00-50.00) Transferrin (204.0-354.0) mg/dL Assessment and Plan (1) Sepsis Current Visit: Yes Status: Acute Code(s): A41.9 - SEPSIS, UNSPECIFIED ORGA NISM SNOMED Code(s): 63427098 (2) Pneumonia Current Visit: Yes Status: Acute Code(s): J18.9 - PNEUMONIA, UNSPECIFIED ORGANISM SNOMED Code(s): 486008842 (3) Thrush Current Visit: Yes Status: Acute Code(s): B37.0 - CANDIDAL STOMATITIS SNOM ED Code(s): 00799182 Plan: 1patient presented hospital with sepsis in this patient who did have a fever tachycardia elevated white count bradycardia versus source possible right lower lobe pneumonia and the question of possible aspiration etiology as the patient did have seizure activity and no other obvious focus of infection on investigation or clinical examination. 2blood culture have been negative nasal screen for MRSA negative patient white count has normalized 3patient to continue with Zosyn while inpatient along with nystatin swish and swallow with a plan to finish therapy with oral Augmentin x 5 days on discharge discussed with TEMPERATURE INSPECTOR for admitting team Dictation was produced using [employer] dictation software. please excuse any grammatical, word or spelling errors. Time with Patient: Less than 30
[2024-08-25] MEDS: LORazepam 2 MG/ML INJ IV ONE (14:47)
--- NOTE | 2024-08-25 15:16 | P.PN ---
Subjective Progress Note Date: 08/25/24 I am following up with the patient and he feels he is doing well. Per the nurse, he is schedule for MRI later in afternoon today. Objective - Vital Signs Vital signs: Vital Signs Temp 98.1 F 08/25/24 13:39 Pulse 62 08/25/24 13:39 Resp 20 08/25/24 13:39 BP 160/71 08/25/24 13:39 Pulse Ox 99 08/25/24 13:39 FiO2 40 08/20/24 21:05 Intake & Output 08/24/24 08/25/24 08/25/24 18:59 06:59 18:59 Intake Total 120 Balance 120 Intake: Oral 120 Other: Voiding Method Bedside Commode Bedside Commode Diaper Diaper Diaper # Voids 3 4 # Bowel Movements 1 - Exam General: Patient is lying in bed and is not in acute distress Neuro: Is awake, alert, oriented to self, place. Is able to name objects correctly (pen and glasses). Is following simple commands such as showing thumbs up and smiling. No aphasia No facial weakness. No dysarthria from limited language Motor: strength is lifting arms above gravity equally and wiggling toes sy mmetrically. - Labs CBC & Chem 7: 08/25/24 06:42 08/25/24 06:42 Labs: Abnormal Lab Results - Last 24 Hours (Table) 08/24/24 08/24/24 08/24/24 Range/Units 03:59 17:18 20:36 WBC (4.50-10.00) X 10*3/uL RBC (4.40-5.60) X 10*6/uL Hgb (13.0-17.0) g/dL Hct (39.6-50.0) % MCH (27.0-32.0) pg MCHC (32.0-37.0) g/dL Neutrophils # (1.80-7.70) X 10*3/uL Sodium (135-145) mmol/L Potassium (3.5-5.5) mmol/L Chloride (96-109) mmol/L Carbon Dioxide (21.6-31.8) mmol/L Est GFR (CKD-EPI) (>=60) BUN/Creatinine Ratio (12.00-20.00) Ratio POC Glucose (mg/dL) 114 H 223 H (70-110) mg/dL Calcium (8.7-10.3) mg/dL Iron 12 L (65-175) UG/DL TIBC 211 L (228-460) UG/DL % Saturation 5.69 L (15.00-50.00) Transferrin 151.0 L (204.0-354.0) mg/dL 08/25/24 08/25/24 08/25/24 Range/Units 06:42 06:42 12:04 WBC 2.90 L (4.50-10.00) X 10*3/uL RBC 3.08 L (4.40-5.60) X 10*6/uL Hgb 7.9 L (13.0-17.0) g/dL Hct 26.7 L (39.6-50.0) % MCH 25.6 L (27.0-32.0) pg MCHC 29.6 L (32.0-37.0) g/dL Neutrophils # 1.21 L (1.80-7.70) X 10*3/uL Sodium 146 H (135-145) mmol/L Potassium 3.2 L (3.5-5.5) mmol/L Chloride 119 H (96-109) mmol/L Carbon Dioxide 19.7 L (21.6-31.8) mmol/L Est GFR (CKD-EPI) 49 L (>=60) BUN/Creatinine Ratio 8.64 L (12.00-20.00) Ratio POC Glucose (mg/dL) 223 H (70-110) mg/dL Calcium 7.3 L (8.7-10.3) mg/dL Iron (65-175) UG/DL TIBC (228-460) UG/DL % Saturation (15.00-50.00) Transferrin (204.0-354.0) mg/dL Assessment and Plan Assessment: * New onset seizure, unclear cause. * Acute DKA with metabolic acidosis * Altered mental status, due to metabolic encephalopathy. Also concern for pneumonia--mentation drastically improving * History of abnormal MRI with abnormal signal right medial temporal lobe. * Diabetes, poorly controlled * Lactic acidosis due to seizure * Elevated troponin * Chronic anemia * History of atrial fibrillation * Hypertension * Hyperlipidemia * History of gout Plan: * Per Dr. Colón, to be maintained on 1000 mg IV push every 12 hours. I changed to PO. * EEG: Is abnormal. The background slowing is suggestive of moderate encephalopathy. Otherwise, there is no focal slowing, epileptiform discharge or seizure on the EEG. * MRI of the brain with and without contrast, to follow-up on the his history of right temporal lobe lesion per Dr. Colón. * Patient has been seen by infectious disease, started on Zosyn and vancomycin. I.D. feels patient has pneumonia. * Other medical management (including DKA) as per IM. * Per [place] DMV because of seizure, avoid driving for 6 months until seizure free, avoid heights, swim unassisted or using heavy machinery. * Upon discharge, recommend the patient to follow-up with neurologist as outpatient within 2-3 weeks. If MRI Brain is negative for acute process, then patient is clear from neurological perspective. Dr. Colón will resume neurology service tomorrow A.M. Time with Patient: Less than 30
--- NOTE | 2024-08-25 16:05 | MR ---
INDICATION: Patient age:Male; 83 years old; Reason for study: New onset seizure. F/U on right temporal lesion; PHH. COMPARISON: CT brain C-spine 08/20/2024, MRI brain 04/26/2023, CT brain 04/24/2023, 07/16/2020. TECHNIQUE: Multi planar, multi sequence imaging was performed through the brain. The patient was then given 7 cc of Gadobutrol intravenously and multi planar, T1 fat-saturation images were obtained. FINDINGS: The ventricular system and basal cisterns appear unremarkable. Diffuse age-appropriate cerebral volum e loss. Focus of restricted diffusion within the left frontal lobe johnson-white matter junction with ad ditional gyral restricted diffusion within the left occipital lobe. Similar region of high T2/FLAIR s ignal intensity within the right temporal lobe hippocampal region. Intracranial arterial flow voids a re maintained. Midline structures show no abnormality. Similar patchy areas of high T2/FLAIR signal i ntensity are seen within the supratentorial periventricular and subcortical white matter. There is FL AIR signal hyperintensity corresponding to restricted diffusion. The susceptibility weighted images d emonstrate several scattered foci of blooming artifact consistent with prior hemosiderin deposition. Largest region is within the left basal ganglia again. After administration of gadolinium, no abnorma l enhancement is seen. The bone marrow signal is within normal limits. Bilateral aphakia. Mild mucosal thickening of the inf erior bilateral maxillary sinuses. Trace bilateral mastoid effusions. IMPRESSION: 1. New focus of restricted diffusion within the left frontal lobe johnson-white junction with additional new gyral region of restricted diffusion within the left occipital lobe. Findings concerning for acu te/subacute ischemia versus related to seizure. 2. Similar nonspecific hyperintense FLAIR signal within the right temporal lobe/hippocampal region fr om prior MRI. No abnormal contrast enhancement. This is nonspecific with etiologies including encepha litis versus demyelinating process versus low-grade glioma versus other. 3. Similar nonspecific white matter changes, likely related to small vessel ischemic disease. Demyeli nating disease, chronic migraines, vasculitis, Lyme disease or other considerations. [facility], , 08/25/2024 4:03 PM
[2024-08-25 16:31] LABS: Glucose,Whole Blood 331 mg/dL (70-110)
--- NOTE | 2024-08-25 18:32 | US ---
EXAMINATION TYPE: US carotid duplex BILAT DATE OF EXAM: 08/25/2024 COMPARISON: NONE CLINICAL INDICATION: Male, 83 years old with history of stroke; stroke Additional History: .... TECHNIQUE: Grayscale, color Doppler and spectral Doppler evaluation of the bilateral carotid systems and vertebral arteries. Indirect Doppler criteria was utilized. FINDINGS: EXAM MEASUREMENTS: RIGHT: Peak Systolic Velocity (PSV) cm/sec ----- Right CCA: 49.4 ----- Right ICA: 85.3 ----- Right ECA: 45.0 ICA/CCA ratio: 1.7 RIGHT: End Diastole cm/sec ----- Right CCA: 11.0 ----- Right ICA: 22.3 ----- Right ECA: 4.9 LEFT: Peak Systolic Velocity (PSV) cm/sec ----- Left CCA: 63.3 ----- Left ICA: 93.1 ----- Left ECA: 59.0 ICA/CCA ratio: 1.5 LEFT: End Diastole cm/sec ----- Left CCA: 7.5 ----- Left ICA: 32.6 ----- Left ECA: 4.9 VERTEBRALS (direction of flow): Right Vertebral: Antegrade Left Vertebral: Antegrade Rhythm: Arrhythmia BRICK TENDER NOTES: no plaque seen on right side, minimal plaque in left bulb. No elevated velocities seen. Color Doppler imaging shows patency with blood flow throughout the carotid artery. Spectral waveforms are within normal limits. IMPRESSION: Right: No hemodynamically significant stenosis. Left: No hemodynamically significant stenosis. Criteria for Assigning % of Stenosis / Diameter reduction (Estimation based on the indirect measurements of the internal carotid artery velocities (ICA PSV). 1. Normal (no stenosis)=ICA PSV < 125 cm/s: ratio < 2.0: ICA EDV<40 cm/s. 2. Less than 50% stenosis=ICA PSV < 125 cm/s: ratio < 2.0: ICA EDV<40 cm/s. 3. 50 to 69% stenosis=ICA PSV of 125 to 230 cm/s: ration 2.0 ? 4.0: ICA EDV 40-100 cm/s. 4. Greater than 70% stenosis to near occlusion= ICA PSV > 230 cm/s: ratio > 4.0: ICA EDV > 100 cm/s. 5. Near occlusion= ICA PSV velocities may be low or undetectable: variable ratio and ICA EDV. 6. Total occlusion=unable to detect flow. [facility], , 08/25/2024 6:30 PM
[2024-08-25 19:43] VITALS: RESP 16
[2024-08-25 20:01] LABS: Glucose,Whole Blood 314 mg/dL (70-110)
[2024-08-26 00:48] LABS: Glucose,Whole Blood 195 mg/dL (70-110)
[2024-08-26 05:57] LABS: HGB 7.9 gm/dL (13.0-17.5); Hypochromasia Slight; MCH 25.2 pg (25.0-35.0); MCHC 30.4 g/dL (31.0-37.0); MCV 82.8 fL (80.0-100.0); Mean Platelet Volume 9.3; Platelet Count 160 k/uL (150-450); RBC 3.14 m/uL (4.30-5.90); RDW 14.3 % (11.5-15.5); WBC 2.5 k/uL (3.8-10.6)
[2024-08-26 06:17] LABS: Glucose,Whole Blood 90 mg/dL (70-110)
[2024-08-26 06:19] LABS: African American GFR (CKD) 57 (>60 ml/min/1.73 sqM); Anion Gap 5 mmol/L; Blood Urea Nitrogen 13 mg/dL (9-20); Calcium 7.4 mg/dL (8.4-10.2); Carbon Dioxide 20 mmol/L (22-30); Chloride 115 mmol/L (98-107); Glucose 88 mg/dL (74-99); Magnesium 1.8 mg/dL (1.6-2.3); Non-African American GFR(CKD) 50 (>60 ml/min/1.73 sqM); Potassium 3.6 mmol/L (3.5-5.1); Sodium 140 mmol/L (137-145)
[2024-08-26 09:18] VITALS: BP 126/71; PULSE 79; TEMP 97.9
[2024-08-26 10:21] LABS: Chol/HDL Ratio 3.88 Ratio; LDL Cholesterol,Calculated 31.8 mg/dL (0.0-131.0)
[2024-08-26 12:02] LABS: Glucose,Whole Blood 286 mg/dL (70-110)
--- NOTE | 2024-08-26 12:43 | P.PN ---
Subjective Progress Note Date: 08/26/24 Patient was seen for a follow-up. Patient is laying comfortably in the bed. Denies any headache any visual disturbance, any dizziness, numbness tingling focal weakness. No chest pain or shortness of breath. Objective - Vital Signs Vital signs: Vital Signs Temp 97.9 F 08/26/24 07:10 Pulse 79 08/26/24 07:10 Resp 16 08/26/24 07:10 BP 126/71 08/26/24 07:10 Pulse Ox 97 08/26/24 07:10 FiO2 40 08/20/24 21:05 Intake & Output 08/25/24 08/26/24 08/26/24 18:59 06:59 18:59 Intake Total 300 Balance 300 Intake: Intake, IV Titration 300 Amount Magnesium Sulfate-D5w Pmx 100 1 gm In Dextrose/Water 1 100ml.bag @ 100 mls/hr IVPB ONCE ONE Rx#: [id number] Piperacillin-Tazobactam 3 200 .375 gm In Sodium Chloride 0.9% 100 ml @ 25 mls/hr IVPB Q8HR [facility] Rx# :[id number] Other: Voiding Method Diaper Diaper # Voids 1 # Bowel Movements 1 - Exam Patient's mental status, speech and language functions are normal. His pupils are equal, round and reacting to light, visual urena are full on confrontation with no neglect. Extraocular muscles are intact. He has very subtle right facial asymmetry. Tongue protrudes to midline. On muscle strength testing there is no pronator drift and the strength is normal in arms and legs distally and proximally. Sensory to touch is equal with no neglect. No ataxia for [id number] testing. - Labs CBC & Chem 7: 08/26/24 05:27 08/26/24 05:27 Labs: Abnormal Lab Results - Last 24 Hours (Table) 08/25/24 08/25/24 08/25/24 Range/Units 06:42 16:30 19:59 WBC (3.8-10.6) k/uL RBC (4.30-5.90) m/uL Hgb (13.0-17.5) gm/dL Hct (39.0-53.0) % MCHC (31.0-37.0) g/dL Chloride (98-107) mmol/L Carbon Dioxide (22-30) mmol/L Creatinine (0.66-1.25) mg/dL POC Glucose (mg/dL) 331 H 314 H (70-110) mg/dL Calcium (8.4-10.2) mg/dL HDL Cholesterol 18.80 L (40.00-60.00) mg/dL 08/26/24 08/26/24 08/26/24 Range/Units 00:47 05:27 05:27 WBC 2.5 L (3.8-10.6) k/uL RBC 3.14 L (4.30-5.90) m/uL Hgb 7.9 L (13.0-17.5) gm/dL Hct 26.0 L (39.0-53.0) % MCHC 30.4 L (31.0-37.0) g/dL Chloride 115 H (98-107) mmol/L Carbon Dioxide 20 L (22-30) mmol/L Creatinine 1.31 H (0.66-1.25) mg/dL POC Glucose (mg/dL) 195 H (70-110) mg/dL Calcium 7.4 L (8.4-10.2) mg/dL HDL Cholesterol (40.00-60.00) mg/dL 08/26/24 Range/Units 12:01 WBC (3.8-10.6) k/uL RBC (4.30-5.90) m/uL Hgb (13.0-17.5) gm/dL Hct (39.0-53.0) % MCHC (31.0-37.0) g/dL Chloride (98-107) mmol/L Carbon Dioxide (22-30) mmol/L Creatinine (0.66-1.25) mg/dL POC Glucose (mg/dL) 286 H (70-110) mg/dL Calcium (8.4-10.2) mg/dL HDL Cholesterol (40.00-60.00) mg/dL Microbiology - Last 24 Hours (Table) 08/20/24 11:19 Blood Culture - Final Blood Assessment and Plan Assessment: * New onset seizure, possible due to acute DKA versus abnormal brain MRI. * Acute DKA with metabolic acidosis, resolved * Altered mental status, due to metabolic encephalopathy, resolved * MRI of the brain revealed an acute stroke in the left frontal lobe johnson-white junction with additional new gyral region of restricted diffusion within the left occipital lobe. * History of abnormal MRI with abnormal signal right medial temporal lobe. * Diabetes, poorly controlled * Lactic acidosis due to seizure * Elevated troponin * Chronic anemia * History of atrial fibrillation * Hypertension * Hyperlipidemia * History of gout Plan: * Continue Keppra 1000 mg twice daily. Patient has not had any further seizures. * EEG: Is abnormal. The background slowing is suggestive of moderate encephalopathy. Otherwise, there is no focal slowing, epileptiform discharge or seizure on the EEG. * MRI of the brain with and without contrast revealed new focus of restricted diffusion within the left frontal lobe johnson-white junction with additional new gyral region of restricted diffusion within the left occipital lobe. Findings concerning for acute/subacute ischemia versus related to seizure. Similar nonspecific hyperintense FLAIR signal within the right temporal lobe/hippocampal region from prior MRI. No abnormal contrast enhancement. This is nonspecific with etiologies including encephalitis versus demyelinating process versus low-grade glioma versus other. Similar nonspecific white matter changes, likely related to small vessel ischemic disease. Demyelinating disease, chronic migraine, vasculitis, Lyme disease or other consideration. I personally reviewed MRI agree with the findings. * Consider repeating MRI of the brain with and without contrast in 6 to 12 months to follow-up on the right temporal abnormal signal, earlier if needed. * Carotid Doppler revealed no hemodynamically significant stenosis on either side. Antegrade flow in both vertebral arteries. * 2D echo revealed LVEF 40 to 45%. Left ventricular cavity size is normal. Mildly reduced global left ventricular systolic function. Moderately dilated left atrium. Severely increased left atrial volume. Mild MR. Mild AAS. * Hemoglobin A1c 10.6, consistent with poorly controlled diabetes. Recommend optimizing control of diabetes to target A1c 7.0 * Lipid panel with cholesterol 73, LDL 31, HDL 18 and triglycerides 112. Continue Lipitor 20 mg daily. Patient at home on Crestor 10 mg, which can be continued. * Patient currently on Eliquis 5 mg twice daily, which will be continued. * Optimize control of blood pressure. * Recommend aggressive control of stroke risk factors as mentioned above. * B12 570, folate 9.6, * Patient has been seen by infectious disease, started on Zosyn. Recommending patient to continue Augmentin for 5 days after discharge. * Other medical management as per IM and other specialties on board. * Neurologically clear for transfer to rehab facility. * Recommend patient follow-up with neurologist outpatient.
[2024-08-26] MEDS: FERROUS SULFATE 325 MG TAB PO SCH (12:52)
--- NOTE | 2024-08-26 14:05 | P.DS ---
Providers Date of admission: 08/20/24 12:31 Attending physician: Nilo Ambrosio Consults: 08/20/24 12:31 Consult Physician Routine Consulting Provider: Jose Colón Consult Reason/Comments: seizure Do you want consulting provider notified?: Already Contacted Consult Physician Stat Consulting Provider: Gayla Mayen Consult Reason/Comments: icu patien Do you want consulting provider notified?: Yes 08/20/24 13:57 Consult Physician Routine Consulting Provider: Erlinda Sauceda Consult Reason/Comments: Sepsis, pneumonia Do you want consulting provider notified?: Yes 08/24/24 11:29 Consult Physician Routine Consulting Provider: Viktoria Urban Consult Reason/Comments: Anemia, rule out acute blood loss, decreased to 8 Do you want consulting provider notified?: Yes Primary care physician: Nilo Ambrosio Hospital Course: Final Diagnoses: Sepsis secondary to possible right lower lobe pneumonia, presumptive aspiration. Multiple recent falls, sustaining a tongue bite Oral candidiasis Acute on chronic anemia, mild iron deficient .acute blood loss anemia currently not suspected as per GI. Acute DKA, gap closed Metabolic acidosis New onset seizures, 2 episodes, etiology unclear, brain CT negative. Acute metabolic encephalopathy secondary to all the above. EEG reported moderate encephalopathy. Mild dysphagia, dysphagia level 3 chopped , thin liquids ,recommended per ST Hypokalemia Acute lactic acidosis secondary to seizures, resolved Acute leukocytosis, suspect reactive, resolved Elevated troponin, likely type II [place] demand ischemia, secondary to acute respiratory failure, infection Recently admitted with DKA in a patient with insulin pump. Insulin pump recently checked approximately 2 weeks prior at PCPs office, reported functioning properly.Suspected confusion with managing pump.Discharged on 08/12/2024. Diabetes mellitus type II, hemoglobin A1c 10.6 on 08/12/2024, further diabetic education outpatient in clinic with PCP Acute on chronic renal failure, baseline creatinine 1.3-1.5, GFR 39, stage III. Chronic intermittent asthma, stable History of dilated cardiomyopathy Chronic paroxysmal A-fib Hypertension Hyperlipidemia Osteoarthritis Crohn's disease BPH, history of urinary retention History of abnormal signal seen on brain MRI, with recommendations of repeat MRI outpatient in 3 to 6 months to rule out slow-growing tumor,04/19. Hospital course:This is an 83-year-old gentleman with past medical history significant for diabetes mellitus,abnormal brain MRI 03/2023 ruled out CVA but recommended follow-up to rule out slow-growing tumor, chronic atrial fibrillation/flutter hypertension, hyperlipidemia, osteoarthritis, Crohn's disease, recently hospitalized with DKA suspected confusion with managing pump - as pump was recently checked 2 weeks prior to that admission at PCPs office, reported functioning properly. Discharged on 08/12 24, insistent on returning back on his insulin pump. patient was discharged on his insulin pump with recommendations to follow-up closely with Dr. Ambrosio in office as well as endocrinology, returned to hospital with DKA, new onset seizures, sepsis with possible aspiration pneumonia-chest CT reporting mild right lower lobe infiltrate, pneumonia versus atelectasis. Tmax 101.6 .maintained on Zosyn as per infectious disease. Blood sugars controlled. Bicarb 16, anion gap 9, BUN 16, creatinine 1.54. BUN 3.4. Staff reports no further seizure activity. EEG pending 08/22/2024 transferred out of ICU, much more alert. Pleasantly confused, does not recall the entire event up to this morning. Continues on Zosyn ,afebrile, Tmax 99.7.Preliminary blood culture reporting no growth after 24 hours. Nasal swab reporting staph coccus aureus, not MRSA. Maintained on D5 and a half. Transition to subcu insulin. Elevated this morning, Lantus increased. Labs pending. Denies chest pain, palpitations or shortness of breath. Maintaining O2 sats in the high 90s to 100s on 2 L nasal cannula. EEG reported abnormal, background slowing suggestive of moderate encephalopathy otherwise no focal slowing, epileptiform discharge or seizure.maintained on Keppra.no further seizure activity reported. MRI pending. 08/23/2024 significant decline in patient's balance. yesterday patient attempted to get out of bed without assistance, fell landing on his right knee. Imaging completed reported no fracture. Throughout the night, staff reports he wa multiple times requiring 2-3 person assist, unsteady on his feet. MRI pending. Hypoglycemic earlier this morning, currently 99. Consuming 75 to 100% of meals. Maintained on Zosyn .afebrile. Oxygen weaned off, maintaining O2 sats in the high 90s on room air. 08/24/2024 continues on nystatin for oral thrush. Patient also sustained a tongue bite, reports a sore-improving, therefore talking a little bit slower ,"more carefully". Tmax 99.4, WBC within normal limits. Bicarb 17.2, BUN/creatinine decreased 15.9/1.3. Hemoglobin decreased to 8. No signs or symptoms of bleeding, no tachycardia, blood pressure stable, mean arterial pressure 91. Denies chest pain, palpitations or shortness of breath, maintaining O2 sats in the high 90s on room air. Maintained on Keppra, no seizure activity reported. brain MRI pending. Blood sugars ranging from 63-238 ;good diet intake this morning, dinner intake not documented, nor hs snack. P otassium 3.1, supplement ordered. 08/25/2024 feeling better, labs pending. Discharge planning in progress, pending MRI. Afebrile. Prior colonoscopy approximately 2 to [address] Anders-report unavailable at this time. evaluated by GI,regarding drop in hemoglobin from 11-8 with no gross signs of GI bleed. Denies dark or bloody stools. Denies hemoptysis or hematochezia. iron studies reported ferritin of 175. Evaluated by GI with no endoscopy study recommended at this time and cleared patient for discharge. Labs pending. Close monitoring of hemoglobin, electrolytes and renal function with repeat labs ordered for a.m. close monitoring of Accu-Cheks . Keppra /seizure precautions maintained as per neurology. Antibiotics as per ID. PT/OT. Cleared by GI for discharge and resume Eliquis.recommending follow-up in 2 weeks ,outpatient endoscopy-possible both EGD and colonoscopy. Discharge planning in progress to subacute rehab., And stable condition with guarded prognosis, pending brain MRI and final clearance per neurology. 08/26--- patient was seen and examined today. MRI brain was done yesterday MRI of the brain with and without contrast revealed new focus of restricted diffusion within the left frontal lobe johnson-white junction with additional new gyral region of restricted diffusion within the left occipital lobe. Findings concerning for acute/subacute ischemia versus related to seizure. Similar nonspecific hyperintense FLAIR signal within the right temporal lobe/hippocampal region from prior MRI. No abnormal contrast enhancement. This is nonspecific with etiologies including encephalitis versus demyelinating process versus low- grade glioma versus other. Similar nonspecific white matter changes, likely related to small vessel ischemic disease. Demyelinating disease, chronic migraine, vasculitis, Lyme disease or other consideration. Carotid Doppler showed no hemodynamically significant stenosis on either side, antegrade flow in both vertebral arteries. Echocardiogram doneresults pending. Patient on Eliquis. Continued on Keppra. Continue on Augmentin for 5 days at discharge. Patient discharged to subacute rehab. Patient's condition and vital stable at discharge. Outpatient follow-up with PCP in 1 week Outpatient follow-up with neurology. PHYSICAL EXAMINATION: GENERAL: NAD HEENT: EOMI, Sclerae anicteric, Moist Mucous membranes Neck: Supple, Non tender, No JVD PULMONARY: Equal breath souds B/L, No wheezing, No crackles. CARDIOVASCULAR: S1, S2 present. No murmurs, rubs, or gallops. ABDOMEN: Soft, nontender, nondistended, normoactive bowel sounds. No guarding or rebound tenderness. MUSCULOSKELETAL: No edema, No cyanosis. No clubbing. Normal ROM. Intact peripheral pulses. NEUROLOGICAL: CN 2-12 grossly intact. No FND SKIN: No rashes. Dictation was produced using [employer] dictation software. please excuse any grammatical, word or spelling errors. Patient Condition at Discharge: Fair Plan - Discharge Summary New Discharge Prescriptions: New INSULIN LISPRO (HumaLOG) [humaLOG] 0 unit SQ ACHS #10 ml Ferrous Sulfate [Iron (65 MG Elemental)] 325 mg PO W/LUNCH tab Insulin Glargine (Lantus) [Lantus Vial] 10 unit SQ HS each Pantoprazole [Protonix] 40 mg PO DAILY #30 tab Nystatin 100,000 Unit/ml Susp [Mycostatin Oral Susp] 500,000 unit PO QID 5 Days #100 ml levETIRAcetam [Keppra] 1,000 mg PO Q12HR tab Insulin Glargine (Lantus) [Lantus Vial] 10 unit SQ DAILY@0700 each Amoxic-Pot Clav 875-125Mg [Augmentin 875-125] 1 tab PO BID 5 Days #10 tab Continue Loperamide [Imodium] 4 mg PO QID Tamsulosin HCl [Flomax] 0.4 mg PO BID amLODIPine [Norvasc] 5 mg PO DAILY carvediloL [Coreg] 3.125 mg PO BID Rosuvastatin [Crestor] 10 mg PO HS Memantine [Namenda] 10 mg PO BID Apixaban [Eliquis] 5 mg PO BID Cholecalciferol [Vitamin D3 (25 Mcg = 1000 Iu)] 50 mcg PO DAILY #30 tab Discontinued Insulin Aspart [NovoLOG] 0.01 unit SQ-PUMP CONTINUOUS Discharge Medication List Loperamide [Imodium] 4 mg PO QID 03/02/15 [History] Tamsulosin HCl [Flomax] 0.4 mg PO BID 07/04/20 [History] Apixaban [Eliquis] 5 mg PO BID 04/24/23 [History] amLODIPine [Norvasc] 5 mg PO DAILY 04/24/23 [History] Rosuvastatin [Crestor] 10 mg PO HS 07/01/23 [History] carvediloL [Coreg] 3.125 mg PO BID 07/01/23 [History] Memantine [Namenda] 10 mg PO BID 08/11/24 [History] Cholecalciferol [Vitamin D3 (25 Mcg = 1000 Iu)] 50 mcg PO DAILY #30 tab 08/12/24 [Rx] Amoxic-Pot Clav 875-125Mg [Augmentin 875-125] 1 tab PO BID 5 Days #10 tab 08/25/24 [Rx] Ferrous Sulfate [Iron (65 MG Elemental)] 325 mg PO W/LUNCH tab 08/25/24 [Rx] INSULIN LISPRO (HumaLOG) [humaLOG] 0 unit SQ ACHS #10 ml 08/25/24 [Rx] Insulin Glargine (Lantus) [Lantus Vial] 10 unit SQ DAILY@0700 each 08/25/24 [Rx] Insulin Glargine (Lantus) [Lantus Vial] 10 unit SQ HS each 08/25/24 [Rx] Nystatin 100,000 Unit/ml Susp [Mycostatin Oral Susp] 500,000 unit PO QID 5 Days #100 ml 08/25/24 [Rx] Pantoprazole [Protonix] 40 mg PO DAILY #30 tab 08/25/24 [Rx] levETIRAcetam [Keppra] 1,000 mg PO Q12HR tab 08/25/24 [Rx] Follow up Appointment(s)/Referral(s): Nilo Ambrosio DO [Primary Care Provider] - 1 Week (After discharge from subacute rehab) Viktoria Urban MD [STAFF PHYSICIAN] - 2 Weeks [facility], [NON-STAFF] - As Needed ([facility] will call you to schedule your in home services. ) Bryon Cruz DO [STAFF PHYSICIAN] - 2 Weeks Activity/Diet/Wound Care/Special Instructions: Per [place] DMV avoid driving for 6 months until seizure free, avoid heights, swim unassisted or using heavy machinery. SAIRA: [facility] CBC, BMP, magnesium in 3 days Diet: Dysphagia 3 - chopped diet/consistent carbohydrate Discharge Disposition: TRANSFER TO SNF/ECF
--- NOTE | 2024-08-26 14:46 | P.PN ---
Subjective Progress Note Date: 08/26/24 Principal diagnosis: Reason for follow-up is fever/pneumonia Patient is a 83-year-old male with a past medical history significant for diabetes mellitus hypertension hyperlipidemia atrial fibrillation pneumonia, patient was brought into the hospital after the patient was found to be down in the bathroom patient noticed to be in DKA did have a fever elevated white count prompted this consultation. On today's evaluation that is 08/26/2024 the patient remains to be afebrile the patient is he is breathing comfortably current movement denies any chest pain shortness with occasional cough no nausea vomiting abdominal pain or diarrhea. Patient white count is 2.5, creatinine is 1.31 blood culture have been negative Objective - Vital Signs Vital signs: Vital Signs Temp 97.9 F 08/26/24 07:10 Pulse 79 08/26/24 07:10 Resp 16 08/26/24 07:10 BP 126/71 08/26/24 07:10 Pulse Ox 97 08/26/24 07:10 FiO2 40 08/20/24 21:05 Intake & Output 08/25/24 08/26/24 08/26/24 18:59 06:59 18:59 Intake Total 300 Balance 300 Intake: Intake, IV Titration 300 Amount Magnesium Sulfate-D5w Pmx 100 1 gm In Dextrose/Water 1 100ml.bag @ 100 mls/hr IVPB ONCE ONE Rx#: [id number] Piperacillin-Tazobactam 3 200 .375 gm In Sodium Chloride 0.9% 100 ml @ 25 mls/hr IVPB Q8HR [facility] Rx# :[id number] Other: Voiding Method Diaper Diaper # Voids 1 # Bowel Movements 1 - Exam GENERAL DESCRIPTION: An elderly male lying in bed in no distress RESPIRATORY SYSTEM: Unlabored breathing , clear to auscultation anteriorly HEART: S1 S2 regular rate and rhythm , ABDOMEN: Soft , no tenderness EXTREMITIES: No edema feet - Labs CBC & Chem 7: 08/26/24 05:27 08/26/24 05:27 Labs: Abnormal Lab Results - Last 24 Hours (Table) 08/25/24 08/25/24 08/25/24 Range/Units 06:42 16:30 19:59 WBC (3.8-10.6) k/uL RBC (4.30-5.90) m/uL Hgb (13.0-17.5) gm/dL Hct (39.0-53.0) % MCHC (31.0-37.0) g/dL Chloride (98-107) mmol/L Carbon Dioxide (22-30) mmol/L Creatinine (0.66-1.25) mg/dL POC Glucose (mg/dL) 331 H 314 H (70-110) mg/dL Calcium (8.4-10.2) mg/dL HDL Cholesterol 18.80 L (40.00-60.00) mg/dL 08/26/24 08/26/24 08/26/24 Range/Units 00:47 05:27 05:27 WBC 2.5 L (3.8-10.6) k/uL RBC 3.14 L (4.30-5.90) m/uL Hgb 7.9 L (13.0-17.5) gm/dL Hct 26.0 L (39.0-53.0) % MCHC 30.4 L (31.0-37.0) g/dL Chloride 115 H (98-107) mmol/L Carbon Dioxide 20 L (22-30) mmol/L Creatinine 1.31 H (0.66-1.25) mg/dL POC Glucose (mg/dL) 195 H (70-110) mg/dL Calcium 7.4 L (8.4-10.2) mg/dL HDL Cholesterol (40.00-60.00) mg/dL 08/26/24 Range/Units 12:01 WBC (3.8-10.6) k/uL RBC (4.30-5.90) m/uL Hgb (13.0-17.5) gm/dL Hct (39.0-53.0) % MCHC (31.0-37.0) g/dL Chloride (98-107) mmol/L Carbon Dioxide (22-30) mmol/L Creatinine (0.66-1.25) mg/dL POC Glucose (mg/dL) 286 H (70-110) mg/dL Calcium (8.4-10.2) mg/dL HDL Cholesterol (40.00-60.00) mg/dL Microbiology - Last 24 Hours (Table) 08/20/24 11:19 Blood Culture - Final Blood Assessment and Plan (1) Sepsis Status: Acute Code(s): A41.9 - SEPSIS, UNSPECIFIED ORGANISM SNOMED Code(s): 44624822 (2) Pneumonia Status: Acute Code(s): J18.9 - PNEUMONIA, UNSPECIFIED ORGANISM SNOMED Code(s): 226143861 (3) Thrush Status: Acute Code(s): B37.0 - CANDIDAL STOMATITIS SNOMED Code(s): 96393635 Plan: 1patient presented hospital with sepsis in this patient who did have a fever ta chycardia elevated white count bradycardia versus source possible right lower lobe pneumonia and the question of possible aspiration etiology as the patient did have seizure activity and no other obvious focus of infection on investigation or clinical examination. 2blood culture have been negative nasal screen for MRSA negative patient white count has normalized 3patient has shown clinical improvement on Zosyn plan to finish therapy with with oral Augmentin x 5 days on discharge and close outpatient follow-up Dictation was produced using [employer] dictation software. please excuse any grammatical, word or spelling errors. Time with Patient: Less than 30
--- NOTE | 2024-08-26 15:48 | CA ---
Transthoracic Echo Report Name: Perez Fuller Age: 83 Gender: M : 1940 Exam Date: 08/26/2024 12:09 Exam Location: [facility] Ht (in): 68 Wt (lb): 153 Ordering Physician: Donato Garcia MD Attending/Referring Phys: Supervisor [place] Lani Allison RDCS Procedure CPT: Indications: CVA Cardiac Hx: Technical Quality: Good Contrast 1: Total Dose (mL): Contrast 2: Total Dose (mL): MEASUREMENTS (Male / Female) Normal Values 2D ECHO LV Diastolic Diameter PLAX 6.1 cm 4.2 - 5.9 / 3.9 - 5.3 cm LV Systolic Diameter PLAX 5.0 cm IVS Diastolic Thickness 1.0 cm 0.6 - 1.0 / 0.6 - 0.9 cm LVPW Diastolic Thickness 1.0 cm 0.6 - 1.0 / 0.6 - 0.9 cm LV Relative Wall Thickness 0.3 RV Internal Dim ED PLAX 3.9 cm LVOT Diameter 2.2 cm LA Systolic Diameter LX 4.4 cm 3.0 - 4.0 / 2.7 - 3.8 cm LV Diastolic Volume MOD 4C 133.2 cm??? LV Systolic Volume MOD 4C 80.0 cm??? LV Ejection Fraction MOD 4C 39.9 % LV Cardiac Index MOD 4C 2036.6 cm???/min???m??? LV Diastolic Length 4C 8.2 cm LV Systolic Length 4C 6.9 cm LV Diastolic Volume MOD 2C 98.8 cm??? LV Systolic Volume MOD 2C 57.3 cm??? LV Ejection Fraction MOD 2C 41.9 % LV Cardiac Index MOD 2C 1586.1 cm???/min???m??? LV Diastolic Length 2C 9.0 cm LV Systolic Length 2C 7.7 cm LA Volume 85.3 cm??? 18 - 58 / 22 - 52 cm??? LA Volume Index 46.7 cm???/m??? 16 - 28 cm???/m??? M-MODE Aortic Root Diameter MM 3.7 cm DOPPLER AV Peak Velocity 252.0 cm/s AV Peak Gradient 25.4 mmHg AV Mean Velocity 174.0 cm/s AV Mean Gradient 13.3 mmHg AV Velocity Time Integral 60.2 cm AI Peak Velocity 358.5 cm/s AI Peak Gradient 51.4 mmHg AI Pressure Half Time 550.0 ms LVOT Peak Velocity 115.0 cm/s LVOT Peak Gradient 5.3 mmHg LVOT Velocity Time Integral 25.0 cm LVOT Stroke Volume 94.6 cm??? LVOT Stroke Volume Index 51.8 ml/m??? LVOT Cardiac Index 3619.6 cm???/min???m??? AV Area Cont Eq vti 1.6 cm??? AV Area Cont Eq pk 1.7 cm??? TR Peak Velocity 256.4 cm/s TR Peak Gradient 26.3 mmHg Right Ventricular Systolic Press 31.3 mmHg FINDINGS Left Ventricle Left ventricular ejection fraction is estimated at 40-45 %. Mildly increased left ventricular diastolic diameter. Left ventricular cavity size normal. Mildly reduced global left ventricular systolic function. Right Ventricle Moderate right ventricular dilatation. Right ventricular systolic pressure within normal limits. Right Atrium Normal right atrial size. No right atrial thrombus or mass seen. Negative agitated saline bubble study for right to left shunt. Left Atrium Mildly increased left atrial diameter. Severely increased left atrial volume. Mildly increased left atrial area. No left atrial thrombus or mass present. Mitral Valve Structurally normal mitral valve. No evidence for mitral valve prolapse. No mitral stenosis. Mild mitral regurgitation. Aortic Valve Trileaflet aortic valve. Aortic valve sclerosis. Mild aortic stenosis with a peak gradient of 25 mmHg and a mean gradient of 13 mmHg. Tricuspid Valve Structurally normal tricuspid valve. Mild tricuspid regurgitation. Pulmonic Valve Structurally normal pulmonic valve. No pulmonic regurgitation. Pericardium No pericardial effusion. Aorta Normal size aortic root and proximal ascending aorta. CONCLUSIONS Left ventricular ejection fraction 40-45% RVSP 31 Negative bubble study Moderately dilated left atrium Mild mitral regurgitation Mild aortic stenosis Mild tricuspid regurgitation Previewed by: Dr. Palomo Hartmann DO (Electronically Signed) Final Date: 26 August 2024 15:48
== END 2024-08-26 14:31 | DRG 871 ==
LOC: EC 09:57 → 2SICU 12:31 → 4SSUR 08-21 16:51
PROVIDERS: ADMIT Family Medicine; ATTEND Family Medicine
DX: A41.9 Sepsis, unspecified organism (principal); E11.10 Type 2 diabetes mellitus with ketoacidosis without coma; J69.0 Pneumonitis due to inhalation of food and vomit; G93.41 Metabolic encephalopathy; J15.9 Unspecified bacterial pneumonia; J96.01 Acute respiratory failure with hypoxia; I21.A1 Myocardial infarction type 2; I42.0 Dilated cardiomyopathy; I48.20 Chronic atrial fibrillation, unspecified; D63.1 Anemia in chronic kidney disease; E11.22 Type 2 diabetes mellitus with diabetic chronic kidney disease; N18.30 Chronic kidney disease, stage 3 unspecified; R56.9 Unspecified convulsions; J45.20 Mild intermittent asthma, uncomplicated; I12.9 Hypertensive chronic kidney disease with stage 1 through stage 4 chronic kidney disease, or unspecified chronic kidney disease; I48.92 Unspecified atrial flutter; K50.90 Crohn's disease, unspecified, without complications; B37.0 Candidal stomatitis; N17.9 Acute kidney failure, unspecified; N13.2 Hydronephrosis with renal and ureteral calculous obstruction; Z79.4 Long term (current) use of insulin; R65.20 Severe sepsis without septic shock; R13.10 Dysphagia, unspecified; E87.6 Hypokalemia; M19.90 Unspecified osteoarthritis, unspecified site; R29.6 Repeated falls; N40.1 Benign prostatic hyperplasia with lower urinary tract symptoms; K21.9 Gastro-esophageal reflux disease without esophagitis; Z96.41 Presence of insulin pump (external) (internal); S01.512A Laceration without foreign body of oral cavity, initial encounter; E78.5 Hyperlipidemia, unspecified; M10.9 Gout, unspecified; W19.XXXA Unspecified fall, initial encounter; Z79.899 Other long term (current) drug therapy; Z11.52 Encounter for screening for COVID-19; Z79.01 Long term (current) use of anticoagulants; Z85.828 Personal history of other malignant neoplasm of skin; Z86.73 Personal history of transient ischemic attack (TIA), and cerebral infarction without residual deficits
CPT/HCPCS: 36410; 36415; 36600; 70450; 70553; 71045; 71260; 72125; 72170; 74177; 76937; 80048; 80051; 80053; 80061; 80306; 80320; 81001; 82009; 82565; 82607; 82728; 82746; 82805; 82947; 83540; 83550; 83605; 83735; 84100; 84484; 84520; 85025; 85027; 85610; 85730; 86850; 86900; 86901; 87040; 87070; 87449; 87636; 93005; 93306; 93880; 94660; 95816; 96361; 96365; 96367; 96375; 99291